=== PATIENT | female | born 1960 | race Hispanic/Latino ===

== ENCOUNTER 2017-10-13 06:29 | Inpatient (IN) | payer OTHER ==
--- OUTSIDE RECORDS SUMMARY | 2017-10-13 06:32 | XMS REPORT | Clinical Summary ---
:1960 Author Organization [facility] Address [address] [place] [address] Phone Care Team Providers Name Role Phone Unavailable Primary Care Provider Unavailable Allergies No Known Allergies Current Medications Prescription Sig. Disp. Refills Start End Date Status Date pantoprazole Take 40 mg by Active (PROTONIX) 40 MG mouth daily. tablet rifAXIMin 550 mg Take 550 mg by Active Tab mouth 2 (two) times daily. montelukast Take 10 mg by Active (SINGULAIR) 10 mg mouth nightly. tablet albuterol HFA Inhale 1 puff by Active (VENTOLIN HFA) 90 mouth via inhaler mcg/actuation 2 (two) times inhaler daily as needed for Shortness of Breath. folic acid Take 1 tablet (1 30 tablet 0 09/06/19 Active (FOLVITE) 1 MG mg total) by mouth 8 19 tablet daily. lactulose Take 45 mLs (30 g 1000 mL 0 Active (CHRONULAC) 10 total) by mouth 3 8 gram/15 mL (15 mL) (three) times solution daily. magnesium oxide Take 1 tablet (400 15 tablet 0 09/06/19 Active (MAG-OX) 400 mg mg total) by mouth 8 19 tablet daily. spironolactone Take 1 tablet (50 90 tablet 0 Active (ALDACTONE) 50 MG mg total) by mouth 8 tablet daily. ferrous sulfate 325 Take 1 tablet (325 90 tablet 0 09/05/19 Active (65 FE) MG EC mg total) by mouth 8 19 tablet 3 (three) times daily with meals. furosemide (LASIX) Take 1 tablet (40 180 tablet 0 03/05/201 03/05/20 Active 40 MG tablet mg total) by mouth 8 19 2 (two) times daily. carvedilol (COREG) Take 6.25 mg by 09/05/19 Discontinued 6.25 MG tablet mouth 2 (two) 18 times daily with breakfast and dinner. ciprofloxacin HCl Take 500 mg by 09/05/19 Discontinued (CIPRO) 500 MG mouth daily. 18 tablet lactulose Take 20 g by mouth 09/05/19 Discontinued (CHRONULAC) 10 3 (three) times 18 gram/15 mL (15 mL) daily. solution spironolactone Take 25 mg by 09/05/19 Discontinued (ALDACTONE) 25 MG mouth daily. 18 tablet midodrine Take 1 tablet (5 90 tablet 0 10/05/19 (PROAMATINE) 5 MG mg total) by mouth 8 18 tablet 3 (three) times daily for 30 days. epoetin mauricio Inject 1 mL 12 mL 0 10/05/19 (EPOGEN,PROCRIT) (10,000 Units 8 18 10,000 unit/mL total) injectionIndication subcutaneously 3 s: Anemia (three) times a week at bedtime for 30 days. Active Problems Problem Noted Date Abnormal liver enzymes 10/05/2017 Portal hypertension (HCC) 10/05/2017 Other ascites 10/05/2017 Metabolic syndrome 10/05/2017 Cancer screening 10/05/2017 Immunity status testing 10/05/2017 Acute respiratory failure with hypoxia (HCC) 08/30/2017 Portal hypertensive gastropathy (HCC) 08/30/2017 Refusal of blood transfusions as patient is Anabaptism 08/28/2017 Metabolic acidosis 08/28/2017 Weak 08/28/2017 Alcoholic cirrhosis of liver with ascites (HCC) 08/26/2017 Hepatic encephalopathy (HCC) 08/26/2017 Anasarca 08/26/2017 FLORIDALMA (acute kidney injury) (HCC) 08/26/2017 Anemia 08/26/2017 Encounters Date Type Specialty Care Team Description 10/05/2017 Office Visit Hepatology Marielena, Alcoholic cirrhosis Riu Tovar, of liver with MD ascites (HCC) Erin Cao (Primary Dx);Hepatic ARTEM Marti encephalopathy (HCC);Abnormal liver enzymes;Portal hypertension (HCC);Other ascites;Metabolic syndrome;Cancer screening;Immunity status testing 08/30/2017 Anesthesia Event Gastroenterology Reece Schmitt MD 08/30/2017 Procedure Pass Gastroenterology 08/30/2017 Surgery Gastroenterology Antione, UPPER ENDOSCOPY Amaris Herman MD 08/26/2017 [facility] Internal Wenceslao Salazar Hepatic - Encounter Medicine MD Yoseph encephalopathy (HCC) 09/04/2017 Betty, (Primary Dx);FLORIDALMA Kaia Ashby MD (acute kidney Ramesh, injury) MD Sebastien (HCC);Alcoholic Risa Walton, cirrhosis of liver with ascites (HCC);Anasarca;Iron deficiency anemia, unspecified iron deficiency anemia type;Splenic pancytopenia syndrome (HCC);Thrombocytopen ia (HCC);Coagulopathy (HCC);Refusal of blood transfusions as patient is Anabaptism 08/26/2017 Orders Only Internal Medicine Wenceslao Salazar MD after 10/12/2016 Social History Tobacco Use Types Packs/Day Years Used Date Former Smoker Smokeless Tobacco: Former User Alcohol Use Drinks/Week oz/Week Comments Yes 2 Glasses of wine 2.4 1 Cans of beer 1 Shots of liquor Sex Assigned at Date Recorded Not on file Last Filed Vital Signs Vital Sign Reading Time Taken Blood Pressure 145/75 10/05/2017 10:15 AM CDT Pulse 73 10/05/2017 10:15 AM CDT Temperature 36.9 C (98.4 F) 10/05/2017 10:15 AM CDT Respiratory Rate 18 10/05/2017 10:15 AM CDT Oxygen Saturation 99% 10/05/2017 10:15 AM CDT Inhaled Oxygen Concentration - - Weight 82.3 kg (181 lb 8 oz) 10/05/2017 10:15 AM CDT Height 153.7 cm (5' 0.5") 10/05/2017 10:15 AM CDT Body Mass Index 34.86 10/05/2017 10:15 AM CDT Plan of Treatment Not on file Procedures Procedure Name Priority Date/Time Associated Diagnosis Comments UPPER ENDOSCOPY 08/30/2017 8:00 AM OCEAN BIOLOGIST ANEMIA after 10/12/2016 Results RHYTHM STRIP - SCAN (09/06/2017 12:40 PM)Manual Differential (09/01/2017 8:59 AM)Only the most recent of2 resultswithin the time period is included. Component Value Ref Range % Neutros (manual) 49 % % Lymphs (manual) 28 % % Monos (manual) 14 % % Eos (manual) 6 % % Myelo (manual) 1 (H) 0 - 0 % % Bands (manual) 2 0 - 10 % # Neutros (manual) 2.06 1.80 - 8.00 K/L # Lymphs (manual) 1.18 (L) 1.48 - 4.50 K/L # Monos (manual) 0.59 0.00 - 1.30 K/L # Eos (manual) 0.25 0.00 - 0.50 K/L # Bands (manual) 0.1 0.0 - 0.8 K/L # Myelo (manual) 0.04 (H) 0.00 - 0.00 K/L Total Counted 100 Bands plus Segmented Neutrophils 2.14 WBC Morphology Normal Platelet Morphology Normal Polychromasia 1+ few Specimen Performing Laboratory Blood - Line, Venous [facility] [address] [address] CBC with platelet count + automated diff (09/01/2017 8:59 AM)Only the most recent of5 resultswithin the time period is included. Component Value Ref Range WBC 4.2 3.5 - 10.5 K/L RBC 1.52 (L) 3.93 - 5.22 M/L Hemoglobin 5.6 (LL) 11.2 - 15.7 GM/DL Hematocrit 17.8 (L) 34.1 - 44.9 % MCV 117.1 (H) 79.4 - 94.8 fL MCH 36.8 (H) 25.6 - 32.2 pg MCHC 31.5 (L) 32.2 - 35.5 GM/DL RDW 17.2 (H) 11.7 - 14.4 % Platelets 71 (L) 150 - 450 K/CU MM MPV 10.1 9.4 - 12.3 fL nRBC 1 (H) 0 - 0 /100 WBC % Neutros 51 % % Lymphs 23 % % Monos 16 % % Eos 6 % % Baso 1 % # Neutros 2.16 1.56 - 6.13 K/L # Lymphs 0.97 (L) 1.18 - 3.74 K/L # Monos 0.67 (H) 0.24 - 0.36 K/L # Eos 0.27 0.04 - 0.36 K/L # Baso 0.03 0.01 - 0.08 K/L Immature Granulocytes-Relative 2 (H) 0 - 1 % Specimen Performing Laboratory Blood - Line, [address] [address] Reticulocyte count (09/01/2017 8:59 AM)Only the most recent of2 resultswithin the time period is included. Component Value Ref Range % Retic 9.2 (H) 0.5 - 1.7 % Specimen Performing Laboratory Blood - Line, [address] [address] CBC with platelet count + automated diff (09/01/2017 8:59 AM)Only the most recent of5 resultswithin the time period is included. Specimen Performing Laboratory Blood Narrative The following orders were created for panel order CBC with platelet count + automated diff. Procedure Abnormality Status --------- ------ CBC with platelet count ...[[id number]]AbnormalFinal result Manual Differential[[id number]]Abnormal Final result Please view results for these tests on the individual orders. Magnesium (09/01/2017 8:59 AM)Only the most recent of2 resultswithin the time period is included. Component Value Ref Range Magnesium 1.4 (L) 1.6 - 2.6 mg/dL Specimen Performing Laboratory Blood - Line, [address] [address] Comprehensive metabolic panel (09/01/2017 8:59 AM)Only the most recent of2 resultswithin the time period is included. Component Value Ref Range Protein, Total 4.9 (L) 6.0 - 8.3 gm/dL Albumin 2.9 (L) 3.5 - 5.0 g/dL Alkaline Phosphatase 102 40 - 150 U/L Total Bilirubin 5.1 (H) 0.2 - 1.2 mg/dL Sodium 136 136 - 145 meq/L Potassium 3.7 3.5 - 5.1 meq/L Chloride 108 (H) 98 - 107 meq/L CO2 22 22 - 29 meq/L BUN 30 (H) 7 - 21 mg/dL Creatinine 1.22 0.57 - 1.25 mg/dL Glucose 101 70 - 105 mg/dL Calcium 8.4 8.4 - 10.2 mg/dL AST 41 (H) 5 - 34 U/L ALT 22 6 - 55 U/L EGFR Comment: INSUFFICIENT CLINICAL DATA TO mL/min/1.73 sq m CALCULATE ESTIMATED GFR. Specimen Performing Laboratory Blood - Line, Venous [address] [address] Narrative Specimen moderately icteric Erythropoietin (08/31/2017 12:04 PM) Component Value Ref Range Erythropoietin 258.8 (H) 2.6 - 18.5 mIU/mL Specimen Performing Laboratory Blood - Arm, Right [facility] [address] [place] [address] Narrative Performing Lab EZ [facility] [id number] [place] [id number] Christie Coronel MD, PhD ECHOCARDIOGRAM REPORT - SCAN (08/31/2017 7:22 AM)Prothrombin time/INR (2017 11:43 AM)Only the most recent of4 resultswithin the time period is included. Component Value Ref Range Protime 29.7 (H) 11.7 - 14.7 seconds INR 2.8 <=5.9 Specimen Performing Laboratory Blood [address] [address] Narrative RECOMMENDED COUMADIN/WARFARIN INR THERAPY RANGES STANDARD DOSE: 2.0 - 3.0 Includes: PROPHYLAXIS for venous thrombosis, systemic embolization; TREATMENT for venous thrombosis and/or pulmonary embolus. HIGH RISK: Target INR is 2.5-3.5 for patients with mechanical heart valves. Fibrinogen (08/30/2017 11:43 AM) Component Value Ref Range Fibrinogen 94 (LL) 225 - 434 mg/dl Specimen Performing Laboratory Blood [address] [address] Basic Metabolic Panel (08/30/2017 11:43 AM)Only the most recent of3 resultswithin the time period is included. Component Value Ref Range Sodium 139 136 - 145 meq/L Potassium 4.2 3.5 - 5.1 meq/L Chloride 111 (H) 98 - 107 meq/L CO2 17 (L) 22 - 29 meq/L BUN 36 (H) 7 - 21 mg/dL Creatinine 1.33 (H) 0.57 - 1.25 mg/dL Glucose 138 (H) 70 - 105 mg/dL Calcium 8.7 8.4 - 10.2 mg/dL EGFR Comment: INSUFFICIENT CLINICAL DATA TO CALCULATE mL/min/1.73 sq m ESTIMATED GFR. Specimen Performing Laboratory Blood [facility] [address] [address] Narrative Specimen moderately icteric 2D Echo W/Doppler(CW/PW/Color) (08/30/2017 9:36 AM) Component Value Ref Range Ejection Fraction Specimen Performing Laboratory [facility] ECHO [facility] Narrative Transthoracic Echocardiography Report (TTE) Demographics Patient Name HEATHER LOVE Date of Study 08/30/2017 DIONISIO [id number] GenderFemale Visit Number [id number] Race Unknown [id number] Number [id number] Number Date of Birth1960 Referring Physician James Silvestre MD Age56 year(s) Humidifier Attendant Jarrod Bloom, [facility] [[email or web address]] AnalysLou Armijo,Interpreting Melva Woods, [facility] Physician Procedure Type of Study TTE procedure:2DECHO W DOPPLER(CW/PW/COLOR) (Routine) Indications:Known or suspected heart failure. Clinical History ALCOHOLIC, CIRRHOSIS, HTN, ANEMIA, OBESITY HGB 6.0 HCT 18.4 Height: 60 inches Weight: 120.2 kg (265 lbs) BSA: 2.1 m^2 BMI: 51.75 kg/m^2 HR: 62 bpm BP: 123/61 mmHg Summary 1. All of the LV segments contract normally . Estimated LVEF by qualitative assessment is normal (55-60%) . 2. Grade 2 diastolic dysfunction (moderately increased LA pressure). Estimated peak systolic PA pressure is 45-50 mmHg + RA pressure. 3. The right ventricular chamber size and systolic function are within normal limits Previous Study No prior exam available for comparison. Signature Findings Technical Quality: Technically adequate exam. Left Ventricle The left ventricle is chamber size (by vol index) is normal (female - LVED vol - 29-61ml/m2). No evidence of LV hypertrophy. All of the LV segments contract normally . Global LV systolic function normal . Estimated LVEF by qualitative assessment is normal (55-60%) . Grade 2 diastolic dysfunction (moderately increased LA pressure). Increased (cardiac index 3.5- 4.0 L/min/m2) cardiac output state at rest is noted. Left AtriumLA size is severely enlarged (>48 ml/m2 ) . Right VentricleThe right ventricular chamber size and systolic function are within normal limits. Right Atrium RA cavity size is normal . Aortic Valve Mild AoV cusp calcification. No evidence of aortic regurgitation. Mitral Valve Mild mitral annular calcification. Mild MV leaflet thickening. Tricuspid ValveTV structure is normal. Mild tricuspid regurgitation. Estimated peak systolic PA pressure is 45-50 mmHg + RA pressure. AortaAortic root size (SInus of Valsalva diameter) is normal . PericardiumA small pericardial effusion is present . IVC/SVC/PA/PV/PleuralThe inferior vena cava is not well visualized. The inferior vena cava size is indeterminate . The estimated RA pressure by IVC dynamics indeterminate . Chambers/Structures Left Atrium LA Volume: 105.34 mlLA Area: 29.02 cm^ 2 LA Vol. Index: 50 ml/m^2 Left Ventricle LVIDd: 4.59 cm LVIDs: 2.72 cm LV Septum Diastolic: 1.16 cm LV PW Diastolic: 1.23 cmLV FS: 40.7 % LVEDV Dolan's:127.92 ml LVEDVI: 61 ml/m^2 LVOT Diameter: 2.17 cm Aorta Ao Root S of Hayley.: 2.66 cm Doppler/Quantitative Measurements Mitral Valve MV Peak E-Wave: 1.49 m/s MV Peak A-Wave: 1.21 m/s E/A Ratio: 1.23 Peak Gradient: 8.93 mmHg Deceleration Time: 164.5 msec MV David. Peak: Aortic Valve Peak Velocity: 1.95 m/s Mean Velocity: 1.25 m/s Peak Gradient: 15.17 mmHg Mean Gradient: 7.2 mmHg AV Area (continuity): 2.62 cm^2 AV VTI: 48.16 cm AV DVI: 0.71 LVOT Peak Velocity: 1.43 m/s Peak Gradient: 8.16 mmHg Mean Velocity: 0.86 m/s Mean Gradient: 3.47 mmHg LVOT Diameter: 2.17 cmLVOT VTI: 34.11 cm LVOT Area: 3.7 cm^2 LVOT SV:126.09 ml LVOT CO: 7.82 l/min LVOT CI: 3.72 l/min/m^2 Tricuspid Valve TR Velocity: 3.49 m/s TR Gradient: 48.86 mmHg Procedure Note Interface, External Ris In - 08/30/2017 9:01 PM OCEAN BIOLOGIST Transthoracic Echocardiography Report (TTE) Demographics Patient Name HEATHER LOVE Date of Study 08/30/2017 DIONISIO Gender Female Visit Number [id number] Race Unknown Room Number 709 Number Date of 1960 Referring Physician James Silvestre MD Age 56 year(s) Humidifier Attendant Jarrod Bloom, [facility] [[email or web address]] Ict Systems Test Engineer Saira Armijo, Interpreting Melva Woods, [facility] Physician Procedure Type of Study TTE procedure:2DECHO W DOPPLER(CW/PW/COLOR) (Routine) Indications:Known or suspected heart failure. Clinical History ALCOHOLIC, CIRRHOSIS, HTN, ANEMIA, OBESITY HGB 6.0 HCT 18.4 Height: 60 inches Weight: 120.2 kg (265 lbs) BSA: 2.1 m^2 BMI: 51.75 kg/m^2 HR: 62 bpm BP: 123/61 mmHg Summary 1. All of the LV segments contract normally . Estimated LVEF by qualitative assessment is normal (55-60%) . 2. Grade 2 diastolic dysfunction (moderately increased LA pressure). Estimated peak systolic PA pressure is 45-50 mmHg + RA pressure. 3. The right ventricular chamber size and systolic function are within normal limits Previous Study No prior exam available for comparison. Signature Findings Technical Quality: Technically adequate exam. Left Ventricle The left ventricle is chamber size (by vol index) is normal (female - LVED vol - 29-61ml/m2). No evidence of LV hypertrophy. All of the LV segments contract normally . Global LV systolic function normal . Estimated LVEF by qualitative assessment is normal (55-60%) . Grade 2 diastolic dysfunction (moderately increased LA pressure). Increased (cardiac index 3.5-4.0 L/min/m2) cardiac output state at rest is noted. Left Atrium LA size is severely enlarged (>48 ml/m2) . Right Ventricle The right ventricular chamber size and systolic function are within normal limits. Right Atrium RA cavity size is normal . Aortic Valve Mild AoV cusp calcification. No evidence of aortic regurgitation. Mitral Valve Mild mitral annular calcification. Mild MV leaflet thickening. Tricuspid Valve TV structure is normal. Mild tricuspid regurgitation. Estimated peak systolic PA pressure is 45-50 mmHg + RA pressure. Aorta Aortic root size (SInus of Valsalva diameter) is normal . Pericardium A small pericardial effusion is present . IVC/SVC/PA/PV/Pleural The inferior vena cava is not well visualized. The inferior vena cava size is indeterminate . The estimated RA pressure by IVC dynamics indeterminate . Chambers/Structures Left Atrium LA Volume: 105.34 ml LA Area: 29.02 cm^2 LA Vol. Index: 50 ml/m^2 Left Ventricle LVIDd: 4.59 cm LVIDs: 2.72 cm LV Septum Diastolic: 1.16 cm LV PW Diastolic: 1.23 cm LV FS: 40.7 % LVEDV Dolan's:127.92 ml LVEDVI: 61 ml/m^2 LVOT Diameter: 2.17 cm Aorta Ao Root S of Hayley.: 2.66 cm Doppler/Quantitative Measurements Mitral Valve MV Peak E-Wave: 1.49 m/s MV Peak A-Wave: 1.21 m/s E/A Ratio: 1.23 Peak Gradient: 8.93 mmHg Deceleration Time: 164.5 msec MV David. Peak: Aortic Valve Peak Velocity: 1.95 m/s Mean Velocity: 1.25 m/s Peak Gradient: 15.17 mmHg Mean Gradient: 7.2 mmHg AV Area (continuity): 2.62 cm^2 AV VTI: 48.16 cm AV DVI: 0.71 LVOT Peak Velocity: 1.43 m/s Peak Gradient: 8.16 mmHg Mean Velocity: 0.86 m/s Mean Gradient: 3.47 mmHg LVOT Diameter: 2.17 cm LVOT VTI: 34.11 cm LVOT Area: 3.7 cm^2 LVOT SV:126.09 ml LVOT CO: 7.82 l/min LVOT CI: 3.72 l/min/m^2 Tricuspid Valve TR Velocity: 3.49 m/s TR Gradient: 48.86 mmHg REPORT OF PROCEDURE - ENDOSCOPY URL (08/30/2017 8:13 AM)US abdominal with doppler (08/29/2017 7:02 PM) Specimen Performing Laboratory [employer] [address] [employer] FINAL REPORT HISTORY : Cirrhosis COMPARISON : None COMMENT : Complete ultrasound examination of the abdomen with color Doppler and spectral evaluation of the abdominal vasculature was performed. The liver is heterogeneous and nodular in echo-texture without evidence of a focal mass. The patient is status post cholecystectomy. The biliary tract is within normal limits with the common bile duct measuring 6 mm in maximum diameter.The visualized portions of the pancreas are within normal limits. The spleen size is at the upper limits of normal measuring 12.7 x 4.5 x 3.7 cm. The right kidney measures 11.0 x 5.1 x 5.3 cm and the left kidney 11.7 x 5.0 x 5.3 cm in maximum size. There is no evidence of cysts, masses, stones or hydronephrosis. No pleural effusion is visualized. There is a small amount of abdominal ascites in the right upper quadrant of the abdomen. The abdominal aorta measures to a maximum of 2.4 cm. The main portal vein demonstrates hepatopetal flow and measures 0.8 cm in diameter with a peak systolic velocity of 0.22 m/s. The right portal vein demonstrates hepatopetal flow. No thrombus is identified in the visualized portal veins. Of note, the left portal vein was unable to be visualized due to shadowing bowel gas. The resistive index of the proper hepatic artery is 0.84 with an acceleration time of 0.04 sec. The resistive index of the right hepatic artery is 0.83. The left hepatic artery was unable to be visualized. The visualized IVC, hepatic and splenic veins are patent with appropriate directional flow. IMPRESSION : 1. Cirrhotic morphology of the liver. 2. Small amount of abdominal ascites, predominantly in the right upper quadrant of the abdomen. 3. Nonvisualization of the left portal vein and left hepatic artery due to shadowing bowel gas, precluding evaluation. 4. Nonspecifically elevated resistive indices of the proper and right hepatic arteries. The remainder of the Doppler examination of the visualized abdominal/hepatic vasculature is within normal limits. Signed: Khalif Thompson MD Report Verified Date/Time:08/29/2017 20:26:57 Reading Location: [address] Consult Reading Room Procedure Note Interface, External Ris In - 08/29/2017 8:29 PM OCEAN BIOLOGIST FINAL REPORT HISTORY : Cirrhosis COMPARISON : None COMMENT : Complete ultrasound examination of the abdomen with color Doppler and spectral evaluation of the abdominal vasculature was performed. The liver is heterogeneous and nodular in echo-texture without evidence of a focal mass. The patient is status post cholecystectomy. The biliary tract is within normal limits with the common bile duct measuring 6 mm in maximum diameter. The visualized portions of the pancreas are within normal limits. The spleen size is at the upper limits of normal measuring 12.7 x 4.5 x 3.7 cm. The right kidney measures 11.0 x 5.1 x 5.3 cm and the left kidney 11.7 x 5.0 x 5.3 cm in maximum size. There is no evidence of cysts, masses, stones or hydronephrosis. No pleural effusion is visualized. There is a small amount of abdominal ascites in the right upper quadrant of the abdomen. The abdominal aorta measures to a maximum of 2.4 cm. The main portal vein demonstrates hepatopetal flow and measures 0.8 cm in diameter with a peak systolic velocity of 0.22 m/s. The right portal vein demonstrates hepatopetal flow. No thrombus is identified in the visualized portal veins. Of note, the left portal vein was unable to be visualized due to shadowing bowel gas. The resistive index of the proper hepatic artery is 0.84 with an acceleration time of 0.04 sec. The resistive index of the right hepatic artery is 0.83. The left hepatic artery was unable to be visualized. The visualized IVC, hepatic and splenic veins are patent with appropriate directional flow. IMPRESSION : 1. Cirrhotic morphology of the liver. 2. Small amount of abdominal ascites, predominantly in the right upper quadrant of the abdomen. 3. Nonvisualization of the left portal vein and left hepatic artery due to shadowing bowel gas, precluding evaluation. 4. Nonspecifically elevated resistive indices of the proper and right hepatic arteries. The remainder of the Doppler examination of the visualized abdominal/hepatic vasculature is within normal limits. Signed: Khalif Thompson MD Report Verified Date/Time: 08/29/2017 20:26:57 Reading Location: [facility] C013[facility] Consult Reading Room chest 1 view portable / bedside (08/28/2017 6:49 PM)Only the most recent of2 resultswithin the time period is included. Specimen Performing Laboratory RIS Narrative FINAL REPORT RAD, CHEST, 1 VIEW, NON DEPT INDICATION: SOB COMPARISON: Prior day's exam FINDINGS: Portable frontal view of the chest. IMPRESSION: Underinflated lungs with increasing coarsened interstitial markings suggesting subsegmental atelectasis and likely some degree of edema given the central vascular congestion. Cardiac size remains prominent. The aortic caliber is normal. There is no acute osseous abnormality. Signed: JR Valentino Robert MD Report Verified Date/Time:08/28/2017 21:28:23 Reading Location: [facility] B1 C013Y CT Body Reading Room Procedure Note Interface, External Ris In - 08/28/2017 9:30 PM OCEAN BIOLOGIST FINAL REPORT RAD, CHEST, 1 VIEW, NON DEPT INDICATION: SOB COMPARISON: Prior day's exam FINDINGS: Portable frontal view of the chest. IMPRESSION: Underinflated lungs with increasing coarsened interstitial markings suggesting subsegmental atelectasis and likely some degree of edema given the central vascular congestion. Cardiac size remains prominent. The aortic caliber is normal. There is no acute osseous abnormality. Signed: JR Chicho, Lizett ANN Report Verified Date/Time: 08/28/2017 21:28:23 Reading Location: [facility] C013Y CT Body Reading Room 12 lead (08/28/2017 4:50 PM) Specimen Performing Laboratory [employer] M[facility] Narrative Ventricular Rate 63 BPM Atrial Rate 63 BPM P-R Interval 168 ms QRS Duration 88 ms Q-T Interval 398 ms QTC Calculation(Bazett) 407 ms P [place] 7 degrees R [place] 31 degrees T [place] 34 degrees Normal sinus rhythm Low voltage QRS Cannot rule out Anterior infarct , age undetermined Abnormal ECG No previous ECGs available Confirmed by MD FRANCE, IHAB ([id number]) on 08/28/2017 9:31:44 PM Procedure Note Interface, External Ris In - 08/28/2017 9:31 PM OCEAN BIOLOGIST Ventricular Rate 63 BPM Atrial Rate 63 BPM P-R Interval 168 ms QRS Duration 88 ms Q-T Interval 398 ms QTC Calculation(Bazett) 407 ms P [place] 7 degrees R [place] 31 degrees T [place] 34 degrees Normal sinus rhythm Low voltage QRS Cannot rule out Anterior infarct , age undetermined Abnormal ECG No previous ECGs available Confirmed by MD FRANCE, IHAB ([id number]) on 08/28/2017 9:31:44 PM C-Reactive Protein (08/28/2017 12:23 PM) Component Value Ref Range CRP 0.42 0.00 - 0.50 mg/dL Specimen Performing Laboratory Blood [address] [address] Sedimentation rate (08/28/2017 12:23 PM) Component Value Ref Range Sed Rate 18 0 - 30 mm/HR Specimen Performing Laboratory Blood [address] [address] Hepatic function panel (08/28/2017 12:23 PM)Only the most recent of2 resultswithin the time period is included. Component Value Ref Range Protein, Total 5.5 (L) 6.0 - 8.3 gm/dL Albumin 3.5 3.5 - 5.0 g/dL Total Bilirubin 5.6 (H) 0.2 - 1.2 mg/dL Bilirubin, Direct 2.4 (H) 0.1 - 0.5 mg/dL Alkaline Phosphatase 96 40 - 150 U/L AST 47 (H) 5 - 34 U/L ALT 26 6 - 55 U/L Specimen Performing Laboratory Blood [address] [address] Narrative Specimen moderately icteric Blood culture (08/28/2017 11:41 AM)Only the most recent of2 resultswithin the time period is included. Component Value Ref Range Result No growth in 5 days Specimen Performing Laboratory Blood - Arm, Right [address] [address] Hepatitis A antibody, IgG (08/28/2017 1:02 AM) Component Value Ref Range Hep A IgG Reactive (A) Nonreactive Specimen Performing Laboratory Blood - Arm, Right [address] [address] Anti-Mitochondrial Ab, reflex to titer (08/28/2017 1:02 AM) Component Value Ref Range Scan Result Specimen Performing Laboratory Blood - Arm, Right [address] [address] Alpha-1 antitrypsin Mutation Analysis (08/28/2017 1:02 AM) Component Value Ref Range A1 Antitrypsin Mut SEE BELOW Comment: RESULT: NO MUTATION DETECTED Interpretation: DNA testing indicates that this individual is negative for the PI*Z and PI*S alleles in the wbsmd-7-spnruczvsxi (PI) gene (genotype PI*M/PI*M). This negative result does not rule out the presence of other mutations within the PI gene or other causes of esycf-0-aufvrnbovqw deficiency. Therefore, these results should be interpreted in the context of the individual's clinical presentation, and other laboratory tests such as measurement of serum owcrd-7-yzgqilthqmq levels. Laboratory results and submitted clinical information reviewed by Clarice Scott, Ph.D., AMARA, MACKENZIE, CGRUDYs. Ehahn-3-zkrscaootqa deficiency is a relatively common autosomal recessive condition. The two most common deficiency alleles in the lbiph-1-fmqsmlqpnzt gene (protease inhibitor locus, PI) are designated PI*Z and PI*S, and the normal allele is designated PI*M. The PI*Z/PI*Z, PI*S/PI*Z, and PI*S/PI*S genotypes associated with decreased serum PI levels that are equivalent to approximately 10-20%, 35-40%, and 50-60% of normal, respectively. The PI*Z/PI*Z and PI*S/PI*Z genotypes are reported to be associated with an increased risk of liver disease in childhood, and chronic obstructive pulmonary disease (COPD) and emphysema in adult life. The PI*M/PI*Z, and PI*M/PI*S genotypes are also associated with decreased serum PI levels but these levels, and the PI levels associated with the PI*S/PI*S genotype, are apparently adequate to protect the lungs in the vast majority of individuals. Individuals with the PI*M/PI*Z genotype may have decreased pulmonary function, and may be at increased risk for COPD, especially if they smoke. It should be noted that serum hqwfx-6-wqpgyeqdsjy levels can be induced by a wide variety of conditions that include , infection, numerous inflammatory conditions, cancer, and liver disease. Levels of oxcxi-4-ohwuqoypzob may be reduced by other conditions. Therefore, immunological and functional determinations of serum knubi-8-lnfurpqqsxy levels may not correlate with the individual's PI genotype. The PI*Z, PI*S, and PI*M alleles are detected by multiplex polymerase chain reaction (PCR) amplification of specific regions of the PI gene, followed by restriction enzyme digestion and capillary electrophoresis. This assay does not test for the presence of other mutations within the cazbx-1-huqwxxopvoi gene or non-genetic causes of ihutw-8-illthngfcla deficiency. Since genetic variation and other factors can affect the accuracy of direct mutation testing, these results should be interpreted in light of clinical and familial data. This test was developed and its analytical performance characteristics have been determined by [facility]. It has not been cleared or approved by FDA. This assay has been validated pursuant to the CLIA regulations and is used for clinical purposes. Clinical Indication NOT GIVEN Referring Physician NOT GIVEN Specimen Performing Laboratory Blood - Arm, Right [employer] [address] [address] Narrative Performing Lab [facility] [address] [address] Christie Coronel MD, PhD Vitamin B12 and Folate (08/28/2017 1:02 AM) Component Value Ref Range Vitamin B12 >2000 (H) 213 - 816 pg/mL Folate 8.2 >=7.0 ng/mL Specimen Performing Laboratory Blood - Arm, [address] [address] TSH/Free T4 If Indicated (08/28/2017 1:02 AM) Component Value Ref Range TSH 2.13 0.35 - 4.94 uIU/mL Specimen Performing Laboratory Blood - Arm, [address] [address] Actin (Smooth Muscle) Antibody, IgG (08/28/2017 1:02 AM) Component Value Ref Range Anti-Smooth Muscle Ab <20 See Note: U Comment: Reference Range: <20 NEGATIVE > OR=20 POSITIVE Antibodies recognizing actin are the main component of smooth muscle antibodies associated with autoimmune liver disease. Actin antibodies are found in approximately 75% of patients with autoimmune hepatitis (AIH) type 1, approximately 65% of patients with autoimmune cholangitis, approximately 30% of patients with primary biliary cirrhosis, and approximately 2% of healthy people. High values are closely correlated with AIH type 1. Specimen Performing Laboratory Blood - Arm, Right [facility] [address] [address] Narrative Performing Lab [facility] [address] [address] Christie Coronel MD, PhD Yhxrb-4-qeddtxcfpgk (08/28/2017 1:02 AM) Component Value Ref Range A-1 Antitrypsin 99.90 90.00 - 200.00 mg/dL Specimen Performing Laboratory Blood - Arm, [address] [address] FABIAN Titer & Pattern (08/28/2017 1:02 AM) Component Value Ref Range FABIAN Titer 1:160 FABIAN Pattern Nucleolar Specimen Performing Laboratory Blood - Arm, [address] [address] Ceruloplasmin (08/28/2017 1:02 AM) Component Value Ref Range Ceruloplasmin 14 (L) 18 - 53 mg/dL Comment: Adults:Males: 18-36 mg/dL Females: 18-53 mg/dL Pediatrics:Males (mg/dL)Females (mg/dL) 0-30 Days 8-25 3-28 31 Days-11 Month [id number] 1-3 [id number] 4-6 [id number] 7-9 [id number] 10-12 [id number] 13-15 [id number] 16-18 [id number] The pediatric ranges are derived from the following criteria: Debbie SJ, Woo HEREDIA, Heidi Soriano et al Pediatric reference ranges for Tukw-9-Wirxxcwenocnq and ceruloplasmin. Clin. Chem 1997; 43:S1999 Pediatric Reference Ranges, 2nd., [place] Debbieet al. editors. [employer], [place], [place] 1997. Specimen Performing Laboratory Blood - Arm, Right [facility] [id number] [place] [address] Narrative Performing Lab *[facility], [address] [place] [id number] Christie Coronel MD, PhD Anti-Nuclear Antibody (FABIAN) (08/28/2017 1:02 AM) Component Value Ref Range FABIAN Positive (A) Negative Specimen Performing Laboratory Blood - Arm, [address] [address] Ferritin (08/28/2017 1:02 AM) Component Value Ref Range Ferritin 861 (H) 5 - 275 ng/mL Specimen Performing Laboratory Blood - Arm, [address] [address] Sodium, random urine (08/27/2017 10:22 AM) Component Value Ref Range Sodium Urine <20 meq/L Specimen Performing Laboratory Urine - Urine, Clean Catch [address] [address] Narrative Reference Range: No Normals Protein, random urine (08/27/2017 10:22 AM) Component Value Ref Range Protein, Urine 8 0 - 14 mg/dL Specimen Performing Laboratory Urine - Urine, Clean Catch [address] [address] Creatinine, random urine (08/27/2017 10:22 AM) Component Value Ref Range Creatinine, Ur 135.7 mg/dL Specimen Performing Laboratory Urine - Urine, Clean Catch [address] [address] Narrative Reference Range: No Normals Peripheral Blood Smear - Hold only (08/27/2017 8:41 AM) Component Value Ref Range Peripheral Smear Save saved Specimen Performing Laboratory Blood [address] [address] Iron, TIBC, % sat. (without ferritin) (08/27/2017 8:41 AM) Component Value Ref Range Iron 141 40 - 160 ug/dL TIBC 141 (L) 250 - 450 ug/dL Iron % Saturation 100 (H) 20 - 55 % Specimen Performing Laboratory Blood [address] [address] Lactate dehydrogenase (LDH) (08/27/2017 8:41 AM) Component Value Ref Range LDH 318 (H) 125 - 220 U/L Specimen Performing Laboratory [address] [address] Urinalysis w/ Microscopic (08/26/2017 11:07 PM) Component Value Ref Range Color, UA Yellow Clarity, UA Hazy Specific [place], UA 1.011 1.001 - 1.035 pH, UA 5.5 5.0 - 8.0 Protein, UA Negative Negative Glucose, UA Negative Negative Ketones, UA Negative Negative Bilirubin, UA Negative Negative Blood, UA Moderate (A) Negative Nitrite, UA Negative Negative Leukocytes, UA Large (A) Negative Urobilinogen, UA 0.2 0.2 - 1.0 mg/dL RBC, UA 26 /HPF WBC, UA 49 /HPF Bacteria, UA Occasional Hyaline Casts, UA 63 /LPF Granular Casts, UA 3 /LPF Amorphous Crystals Few Specimen Source Urine, Torres Specimen Performing Laboratory Urine - Urine, Torres [address] [address] Urine culture (08/26/2017 11:07 PM) Component Value Ref Range Result No growth Specimen Performing Laboratory Urine - Urine, [address] [address] Phosphorus (08/26/2017 11:03 PM) Component Value Ref Range Phosphorus 5.5 (H) 2.3 - 4.7 mg/dL Specimen Performing Laboratory Blood - Arm, Right [address] [address] BCID (08/26/2017 11:02 PM) Component Value Ref Range Scan Result Specimen Performing Laboratory Blood [address] [address] Narrative Result comments: 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 Other organisms and resistance markers not contained in this PCR panel cannot be excluded and follow-up of traditional culture results is required. This sample was tested at the [facility] Clinical Microbiology Laboratory using the [employer] Blood Culture ID Panel. This test is FDA cleared for in vitro diagnostic use and has been verified and approved by the [facility] Clinical Microbiologylaboratory for clinical use. Reference Range: Not Detected after 10/12/2016
--- OUTSIDE RECORDS SUMMARY | 2017-10-13 06:32 | XMS REPORT ---
:1960 [facility] [address] Fan [address] [place] [id number] Care Team Providers Name Role Phone Kim PALMERMarlene DAPHNE Unavailable Unavailable Problems This patient has no known problems. Allergies, Adverse Reactions, Alerts This patient has no known allergies or adverse reactions. Medications This patient has no known medications. Results Test Description Test Time Test Comments Text Results Atomic Results Result Comments BLOOD CULTURE 2017-09-02 17:00:00 Test Item Value Reference Range Comments CULTURE (BEAKER) (test hmiu=6158) No growth in 5 days CBC W/PLT COUNT & AUTO [id number] 12:16:00 Test Item Value Reference Range Comments WHITE BLOOD CELL COUNT (BEAKER) (test pnhh=980) 4.2 K/ L 3.5-10.5 RED BLOOD CELL COUNT (BEAKER) (test jeqw=238) 1.52 M/ L 3.93-5.22 HEMOGLOBIN (BEAKER) (test vlfw=086) 5.6 GM/DL 11.2-15.7 HEMATOCRIT (BEAKER) (test ptgr=903) 17.8 % 34.1-44.9 MEAN CORPUSCULAR VOLUME (BEAKER) (test uvip=757) 117.1 fL 79.4-94.8 MEAN CORPUSCULAR HEMOGLOBIN (BEAKER) (test 36.8 pg 25.6-32.2 iuci=233) MEAN CORPUSCULAR HEMOGLOBIN CONC (BEAKER) (test 31.5 GM/DL 32.2-35.5 xzlp=402) RED CELL DISTRIBUTION WIDTH (BEAKER) (test 17.2 % 11.7-14.4 imfx=339) PLATELET COUNT (BEAKER) (test qyko=416) 71 K/CU MM 150-450 MEAN PLATELET VOLUME (BEAKER) (test dety=952) 10.1 fL 9.4-12.3 NUCLEATED RED BLOOD CELLS (BEAKER) (test 1 /100 WBC 0-0 aoyj=735) NEUTROPHILS RELATIVE PERCENT (BEAKER) (test 51 % pqsu=438) LYMPHOCYTES RELATIVE PERCENT (BEAKER) (test 23 % vzic=270) MONOCYTES RELATIVE PERCENT (BEAKER) (test 16 % pwjy=728) EOSINOPHILS RELATIVE PERCENT (BEAKER) (test 6 % eght=931) BASOPHILS RELATIVE PERCENT (BEAKER) (test 1 % kiiw=573) NEUTROPHILS ABSOLUTE COUNT (BEAKER) (test 2.16 K/ L 1.56-6.13 iixm=848) LYMPHOCYTES ABSOLUTE COUNT (BEAKER) (test 0.97 K/ L 1.18-3.74 haen=712) MONOCYTES ABSOLUTE COUNT (BEAKER) (test eoec=799) 0.67 K/ L 0.24-0.36 EOSINOPHILS ABSOLUTE COUNT (BEAKER) (test 0.27 K/ L 0.04-0.36 tgnb=746) BASOPHILS ABSOLUTE COUNT (BEAKER) (test xyyl=614) 0.03 K/ L 0.01-0.08 IMMATURE GRANULOCYTES-RELATIVE PERCENT (BEAKER) 2 % 0-1 (test ewgq=2682) (MANUAL DIFFERENTIAL)2017-09-01 12:16:00 Test Item Value Reference Range Comments NEUTROPHILS - REL (DIFF) (BEAKER) (test zjtk=7261) 49 % LYMPHOCYTES - REL (DIFF) (BEAKER) (test ocyi=6649) 28 % MONOCYTES - REL (DIFF) (BEAKER) (test dxju=9940) 14 % EOSINOPHILS - REL (DIFF) (BEAKER) (test hgeo=8241) 6 % MYELOCYTES-REL (DIFF) (BEAKER) (test bheg=8378) 1 % 0-0 BANDS - REL (DIFF) (BEAKER) (test ifto=5886) 2 % 0-10 NEUTROPHILS - ABS (DIFF) (BEAKER) (test dhks=7843) 2.06 K/ L 1.80-8.00 LYMPHOCYTES - ABS (DIFF) (BEAKER) (test mtcc=8067) 1.18 K/ L 1.48-4.50 MONOCYTES - ABS (DIFF) (BEAKER) (test byoj=7690) 0.59 K/ L 0.00-1.30 EOSINOPHILS - ABS (DIFF) (BEAKER) (test vbnx=5149) 0.25 K/ L 0.00-0.50 BANDS-ABS (DIFF) (BEAKER) (test kchf=5066) 0.1 K/ L 0.0-0.8 MYELOCYTES-ABS (DIFF) (BEAKER) (test cwqb=6004) 0.04 K/ L 0.00-0.00 TOTAL COUNTED (BEAKER) (test qzal=2050) 100 BANDS + SEGMENTED NEUTROPHILS (BEAKER) (test 2.14 vvdy=1714) WBC MORPHOLOGY (BEAKER) (test mvua=860) Normal PLT MORPHOLOGY (BEAKER) (test kdhi=513) Normal POLYCHROMATOPHILLIC RBCS(BEAKER) (test erqa=970) 1+ few ANTI-MITOCHONDRIAL AB, REFLEX TO [id number] 11:48:00 Test Item Value Reference Range Comments SCAN RESULT (test pqrb=[id number]) BLOOD [id number] 11:24:00 Test Item Value Reference Range Comments CULTURE (BEAKER) From Aerobic Bottle Only (test owuo=5478) Coagulase negative Staphylococcus GRAM STAIN RESULT From aerobic bottle (BEAKER) (test only: gram positive ptbu=6184) cocci in clusters Coagulase Negative Staphylococcus Species (CoNS) DETECTED, Methicillin Resistant First line therapy: Vancomycin Coagulase Negative Staphylococcus ( CoNS) DETECTEDmecA DETECTEDPossible contamination.Thelikelihood of pathogenicity is increased if the organism is observed in multiple blood cultures obtained from separate venipunctures. Other organisms and resistance markers not contained in this PCR panel cannot be excluded and follow-up of traditional culture results is required. This sample was tested at the [facility] Clinical Microbiology Laboratory using the FitWithMe Blood Culture ID Panel.This test is FDA cleared for in vitro diagnostic use and has been verified and approved by the [facility] for clinical use. Reference Range: Not DetectedRETICULOCYTE [id number] 10:27:00 Test Item Value Reference Range Comments RETICULOCYTE COUNT PCT (BEAKER) (test dcrd=019) 9.2 % 0.5-1.7 [id number] 10:12:00 Test Item Value Reference Range Comments MAGNESIUM (BEAKER) (test yqyp=048) 1.4 mg/dL 1.6-2.6 COMPREHENSIVE METABOLIC [id number] 10:12:00 Test Item Value Reference Range Comments TOTAL PROTEIN (BEAKER) 4.9 gm/dL 6.0-8.3 (test dsov=884) ALBUMIN (BEAKER) (test 2.9 g/dL 3.5-5.0 bvgn=8534) ALKALINE PHOSPHATASE 102 U/L 40-150 (BEAKER) (test nexk=141) BILIRUBIN TOTAL (BEAKER) 5.1 mg/dL 0.2-1.2 (test pnvh=844) SODIUM (BEAKER) (test 136 meq/L 136-145 sjly=050) POTASSIUM (BEAKER) (test 3.7 meq/L 3.5-5.1 polp=896) CHLORIDE (BEAKER) (test 108 meq/L 98-107 svtg=721) CO2 (BEAKER) (test 22 meq/L 22-29 nsdk=100) BLOOD UREA NITROGEN 30 mg/dL 7-21 (BEAKER) (test mrvj=614) CREATININE (BEAKER) (test 1.22 mg/dL 0.57-1.25 aaoy=656) GLUCOSE RANDOM (BEAKER) 101 mg/dL 70-105 (test djqt=052) CALCIUM (BEAKER) (test 8.4 mg/dL 8.4-10.2 dxsg=530) AST (SGOT) (BEAKER) (test 41 U/L 5-34 owck=440) ALT (SGPT) (BEAKER) (test 22 U/L 6-55 gvrw=623) EGFR (BEAKER) (test mL/min/1.73 sq m INSUFFICIENT CLINICAL DATA oqkh=4445) TO CALCULATE ESTIMATED GFR. Specimen [facility] ictericBASIC METABOLIC [id number] 13:48:00 Test Item Value Reference Range Comments SODIUM (BEAKER) (test 139 meq/L 136-145 gpfq=166) POTASSIUM (BEAKER) (test 4.2 meq/L 3.5-5.1 tdpu=959) CHLORIDE (BEAKER) (test 111 meq/L 98-107 pfka=945) CO2 (BEAKER) (test 17 meq/L 22-29 razk=826) BLOOD UREA NITROGEN 36 mg/dL 7-21 (BEAKER) (test lbma=240) CREATININE (BEAKER) (test 1.33 mg/dL 0.57-1.25 hgtn=886) GLUCOSE RANDOM (BEAKER) 138 mg/dL 70-105 (test sjfk=313) CALCIUM (BEAKER) (test 8.7 mg/dL 8.4-10.2 qesg=343) EGFR (BEAKER) (test mL/min/1.73 sq m INSUFFICIENT CLINICAL DATA mnly=0214) TO CALCULATE ESTIMATED GFR. Specimen moderately ictericCBC W/PLT COUNT & AUTO [id number] 13: 39:00 Test Item Value Reference Range Comments WHITE BLOOD CELL COUNT (BEAKER) (test hzjo=159) 6.4 K/ L 3.5-10.5 RED BLOOD CELL COUNT (BEAKER) (test gfkr=002) 1.53 M/ L 3.93-5.22 HEMOGLOBIN (BEAKER) (test cujt=305) 5.5 GM/DL 11.2-15.7 HEMATOCRIT (BEAKER) (test ayad=337) 18.1 % 34.1-44.9 MEAN CORPUSCULAR VOLUME (BEAKER) (test xafi=200) 118.3 fL 79.4-94.8 MEAN CORPUSCULAR HEMOGLOBIN (BEAKER) (test 35.9 pg 25.6-32.2 ilxw=478) MEAN CORPUSCULAR HEMOGLOBIN CONC (BEAKER) (test 30.4 GM/DL 32.2-35.5 eawg=569) RED CELL DISTRIBUTION WIDTH (BEAKER) (test 15.6 % 11.7-14.4 dsxn=149) PLATELET COUNT (BEAKER) (test khub=895) 81 K/CU MM 150-450 MEAN PLATELET VOLUME (BEAKER) (test wdwg=214) 9.8 fL 9.4-12.3 NUCLEATED RED BLOOD CELLS (BEAKER) (test 1 /100 WBC 0-0 ujlu=684) IMMATURE GRANULOCYTES-RELATIVE PERCENT (BEAKER) 4 % 0-1 (test nupk=1337) (MANUAL DIFFERENTIAL)2017-08-30 13:39:00 Test Item Value Reference Range Comments NEUTROPHILS - REL (DIFF) (BEAKER) (test tajs=8324) 55 % LYMPHOCYTES - REL (DIFF) (BEAKER) (test tzye=8442) 16 % MONOCYTES - REL (DIFF) (BEAKER) (test tehq=4453) 15 % EOSINOPHILS - REL (DIFF) (BEAKER) (test ilzz=7150) 8 % BASOPHILS - REL (DIFF) (BEAKER) (test bcrx=0984) 1 % METAMYELOCYTES-REL (DIFF) (BEAKER) (test djgu=064) 1 % 0-0 MYELOCYTES-REL (DIFF) (BEAKER) (test dwoc=9498) 4 % 0-0 NEUTROPHILS - ABS (DIFF) (BEAKER) (test vsub=9801) 3.52 K/ L 1.80-8.00 LYMPHOCYTES - ABS (DIFF) (BEAKER) (test crmr=8745) 1.02 K/ L 1.48-4.50 MONOCYTES - ABS (DIFF) (BEAKER) (test ofmf=4775) 0.96 K/ L 0.00-1.30 EOSINOPHILS - ABS (DIFF) (BEAKER) (test csdm=0137) 0.51 K/ L 0.00-0.50 BASOPHILS - ABS (DIFF) (BEAKER) (test cvga=0054) 0.06 K/ L 0.00-0.20 METAMYELOCTYES - ABS (DIFF) (BEAKER) (test 0.06 K/ L 0.00-0.00 ocsr=186) MYELOCYTES-ABS (DIFF) (BEAKER) (test rbbi=5452) 0.26 K/ L 0.00-0.00 TOTAL COUNTED (BEAKER) (test osdl=1779) 100 WBC MORPHOLOGY (BEAKER) (test kbvs=119) Normal PLT MORPHOLOGY (BEAKER) (test eqbw=227) Normal ACANTHOCYTES (BEAKER) (test dcxs=961) 1+ few ANISOCYTOSIS (BEAKER) (test hkdd=800) 1+ few POLYCHROMATOPHILLIC RBCS(BEAKER) (test fexw=525) 1+ few [id number] 12:41:00 Test Item Value Reference Range Comments FIBRINOGEN LEVEL (BEAKER) (test gapl=392) 94 mg/dl 225-434 PROTHROMBIN [id number] 12:18:00 Test Item Value Reference Range Comments PROTIME (BEAKER) (test dndi=510) 29.7 seconds 11.7-14.7 INR (BEAKER) (test tonp=961) 2.8 <=5.9 RECOMMENDED COUMADIN/WARFARIN INR THERAPY RANGESSTANDARD DOSE: 2.0 - 3.0 Includes: PROPHYLAXIS forvenous thrombosis, systemic embolization; TREATMENT for venous thrombosis and/or pulmonary embolus.HIGH RISK: Target INR is 2.5-3.5 for patients with mechanical heart valves.U/S, ABDOMINAL, WITH [id number] 20:26:00Reason for exam:->cirrhosisShould this be performed at the bedside ?->NoFINAL REPORT HISTORY : Cirrhosis COMPARISON : None [...] normal measuring 12.7 x 4.5 x 3.7 cm.The right kidney measures 11.0 x 5.1 x [...] resistive indices of the proper and right hepaticarteries. The remainder of the Doppler examination of the visualized abdominal/hepatic vasculature is within normal limits. Signed: Khalif Thompson MDReport Verified Date/Time: 08/29/2017 20:26:57 Reading Location: [facility] C013W Consult Reading Room RAD, CHEST, 1 VIEW, NON [id number] 21:28:00Reason for exam:->SOBShould this be performed at the bedside?->YesFINAL REPORT RAD, CHEST, 1 VIEW, NON DEPT INDICATION: SOB COMPARISON: Prior day's exam FINDINGS: Portable frontal view of the chest. IMPRESSION: Underinflated lungs with increasing coarsened interstitial markings suggesting subsegmental atelectasis and likely some degree of edema given the central vascular congestion. Cardiac size remains prominent. The aortic caliber is normal. There is no acute osseous abnormality. Signed: JR Valentino Robert MDReport Verified Date/Time: 08/28/2017 21:28:23 Reading Location: [facility] C013Y CT Body Reading Room TSH/FREE T4 IF [id number] 15:56:00 Test Item Value Reference Range Comments THYROID STIMULATING HORMONE (BEAKER) (test 2.13 uIU/mL 0.35-4.94 yxug=752) MISCELLANEOUS LAB [id number] 14:44:00 Test Item Value Reference Range Comments SCAN RESULT (test jxlw=[id number]) Result comments: Coagulase Negative Staphylococcus Species (CoNS) [...] required. This sample was tested at the [facility] Clinical Microbiology Laboratory using the FitWithMe Blood Culture ID Panel. This test is FDA cleared for in vitro diagnostic use and has been verified and approved by the [facility] Clinical Microbiology laboratory for clinical use. Reference Range: Not DetectedBASIC METABOLIC [id number] 13:50 :00 Test Item Value Reference Range Comments SODIUM (BEAKER) (test 136 meq/L 136-145 ywrm=602) POTASSIUM (BEAKER) (test 4.7 meq/L 3.5-5.1 cluq=159) CHLORIDE (BEAKER) (test 109 meq/L 98-107 fxfw=493) CO2 (BEAKER) (test 19 meq/L 22-29 sjds=977) BLOOD UREA NITROGEN 47 mg/dL 7-21 (BEAKER) (test jvbl=968) CREATININE (BEAKER) (test 1.68 mg/dL 0.57-1.25 fqvg=467) GLUCOSE RANDOM (BEAKER) 176 mg/dL 70-105 (test tlfr=162) CALCIUM (BEAKER) (test 8.8 mg/dL 8.4-10.2 jcmk=788) EGFR (BEAKER) (test mL/min/1.73 sq m INSUFFICIENT CLINICAL DATA zwgs=4003) TO CALCULATE ESTIMATED GFR. Specimen moderately ictericHEPATIC FUNCTION [id number] 13:49:00 Test Item Value Reference Range Comments TOTAL PROTEIN (BEAKER) (test ypls=540) 5.5 gm/dL 6.0-8.3 ALBUMIN (BEAKER) (test wejc=9343) 3.5 g/dL 3.5-5.0 BILIRUBIN TOTAL (BEAKER) (test iunq=560) 5.6 mg/dL 0.2-1.2 BILIRUBIN DIRECT (BEAKER) (test ftlm=248) 2.4 mg/dL 0.1-0.5 ALKALINE PHOSPHATASE (BEAKER) (test ovuz=167) 96 U/L 40-150 AST (SGOT) (BEAKER) (test gjri=002) 47 U/L 5-34 ALT (SGPT) (BEAKER) (test zydr=930) 26 U/L 6-55 Specimen moderately ictericSEDIMENTATION [id number] 13:47:00 Test Item Value Reference Range Comments SEDIMENTATION RATE, ERYTHROCYTE (BEAKER) (test 18 mm/HR 0-30 vfol=701) C-REACTIVE [id number] 13:42:00 Test Item Value Reference Range Comments C-REACTIVE PROTEIN (BEAKER) (test htrz=404) 0.42 mg/dL 0.00-0.50 CBC W/PLT COUNT & AUTO [id number] 12:52:00 Test Item Value Reference Range Comments WHITE BLOOD CELL COUNT (BEAKER) (test rede=423) 5.1 K/ L 3.5-10.5 RED BLOOD CELL COUNT (BEAKER) (test ypok=725) 1.50 M/ L 3.93-5.22 HEMOGLOBIN (BEAKER) (test xnxl=259) 5.5 GM/DL 11.2-15.7 HEMATOCRIT (BEAKER) (test qxnw=548) 17.1 % 34.1-44.9 MEAN CORPUSCULAR VOLUME (BEAKER) (test lvqm=279) 114.0 fL 79.4-94.8 MEAN CORPUSCULAR HEMOGLOBIN (BEAKER) (test 36.7 pg 25.6-32.2 zovp=317) MEAN CORPUSCULAR HEMOGLOBIN CONC (BEAKER) (test 32.2 GM/DL 32.2-35.5 zjse=069) RED CELL DISTRIBUTION WIDTH (BEAKER) (test 15.1 % 11.7-14.4 doyj=171) PLATELET COUNT (BEAKER) (test nqng=622) 75 K/CU MM 150-450 MEAN PLATELET VOLUME (BEAKER) (test yvhv=105) 9.8 fL 9.4-12.3 NUCLEATED RED BLOOD CELLS (BEAKER) (test 0 /100 WBC 0-0 qbiv=537) NEUTROPHILS RELATIVE PERCENT (BEAKER) (test 65 % ksmf=548) LYMPHOCYTES RELATIVE PERCENT (BEAKER) (test 16 % nvrm=265) MONOCYTES RELATIVE PERCENT (BEAKER) (test 13 % gjwr=008) EOSINOPHILS RELATIVE PERCENT (BEAKER) (test 5 % rizb=390) BASOPHILS RELATIVE PERCENT (BEAKER) (test 0 % azbu=875) NEUTROPHILS ABSOLUTE COUNT (BEAKER) (test 3.33 K/ L 1.56-6.13 pxaj=063) LYMPHOCYTES ABSOLUTE COUNT (BEAKER) (test 0.84 K/ L 1.18-3.74 xmth=392) MONOCYTES ABSOLUTE COUNT (BEAKER) (test saqu=562) 0.65 K/ L 0.24-0.36 EOSINOPHILS ABSOLUTE COUNT (BEAKER) (test 0.24 K/ L 0.04-0.36 owtq=361) BASOPHILS ABSOLUTE COUNT (BEAKER) (test inuy=439) 0.01 K/ L 0.01-0.08 IMMATURE GRANULOCYTES-RELATIVE PERCENT (BEAKER) 1 % 0-1 (test jwbw=8283) URINE [id number] 09:15:00 Test Item Value Reference Range Comments CULTURE (BEAKER) (test jmwm=8061) No growth FABIAN TITER AND [id number] 09:02:00 Test Item Value Reference Range Comments FABIAN TITER (BEAKER) (test rivw=8000) :160 FABIAN PATTERN (BEAKER) (test xplm=7347) Nucleolar ANTI-NUCLEAR ANTIBODY (FABIAN)2017-08-28 09:01:00 Test Item Value Reference Range Comments ANTI-NUCLEAR ANTIBODY (FABIAN) (BEAKER) (test Positive Negative vart=031) PROTHROMBIN [id number] 08:26:00 Test Item Value Reference Range Comments PROTIME (BEAKER) (test wpsz=163) 29.8 seconds 11.7-14.7 INR (BEAKER) (test mncw=089) 2.8 <=5.9 RECOMMENDED COUMADIN/WARFARIN INR THERAPY RANGESSTANDARD DOSE: 2.0 - 3.0 Includes: PROPHYLAXIS forvenous thrombosis, systemic embolization; TREATMENT for venous thrombosis and/or pulmonary embolus.HIGH RISK: Target INR is 2.5-3.5 for patients with mechanical heart valves.[id number] 07:32:00 Test Item Value Reference Range Comments ALPHA-1 ANTITRYPSIN (BEAKER) (test rlow=563) 99.90 mg/dL 90.00-200.00 HEPATITIS A ANTIBODY, [id number] 03:42:00 Test Item Value Reference Range Comments HEPATITIS A IGG ANTIBODY (BEAKER) (test fsrs=9624) Reactive Nonreactive VITAMIN B12 AND [id number] 03:42:00 Test Item Value Reference Range Comments VITAMIN B12 (BEAKER) (test kfgd=554) > pg/mL 213-816 FOLATE (BEAKER) (test oacn=903) 8.2 ng/mL >=7.0 [id number] 03:26:00 Test Item Value Reference Range Comments FERRITIN (BEAKER) (test sped=110) 861 ng/mL 5-275 LACTATE DEHYDROGENASE (LDH)2017-08-27 17:42:00 Test Item Value Reference Range Comments LACTATE DEHYDROGENASE (BEAKER) (test hbkx=014) 318 U/L 125-220 RAD, CHEST, 1 VIEW, NON [id number] 16:20:00Reason for exam:->edemaShould this be performed at the bedside?->YesIs the patient ?->NoFINAL REPORT INDICATION: edema COMPARISON: None. TECHNIQUE: Chest radiograph,single view, portable technique. FINDINGS / IMPRESSION: There is no evidence of pneumonia or pulmonary edema. There is mild enlargement of the heart shadow which may in part be related to portable technique. Calcified plaque in the aortic arch is noted. No pleural effusion or pneumothorax is demonstrated. Osseous structures are unremarkable. Signed: Ron Vo MDReport Verified Date/Time: 08/27/2017 16:20:41 Reading Location: [address] Ortho Consult Reading Room PERIPHERAL BLOOD SMEAR - HOLD [id number] 14:32:00 Test Item Value Reference Range Comments PERIPHERAL SMEAR SAVE (BEAKER) (test pnaa=5182) saved IRON, TIBC, % SAT. (WITHOUT FERRITIN)2017-08-27 12:53:00 Test Item Value Reference Range Comments IRON (BEAKER) (test jmpv=851) 141 ug/dL 40-160 TOTAL IRON BINDING CAPACITY (BEAKER) (test 141 ug/dL 250-450 jynk=481) IRON % SATURATION (2) (BEAKER) (test lsov=4185) 100 % 20-55 RETICULOCYTE [id number] 12:07:00 Test Item Value Reference Range Comments RETICULOCYTE COUNT PCT (BEAKER) (test afwp=111) 4.4 % 0.5-1.7 PROTEIN, RANDOM [id number] 11:03:00 Test Item Value Reference Range Comments PROTEIN, URINE (BEAKER) (test vdpg=7156) 8 mg/dL 0-14 CREATININE, RANDOM [id number] 11:01:00 Test Item Value Reference Range Comments CREATININE URINE (BEAKER) (test vmmq=066) 135.7 mg/dL Reference Range: No NormalsSODIUM, RANDOM [id number] 11:01:00 Test Item Value Reference Range Comments SODIUM URINE (BEAKER) (test tron=344) < meq/L Reference Range: No NormalsPROTHROMBIN [id number] 10:54:00 Test Item Value Reference Range Comments PROTIME (BEAKER) (test cnvi=080) 24.6 seconds 11.7-14.7 INR (BEAKER) (test ypdq=080) 2.2 <=5.9 RECOMMENDED COUMADIN/WARFARIN INR THERAPY RANGESSTANDARD DOSE: 2.0 - 3.0 Includes: PROPHYLAXIS forvenous thrombosis, systemic embolization; TREATMENT for venous thrombosis and/or pulmonary embolus.HIGH RISK: Target INR is 2.5-3.5 for patients with mechanical heart valves.COMPREHENSIVE METABOLIC [id number] 10:15:00 Test Item Value Reference Range Comments TOTAL PROTEIN (BEAKER) 4.7 gm/dL 6.0-8.3 (test vugh=268) ALBUMIN (BEAKER) (test 2.6 g/dL 3.5-5.0 istp=3862) ALKALINE PHOSPHATASE 116 U/L 40-150 (BEAKER) (test matz=751) BILIRUBIN TOTAL (BEAKER) 6.4 mg/dL 0.2-1.2 (test zjhs=698) SODIUM (BEAKER) (test 135 meq/L 136-145 kjnm=475) POTASSIUM (BEAKER) (test 5.0 meq/L 3.5-5.1 kkjq=590) CHLORIDE (BEAKER) (test 108 meq/L 98-107 fedk=021) CO2 (BEAKER) (test 19 meq/L 22-29 pzah=669) BLOOD UREA NITROGEN 50 mg/dL 7-21 (BEAKER) (test qryq=890) CREATININE (BEAKER) (test 1.85 mg/dL 0.57-1.25 emxy=960) GLUCOSE RANDOM (BEAKER) 89 mg/dL 70-105 (test dswu=077) CALCIUM (BEAKER) (test 8.4 mg/dL 8.4-10.2 vtcf=388) AST (SGOT) (BEAKER) (test 50 U/L 5-34 ojmv=894) ALT (SGPT) (BEAKER) (test 27 U/L 6-55 drah=091) EGFR (BEAKER) (test mL/min/1.73 sq m INSUFFICIENT CLINICAL DATA tfpq=3694) TO CALCULATE ESTIMATED GFR. Specimen moderately ictericCBC W/PLT COUNT & AUTO [id number] 09: 12:00 Test Item Value Reference Range Comments WHITE BLOOD CELL COUNT (BEAKER) (test zlto=171) 5.4 K/ L 3.5-10.5 RED BLOOD CELL COUNT (BEAKER) (test rpdd=117) 1.65 M/ L 3.93-5.22 HEMOGLOBIN (BEAKER) (test msua=953) 6.0 GM/DL 11.2-15.7 HEMATOCRIT (BEAKER) (test myrl=085) 18.4 % 34.1-44.9 MEAN CORPUSCULAR VOLUME (BEAKER) (test lhoc=885) 111.5 fL 79.4-94.8 MEAN CORPUSCULAR HEMOGLOBIN (BEAKER) (test 36.4 pg 25.6-32.2 fglh=989) MEAN CORPUSCULAR HEMOGLOBIN CONC (BEAKER) (test 32.6 GM/DL 32.2-35.5 flzj=715) RED CELL DISTRIBUTION WIDTH (BEAKER) (test 14.9 % 11.7-14.4 udzh=919) PLATELET COUNT (BEAKER) (test ygzx=941) 83 K/CU MM 150-450 MEAN PLATELET VOLUME (BEAKER) (test dkbs=918) 9.8 fL 9.4-12.3 NUCLEATED RED BLOOD CELLS (BEAKER) (test 0 /100 WBC 0-0 ryjg=649) NEUTROPHILS RELATIVE PERCENT (BEAKER) (test 70 % gzkn=559) LYMPHOCYTES RELATIVE PERCENT (BEAKER) (test 15 % ucpy=399) MONOCYTES RELATIVE PERCENT (BEAKER) (test 11 % idim=968) EOSINOPHILS RELATIVE PERCENT (BEAKER) (test 4 % zrux=263) BASOPHILS RELATIVE PERCENT (BEAKER) (test 0 % quna=200) NEUTROPHILS ABSOLUTE COUNT (BEAKER) (test 3.77 K/ L 1.56-6.13 wxol=944) LYMPHOCYTES ABSOLUTE COUNT (BEAKER) (test 0.78 K/ L 1.18-3.74 gvjc=830) MONOCYTES ABSOLUTE COUNT (BEAKER) (test gcze=980) 0.61 K/ L 0.24-0.36 EOSINOPHILS ABSOLUTE COUNT (BEAKER) (test 0.20 K/ L 0.04-0.36 fqmg=111) BASOPHILS ABSOLUTE COUNT (BEAKER) (test bxzr=456) 0.01 K/ L 0.01-0.08 IMMATURE GRANULOCYTES-RELATIVE PERCENT (BEAKER) 0 % 0-1 (test fmoy=5184) URINALYSIS W/ [id number] 01:10:00 Test Item Value Reference Range Comments COLOR (BEAKER) (test uhkl=438) Yellow CLARITY (BEAKER) (test rpnr=139) Hazy SPECIFIC GRAVITY UA (BEAKER) (test nfgk=986) 1.011 1.001-1.035 PH UA (BEAKER) (test fxpl=025) 5.5 5.0-8.0 PROTEIN UA (BEAKER) (test kmjs=153) Negative Negative GLUCOSE UA (BEAKER) (test fxlj=500) Negative Negative KETONES UA (BEAKER) (test ukkq=757) Negative Negative BILIRUBIN UA (BEAKER) (test vpgi=156) Negative Negative BLOOD UA (BEAKER) (test qfkm=644) Moderate Negative NITRITE UA (BEAKER) (test bfio=361) Negative Negative LEUKOCYTE ESTERASE UA (BEAKER) (test iosq=707) Large Negative UROBILINOGEN UA (BEAKER) (test dbmu=250) 0.2 mg/dL 0.2-1.0 RBC UA (BEAKER) (test ykgz=431) 26 /HPF WBC UA (BEAKER) (test pouv=785) 49 /HPF BACTERIA (BEAKER) (test ukbp=702) Occasional HYALINE CASTS (BEAKER) (test oflk=112) 63 /LPF GRANULAR CASTS (BEAKER) (test ppvh=413) 3 /LPF AMORPHOUS CRYSTALS (BEAKER) (test yohu=2949) Few SOURCE(BEAKER) (test lozg=2931) Urine, Torres BASIC METABOLIC [id number] 00:14:00 Test Item Value Reference Range Comments SODIUM (BEAKER) (test 133 meq/L 136-145 aktn=965) POTASSIUM (BEAKER) (test 5.0 meq/L 3.5-5.1 kmnu=362) CHLORIDE (BEAKER) (test 105 meq/L 98-107 qebx=257) CO2 (BEAKER) (test 17 meq/L 22-29 hafv=482) BLOOD UREA NITROGEN 51 mg/dL 7-21 (BEAKER) (test gwpz=875) CREATININE (BEAKER) (test 2.06 mg/dL 0.57-1.25 apfb=895) GLUCOSE RANDOM (BEAKER) 83 mg/dL 70-105 (test naiy=847) CALCIUM (BEAKER) (test 8.5 mg/dL 8.4-10.2 kflp=060) EGFR (BEAKER) (test mL/min/1.73 sq m INSUFFICIENT CLINICAL DATA etgf=6861) TO CALCULATE ESTIMATED GFR. Specimen moderately [id number] 00:08:00 Test Item Value Reference Range Comments PHOSPHORUS (BEAKER) (test rgnp=599) 5.5 mg/dL 2.3-4.7 [id number] 00:08:00 Test Item Value Reference Range Comments MAGNESIUM (BEAKER) (test xmlp=687) 2.4 mg/dL 1.6-2.6 HEPATIC FUNCTION [id number] 00:08:00 Test Item Value Reference Range Comments TOTAL PROTEIN (BEAKER) (test vesv=475) 5.6 gm/dL 6.0-8.3 ALBUMIN (BEAKER) (test alrm=8161) 2.6 g/dL 3.5-5.0 BILIRUBIN TOTAL (BEAKER) (test sodi=531) 6.7 mg/dL 0.2-1.2 BILIRUBIN DIRECT (BEAKER) (test ypzo=650) 3.6 mg/dL 0.1-0.5 ALKALINE PHOSPHATASE (BEAKER) (test qaqn=820) 187 U/L 40-150 AST (SGOT) (BEAKER) (test mllx=911) 61 U/L 5-34 ALT (SGPT) (BEAKER) (test gpvq=940) 34 U/L 6-55 Specimen moderately ictericPROTHROMBIN [id number] 23:54:00 Test Item Value Reference Range Comments PROTIME (BEAKER) (test jfax=018) 21.5 seconds 11.7-14.7 INR (BEAKER) (test xwpt=251) 1.9 <=5.9 RECOMMENDED COUMADIN/WARFARIN INR THERAPY RANGESSTANDARD DOSE: 2.0 - 3.0 Includes: PROPHYLAXIS forvenous thrombosis, systemic embolization; TREATMENT for venous thrombosis and/or pulmonary embolus.HIGH RISK: Target INR is 2.5-3.5 for patients with mechanical heart valves.CBC W/PLT COUNT & AUTO [id number] 23:51:00 Test Item Value Reference Range Comments WHITE BLOOD CELL COUNT (BEAKER) (test ppdj=026) 4.6 K/ L 3.5-10.5 RED BLOOD CELL COUNT (BEAKER) (test djbg=554) 1.99 M/ L 3.93-5.22 HEMOGLOBIN (BEAKER) (test syhv=477) 7.0 GM/DL 11.2-15.7 HEMATOCRIT (BEAKER) (test kbbb=133) 21.8 % 34.1-44.9 MEAN CORPUSCULAR VOLUME (BEAKER) (test miqf=310) 109.5 fL 79.4-94.8 MEAN CORPUSCULAR HEMOGLOBIN (BEAKER) (test 35.2 pg 25.6-32.2 rfpv=783) MEAN CORPUSCULAR HEMOGLOBIN CONC (BEAKER) (test 32.1 GM/DL 32.2-35.5 ghur=679) RED CELL DISTRIBUTION WIDTH (BEAKER) (test 14.8 % 11.7-14.4 yeel=456) PLATELET COUNT (BEAKER) (test bjlg=898) 111 K/CU MM 150-450 MEAN PLATELET VOLUME (BEAKER) (test wcar=860) 9.8 fL 9.4-12.3 NUCLEATED RED BLOOD CELLS (BEAKER) (test 0 /100 WBC 0-0 gfqc=848) NEUTROPHILS RELATIVE PERCENT (BEAKER) (test 66 % regd=346) LYMPHOCYTES RELATIVE PERCENT (BEAKER) (test 18 % dkhm=840) MONOCYTES RELATIVE PERCENT (BEAKER) (test 10 % ardt=736) EOSINOPHILS RELATIVE PERCENT (BEAKER) (test 6 % epck=701) BASOPHILS RELATIVE PERCENT (BEAKER) (test 0 % ojac=980) NEUTROPHILS ABSOLUTE COUNT (BEAKER) (test 3.06 K/ L 1.56-6.13 mmcr=820) LYMPHOCYTES ABSOLUTE COUNT (BEAKER) (test 0.81 K/ L 1.18-3.74 fgrl=719) MONOCYTES ABSOLUTE COUNT (BEAKER) (test 0.45 K/ L 0.24-0.36 rqbc=241) EOSINOPHILS ABSOLUTE COUNT (BEAKER) (test 0.26 K/ L 0.04-0.36 bysq=850) BASOPHILS ABSOLUTE COUNT (BEAKER) (test 0.02 K/ L 0.01-0.08 vqgs=628) IMMATURE GRANULOCYTES-RELATIVE PERCENT ([employer]AKER) 1 % 0-1 (test calj=3172)
[2017-10-13 06:59] LABS: Absolute Lymphocytes (CBC) 0.8 K/uL (0.7-4.9); Absolute Monocytes 0.3 K/uL (0.1-1.3); Absolute Neutrophil 2.9 K/uL (1.8-8.0); Basophils % 0.9 % (0-1.3); Eosinophils % 0.9 % (0-4.4); Hematocrit 31.4 % (36.0-45.0); Lymphocytes % 18.9 % (15.3-44.8); MCH 36.9 pg (27.0-35.0); MCV 107.7 fL (80-100); MPV 8.3 fL (7.6-11.3); Monocytes % 8.4 % (3.3-12.3); RBC Red Blood Cell Count 2.92 M/uL (3.86-4.86)
--- NOTE | 2017-10-13 07:25 | RAD REPORT ---
EXAM DESCRIPTION: CT - Head Brain Wo Cont - 10/13/2017 7:03 am CLINICAL HISTORY: Transient alteration of awareness COMPARISON: CT head June 2015 TECHNIQUE: Axial 5 mm thick images of the head were obtained without IV contrast. All CT scans are performed using dose optimization technique as appropriate and may include automated exposure control or mA/KV adjustment according to patient size. FINDINGS: No intracranial hemorrhage, mass, edema or shift of mid-line structures. No acute infarcti on changes seen. No significant atrophy or chronic ischemic changes identifiable. Physiologic calcifi cations are present. No abnormal extra-axial fluid collections. Ventricles are normal. Intracranial f indings are not substantially different from comparison. Mastoid air cells and visualized portions of the paranasal sinuses are clear. No acute bony findings. IMPRESSION: Negative non-contrast CT head examination for acute finding. No significant change from the 2014 comparison.
[2017-10-13 07:29] LABS: Albumin 3.3 g/dL (3.2-5.5); Bilirubin Direct 2.4 mg/dL (0-0.2); Potassium 4.6 mEq/L (3.6-5.0); Protein, Total 6.5 g/dL (6.0-8.3)
[2017-10-13 07:31] LABS: Bilirubin Total 7.7 mg/dL (0.3-1.2)
[2017-10-13 07:33] LABS: Blood Morphology Comment NOTED (NOT SEEN); Urine White Blood Cell Casts OK
[2017-10-13 07:34] LABS: Anisocytosis 3+; Macrocytosis 3+; Platelet Estimate DECR; Platelets, Giant FEW
--- NOTE | 2017-10-13 08:58 | ER ---
Nurse's Notes [facility] Name: Ree Pizarro Age: 56 yrs Sex: Female : 1960 Arrival Date: 10/13/2017 Time: 06:31 Bed 6 Private MD: Diagnosis: Acute Hepatic Encephalopathy;Acute Altered Mental Status Presentation: 10/13 06:31 Presenting complaint: EMS states: Pt has a history of liver cirrhosis. Family noticed tl2 that pt was becoming increasingly confused since midnight and by 0600 this morning pt was not answering questions and was incoherent. Transition of care: patient was not received from another setting of care. Onset of symptoms was October 13, 2017 at 00:00. Care prior to arrival: IV initiated. 20 GA, in the right forearm. 06:31 Method Of Arrival: EMS: [facility] tl2 06:31 Acuity: LISA 3 tl2 Triage Assessment: 06:34 General: Appears in no apparent distress. Behavior is calm, flat, listless, tl2 uncooperative. Pain: Denies pain. Neuro: Level of Consciousness is awake, confused, listless, Oriented to person, Speech is normal, Facial symmetry appears normal. Cardiovascular: Denies chest pain. Respiratory: Airway is patent Respiratory effort is even, unlabored, Respiratory pattern is regular, symmetrical. GI: No signs and/or symptoms were reported involving the gastrointestinal system. : No signs and/or symptoms were reported regarding the genitourinary system. Derm: Skin is jaundiced. Historical: - Allergies: 06:34 No Known Allergies; tl2 - Home Meds: 06:34 albuterol sulfate 90 mcg/actuation Inhl HFAA 1 puff every 4-6 hours [Active]; tl2 amlodipine 5 mg tab 1 tab once daily [Active]; Cipro 500 mg Oral tab 1 tab every 12 hours [Active]; Coreg 6.25 mg Oral tab [Active]; Flonase 50 mcg/actuation Nasal spsn 1 spray once daily [Active]; furosemide 20 mg Oral tab 1 tab once daily [Active]; lactulose 20 gram/30 mL Oral soln 45 mL 3 times per day [Active]; losartan 100 mg Oral tab 1 tab once daily [Active]; montelukast 10 mg Oral tab 1 tab once daily [Active]; pantoprazole 40 mg Oral TbEC 1 tab 2 times per day [Active]; spironolactone 25 mg Oral tab [Active]; Xifaxan 550 mg Oral tab [Active]; - PMHx: 06:34 Anemia; Cirrhosis; esophageal varisces; Hypertension; tl2 - Immunization history:: Adult Immunizations up to date. - Social history:: Smoking status: unknown. - Family history:: not pertinent. - Hospitalizations: : No recent hospitalization is reported. - History obtained from: . Screenin:37 Abuse screen: Denies threats or abuse. Nutritional screening: No deficits noted. tl2 Tuberculosis screening: No symptoms or risk factors identified. Fall Risk Secondary diagnosis (15 points) Mental Status- Overestimates/Forgets Limitations (15 pts.). Assessment: 06:37 General: see triage assessment. tl2 07:15 Reassessment: No changes from previously documented assessment. Patient and/or family jl7 updated on plan of care and expected duration. Pain level reassessed. Cardiovascular: Heart tones S1 S2 present Patient's skin is warm and dry. Respiratory: Airway is patent Respiratory effort is even, unlabored, Respiratory pattern is regular, symmetrical, Breath sounds are clear bilaterally. GI: Abdomen is round non-distended, Bowel sounds present X 4 quads. Abd is soft and non tender X 4 quads. Derm: Skin is jaundiced. 08:15 Reassessment: No changes from previously documented assessment. Patient and/or family jl7 updated on plan of care and expected duration. Pain level reassessed. 09:13 Reassessment: Patient and/or family updated on plan of care and expected duration. Pain jl7 level reassessed. remains at bedside. 10:01 Reassessment: Pt to CT. jl7 10:45 Reassessment: No changes from previously documented assessment. Patient and/or family jl7 updated on plan of care and expected duration. Pain level reassessed. Vital Signs: 06:34 BP 164 / 61; Pulse 78; Resp 18; Temp 98(A); Pulse Ox 98% on R/A; Weight 74.84 kg; tl2 Height 5 ft. 4 in. (162.56 cm); 07:30 BP 143 / 61; Pulse 65; Resp 16 S; Pulse Ox 97% on R/A; jl7 08:32 BP 114 / 78; Pulse 82; Resp 17; Pulse Ox 100% on R/A; mh5 09:30 BP 110 / 85; Pulse 80; Resp 16 S; Pulse Ox 100% on R/A; jl7 10:30 BP 111 / 80; Pulse 80; Resp 16 S; Pulse Ox 100% on R/A; jl7 06:34 Body Mass Index 28.32 (74.84 kg, 162.56 cm) tl2 ED Course: 06:31 Patient arrived in ED. tl2 06:32 Triage completed. tl2 06:34 Arm band placed on right wrist. tl2 06:37 Patient has correct armband on for positive identification. Placed in gown. Bed in low tl2 position. Call light in reach. Side rails up X2. Adult w/ patient. 06:37 Maintain EMS IV. Dressing intact. Good blood return noted. Site clean \T\ dry. Gauge \T\ tl 2 site: 20 g R FA. 06:39 Jah Zarco MD is Attending Physician. carlin 07:02 Amylase, Serum Sent. sv 07:03 CT Head Brain wo Cont In Process Unspecified. EDMS 07:06 Attending Physician role handed off by Jah Zarco MD wa 07:06 Wilbert Payne MD is Attending Physician. wa 07:27 Dillon Amato, YESSICA is Primary Nurse. jl7 07:32 Notified ED physician of a critical lab result(s). Total Bilirubin=7.7. iw 08:04 X-ray completed. Portable x-ray completed in exam room. kw 08:04 Chest Single View XRAY In Process Unspecified. EDMS 08:57 Osiel Anderson DO is Hospitalizing Provider. wa 09:11 Repeat lab(s) drawn. by mn, sent to lab. jl7 09:23 EKG done, by ED staff, reviewed by Wilbert Payne MD. 5 10:00 Urine collected: straight cath specimen, clear, Amount Returned: 700mL. Straight cath jl7 inserted, using sterile technique, 16 Fr. Specimen obtained. Returned clear yellow urine. Patient tolerated poorly. 10:[address] via stretcher. nj 10:05 CT completed. Patient tolerated procedure well. Patient moved back from CT. nj 10:10 Patient moved back from CT. sv 10:10 Urine --Ancillary (enter results) Sent. sv 10:10 Urine Dipstick--Ancillary (enter results) Sent. sv 10:21 Urine Culture Sent. 5 10:21 Urine Microscopic Only Sent. mh5 10:29 Ultrasound completed. Patient tolerated well. aa4 10:43 CT Abd/Pelvis - Without Cont Sent. sv 10:58 No provider procedures requiring assistance completed. Patient admitted, IV remains in jl7 place. Administered Medications: No medications were administered Point of Care Testing: Blood Glucose: 06:34 Blood Glucose: 113 mg/dL; tl2 Ranges: Outcome: 08:58 Decision to Hospitalize by Provider. nd 10:58 Admitted to Tele accompanied by tech, family with patient, via stretcher, room 218, jl7 with chart, Report called to Nurse Birgit 10:58 Condition: stable 10:58 Discharge instructions given to patient, family, Instructed on the need for admit, Demonstrated understanding of instructions. 10:59 Patient left the ED. jl7 Signatures: Dispatcher [employer] EDMelva Seth, RN Jah Allen MD MD cha Williams, Irene, RN Kat Santos 4 Kristy Gray Taylor, RN RN 2 Maxime White Maria Dillon Carlson RN RN jl7 Wilbert Payne MD MD wa
--- NOTE | 2017-10-13 08:59 | EDPHYS ---
Physician Documentation [facility] Name: Ree Pizarro Age: 56 yrs Sex: Female : 1960 Arrival Date: 10/13/2017 Time: 06:31 Bed 6 Private MD: ED Physician Wilbert Payne HPI: 10/13 08:45 This 56 yrs old Female presents to ER via EMS with complaints of Altered wa Mental Status. 08:45 The patient presents with confusion, decreased mental status, h/o cirrhosis. per wa spouse, note symptoms at dinner when pt returned from work. states pt "talking out of turn". denies vomiting or diarrhea. denies fever. states the last time this happened pt had high ammonia level.. Onset: The symptoms/episode began/occurred last night. Possible causes: elevated ammonia. Associated signs and symptoms: Pertinent positives: confusion, Pertinent negatives: abdominal pain, agitation, chest pain, vomiting. Current symptoms: In the emergency department the patient's symptoms are unchanged from the initial presentation. Patient's baseline: Neuro: alert and fully oriented, Motor: no deficits, Ambulation: walks without assistance, Speech: normal, The patient has a previous history of hepatic encephalopathy. The patient has experienced similar episodes in the past, a few times. The patient has not recently seen a physician, PMD is Dr. Sears. GI is Dr. Almaguer. Historical: - Allergies: 06:34 No Known Allergies; tl2 - Home Meds: 06:34 albuterol sulfate 90 mcg/actuation Inhl HFAA 1 puff every 4-6 hours [Active]; tl2 amlodipine 5 mg tab 1 tab once daily [Active]; Cipro 500 mg Oral tab 1 tab every 12 hours [Active]; Coreg 6.25 mg Oral tab [Active]; Flonase 50 mcg/actuation Nasal spsn 1 spray once daily [Active]; furosemide 20 mg Oral tab 1 tab once daily [Active]; lactulose 20 gram/30 mL Oral soln 45 mL 3 times per day [Active]; losartan 100 mg Oral tab 1 tab once daily [Active]; montelukast 10 mg Oral tab 1 tab once daily [Active]; pantoprazole 40 mg Oral TbEC 1 tab 2 times per day [Active]; spironolactone 25 mg Oral tab [Active]; Xifaxan 550 mg Oral tab [Active]; - PMHx: 06:34 Anemia; Cirrhosis; esophageal varisces; Hypertension; tl2 - Immunization history:: Adult Immunizations up to date. - Social history:: Smoking status: unknown. - Family history:: not pertinent. - Hospitalizations: : No recent hospitalization is reported. - History obtained from: . ROS: 08:52 Cardiovascular: Negative for chest pain, palpitations, and edema, Respiratory: Negative wa for shortness of breath, cough, wheezing, and pleuritic chest pain, Abdomen/GI: Negative for abdominal pain, nausea, vomiting, diarrhea, and constipation, Back: Negative for injury and pain, MS/Extremity: Negative for injury and deformity. 08:52 Constitutional: Positive for confused. 08:52 Eyes: Positive for icterus. 08:52 Skin: Positive for jaundice. 08:52 Neuro: Positive for altered mental status, confused. 08:52 All other systems are negative. Exam: 08:53 Head/Face: Normocephalic, atraumatic. ENT: Nares patent. No nasal discharge, no wa septal abnormalities noted. Tympanic membranes are normal and external auditory canals are clear. Oropharynx with no redness, swelling, or masses, exudates, or evidence of obstruction, uvula midline. Mucous membranes moist. Neck: Trachea midline, no thyromegaly or masses palpated, and no cervical lymphadenopathy. Supple, full range of motion without nuchal rigidity, or vertebral point tenderness. No Meningismus. Chest/axilla: Normal chest wall appearance and motion. Nontender with no deformity. No lesions are appreciated. Cardiovascular: Regular rate and rhythm with a normal S1 and S2. No gallops, murmurs, or rubs. Normal PMI, no JVD. No pulse deficits. Respiratory: Lungs have equal breath sounds bilaterally, clear to auscultation and percussion. No rales, rhonchi or wheezes noted. No increased work of breathing, no retractions or nasal flaring. Back: No spinal tenderness. No costovertebral tenderness. Full range of motion. MS/ Extremity: Pulses equal, no cyanosis. Neurovascular intact. Full, normal range of motion. 08:53 Constitutional: The patient appears in no acute distress, confused 08:53 Eyes: Sclera: icterus, is present. 08:53 Skin: Appearance: jaundiced. 08:53 Neuro: noted lethargy. confused. Vital Signs: 06:34 BP 164 / 61; Pulse 78; Resp 18; Temp 98(A); Pulse Ox 98% on R/A; Weight 74.84 kg; tl2 Height 5 ft. 4 in. (162.56 cm); 07:30 BP 143 / 61; Pulse 65; Resp 16 S; Pulse Ox 97% on R/A; jl7 08:32 BP 114 / 78; Pulse 82; Resp 17; Pulse Ox 100% on R/A; mh5 09:30 BP 110 / 85; Pulse 80; Resp 16 S; Pulse Ox 100% on R/A; jl7 10:30 BP 111 / 80; Pulse 80; Resp 16 S; Pulse Ox 100% on R/A; jl7 06:34 Body Mass Index 28.32 (74.84 kg, 162.56 cm) tl2 MDM: 06:39 Patient medically screened. carlin 08:55 Differential Diagnosis: CVA, electrolyte abnormality, hypoglycemia, pneumonia, UTI, wa volume depletion, suspect hepatic encephalopathy. will work up to exclude alternate dx. plan to admit. Physician consultation: Osiel Anderson DO was called at 08:56. Admission orders: after a detailed discussion of the patient's condition and case, the admit orders are written by me. 09:38 Data reviewed: vital signs, nurses notes, lab test result(s), EKG, radiologic studies. vt Test interpretation: by ED physician or midlevel provider: EKG: HR 70. nml axis. no acute changes concerning for ischemia. Labs noted for low Na at 132. elevated BUN at 26. anemia at 10.8 and 31.4. low plt at 91. elevated AST, alk phos, T. bili. Ammonia at 121. CXR: mild effusion. Head CT: no acute process.. ED course: UA pending. admitted for further eval. Dr. Almaguer consulted. . 11:08 Test interpretation: by ED physician or midlevel provider: abd US: no gallbladder. no wa dilatation. cirrhotic liver. CT abd: cirrhotic liver. no acute process. 11:09 Test interpretation: by ED physician or midlevel provider: UA: 2+ blood. otherwise wnl..wa 10/13 06:35 Order name: Amylase, Serum ao 10/13 06:35 Order name: Basic Metabolic Panel; Complete Time: 08:28 ao 10/13 06:35 Order name: CBC with Diff; Complete Time: 08:29 ao 10/13 06:35 Order name: Hepatic Function; Complete Time: 08:29 ao 10/13 06:35 Order name: Lipase; Complete Time: 08:29 ao 10/13 06:35 Order name: Urine Microscopic Only 10/13 06:35 Order name: AMMONIA; Complete Time: 07:15 ao 10/13 06:35 Order name: Amylase Level; Complete Time: 08:29 EDMS 10/13 06:40 Order name: Blood Culture Adult (2) [facility] 10/13 06:40 Order name: Urine Culture [facility] 10/13 07:01 Order name: CBC Smear Scan; Complete Time: 08:29 EDMS 10/13 08:42 Order name: Troponin (emerg Dept Use Only) vt 10/13 10:03 Order name: Urine Dipstick--Ancillary (enter results) 10/13 06:35 Order name: IV Saline Lock; Complete Time: 06:35 10/13 06:35 Order name: Labs collected and sent; Complete Time: 06:35 10/13 06:35 Order name: Urine Dipstick-Ancillary (obtain specimen); Complete Time: 10:10 10/13 06:40 Order name: CT Head Brain wo Cont; Complete Time: 08:28 [facility] 10/13 07:15 Order name: Chest Single View XRAY vt 10/13 08:42 Order name: EKG; Complete Time: 08:43 vt 10/13 08:42 Order name: EKG - Nurse/Tech; Complete Time: 09:24 vt 10/13 09:50 Order name: CT Abd/Pelvis - Without Cont 10/13 10:03 Order name: Urine --Ancillary (enter results) 10/13 10:24 Order name: Urine --Ancillary EDAK 10/13 10:24 Order name: Urine Dipstick-Ancillary EDAK 10/13 10:24 Order name: CT; Complete Time: 11:07 EDAK 10/13 10:44 Order name: US; Complete Time: 11:07 EDMS Administered Medications: No medications were administered Point of Care Testing: Blood Glucose: 06:34 Blood Glucose: 113 mg/dL; tl2 Ranges: Critical Glucose Levels:Adult <50 mg/dl or >400 mg/dl <40 mg/dl or >180 mg/dl Disposition: 10/13/17 08:58 Hospitalization ordered by Osiel Anderson for Inpatient Admission. Preliminary diagnosis are Acute Hepatic Encephalopathy, Acute Altered Mental Status. - Bed requested for Telemetry/MedSurg (Inpatient). - Status is Inpatient Admission. jl7 - Condition is Stable. - Problem is new. - Symptoms have improved. UTI on Admission? No Signatures: Dispatcher [employer] EDAK Linda Chavez, RN RN Jah Gonzales MD MD cha Ortiz, Alex, RN RN ao Jennie Mo RN RN tl2 Dillon Amato RN RN jl7 Wilbert Payne MD MD wa Corrections: (The following items were deleted from the chart) 06:45 06:35 Creatinine for Radiology+C.LAB.BRZ ordered. EDAK EDAK
--- NOTE | 2017-10-13 09:46 | RAD REPORT ---
EXAM DESCRIPTION: RAD - Chest Single View - 10/13/2017 8:09 am CLINICAL HISTORY: Liver cirrhosis, altered mental status COMPARISON: August 26 TECHNIQUE: AP portable chest image was obtained 0756 hours . FINDINGS: Lung volumes are low. Lung base atelectasis is evident. Significant infiltrative process i s doubtful. No failure or volume overload. Heart size within normal limits for shallow inspiration po rtable exam. Trachea is midline. No pneumothorax or large pleural effusion. No gross bony abnormality seen. No acute aortic findings suspected. IMPRESSION: Shallow inspiration film shows lung base atelectasis. Chest is not substantially different from comparison.
[2017-10-13] MEDS ORDERED: ALBUTEROL 2.5 MG/3 ML NEB SOL NEB PRN (09:49)
[2017-10-13] MEDS ORDERED: IPRATROPIUM BROM 0.5MG/2.5ML NEB PRN (09:49)
[2017-10-13] MEDS ORDERED: ACETAMINOPHEN 500 MG TAB PO PRN (09:49)
[2017-10-13] MEDS ORDERED: ONDANSETRON 4 MG/2 ML VIAL IV PRN (09:49)
--- NOTE | 2017-10-13 10:03 | P.HP ---
Certification for Inpatient Patient admitted to: Inpatient With expected LOS: >2 Midnights Patient will require the following post-hospital care: None Practitioner: I am a practitioner with admitting privileges, knowledge of patient current condition, hospital course, and medical plan of care. Services: Services provided to patient in accordance with Admission requirements found in Title 42 Section 412.3 of the Code of Federal Regulations Patient History Date of Service: 10/13/17 Primary Care Provider: Dr. Sears; GI-Dr. Almaguer; Hepatology-Dr. Plascencia Reason for admission: Altered mental status History of Present Illness: 56-year-old female presented emergency room with altered mental status. Most information came from the was at bedside. reports that over the last day the patient has been having increasing altered mental status. The patient has a significant history of alcoholic cirrhosis, gastric varices , GERD, anemia, and is Yazidism. The reports that the patient had gone to work yesterday. She appeared slightly sluggish. Her mentation started to change yesterday. This morning she was only answering yes and no. She was not acting her normal self. This has happened in the past when she developed hepatic encephalopathy. She was brought in to the ER for further evaluation. In the ER she appeared jaundiced. She did not appear in any respiratory distress. Vital signs stable. Ammonia level was elevated at 121. White count 4.0, hemoglobin 10.8, platelet count of 91. Sodium 132, 5 potassium 4.6, BUN of 26, creatinine 0.97 with a GFR 59. Total bilirubin elevated at 7.7, direct bilirubin 2.4, ammonia level elevated at 158. CT of the abdomen is pending. When I saw the patient in the ER, she did not appear in any distress. was at bedside. She only answered questions with yes and no. The patient appeared jaundiced. reports that the patient is taking her medications. She is having regular bowel movements. She is taking lactulose. She is also to be taking Xifaxan but it appears that this has not been filled. Patient takes multiple medications. Patient has been getting iron infusions as an outpatient. She was to get an iron infusion today. Allergies No Known Allergies Allergy (Verified 08/25/17 15:08) Home medications list reviewed: Yes Home Medications: Fluticasone [Flonase 50mcg Nasal [place]] 2 sprays NS DAILY 08/25/17 Furosemide [Lasix] 20 mg PO BID 08/25/17 Lactulose 15 gm PO TID 08/25/17 Montelukast Sodium [Singulair] 10 mg PO DAILY 08/25/17 Pantoprazole [Protonix Tab] 40 mg PO DAILY 08/25/17 Rifaximin [Xifaxan] 550 mg PO BID 08/25/17 Spironolactone [Aldactone] 50 mg PO DAILY 08/25/17 Epoetin [Procrit] 10,000 unit IJ M,W,F 09/28/17 Ferrous Sulfate 325 mg PO TID 09/28/17 Folic Acid 1 mg PO DAILY 09/28/17 Magnesium Oxide [Mag 0X Tab] 400 mg PO DAILY 09/28/17 Midodrine HCl [Proamatine] 5 mg PO TID 09/28/17 - Past Medical/Surgical History Diabetic: No -: Alcoholic cirrhosis -: History of hepatic encephalopathy -: Gastric varices -: Seasonal allergies -: GERD -: Anemia -: Former tobacco use -: Orthostatic hypotension -: Cholecystectomy -: Hysterectomy Psychosocial/ Personal History: The patient is . 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 - Family History Family History: Reviewed- Non-Contributory - Social History Smoking Status: Former smoker Alcohol use: No CD- Drugs: No Caffeine use: Yes Place of Residence: Home Review of Systems General: Weakness, Malaise, As per HPI Eyes: Unremarkable ENT: Unremarkable Respiratory: Unremarkable Cardiovascular: Unremarkable Gastrointestinal: As per HPI Genitourinary: Unremarkable Musculoskeletal: As per HPI Integumentary: Unremarkable Neurological: Weakness, Confusion, As per HPI Lymphatics: Unremarkable Physical Examination - Physical Exam General: Alert, In no apparent distress, Confused, Other (Patient answers with yes and no. She did not appear in any distress. Patient jaundice.) HEENT: Atraumatic, Normocephalic, Mucous membr. moist/pink, Scleral icterus Neck: Supple, No Thyromegaly Respiratory: Clear to auscultation bilaterally, Normal air movement Cardiovascular: Normal pulses, Regular rate/rhythm Gastrointestinal: Normal bowel sounds, Soft and benign, Non-distended, No ascites, No tenderness, No masses, No rebound, No guarding Musculoskeletal: No erythema, No tenderness, No warmth Integumentary: No tenderness/swelling, No erythema, No warmth, No cyanosis, Other (There is a violaceous rash to the right lower extremity that is chronic.) Neurological: Normal strength at 5/5 x4 extr, Normal tone, Other (Patient with confusion.) - Studies Laboratory Data (last 24 hrs) 10/13/17 06:35: Creatinine Cancelled 10/13/17 06:30: WBC 4.0 L, Hgb 10.8 L, Hct 31.4 L, Plt Count 91 L 10/13/17 06:30: Sodium 132 L, Potassium 4.6, BUN 26 H, Creatinine 0.97, Glucose 101, Total Bilirubin 7.7 H*, AST 52 H, ALT 37, Alkaline Phosphatase 158 H, Amylase 60, Lipase 66 H Assessment and Plan - Problems (Diagnosis) (1) Altered mental status Current Visit: Yes Status: Acute Plan: Confusion is likely related to hepatic encephalopathy. Will increase lactulose. Will start Xifaxan, it appears this has not been started as an outpatient. It appears the patient is able to take oral intake. Will monitor ammonia level. GI consulted. Patient has hyperbilirubinemia. Will check CT scan and abdominal ultrasound to further assess. Patient seen by hepatology up in [place]. Patient is Yazidism. Patient with anemia and getting outpatient iron infusions. Will continue with her iron sedation. Qualifiers: Altered mental status type: unspecified Qualified Code(s): R41.82 - Altered mental status, unspecified (2) Hepatic encephalopathy Current Visit: Yes Status: Acute Plan: Continue with above plan of care. GI consulted. (3) Alcoholic cirrhosis Current Visit: Yes Status: Chronic Plan: Patient with alcoholic cirrhosis. Patient seen by hepatology as an outpatient. Will continue with medication for hepatic encephalopathy. Will monitor closely. Abdominal ultrasound and CT scan of the abdomen has been ordered to assess the hyperbilirubinemia. Will continue with her diuretic medication. Patient also takes midodrine. Will continue with this. Qualifiers: Ascites presence: without ascites Qualified Code(s): K70.30 - Alcoholic cirrhosis of liver without ascites (4) Gastric varices without bleeding Current Visit: Yes Status: Chronic Plan: No active bleeding noted with Protonix. Will monitor closely. (5) GERD (gastroesophageal reflux disease) Current Visit: Yes Status: Chronic Plan: Will continue with her PPI Qualifiers: Esophagitis presence: esophagitis presence not specified Qualified Code(s) : K21.9 - Gastro-esophageal reflux disease without esophagitis (6) Hyperbilirubinemia Current Visit: Yes Status: Acute Plan: Patient with elevated bili [place]. Will check CT scan of the abdomen and ultrasound to further assess. Will discuss with GI. (7) Jaundice Current Visit: Yes Status: Acute Plan: Will continue with above plan of care. (8) Orthostatic hypotension Current Visit: Yes Status: Chronic Plan: Will continue with her medication-Midodrine (9) Anemia Current Visit: Yes Status: Chronic Plan: Patient has anemia of chronic disease with iron deficiency. Patient has been getting IV iron infusions. Will continue with oral iron. Will monitor closely. Qualifiers: Anemia type: other cause Other causes of anemia: chronic disease, other Qualified Code(s): D63.8 - Anemia in other chronic diseases classified elsewhere (10) Thrombocytopenia Current Visit: Yes Status: Chronic Plan: This is likely related to her cirrhosis. Will monitor closely. Abdominal ultrasound and CT scan of the abdomen has been ordered Discharge Plan: Home Plan to discharge in: Greater than 2 days - Advance Directives Does patient have a Living Will: No Does patient have a Durable POA for Healthcare: No - Code Status/Comfort Care Code Status Assessed: Yes Time Spent Managing Pts Care (In Minutes): 55
[2017-10-13 10:23] LABS: Urine Blood 2+ (NEG); Urine Glucose NEGATIVE (NEG); Urine Protein NEGATIVE (NEG); Urine Specific Gravity 1.015 (1.005-1.030)
--- NOTE | 2017-10-13 10:23 | RAD REPORT ---
EXAM DESCRIPTION: CT - Abdomen Pelvis Wo Contrast - 10/13/2017 10:05 am CLINICAL HISTORY: Abdominal pain. COMPARISON: None TECHNIQUE: CT imaging of the abdomen and pelvis was performed without contrast. Solid organ, bowel a nd vascular assessment is limited due to lack of IV and oral contrast. All CT scans are performed using dose optimization technique as appropriate and may include automated exposure control or mA/KV adjustment according to patient size. FINDINGS: The lower lung parsons are clear. Non-contrast liver assessment demonstrates a shrunken liver size with nodular liver contour. Cholecys tectomy clips are seen. No intrahepatic biliary dilatation present.Spleen is upper limit of normal in size. The adrenal glands and kidneys are within normal limits for non-contrast study. Thickening of the gastric wall is seen. Metallic clip is present in the stomach presumably related to previous biop sy. No bowel obstruction, free air, free fluid or abscess. Varices are suspected involving the retroperit oneum, extending along the para-aortic location The appendix is not identified as a discrete structur e, however, no secondary findings of appendicitis are identified. Lumbosacral degenerative changes are present. IMPRESSION: Moderate liver cirrhosis is identified. Parenchymal assessment of the liver is limited d ue to lack of IV contrast. Prominent thickening of the stomach wall is noted which may indicate gastritis or portal gastropathy. A limited non-contrast examination was performed as detailed.
--- NOTE | 2017-10-13 10:43 | RAD REPORT ---
EXAM DESCRIPTION: US - Abdomen Exam Limited - 10/13/2017 10:29 am CLINICAL HISTORY: Hyperbilirubinemia, elevated alkaline phosphatase, cirrhosis COMPARISON: CT study October 13 FINDINGS: Gallbladder is absent. No mass or abnormal fluid collection in the gallbladder fossa. No i ntrahepatic or extrahepatic biliary tree dilatation identifiable. Liver shows lobulated contour matching the cirrhosis history. There is coarsened increased echogenici ty that could be fatty infiltration, diffuse hepatic parenchymal disease or a combination. No ascites in the right upper quadrant. IMPRESSION: Gallbladder is absent. No biliary tree dilatation. Cirrhotic liver changes.
[2017-10-13 11:15] LABS: Urine Bacteria 20-50 /HPF (<20); Urine Culture Reflex Order NOT NEEDED; Urine Yeast PRESENT (NONE SEEN)
[2017-10-13] MEDS: NA CHLORIDE 0.9% 1,000 ML IV SCH (11:53)
[2017-10-13 12:08] VITALS: BMI 30.4
[2017-10-13] MEDS: MIDODRINE HCL 5 MG TABLET PO SCH ×2 (14:00→21:26)
[2017-10-13] MEDS: LACTULOSE 20 GM/30 ML UCUP PO SCH ×2 (14:22→21:26)
[2017-10-13] MEDS: FUROSEMIDE 40 MG TABLET PO SCH (16:43)
[2017-10-13] MEDS: FERROUS SULFATE 325 MG TAB PO SCH (21:26)
[2017-10-13] MEDS: Rifaximin 550 MG Tab PO SCH (21:26)
[2017-10-14 05:13] LABS: Urine Appearance CLEAR; Urine Bilirubin NEGATIVE (NEG); Urine Blood 2+ (NEG); Urine Color YELLOW; Urine Glucose NEGATIVE (NEG); Urine Protein NEGATIVE (NEG); Urine pH 7.5 (5.0-7.0)
[2017-10-14 05:26] LABS: Urine Microscopic Reflex ORDER UMIC
[2017-10-14 05:37] LABS: Urine Bacteria >50 /HPF (<20); Urine Culture Reflex Order NOT NEEDED
[2017-10-14 05:53] LABS: Absolute Lymphocytes (CBC) 0.8 K/uL (0.7-4.9); Absolute Monocytes 0.4 K/uL (0.1-1.3); Absolute Neutrophil 2.1 K/uL (1.8-8.0); Eosinophils % 2.7 % (0-4.4); Hematocrit 28.3 % (36.0-45.0); Lymphocytes % 22.5 % (15.3-44.8); MCH 35.7 pg (27.0-35.0); MCV 108.6 fL (80-100); MPV 8.3 fL (7.6-11.3); Monocytes % 12.2 % (3.3-12.3); RBC Red Blood Cell Count 2.61 M/uL (3.86-4.86)
[2017-10-14 06:05] LABS: Blood Morphology Comment NOTED (NOT SEEN); Macrocytosis 1+; Ovalocytes SLIGHT; Platelet Estimate DECR; Urine White Blood Cell Casts OK
[2017-10-14 06:11] LABS: ALT/SGPT 33 IU/L (10-60); AST/SGOT 48 IU/L (10-42); Albumin 2.6 g/dL (3.2-5.5); Alkaline Phosphatase 107 IU/L (42-121); BUN Blood Urea Nitrogen 20 mg/dL (6-20); Bicarbonate 24 mEq/L (21-31); Bilirubin Total 7.6 mg/dL (0.3-1.2); Glucose Level 78 mg/dL (65-120); Magnesium 1.5 mg/dL (1.8-2.5); Potassium 4.3 mEq/L (3.6-5.0); Protein, Total 5.3 g/dL (6.0-8.3); Sodium Level 137 mEq/L (135-145)
[2017-10-14] MEDS: PANTOPRAZOLE 40MG TABLET PO SCH (06:35)
[2017-10-14] MEDS: NA CHLORIDE 0.9% 1,000 ML IV SCH (06:35)
[2017-10-14] MEDS ORDERED: Magnesium Sulfate 2gm IVPB 2 G/50 ML BAG IV ONE (06:45)
[2017-10-14] MEDS: MIDODRINE HCL 5 MG TABLET PO SCH ×3 (09:00→21:08)
[2017-10-14] MEDS: FOLIC ACID 1 MG TABLET PO SCH (09:38)
[2017-10-14] MEDS: FERROUS SULFATE 325 MG TAB PO SCH ×2 (09:39→21:08)
[2017-10-14] MEDS: LACTULOSE 20 GM/30 ML UCUP PO SCH ×3 (09:39→21:09)
[2017-10-14] MEDS: ENOXAPARIN 30 MG/0.3 ML SQ SCH (09:39)
[2017-10-14] MEDS: SPIRONOLACTONE 25 MG TABLET PO SCH (09:39)
[2017-10-14] MEDS: FUROSEMIDE 40 MG TABLET PO SCH ×2 (09:39→17:10)
[2017-10-14] MEDS: Rifaximin 550 MG Tab PO SCH ×2 (09:40→21:08)
[2017-10-14] MEDS: THIAMINE HCL 100 MG TABLET PO SCH (09:40)
--- NOTE | 2017-10-14 12:12 | PN ---
Date of Progress Note: 10/14/2017 The patient is seen and examined. Chart reviewed and case discussed with RN. The patient states joey t she is feeling better and not having any further episodes of confusion or syncope. The patient sle pt well overnight. Review of Systems: Negative except as above. Medications: Reviewed. Physical Examination: Vital Signs: Temperature 98.4, heart rate 69, blood pressure 136/61, respirations 16, O2 96% on room air. General: Awake, alert, oriented x3, not in any acute distress. Obese, BMI 30. CV: S1, S2. No murmurs. Regular rate and rhythm. Peripheral pulses present. Respiratory: Moving air well bilaterally. No wheezing. Gastrointestinal: Abdomen is soft, nontender, nondistended. Positive bowel sounds. Extremities: No clubbing, cyanosis, or edema. Neurologic: Nonfocal. Laboratory Data: Sodium 137, potassium 4.3, chloride 109, CO2 24, BUN 20, creatinine 0.67, glucose 7 8, calcium 9.5, magnesium 1.5, total bilirubin 7.6, ALT 33, AST 48, alkaline phosphatase 107, ammonia 49, albumin 2.6. WBC 3.4, H and H 9.3, 28.3, platelets 78. Urine culture shows no growth to date. Assessment And Plan: 1.Acute hepatic encephalopathy. Ammonia level was elevated, now improved with lactulose. We will c baroninue on Xifaxan. GI consulted. The patient does see hepatology in [place]. It should be noted, the patient is a Religious and is getting iron transfusions. CT scan of the abdomen and pelv is personally reviewed shows moderate liver cirrhosis. Parenchymal assessment of liver is limited du e to lack of IV contrast. Prominent thickening of stomach wall is noted which may indicate gastritis or portal gastropathy. Ultrasound of the abdomen shows gallbladder is absent. No biliary tree dila tation. Cirrhotic liver changes. 2.Alcoholic liver cirrhosis. The patient sees GI and Hepatology as an outpatient. Counseled. Ultr asound of the gallbladder done due to hyperbilirubinemia. No biliary tree dilatation is seen. Gallb ladder is absent. 3.Syncopal episode. Continue midodrine. 4.Gastric varices without bleeding. We will continue Protonix. 5.Gastroesophageal reflux disease without esophagitis. Continue PPI. 6.Hyperbilirubinemia. CT imaging and ultrasound imaging does not show any etiology. 7.Jaundice secondary to above. 8.Orthostatic hypotension. Continue midodrine. 9.Anemia, iron deficiency. We will continue IV iron infusion. 10.Thrombocytopenia, likely related to liver disease. /RENATO Voice ID: [id number] Report ID: [id number]
[2017-10-14] MEDS ORDERED: MONTELUKAST 10 MG TAB PO SCH (21:00)
--- NOTE | 2017-10-14 21:18 | CON ---
Date of Consultation: 10/14/2017 Reason For Consultation: Hepatic encephalopathy and altered mental status. History Of Present Illness: The patient is a 56-year-old female with history of end-stage liver disease, cirrhosis, cholestatic jaundice, and known hepatic encephalopathy. The patient came to hospital due to altered mental status, brought in by . The patient had increasing changes in mental status with decreased alertness noted by . The patient was very sluggish in the emergency room. Her ammonia level was noted to be elevated at _ . The patient has been on a normal diet including her states she eats shrimp, salmon, lobster, chicken, other things like that. Past Medical History: 1. Significant for end-stage liver disease secondary to alcohol in the past, none recently. 2. History of hepatic encephalopathy. 3. History of gastric varices. 4. Seasonal allergies. 5. Gastric reflux disease. 6. Anemia. 7. Orthostatic hypotension. 8. Cholecystectomy. 9. Hysterectomy. For hepatic encephalopathy and end-stage liver disease, the patient is being evaluated at [place], [place] for liver transplant at this time with elevated MELD score noted. Social History: . 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 Former tobacco, none now. No alcohol. Positive for caffeine. No drugs. Review of Systems: The patient has jaundice; altered mental status, which is improved since admission. History of hepatic encephalopathy. No fevers, chills, night sweats , heat or cold intolerance, chest pain, short of breath, seizure, syncope, lower extremity edema, muscle aches, joint aches, backaches. She does have jaundice. No depression, anxiety, noted today. Physical Examination: Vital Signs: The patient is 5 feet 4 inches, 177 pounds, BMI of 30.4 kg/m2. Vital Signs: She has a temperature of 97.6 degrees Fahrenheit, pulse 66, respirations 16, blood pressure 121/60, O2 saturation 95%. General: She is a moderately obese female, lying in bed, in no acute distress, frankly jaundiced. HEENT: Remarkable for jaundice of the conjunctiva, sclera. Pupils equal, round , and reactive to light. Extraocular movements are intact. Oropharynx revealed frenulum jaundice under tongue. Neck: Supple. No masses. Respirations: Clear to auscultation bilaterally. Cardiac: Regular rhythm. Gastrointestinal: Positive bowel sounds. Soft, nontender, nondistended, obese. Extremities: No clubbing, cyanosis, or edema. Neuro: Alert and now oriented x3. On admission, she was confused as per chart report. She is able to move all extremities well. Sensation to light touch. Laboratory Data: The patient has a white count 3.4, hemoglobin 9.3 down from 10.8 yesterday, hematocrit 28.3, MCV of 109, platelet count 78, polys of 62%, lymphocytes 23%, monocytes 12%, eosinophils 3%, basophils 1%. Sodium 137, potassium 4.3, chloride 109, bicarb 21, BUN of 20, creatinine of 0.7, glucose 78 , calcium 9.5, magnesium 1.5, total bilirubin 7.6, AST of 48, ALT of 33, alkaline phosphatase 107. Ammonia on admission of 121, now down to 49. Total protein 5.3, albumin 3.6, globulin 3.7, troponin I of 0.03, amylase 60, lipase slightly elevated at 66. The patient's UA showed 2+ blood, 5 to 10 rbc's, greater than 50 bacteria, negative nitrate, negative leukocyte esterase. Negative test yesterday. Laboratory Data: CT abdomen and pelvis revealed moderate liver cirrhosis. Parenchymal assessment is limited due to lack of IV contrast. Prominent thickened wall of stomach indicate gastritis and portal hypertensive gastropathy. Chest x-ray, shallow inspiration film, lung base atelectasis, ____ negative. Impression: 1. Hepatic encephalopathy. Ammonia level 121 on admission in the emergency room, now down to 49. At home, she takes lactulose only 2 bowel movements per day. Insurance, they report will not pay for Xifaxan that has been ordered as an outpatient. Recommendations: 1. We will need to talk to insurance company about adding Xifaxan and will continue lactulose and titrate to increase to 3 to 4 bowel movements per day since the patient is symptomatic on 2 to 3 bowel movements per day. Therefore, we will increase goal to be about 3 to 4 bowel movements per day. 2. The patient to continue her heart healthy diet. 3. Increase fiber in diet. 4. Check PT, INR and PTT. GERMAIN/RENATO Voice ID: [id number] Report ID: [id number] MTDD
[2017-10-14 21:40] VITALS: O2SAT 95
[2017-10-15] MEDS: NA CHLORIDE 0.9% 1,000 ML IV SCH (03:16)
[2017-10-15 04:40] VITALS: TEMP 97.1
[2017-10-15 05:17] LABS: Absolute Monocytes 0.5 K/uL (0.1-1.3); Absolute Neutrophil 2.7 K/uL (1.8-8.0); Basophils % 0.5 % (0-1.3); Eosinophils % 3.7 % (0-4.4); Hematocrit 26.6 % (36.0-45.0); Lymphocytes % 22.7 % (15.3-44.8); MCH 36.8 pg (27.0-35.0); MPV 8.3 fL (7.6-11.3); RBC Red Blood Cell Count 2.44 M/uL (3.86-4.86)
[2017-10-15 05:18] LABS: Protime INR 2.54
[2017-10-15 05:45] LABS: Albumin 2.6 g/dL (3.2-5.5); Magnesium 1.7 mg/dL (1.8-2.5); Potassium 4.1 mEq/L (3.6-5.0); Protein, Total 5.3 g/dL (6.0-8.3)
[2017-10-15] MEDS: PANTOPRAZOLE 40MG TABLET PO SCH (06:24)
[2017-10-15] MEDS ORDERED: MAGNESIUM SULFATE 1 gm IVPB 1 GM/100 ML BAG IV ONE (06:27)
--- NOTE | 2017-10-15 08:19 | P.PN ---
Subjective Date of Service: 10/15/17 Primary Care Provider: Dr. Sears; GI-Dr. Almaguer; Hepatology-Dr. Plascencia Chief Complaint: Altered mental status Subjective: Improving (Alert. Eating breakfast without complaint. Wants to go home. is at bedside.) Review of Systems 10-point ROS is otherwise unremarkable Neurological: Confusion (improved) Physical Examination - Vital Signs Temperature: 97.1 F Blood Pressure: 131/59 Pulse: 50 Respirations: 18 Pulse Ox (%): 98 - Physical Exam General: Alert, In no apparent distress, Oriented x3, Cooperative HEENT: Atraumatic, Normocephalic, PERRLA, EOMI Neck: Supple Respiratory: Normal air movement Cardiovascular: Normal pulses Gastrointestinal: Soft and benign (mildly obese), No tenderness, No rebound, No guarding Neurological: Normal speech, Normal strength at 5/5 x4 extr Assessment And Plan - Current Problems (Diagnosis) (1) Altered mental status Current Visit: Yes Status: Acute Qualifiers: Altered mental status type: unspecified Qualified Code(s): R41.82 - Altered mental status, unspecified (2) Hepatic encephalopathy Current Visit: Yes Status: Acute (3) Hyperbilirubinemia Current Visit: Yes Status: Acute (4) Jaundice Current Visit: Yes Status: Acute (5) Alcoholic cirrhosis Current Visit: Yes Status: Chronic Qualifiers: Ascites presence: without ascites Qualified Code(s): K70.30 - Alcoholic cirrhosis of liver without ascites (6) Anemia Current Visit: Yes Status: Chronic Qualifiers: Anemia type: other cause Other causes of anemia: chronic disease, other Qualified Code(s): D63.8 - Anemia in other chronic diseases classified elsewhere (7) GERD (gastroesophageal reflux disease) Current Visit: Yes Status: Chronic Qualifiers: Esophagitis presence: esophagitis presence not specified Qualified Code(s) : K21.9 - Gastro-esophageal reflux disease without esophagitis (8) Gastric varices without bleeding Current Visit: Yes Status: Chronic (9) Orthostatic hypotension Current Visit: Yes Status: Chronic (10) Thrombocytopenia Current Visit: Yes Status: Chronic - Plan REC: 1) continue Lactulose and addition of Xifaxan 2) GI clinic f/u
[2017-10-15 08:43] LABS: Urine White Blood Cell Casts OK
[2017-10-15 08:44] LABS: Blood Morphology Comment NOT SEEN (NOT SEEN); Burr Cells 1+; Macrocytosis 1+; Platelet Estimate ADEQ
[2017-10-15] MEDS ORDERED: FLUTICASONE 50MCG NASAL SPRAY NAS SCH (09:00)
[2017-10-15] MEDS: LACTULOSE 20 GM/30 ML UCUP PO SCH (09:30)
[2017-10-15] MEDS: SPIRONOLACTONE 25 MG TABLET PO SCH (09:31)
--- NOTE | 2017-10-15 09:32 | P.DS ---
Admission Date: 10/13/17 Discharge Date: 10/15/17 Primary Care Provider: Dr. Sears; GI-Dr. Almaguer; Hepatology-Dr. Plascencia Disposition: ROUTINE DISCHARGE Discharge Condition: GOOD Reason for Admission: Altered mental status Consultations: Dr. phillip Brief History of Present Illness: Patient is 56 years of age with a history of cirrhosis of the liver admitted with altered mental status Hospital Course: She did well during the course of the stay in the hospital no complications patient had a CT scan ultrasound scan of the abdomen CT head were unremarkable the time of discharge patient was alert oriented response laboratory data all reviewed hemoglobin stable no procedures done On examination vital signs all stable chest clear abdomen soft extremities no edema patient to be discharged home on lactulose dose was increased to 4 times a day otherwise she is to resume all her home medications Vital Signs/Physical Exam: Temp Pulse Resp BP Pulse Ox 97.1 F 50 18 131/59 L 98 10/15/17 08:19 10/15/17 08:19 10/15/17 08:19 10/15/17 08:19 10/15/17 08:19 Laboratory Data at Discharge: WBC 4.3 K/uL (4.3-10.9) D 10/15/17 04:40 Hgb 9.0 g/dL (12.0-15.0) L 10/15/17 04:40 Hct 26.6 % (36.0-45.0) L 10/15/17 04:40 Plt Count 80 K/uL (152-406) L 10/15/17 04:40 PT 30.2 SECONDS (9.5-12.5) H 10/15/17 04:40 INR 2.54 10/15/17 04:40 APTT 57.4 SECONDS (24.3-36.9) H 10/15/17 04:40 Sodium 130 mEq/L (135-145) L 10/15/17 04:40 Potassium 4.1 mEq/L (3.6-5.0) 10/15/17 04:40 BUN 20 mg/dL (6-20) 10/15/17 04:40 Creatinine 0.81 mg/dL (0.44-1.00) 10/15/17 04:40 Glucose 78 mg/dL (65-120) 10/15/17 04:40 Magnesium 1.7 mg/dL (1.8-2.5) L 10/15/17 04:40 Total Bilirubin 7.0 mg/dL (0.3-1.2) H* 10/15/17 04:40 AST 60 IU/L (10-42) H 10/15/17 04:40 ALT 37 IU/L (10-60) 10/15/17 04:40 Alkaline Phosphatase 106 IU/L (42-121) 10/15/17 04:40 Amylase 60 U/L (28-100) 10/13/17 06:30 Lipase 66 U/L (22-51) H 10/13/17 06:30 Home Medications: Fluticasone [Flonase 50MCG Nasal [place]*] 2 sprays NS DAILY 08/25/17 Furosemide [Lasix*] 40 mg PO BID 08/25/17 Lactulose 10 gm PO TID 08/25/17 Montelukast Sodium [Singulair] 10 mg PO BEDTIME 08/25/17 Pantoprazole [Protonix Tab*] 40 mg PO DAILY 08/25/17 Rifaximin [Xifaxan] 550 mg PO BID 08/25/17 Spironolactone [Aldactone*] 50 mg PO DAILY 08/25/17 Epoetin [Procrit*] 10,000 unit IJ M,W,F 09/28/17 Ferrous Sulfate 325 mg PO TID 09/28/17 Folic Acid 1 mg PO DAILY 09/28/17 Magnesium Oxide [Mag 0X*] 400 mg PO DAILY 09/28/17 Midodrine HCl [Proamatine*] 5 mg PO TID PRN 09/28/17 Lactulose 15 ml PO QID #1800 ml 10/15/17 Rifaximin [Xifaxan] 550 mg PO BID #60 tablet 10/15/17 New Medications: Lactulose 15 ml PO QID #1800 ml Rifaximin [Xifaxan] 550 mg PO BID #60 tablet Patient Discharge Instructions: Patient to follow her up with Dr. phillip and a primary care physician Diet: Regular Activity: Ad anju
[2017-10-15] MEDS: ENOXAPARIN 30 MG/0.3 ML SQ SCH (09:33)
[2017-10-15] MEDS: FOLIC ACID 1 MG TABLET PO SCH (09:33)
[2017-10-15] MEDS: Rifaximin 550 MG Tab PO SCH (09:33)
[2017-10-15] MEDS: THIAMINE HCL 100 MG TABLET PO SCH (09:33)
[2017-10-15] MEDS: FERROUS SULFATE 325 MG TAB PO SCH (09:33)
[2017-10-15] MEDS: FUROSEMIDE 40 MG TABLET PO SCH (09:33)
[2017-10-15] MEDS: MIDODRINE HCL 5 MG TABLET PO SCH (09:34)
[2017-10-15 09:35] VITALS: BP 106/58
--- NOTE | 2017-10-15 22:45 | EKG ---
Test Date: 2017-10-13 Test Time: 09:19:03 [employer] Drag Operator: ALEXI MEASUREMENT RESULTS: Intervals: Rate: 70 NE: 164 QRSD: 92 QT: 406 QTc: 438 [place]: P: 25 NE: 164 QRS: -9 T: 16 INTERPRETIVE STATEMENTS: Normal sinus rhythm Possible Left atrial enlargement Left ventricular hypertrophy Abnormal ECG Compared to ECG 08/26/2017 13:11:09 Left ventricular hypertrophy now present Sinus bradycardia no longer present Electronically Signed On 10-15-17 22:43:58 CDT by Ricky Aguilar
== END 2017-10-15 11:50 | disposition home or self-care (01) | DRG 434 ==
LOC: ER 06:29 → ERHOLD 09:00 → 2ND 10:51
PROVIDERS: ADMIT Family Medicine; ATTEND Internal Medicine Sleep Medicine
DX: K70.40 Alcoholic hepatic failure without coma (principal); K70.30 Alcoholic cirrhosis of liver without ascites; K21.9 Gastro-esophageal reflux disease without esophagitis; I86.4 Gastric varices; I95.1 Orthostatic hypotension; D63.8 Anemia in other chronic diseases classified elsewhere; D69.6 Thrombocytopenia, unspecified; D50.9 Iron deficiency anemia, unspecified; Z87.891 Personal history of nicotine dependence
CPT/HCPCS: 36415; 51702; 70450; 71045; 74176; 76705; 80048; 80053; 80076; 81003; 81015; 81025; 82140; 82150; 83690; 83735; 84484; 85025; 85610; 85730; 87086; 87088; 93005; 99285; J1650; J3475; J7030

== ENCOUNTER 2017-12-05 11:10 | Inpatient (IN) | payer OTHER ==
--- OUTSIDE RECORDS SUMMARY | 2017-12-05 11:12 | XMS REPORT | Clinical Summary ---
:1960 Author Organization [facility] Address [address] [place] [address] Care Team Providers Name Role Phone Roya Jacobson MD Primary Care Provider Allergies Active Allergy Reactions Severity Noted Date Comments No Known Drug Allergies 10/09/2017 Current Medications Prescription Sig. Disp. Refills Start Date End Date Status ferrous sulfate 325 (65 FE) Take 325 mg by Active MG tablet mouth 3 (three) times a day with meals. folic acid (FOLVITE) 1 MG Take 1 mg by Active tablet mouth daily. furosemide (LASIX) 40 mg Take 40 mg by Active tablet mouth 2 (two) times a day. lactulose 10 gram/15 mL (15 Take 10 g by Active mL) solution mouth 2 (two) times a day. magnesium oxide (MAG-OX) Take 400 mg by Active 400 mg tablet mouth daily. montelukast (SINGULAIR) 10 Take 10 mg by Active mg tablet mouth nightly. pantoprazole (PROTONIX) 40 Take 40 mg by Active MG EC tablet mouth daily. spironolactone (ALDACTONE) Take 50 mg by Active 50 MG tablet mouth daily. Active Problems Problem Noted Date Hepatic encephalopathy 10/06/2017 Alcoholic cirrhosis of liver 10/06/2017 Esophageal varices with bleeding 10/06/2017 Ascites 10/06/2017 Iron deficiency anemia due to chronic blood loss 10/06/2017 Edema of lower extremity 11/11/2015 Hip pain 11/11/2015 Hypertension 11/11/2015 Low back pain 11/11/2015 Encounters Date Type Specialty Care Team Description 10/30/2017 Hospital Encounter Transplant Albino Pham MD 10/30/2017 Hospital Encounter Transplant Albino Pham Canceled MD (Department/Provider) 10/06/2017 Telephone Transplant Flor Bennett RN Referral - Liver Txp after 12/04/2016 Social History Tobacco Use Types Packs/Day Years Used Date Former Smoker Cigarettes Comments: smoked in high school X 3 yrs Sex Assigned at Date Recorded Not on file Last Filed Vital Signs Vital Sign Reading Time Taken Blood Pressure 132/63 10/30/2017 10:27 AM CDT Pulse 75 10/30/2017 10:27 AM CDT Temperature 37.2 C (99 F) 10/30/2017 10:27 AM CDT Respiratory Rate 18 10/30/2017 10:27 AM CDT Oxygen Saturation 97% 10/30/2017 10:27 AM CDT Inhaled Oxygen Concentration - - Weight 83.7 kg (184 lb 8 oz) 10/30/2017 10:27 AM CDT Height 160 cm (5' 3") 10/30/2017 10:27 AM CDT Body Mass Index 32.68 10/30/2017 10:27 AM CDT Plan of Treatment Health Maintenance Due Date Last Done Comments COLON CANCER SCREENING 2008 SHINGRIX VACCINE (#1) 2008 BREAST CANCER SCREENING 10/01/2016 10/01/2014 CERVICAL CANCER SCREENING 10/01/2017 10/01/2014 INFLUENZA VACCINE 01/31/2018 Results Not on fileafter 12/04/2016 Insurance Payer Benefit Plan / Group Subscriber ID Type Phone Address AETNA AET[employer] PPO OPEN CHOICE xxxxxxxxxx PPO Work: [id number] [phone] [id number] Home:
--- OUTSIDE RECORDS SUMMARY | 2017-12-05 11:12 | XMS REPORT | Clinical Summary ---
:1960 Author Organization [facility] Address [address] [place] [address] Phone Care Team Providers Name Role Phone [...] Refusal of blood transfusions as patient is Religious 08/28/2017 Metabolic acidosis 08/28/2017 Weak 08/28/2017 Alcoholic cirrhosis of liver with ascites (HCC) 08/26/2017 Hepatic encephalopathy (HCC) 08/26/2017 Anasarca 08/26/2017 FLORIDALMA (acute kidney injury) (HCC) 08/26/2017 Anemia 08/26/2017 Encounters Date Type Specialty Care Team Description 10/05/2017 Office Visit Hepatology Marielena, Alcoholic cirrhosis Rui Tovar, of liver with MD ascites (HCC) Erin Cao (Primary Dx);Hepatic ARTEM Marti encephalopathy (HCC);Abnormal liver enzymes;Portal hypertension (HCC);Other ascites;Metabolic syndrome;Cancer screening;Immunity status testing 08/30/2017 Anesthesia Event Gastroenterology Reece Schmitt MD 08/30/2017 Procedure Pass Gastroenterology 08/30/2017 Surgery Gastroenterology Antione, UPPER ENDOSCOPY Amaris Herman MD 08/26/2017 [facility] Internal Wenceslao Salazar Hepatic - Encounter Medicine MD Yoseph encephalopathy (HCC) 09/04/2017 Betty, (Primary Dx);FLORIDALMA Kaia Ashby MD (acute kidney Ramesh, injury) MD Sebastien (HCC);Alcoholic Risa Walton, cirrhosis of liver with ascites (HCC);Anasarca;Iron deficiency anemia, unspecified iron deficiency anemia type;Splenic pancytopenia syndrome (HCC);Thrombocytopen ia (HCC);Coagulopathy (HCC);Refusal of blood transfusions as patient is Religious 08/26/2017 Orders Only Internal Medicine Wenceslao Salazar MD after 12/04/2016 Social History Tobacco Use Types [...] Diagnosis Comments UPPER ENDOSCOPY 08/30/2017 8:00 AM COPY AND PRINT ASSOCIATE ANEMIA after 12/04/2016 Results RHYTHM STRIP - SCAN (09/06/2017 12:40 [...] Performing Laboratory Blood - Line, Venous [facility] [address] [address] CBC with platelet count + automated diff [...] % Specimen Performing Laboratory Blood - Line, [address] [address] Reticulocyte count (09/01/2017 8:59 AM)Only the most recent of2 resultswithin the time period is included. Component Value Ref Range % Retic 9.2 (H) 0.5 - 1.7 % Specimen Performing Laboratory Blood - Line, [address] [address] CBC with platelet count + automated diff (09/01/2017 8:59 AM)Only the most recent of5 resultswithin the time period is included. Specimen Performing Laboratory Blood Narrative The following orders were created for panel order CBC with platelet count + automated diff. Procedure Abnormality Status --------- ------ CBC with platelet count ...[[id number]]AbnormalFinal result Manual Differential[[id number]]Abnormal Final result Please view results for these tests on the individual orders. Magnesium (09/01/2017 8:59 AM)Only the most recent of2 resultswithin the time period is included. Component Value Ref Range Magnesium 1.4 (L) 1.6 - 2.6 mg/dL Specimen Performing Laboratory Blood - Line, [address] [address] Comprehensive metabolic panel (09/01/2017 8:59 AM)Only the [...] Specimen Performing Laboratory Blood - Line, Venous [address] [address] Narrative Specimen moderately icteric Erythropoietin (08/31/2017 12:04 PM) Component Value Ref Range Erythropoietin 258.8 (H) 2.6 - 18.5 mIU/mL Specimen Performing Laboratory Blood - Arm, Right [facility] [address] [place] [address] Narrative Performing Lab EZ [facility] [id number] [place] [id number] Christie Coronel MD, PhD ECHOCARDIOGRAM REPORT - SCAN (08/31/2017 7:22 AM)Prothrombin time/INR (2017 11:43 AM)Only the most recent of4 resultswithin the time period is included. Component Value Ref Range Protime 29.7 (H) 11.7 - 14.7 seconds INR 2.8 <=5.9 Specimen Performing Laboratory Blood [address] [address] Narrative RECOMMENDED COUMADIN/WARFARIN INR THERAPY RANGES STANDARD DOSE: 2.0 - 3.0 Includes: PROPHYLAXIS for venous thrombosis, systemic embolization; TREATMENT for venous thrombosis and/or pulmonary embolus. HIGH RISK: Target INR is 2.5-3.5 for patients with mechanical heart valves. Fibrinogen (08/30/2017 11:43 AM) Component Value Ref Range Fibrinogen 94 (LL) 225 - 434 mg/dl Specimen Performing Laboratory Blood [address] [address] Basic Metabolic Panel (08/30/2017 11:43 AM)Only the [...] ESTIMATED GFR. Specimen Performing Laboratory Blood [facility] [address] [address] Narrative Specimen moderately icteric 2D Echo W/Doppler(CW/PW/Color) (08/30/2017 9:36 AM) Component Value Ref Range Ejection Fraction Specimen Performing Laboratory [facility] Narrative Transthoracic Echocardiography Report (TTE) Demographics Patient Name HEATHER LOVE Date of Study 08/30/2017 DIONISIO [id number] GenderFemale Visit Number [id number] Race Unknown [id number] Number [id number] Number Date of Birth1960 Referring Physician James Silvestre MD Age56 year(s) Founder And Chief Executive Officer Jarrod Bloom, [facility] AnalysLou Armijo,Interpreting Melva Woods, [facility] Physician Procedure Type of Study TTE procedure:2DECHO [...] Left AtriumLA size is severely enlarged (>48 ml/m2) . Right VentricleThe right ventricular chamber size [...] External Ris In - 08/30/2017 9:01 PM COPY AND PRINT ASSOCIATE Transthoracic Echocardiography Report (TTE) Demographics Patient Name HEATHER LOVE Date of Study 08/30/2017 DIONISIO Gender Female Visit Number [id number] Race Unknown Room Number 709 Number Date of 1960 Referring Physician James Silvestre MD Age 56 year(s) Founder And Chief Executive Officer Jarrod Bloom, [facility] Retail Representative Saira Armijo, Interpreting Melva Woods, [facility] Physician Procedure Type of Study TTE procedure:2DECHO [...] doppler (08/29/2017 7:02 PM) Specimen Performing Laboratory [employer] Narrative FINAL REPORT HISTORY : Cirrhosis COMPARISON : [...] MD Report Verified Date/Time:08/29/2017 20:26:57 Reading Location: [address] Consult Reading Room Procedure Note Interface, External Ris In - 08/29/2017 8:29 PM COPY AND PRINT ASSOCIATE FINAL REPORT HISTORY : Cirrhosis COMPARISON : [...] Report Verified Date/Time: 08/29/2017 20:26:57 Reading Location: [facility] C013W Consult Reading Room chest 1 view [...] MD Report Verified Date/Time:08/28/2017 21:28:23 Reading Location: [facility] C013Y CT Body Reading Room Procedure Note Interface, External Ris In - 08/28/2017 9:30 PM COPY AND PRINT ASSOCIATE FINAL REPORT RAD, CHEST, 1 VIEW, NON [...] Report Verified Date/Time: 08/28/2017 21:28:23 Reading Location: [facility] C013Y CT Body Reading Room 12 lead (08/28/2017 4:50 PM) Specimen Performing Laboratory [employer] [facility] Narrative Ventricular Rate 63 BPM Atrial Rate 63 BPM P-R Interval 168 ms QRS Duration 88 ms Q-T Interval 398 ms QTC Calculation(Bazett) 407 ms P [place] 7 degrees R [place] 31 degrees T [place] 34 degrees Normal sinus rhythm Low voltage QRS Cannot rule out Anterior infarct , age undetermined Abnormal ECG No previous ECGs available Confirmed by MD FRANCE, IHAB ([id number]) on 08/28/2017 9:31:44 PM Procedure Note Interface, External Ris In - 08/28/2017 9:31 PM COPY AND PRINT ASSOCIATE Ventricular Rate 63 BPM Atrial Rate 63 BPM P-R Interval 168 ms QRS Duration 88 ms Q-T Interval 398 ms QTC Calculation(Bazett) 407 ms P [place] 7 degrees R [place] 31 degrees T [place] 34 degrees Normal sinus rhythm Low voltage QRS Cannot rule out Anterior infarct , age undetermined Abnormal ECG No previous ECGs available Confirmed by MD FRANCE, IHAB ([id number]) on 08/28/2017 9:31:44 PM C-Reactive Protein (08/28/2017 12:23 PM) Component Value Ref Range CRP 0.42 0.00 - 0.50 mg/dL Specimen Performing Laboratory Blood [address] [address] Sedimentation rate (08/28/2017 12:23 PM) Component Value Ref Range Sed Rate 18 0 - 30 mm/HR Specimen Performing Laboratory Blood [address] [address] Hepatic function panel (08/28/2017 12:23 PM)Only the [...] - 55 U/L Specimen Performing Laboratory Blood [address] [address] Narrative Specimen moderately icteric Blood culture (08/28/2017 11:41 AM)Only the most recent of2 resultswithin the time period is included. Component Value Ref Range Result No growth in 5 days Specimen Performing Laboratory Blood - Arm, Right [address] [address] Hepatitis A antibody, IgG (08/28/2017 1:02 AM) Component Value Ref Range Hep A IgG Reactive (A) Nonreactive Specimen Performing Laboratory Blood - Arm, Right [address] [address] Anti-Mitochondrial Ab, reflex to titer (08/28/2017 1:02 AM) Component Value Ref Range Scan Result Specimen Performing Laboratory Blood - Arm, Right [address] [address] Alpha-1 antitrypsin Mutation Analysis (08/28/2017 1:02 AM) Component Value Ref Range A1 Antitrypsin Mut SEE BELOW Comment: RESULT: NO MUTATION DETECTED Interpretation: DNA testing indicates that this individual is negative for the PI*Z and PI*S alleles in the byyfo-4-twwrlicbfje (PI) gene (genotype PI*M/PI*M). This negative result does not rule out the presence of other mutations within the PI gene or other causes of ossco-5-zdotohyyijr deficiency. Therefore, these results should be interpreted in the context of the individual's clinical presentation, and other laboratory tests such as measurement of serum dwlxb-6-yvdzajjvjpr levels. Laboratory results and submitted clinical information reviewed by Clarice Scott, Ph.D., JESSICAG, CHRISSYD, CGRUDYs. Itrpd-8-reratcpedeo deficiency is a relatively common autosomal recessive condition. The two most common deficiency alleles in the jbglm-2-nqonvyxerao gene (protease inhibitor locus, PI) are designated [...] smoke. It should be noted that serum pvuyv-8-ytittpjjenu levels can be induced by a wide variety of conditions that include , infection, numerous inflammatory conditions, cancer, and liver disease. Levels of rpcss-3-jrxfcigxdrf may be reduced by other conditions. Therefore, immunological and functional determinations of serum mbosp-4-envllxemkms levels may not correlate with the individual's PI genotype. The PI*Z, PI*S, and PI*M alleles are detected by multiplex polymerase chain reaction (PCR) amplification of specific regions of the PI gene, followed by restriction enzyme digestion and capillary electrophoresis. This assay does not test for the presence of other mutations within the fdnfn-6-enofgprxjmp gene or non-genetic causes of hyujq-8-myougghzouw deficiency. Since genetic variation and other factors can affect the accuracy of direct mutation testing, these results should be interpreted in light of clinical and familial data. This test was developed and its analytical performance characteristics have been determined by [facility]. It has not been cleared or approved by FDA. This assay has been validated pursuant to the CLIA regulations and is used for clinical purposes. Clinical Indication NOT GIVEN Referring Physician NOT GIVEN Specimen Performing Laboratory Blood - Arm, Right [facility] [address] [place] [address] Narrative Performing Lab EZ [facility] [address] [address] Christie Coronel MD, PhD Vitamin B12 and Folate (08/28/2017 1:02 AM) Component Value Ref Range Vitamin B12 >2000 (H) 213 - 816 pg/mL Folate 8.2 >=7.0 ng/mL Specimen Performing Laboratory Blood - Arm, [address] [address] TSH/Free T4 If Indicated (08/28/2017 1:02 AM) Component Value Ref Range TSH 2.13 0.35 - 4.94 uIU/mL Specimen Performing Laboratory Blood - Arm, [address] [address] Actin (Smooth Muscle) Antibody, IgG (08/28/2017 1:02 [...] 1. Specimen Performing Laboratory Blood - Arm, [facility] [place] [id number] [place] [address] Narrative Performing Lab EZ [facility] [address] [address] Christie Coronel MD, PhD Cqnif-4-kyedkehrdul (08/28/2017 1:02 AM) Component Value Ref Range A-1 Antitrypsin 99.90 90.00 - 200.00 mg/dL Specimen Performing Laboratory Blood - Arm, [address] [address] FABIAN Titer & Pattern (08/28/2017 1:02 AM) Component Value Ref Range FABIAN Titer 1:160 FABIAN Pattern Nucleolar Specimen Performing Laboratory Blood - Arm, Right [facility] [address] Ceruloplasmin (08/28/2017 1:02 AM) Component Value Ref Range Ceruloplasmin 14 (L) 18 - 53 mg/dL Comment: Adults:Males: 18-36 mg/dL Females: 18-53 mg/dL Pediatrics:Males (mg/dL)Females (mg/dL) 0-30 Days 8-25 3-28 31 Days-11 Month 1515-43 1-3 Aeial55-1198-40 4-6 Ilada82-6393-97 7-9 Vyezi73-8254-90 10-12 Epllt55-9038-81 13-15 Wyjep79-2996-55 16-18 Hbnyc02-3707-30 The pediatric ranges are derived from the following criteria: Debbie SJ, Woo JM, Heidi J et al Pediatric reference ranges for Dhhq-3-Ccltxljlbsnns and ceruloplasmin. Clin. Chem 1997; 43:S1999 Pediatric Reference Ranges, 2nd., [place] Debbieet al. editors. [employer], [place], [place] 1997. Specimen Performing Laboratory Blood - Arm, [facility] [address] [address] Narrative Performing Lab *[facility], [address] [place] [id number] Christie Coronel MD, PhD Anti-Nuclear Antibody (FABIAN) (08/28/2017 1:02 AM) Component Value Ref Range FABIAN Positive (A) Negative Specimen Performing Laboratory Blood - Arm, [address] [address] Ferritin (08/28/2017 1:02 AM) Component Value Ref Range Ferritin 861 (H) 5 - 275 ng/mL Specimen Performing Laboratory Blood - Arm, [address] [address] Sodium, random urine (08/27/2017 10:22 AM) Component Value Ref Range Sodium Urine <20 meq/L Specimen Performing Laboratory Urine - Urine, Clean Catch [address] [place] [address] Narrative Reference Range: No Normals Protein, random urine (08/27/2017 10:22 AM) Component Value Ref Range Protein, Urine 8 0 - 14 mg/dL Specimen Performing Laboratory Urine - Urine, Clean Catch [address] [address] Creatinine, random urine (08/27/2017 10:22 AM) Component Value Ref Range Creatinine, Ur 135.7 mg/dL Specimen Performing Laboratory Urine - Urine, Clean Catch [address] [address] Narrative Reference Range: No Normals Peripheral Blood Smear - Hold only (08/27/2017 8:41 AM) Component Value Ref Range Peripheral Smear Save saved Specimen Performing Laboratory [address] [address] Iron, TIBC, % sat. (without ferritin) (08/27/2017 8:41 AM) Component Value Ref Range Iron 141 40 - 160 ug/dL TIBC 141 (L) 250 - 450 ug/dL Iron % Saturation 100 (H) 20 - 55 % Specimen Performing Laboratory [address] [address] Lactate dehydrogenase (LDH) (08/27/2017 8:41 AM) Component Value Ref Range LDH 318 (H) 125 - 220 U/L Specimen Performing Laboratory [address] [address] Urinalysis w/ Microscopic (08/26/2017 11:07 PM) Component Value Ref Range Color, UA Yellow Clarity, UA Hazy Specific Ledbetter, UA 1.011 1.001 - 1.035 pH, UA [...] Specimen Performing Laboratory Urine - Urine, Torres [facility] [address] [place] [address] Urine culture (08/26/2017 11:07 PM) Component Value Ref Range Result No growth Specimen Performing Laboratory Urine - Urine, [address] [address] Phosphorus (08/26/2017 11:03 PM) Component Value Ref Range Phosphorus 5.5 (H) 2.3 - 4.7 mg/dL Specimen Performing Laboratory Blood - Arm, [address] [address] BCID (08/26/2017 11:02 PM) Component Value Ref Range Scan Result Specimen Performing Laboratory Blood [address] [address] Narrative Result comments: Coagulase Negative Staphylococcus Species [...] required. This sample was tested at the [facility] Clinical Microbiology Laboratory using the GI Track Blood Culture ID Panel. This test is FDA cleared for in vitro diagnostic use and has been verified and approved by the [facility] Clinical Microbiologylaboratory for clinical use. Reference Range: Not Detected after 12/04/2016
--- OUTSIDE RECORDS SUMMARY | 2017-12-05 11:13 | XMS REPORT ---
:1960 [facility] [address] [place] [id number] Care Team Providers Name Role Phone DAPHNE PALMERMarlene Unavailable Unavailable Problems This patient has no known problems. Allergies, Adverse Reactions, Alerts This patient has no known allergies or adverse reactions. Medications This patient has no known medications. Results Test Description Test Time Test Comments Text Results Atomic Results Result Comments BLOOD CULTURE 2017-09-02 17:00:00 Test Item Value Reference Range Comments CULTURE (BEAKER) (test nwjz=9543) No growth in 5 days CBC W/PLT COUNT & AUTO [id number] 12:16:00 Test Item Value Reference Range Comments WHITE BLOOD CELL COUNT (BEAKER) (test oqzf=220) 4.2 K/ L 3.5-10.5 RED BLOOD CELL COUNT (BEAKER) (test ardt=618) 1.52 M/ L 3.93-5.22 HEMOGLOBIN (BEAKER) (test anhz=499) 5.6 GM/DL 11.2-15.7 HEMATOCRIT (BEAKER) (test ceak=043) 17.8 % 34.1-44.9 MEAN CORPUSCULAR VOLUME (BEAKER) (test hqfa=783) 117.1 fL 79.4-94.8 MEAN CORPUSCULAR HEMOGLOBIN (BEAKER) (test 36.8 pg 25.6-32.2 iwqk=938) MEAN CORPUSCULAR HEMOGLOBIN CONC (BEAKER) (test 31.5 GM/DL 32.2-35.5 hsld=235) RED CELL DISTRIBUTION WIDTH (BEAKER) (test 17.2 % 11.7-14.4 bjdz=972) PLATELET COUNT (BEAKER) (test vxiy=911) 71 K/CU MM 150-450 MEAN PLATELET VOLUME (BEAKER) (test ixab=387) 10.1 fL 9.4-12.3 NUCLEATED RED BLOOD CELLS (BEAKER) (test 1 /100 WBC 0-0 lbxn=426) NEUTROPHILS RELATIVE PERCENT (BEAKER) (test 51 % hymr=312) LYMPHOCYTES RELATIVE PERCENT (BEAKER) (test 23 % pjpl=229) MONOCYTES RELATIVE PERCENT (BEAKER) (test 16 % vppy=044) EOSINOPHILS RELATIVE PERCENT (BEAKER) (test 6 % mltd=558) BASOPHILS RELATIVE PERCENT (BEAKER) (test 1 % dirq=637) NEUTROPHILS ABSOLUTE COUNT (BEAKER) (test 2.16 K/ L 1.56-6.13 zifs=509) LYMPHOCYTES ABSOLUTE COUNT (BEAKER) (test 0.97 K/ L 1.18-3.74 uhkd=970) MONOCYTES ABSOLUTE COUNT (BEAKER) (test jrij=681) 0.67 K/ L 0.24-0.36 EOSINOPHILS ABSOLUTE COUNT (BEAKER) (test 0.27 K/ L 0.04-0.36 bonk=687) BASOPHILS ABSOLUTE COUNT (BEAKER) (test wlmy=466) 0.03 K/ L 0.01-0.08 IMMATURE GRANULOCYTES-RELATIVE PERCENT (BEAKER) 2 % 0-1 (test gtul=7999) (MANUAL DIFFERENTIAL)2017-09-01 12:16:00 Test Item Value Reference Range Comments NEUTROPHILS - REL (DIFF) (BEAKER) (test zeiq=0790) 49 % LYMPHOCYTES - REL (DIFF) (BEAKER) (test tzuo=9518) 28 % MONOCYTES - REL (DIFF) (BEAKER) (test yutb=4680) 14 % EOSINOPHILS - REL (DIFF) (BEAKER) (test aqrp=6713) 6 % MYELOCYTES-REL (DIFF) (BEAKER) (test pscp=2791) 1 % 0-0 BANDS - REL (DIFF) (BEAKER) (test qzkl=6599) 2 % 0-10 NEUTROPHILS - ABS (DIFF) (BEAKER) (test swvm=8277) 2.06 K/ L 1.80-8.00 LYMPHOCYTES - ABS (DIFF) (BEAKER) (test gfob=5464) 1.18 K/ L 1.48-4.50 MONOCYTES - ABS (DIFF) (BEAKER) (test wqdy=3121) 0.59 K/ L 0.00-1.30 EOSINOPHILS - ABS (DIFF) (BEAKER) (test oruo=5398) 0.25 K/ L 0.00-0.50 BANDS-ABS (DIFF) (BEAKER) (test exgg=2334) 0.1 K/ L 0.0-0.8 MYELOCYTES-ABS (DIFF) (BEAKER) (test xvmq=9686) 0.04 K/ L 0.00-0.00 TOTAL COUNTED (BEAKER) (test xosz=2395) 100 BANDS + SEGMENTED NEUTROPHILS (BEAKER) (test 2.14 hmep=5693) WBC MORPHOLOGY (BEAKER) (test euun=783) Normal PLT MORPHOLOGY (BEAKER) (test ziwq=219) Normal POLYCHROMATOPHILLIC RBCS(BEAKER) (test deht=404) 1+ few ANTI-MITOCHONDRIAL AB, REFLEX TO [id number] 11:48:00 Test Item Value Reference Range Comments SCAN RESULT (test fzns=[id number]) BLOOD [id number] 11:24:00 Test Item Value Reference Range Comments CULTURE (BEAKER) From Aerobic Bottle Only (test kayw=9205) Coagulase negative Staphylococcus GRAM STAIN RESULT From aerobic bottle (BEAKER) (test only: gram positive mtzd=5815) cocci in clusters Coagulase Negative Staphylococcus Species [...] required. This sample was tested at the [facility] Clinical Microbiology Laboratory using the Youbetme Blood Culture ID Panel.This test is FDA cleared for in vitro diagnostic use and has been verified and approved by the [facility] for [facility] use. Reference Range: Not DetectedRETICULOCYTE [id number] 10:27:00 Test Item Value Reference Range Comments RETICULOCYTE COUNT PCT (BEAKER) (test twsg=828) 9.2 % 0.5-1.7 [id number] 10:12:00 Test Item Value Reference Range Comments MAGNESIUM (BEAKER) (test unxv=696) 1.4 mg/dL 1.6-2.6 COMPREHENSIVE METABOLIC [id number] 10:12:00 Test Item Value Reference Range Comments TOTAL PROTEIN (BEAKER) 4.9 gm/dL 6.0-8.3 (test ebsr=429) ALBUMIN (BEAKER) (test 2.9 g/dL 3.5-5.0 luhb=3347) ALKALINE PHOSPHATASE 102 U/L 40-150 (BEAKER) (test vthk=891) BILIRUBIN TOTAL (BEAKER) 5.1 mg/dL 0.2-1.2 (test rcte=553) SODIUM (BEAKER) (test 136 meq/L 136-145 utrf=728) POTASSIUM (BEAKER) (test 3.7 meq/L 3.5-5.1 hanz=767) CHLORIDE (BEAKER) (test 108 meq/L 98-107 nqgd=338) CO2 (BEAKER) (test 22 meq/L 22-29 qaws=482) BLOOD UREA NITROGEN 30 mg/dL 7-21 (BEAKER) (test dijb=258) CREATININE (BEAKER) (test 1.22 mg/dL 0.57-1.25 ouar=491) GLUCOSE RANDOM (BEAKER) 101 mg/dL 70-105 (test xprz=802) CALCIUM (BEAKER) (test 8.4 mg/dL 8.4-10.2 xljr=421) AST (SGOT) (BEAKER) (test 41 U/L 5-34 grhv=141) ALT (SGPT) (BEAKER) (test 22 U/L 6-55 hfkv=735) EGFR (BEAKER) (test mL/min/1.73 sq m INSUFFICIENT CLINICAL DATA ybwy=7521) TO CALCULATE ESTIMATED GFR. [facility]imen [facility] ictericBASIC METABOLIC [id number] 13:48:00 Test Item Value Reference Range Comments SODIUM (BEAKER) (test 139 meq/L 136-145 xjgu=464) POTASSIUM (BEAKER) (test 4.2 meq/L 3.5-5.1 qmbj=593) CHLORIDE (BEAKER) (test 111 meq/L 98-107 iktz=289) CO2 (BEAKER) (test 17 meq/L 22-29 egez=431) BLOOD UREA NITROGEN 36 mg/dL 7-21 (BEAKER) (test pstx=644) CREATININE (BEAKER) (test 1.33 mg/dL 0.57-1.25 moiz=830) GLUCOSE RANDOM (BEAKER) 138 mg/dL 70-105 (test ztxm=754) CALCIUM (BEAKER) (test 8.7 mg/dL 8.4-10.2 ozlx=683) EGFR (BEAKER) (test mL/min/1.73 sq m INSUFFICIENT CLINICAL DATA utpk=1859) TO CALCULATE ESTIMATED GFR. Specimen moderately ictericCBC W/PLT COUNT & AUTO [id number] 13: 39:00 Test Item Value Reference Range Comments WHITE BLOOD CELL COUNT (BEAKER) (test jxgr=266) 6.4 K/ L 3.5-10.5 RED BLOOD CELL COUNT (BEAKER) (test lbqg=723) 1.53 M/ L 3.93-5.22 HEMOGLOBIN (BEAKER) (test yaiu=835) 5.5 GM/DL 11.2-15.7 HEMATOCRIT (BEAKER) (test adkr=203) 18.1 % 34.1-44.9 MEAN CORPUSCULAR VOLUME (BEAKER) (test fqbp=548) 118.3 fL 79.4-94.8 MEAN CORPUSCULAR HEMOGLOBIN (BEAKER) (test 35.9 pg 25.6-32.2 ukeu=460) MEAN CORPUSCULAR HEMOGLOBIN CONC (BEAKER) (test 30.4 GM/DL 32.2-35.5 yieb=490) RED CELL DISTRIBUTION WIDTH (BEAKER) (test 15.6 % 11.7-14.4 pdtr=497) PLATELET COUNT (BEAKER) (test rhlq=663) 81 K/CU MM 150-450 MEAN PLATELET VOLUME (BEAKER) (test wgdf=326) 9.8 fL 9.4-12.3 NUCLEATED RED BLOOD CELLS (BEAKER) (test 1 /100 WBC 0-0 sgdx=128) IMMATURE GRANULOCYTES-RELATIVE PERCENT (BEAKER) 4 % 0-1 (test jjxz=0087) (MANUAL DIFFERENTIAL)2017-08-30 13:39:00 Test Item Value Reference Range Comments NEUTROPHILS - REL (DIFF) (BEAKER) (test zjdn=1494) 55 % LYMPHOCYTES - REL (DIFF) (BEAKER) (test kfag=0328) 16 % MONOCYTES - REL (DIFF) (BEAKER) (test fodj=2518) 15 % EOSINOPHILS - REL (DIFF) (BEAKER) (test dfyu=9795) 8 % BASOPHILS - REL (DIFF) (BEAKER) (test gxpt=5381) 1 % METAMYELOCYTES-REL (DIFF) (BEAKER) (test azrn=831) 1 % 0-0 MYELOCYTES-REL (DIFF) (BEAKER) (test bozf=8564) 4 % 0-0 NEUTROPHILS - ABS (DIFF) (BEAKER) (test soiv=3007) 3.52 K/ L 1.80-8.00 LYMPHOCYTES - ABS (DIFF) (BEAKER) (test mpvn=9971) 1.02 K/ L 1.48-4.50 MONOCYTES - ABS (DIFF) (BEAKER) (test bklx=4055) 0.96 K/ L 0.00-1.30 EOSINOPHILS - ABS (DIFF) (BEAKER) (test whhf=1701) 0.51 K/ L 0.00-0.50 BASOPHILS - ABS (DIFF) (BEAKER) (test dtjg=0714) 0.06 K/ L 0.00-0.20 METAMYELOCTYES - ABS (DIFF) (BEAKER) (test 0.06 K/ L 0.00-0.00 srrd=296) MYELOCYTES-ABS (DIFF) (BEAKER) (test uxcb=4880) 0.26 K/ L 0.00-0.00 TOTAL COUNTED (BEAKER) (test nkxv=0956) 100 WBC MORPHOLOGY (BEAKER) (test cgxe=408) Normal PLT MORPHOLOGY (BEAKER) (test icja=536) Normal ACANTHOCYTES (BEAKER) (test kycl=992) 1+ few ANISOCYTOSIS (BEAKER) (test aiho=945) 1+ few POLYCHROMATOPHILLIC RBCS(BEAKER) (test flxo=192) 1+ few [id number] 12:41:00 Test Item Value Reference Range Comments FIBRINOGEN LEVEL (BEAKER) (test rgyc=073) 94 mg/dl 225-434 PROTHROMBIN [id number] 12:18:00 Test Item Value Reference Range Comments PROTIME (BEAKER) (test kdyz=435) 29.7 seconds 11.7-14.7 INR (BEAKER) (test oxdg=539) 2.8 <=5.9 RECOMMENDED COUMADIN/WARFARIN INR THERAPY RANGESSTANDARD DOSE: 2.0 - 3.0 Includes: PROPHYLAXIS forvenous thrombosis, systemic embolization; TREATMENT for venous thrombosis and/or pulmonary embolus.HIGH RISK: Target INR is 2.5-3.5 for patients with mechanical heart valves.U/S, ABDOMINAL, WITH [id number] 20:26:00Reason for exam:->cirrhosisShould this be performed [...] MDReport Verified Date/Time: 08/29/2017 20:26:57 Reading Location: [facility] B1 C013W Consult Reading Room RAD, CHEST, 1 VIEW, NON [id number] 21:28:00Reason for exam:->SOBShould this be performed at [...] MDReport Verified Date/Time: 08/28/2017 21:28:23 Reading Location: [facility] C013Y CT Body Reading Room TSH/FREE T4 IF [id number] 15:56:00 Test Item Value Reference Range Comments THYROID STIMULATING HORMONE (BEAKER) (test 2.13 uIU/mL 0.35-4.94 nuiu=346) MISCELLANEOUS LAB [id number] 14:44:00 Test Item Value Reference Range Comments SCAN RESULT (test dznz=[id number]) Result comments: Coagulase Negative Staphylococcus Species (CoNS) [...] required. This sample was tested at the [facility] Clinical Microbiology Laboratory using the Youbetme Blood Culture ID Panel. This test is FDA cleared for in vitro diagnostic use and has been verified and approved by the [facility] Clinical Microbiology laboratory for clinical use. Reference Range: Not DetectedBASIC METABOLIC [id number] 13:50 :00 Test Item Value Reference Range Comments SODIUM (BEAKER) (test 136 meq/L 136-145 sxkv=356) POTASSIUM (BEAKER) (test 4.7 meq/L 3.5-5.1 edjf=164) CHLORIDE (BEAKER) (test 109 meq/L 98-107 cyha=238) CO2 (BEAKER) (test 19 meq/L 22-29 qidi=192) BLOOD UREA NITROGEN 47 mg/dL 7-21 (BEAKER) (test gdmn=068) CREATININE (BEAKER) (test 1.68 mg/dL 0.57-1.25 dyzz=040) GLUCOSE RANDOM (BEAKER) 176 mg/dL 70-105 (test jzkt=729) CALCIUM (BEAKER) (test 8.8 mg/dL 8.4-10.2 iwwz=572) EGFR (BEAKER) (test mL/min/1.73 sq m INSUFFICIENT CLINICAL DATA kpvq=8586) TO CALCULATE ESTIMATED GFR. Specimen moderately ictericHEPATIC FUNCTION [id number] 13:49:00 Test Item Value Reference Range Comments TOTAL PROTEIN (BEAKER) (test rfiz=120) 5.5 gm/dL 6.0-8.3 ALBUMIN (BEAKER) (test zydw=9222) 3.5 g/dL 3.5-5.0 BILIRUBIN TOTAL (BEAKER) (test cwbd=128) 5.6 mg/dL 0.2-1.2 BILIRUBIN DIRECT (BEAKER) (test gxqw=189) 2.4 mg/dL 0.1-0.5 ALKALINE PHOSPHATASE (BEAKER) (test huqd=121) 96 U/L 40-150 AST (SGOT) (BEAKER) (test ppjl=748) 47 U/L 5-34 ALT (SGPT) (BEAKER) (test xpnd=898) 26 U/L 6-55 Specimen moderately ictericSEDIMENTATION [id number] 13:47:00 Test Item Value Reference Range Comments SEDIMENTATION RATE, ERYTHROCYTE (BEAKER) (test 18 mm/HR 0-30 lruw=797) C-REACTIVE [id number] 13:42:00 Test Item Value Reference Range Comments C-REACTIVE PROTEIN (BEAKER) (test srye=088) 0.42 mg/dL 0.00-0.50 CBC W/PLT COUNT & AUTO [id number] 12:52:00 Test Item Value Reference Range Comments WHITE BLOOD CELL COUNT (BEAKER) (test smgp=719) 5.1 K/ L 3.5-10.5 RED BLOOD CELL COUNT (BEAKER) (test bqcz=849) 1.50 M/ L 3.93-5.22 HEMOGLOBIN (BEAKER) (test hkuv=144) 5.5 GM/DL 11.2-15.7 HEMATOCRIT (BEAKER) (test xpur=917) 17.1 % 34.1-44.9 MEAN CORPUSCULAR VOLUME (BEAKER) (test kolq=947) 114.0 fL 79.4-94.8 MEAN CORPUSCULAR HEMOGLOBIN (BEAKER) (test 36.7 pg 25.6-32.2 zmna=686) MEAN CORPUSCULAR HEMOGLOBIN CONC (BEAKER) (test 32.2 GM/DL 32.2-35.5 fjso=973) RED CELL DISTRIBUTION WIDTH (BEAKER) (test 15.1 % 11.7-14.4 iyvu=373) PLATELET COUNT (BEAKER) (test npbk=493) 75 K/CU MM 150-450 MEAN PLATELET VOLUME (BEAKER) (test hreh=954) 9.8 fL 9.4-12.3 NUCLEATED RED BLOOD CELLS (BEAKER) (test 0 /100 WBC 0-0 huza=671) NEUTROPHILS RELATIVE PERCENT (BEAKER) (test 65 % mvgo=084) LYMPHOCYTES RELATIVE PERCENT (BEAKER) (test 16 % qmct=656) MONOCYTES RELATIVE PERCENT (BEAKER) (test 13 % cmrj=493) EOSINOPHILS RELATIVE PERCENT (BEAKER) (test 5 % pazz=578) BASOPHILS RELATIVE PERCENT (BEAKER) (test 0 % qmmd=924) NEUTROPHILS ABSOLUTE COUNT (BEAKER) (test 3.33 K/ L 1.56-6.13 jhxo=173) LYMPHOCYTES ABSOLUTE COUNT (BEAKER) (test 0.84 K/ L 1.18-3.74 gbjc=503) MONOCYTES ABSOLUTE COUNT (BEAKER) (test fjpm=007) 0.65 K/ L 0.24-0.36 EOSINOPHILS ABSOLUTE COUNT (BEAKER) (test 0.24 K/ L 0.04-0.36 lunm=563) BASOPHILS ABSOLUTE COUNT (BEAKER) (test amwr=417) 0.01 K/ L 0.01-0.08 IMMATURE GRANULOCYTES-RELATIVE PERCENT (BEAKER) 1 % 0-1 (test nvae=4696) URINE [id number] 09:15:00 Test Item Value Reference Range Comments CULTURE (BEAKER) (test pswi=2524) No growth FABIAN TITER AND [id number] 09:02:00 Test Item Value Reference Range Comments FABIAN TITER (BEAKER) (test bpoj=8967) :160 FABIAN PATTERN (BEAKER) (test hdoo=5333) Nucleolar ANTI-NUCLEAR ANTIBODY (FABIAN)2017-08-28 09:01:00 Test Item Value Reference Range Comments ANTI-NUCLEAR ANTIBODY (FABIAN) (BEAKER) (test Positive Negative qwur=155) PROTHROMBIN [id number] 08:26:00 Test Item Value Reference Range Comments PROTIME (BEAKER) (test nzzw=887) 29.8 seconds 11.7-14.7 INR (BEAKER) (test dxlm=323) 2.8 <=5.9 RECOMMENDED COUMADIN/WARFARIN INR THERAPY RANGESSTANDARD DOSE: 2.0 - 3.0 Includes: PROPHYLAXIS forvenous thrombosis, systemic embolization; TREATMENT for venous thrombosis and/or pulmonary embolus.HIGH RISK: Target INR is 2.5-3.5 for patients with mechanical heart valves.[id number] 07:32:00 Test Item Value Reference Range Comments ALPHA-1 ANTITRYPSIN (BEAKER) (test migp=051) 99.90 mg/dL 90.00-200.00 HEPATITIS A ANTIBODY, [id number] 03:42:00 Test Item Value Reference Range Comments HEPATITIS A IGG ANTIBODY (BEAKER) (test pjlq=8946) Reactive Nonreactive VITAMIN B12 AND [id number] 03:42:00 Test Item Value Reference Range Comments VITAMIN B12 (BEAKER) (test rxak=448) > pg/mL 213-816 FOLATE (BEAKER) (test hfwt=428) 8.2 ng/mL >=7.0 [id number] 03:26:00 Test Item Value Reference Range Comments FERRITIN (BEAKER) (test usno=287) 861 ng/mL 5-275 LACTATE DEHYDROGENASE (LDH)2017-08-27 17:42:00 Test Item Value Reference Range Comments LACTATE DEHYDROGENASE (BEAKER) (test cgji=773) 318 U/L 125-220 RAD, CHEST, 1 VIEW, NON [id number] 16:20:00Reason for exam:->edemaShould this be performed at [...] MDReport Verified Date/Time: 08/27/2017 16:20:41 Reading Location: [place] [id number] Ortho Consult Reading Room PERIPHERAL BLOOD SMEAR - HOLD [id number] 14:32:00 Test Item Value Reference Range Comments PERIPHERAL SMEAR SAVE (BEAKER) (test xuat=1557) saved IRON, TIBC, % SAT. (WITHOUT FERRITIN)2017-08-27 12:53:00 Test Item Value Reference Range Comments IRON (BEAKER) (test ngpe=172) 141 ug/dL 40-160 TOTAL IRON BINDING CAPACITY (BEAKER) (test 141 ug/dL 250-450 wsel=313) IRON % SATURATION (2) (BEAKER) (test iyzr=4443) 100 % 20-55 RETICULOCYTE [id number] 12:07:00 Test Item Value Reference Range Comments RETICULOCYTE COUNT PCT (BEAKER) (test hjtq=555) 4.4 % 0.5-1.7 PROTEIN, RANDOM [id number] 11:03:00 Test Item Value Reference Range Comments PROTEIN, URINE (BEAKER) (test nxet=5105) 8 mg/dL 0-14 CREATININE, RANDOM [id number] 11:01:00 Test Item Value Reference Range Comments CREATININE URINE (BEAKER) (test cjyf=458) 135.7 mg/dL Reference Range: No NormalsSODIUM, RANDOM [id number] 11:01:00 Test Item Value Reference Range Comments SODIUM URINE (BEAKER) (test hnsq=170) < meq/L Reference Range: No NormalsPROTHROMBIN [id number] 10:54:00 Test Item Value Reference Range Comments PROTIME (BEAKER) (test aibt=264) 24.6 seconds 11.7-14.7 INR (BEAKER) (test hrbo=232) 2.2 <=5.9 RECOMMENDED COUMADIN/WARFARIN INR THERAPY RANGESSTANDARD DOSE: 2.0 - 3.0 Includes: PROPHYLAXIS forvenous thrombosis, systemic embolization; TREATMENT for venous thrombosis and/or pulmonary embolus.HIGH RISK: Target INR is 2.5-3.5 for patients with mechanical heart valves.COMPREHENSIVE METABOLIC [id number] 10:15:00 Test Item Value Reference Range Comments TOTAL PROTEIN (BEAKER) 4.7 gm/dL 6.0-8.3 (test ivje=718) ALBUMIN (BEAKER) (test 2.6 g/dL 3.5-5.0 hkfi=1763) ALKALINE PHOSPHATASE 116 U/L 40-150 (BEAKER) (test yjzf=603) BILIRUBIN TOTAL (BEAKER) 6.4 mg/dL 0.2-1.2 (test gtyd=960) SODIUM (BEAKER) (test 135 meq/L 136-145 cbhv=894) POTASSIUM (BEAKER) (test 5.0 meq/L 3.5-5.1 innj=298) CHLORIDE (BEAKER) (test 108 meq/L 98-107 wttw=923) CO2 (BEAKER) (test 19 meq/L 22-29 ewfa=159) BLOOD UREA NITROGEN 50 mg/dL 7-21 (BEAKER) (test jzma=109) CREATININE (BEAKER) (test 1.85 mg/dL 0.57-1.25 cmrp=653) GLUCOSE RANDOM (BEAKER) 89 mg/dL 70-105 (test edoc=869) CALCIUM (BEAKER) (test 8.4 mg/dL 8.4-10.2 tsbm=333) AST (SGOT) (BEAKER) (test 50 U/L 5-34 vmma=795) ALT (SGPT) (BEAKER) (test 27 U/L 6-55 xdok=800) EGFR (BEAKER) (test mL/min/1.73 sq m INSUFFICIENT CLINICAL DATA fxxl=0239) TO CALCULATE ESTIMATED GFR. Specimen moderately ictericCBC W/PLT COUNT & AUTO [id number] 09: 12:00 Test Item Value Reference Range Comments WHITE BLOOD CELL COUNT (BEAKER) (test ivpt=653) 5.4 K/ L 3.5-10.5 RED BLOOD CELL COUNT (BEAKER) (test rzdo=243) 1.65 M/ L 3.93-5.22 HEMOGLOBIN (BEAKER) (test mwlk=183) 6.0 GM/DL 11.2-15.7 HEMATOCRIT (BEAKER) (test xxuy=963) 18.4 % 34.1-44.9 MEAN CORPUSCULAR VOLUME (BEAKER) (test nwoh=652) 111.5 fL 79.4-94.8 MEAN CORPUSCULAR HEMOGLOBIN (BEAKER) (test 36.4 pg 25.6-32.2 tijk=391) MEAN CORPUSCULAR HEMOGLOBIN CONC (BEAKER) (test 32.6 GM/DL 32.2-35.5 pfsq=767) RED CELL DISTRIBUTION WIDTH (BEAKER) (test 14.9 % 11.7-14.4 sewe=748) PLATELET COUNT (BEAKER) (test zets=443) 83 K/CU MM 150-450 MEAN PLATELET VOLUME (BEAKER) (test iupi=373) 9.8 fL 9.4-12.3 NUCLEATED RED BLOOD CELLS (BEAKER) (test 0 /100 WBC 0-0 fwmn=917) NEUTROPHILS RELATIVE PERCENT (BEAKER) (test 70 % abya=812) LYMPHOCYTES RELATIVE PERCENT (BEAKER) (test 15 % cqlr=109) MONOCYTES RELATIVE PERCENT (BEAKER) (test 11 % qqjr=762) EOSINOPHILS RELATIVE PERCENT (BEAKER) (test 4 % lyov=777) BASOPHILS RELATIVE PERCENT (BEAKER) (test 0 % emjl=601) NEUTROPHILS ABSOLUTE COUNT (BEAKER) (test 3.77 K/ L 1.56-6.13 chyn=777) LYMPHOCYTES ABSOLUTE COUNT (BEAKER) (test 0.78 K/ L 1.18-3.74 uxxo=489) MONOCYTES ABSOLUTE COUNT (BEAKER) (test ttyn=976) 0.61 K/ L 0.24-0.36 EOSINOPHILS ABSOLUTE COUNT (BEAKER) (test 0.20 K/ L 0.04-0.36 ivoy=801) BASOPHILS ABSOLUTE COUNT (BEAKER) (test syvp=199) 0.01 K/ L 0.01-0.08 IMMATURE GRANULOCYTES-RELATIVE PERCENT (BEAKER) 0 % 0-1 (test vfmg=6435) URINALYSIS W/ [id number] 01:10:00 Test Item Value Reference Range Comments COLOR (BEAKER) (test aowp=370) Yellow CLARITY (BEAKER) (test fheb=907) Hazy SPECIFIC GRAVITY UA (BEAKER) (test sqks=043) 1.011 1.001-1.035 PH UA (BEAKER) (test uzer=320) 5.5 5.0-8.0 PROTEIN UA (BEAKER) (test ecgo=403) Negative Negative GLUCOSE UA (BEAKER) (test rgku=122) Negative Negative KETONES UA (BEAKER) (test tjmw=791) Negative Negative BILIRUBIN UA (BEAKER) (test niui=476) Negative Negative BLOOD UA (BEAKER) (test uuce=889) Moderate Negative NITRITE UA (BEAKER) (test crxq=272) Negative Negative LEUKOCYTE ESTERASE UA (BEAKER) (test klat=753) Large Negative UROBILINOGEN UA (BEAKER) (test dnir=256) 0.2 mg/dL 0.2-1.0 RBC UA (BEAKER) (test ouop=350) 26 /HPF WBC UA (BEAKER) (test zgeu=882) 49 /HPF BACTERIA (BEAKER) (test rxjw=669) Occasional HYALINE CASTS (BEAKER) (test wall=558) 63 /LPF GRANULAR CASTS (BEAKER) (test uted=400) 3 /LPF AMORPHOUS CRYSTALS (BEAKER) (test iycz=2682) Few SOURCE(BEAKER) (test tyqh=3760) Urine, Torres BASIC METABOLIC [id number] 00:14:00 Test Item Value Reference Range Comments SODIUM (BEAKER) (test 133 meq/L 136-145 neid=979) POTASSIUM (BEAKER) (test 5.0 meq/L 3.5-5.1 axal=326) CHLORIDE (BEAKER) (test 105 meq/L 98-107 obqh=422) CO2 (BEAKER) (test 17 meq/L 22-29 fhxb=875) BLOOD UREA NITROGEN 51 mg/dL 7-21 (BEAKER) (test smsg=678) CREATININE (BEAKER) (test 2.06 mg/dL 0.57-1.25 smqx=989) GLUCOSE RANDOM (BEAKER) 83 mg/dL 70-105 (test zpml=484) CALCIUM (BEAKER) (test 8.5 mg/dL 8.4-10.2 sspn=238) EGFR (BEAKER) (test mL/min/1.73 sq m INSUFFICIENT CLINICAL DATA mmfu=0660) TO CALCULATE ESTIMATED GFR. Specimen moderately [id number] 00:08:00 Test Item Value Reference Range Comments PHOSPHORUS (BEAKER) (test yazj=550) 5.5 mg/dL 2.3-4.7 [id number] 00:08:00 Test Item Value Reference Range Comments MAGNESIUM (BEAKER) (test pnoh=034) 2.4 mg/dL 1.6-2.6 HEPATIC FUNCTION [id number] 00:08:00 Test Item Value Reference Range Comments TOTAL PROTEIN (BEAKER) (test ysyc=063) 5.6 gm/dL 6.0-8.3 ALBUMIN (BEAKER) (test vxcz=3449) 2.6 g/dL 3.5-5.0 BILIRUBIN TOTAL (BEAKER) (test zfsl=966) 6.7 mg/dL 0.2-1.2 BILIRUBIN DIRECT (BEAKER) (test rknw=140) 3.6 mg/dL 0.1-0.5 ALKALINE PHOSPHATASE (BEAKER) (test jfct=235) 187 U/L 40-150 AST (SGOT) (BEAKER) (test qcbd=937) 61 U/L 5-34 ALT (SGPT) (BEAKER) (test brfe=765) 34 U/L 6-55 Specimen moderately ictericPROTHROMBIN [id number] 23:54:00 Test Item Value Reference Range Comments PROTIME (BEAKER) (test emim=723) 21.5 seconds 11.7-14.7 INR (BEAKER) (test svcv=963) 1.9 <=5.9 RECOMMENDED COUMADIN/WARFARIN INR THERAPY RANGESSTANDARD DOSE: 2.0 - 3.0 Includes: PROPHYLAXIS forvenous thrombosis, systemic embolization; TREATMENT for venous thrombosis and/or pulmonary embolus.HIGH RISK: Target INR is 2.5-3.5 for patients with mechanical heart valves.CBC W/PLT COUNT & AUTO [id number] 23:51:00 Test Item Value Reference Range Comments WHITE BLOOD CELL COUNT (BEAKER) (test vrgm=971) 4.6 K/ L 3.5-10.5 RED BLOOD CELL COUNT (BEAKER) (test bwma=149) 1.99 M/ L 3.93-5.22 HEMOGLOBIN (BEAKER) (test ofrc=264) 7.0 GM/DL 11.2-15.7 HEMATOCRIT (BEAKER) (test fnhf=404) 21.8 % 34.1-44.9 MEAN CORPUSCULAR VOLUME (BEAKER) (test ivch=536) 109.5 fL 79.4-94.8 MEAN CORPUSCULAR HEMOGLOBIN (BEAKER) (test 35.2 pg 25.6-32.2 xnfj=529) MEAN CORPUSCULAR HEMOGLOBIN CONC (BEAKER) (test 32.1 GM/DL 32.2-35.5 vbeu=653) RED CELL DISTRIBUTION WIDTH (BEAKER) (test 14.8 % 11.7-14.4 rtbz=089) PLATELET COUNT (BEAKER) (test vrjt=788) 111 K/CU MM 150-450 MEAN PLATELET VOLUME (BEAKER) (test hakh=213) 9.8 fL 9.4-12.3 NUCLEATED RED BLOOD CELLS (BEAKER) (test 0 /100 WBC 0-0 zvei=495) NEUTROPHILS RELATIVE PERCENT (BEAKER) (test 66 % wxon=775) LYMPHOCYTES RELATIVE PERCENT (BEAKER) (test 18 % chjb=421) MONOCYTES RELATIVE PERCENT (BEAKER) (test 10 % akhs=197) EOSINOPHILS RELATIVE PERCENT (BEAKER) (test 6 % wqdu=605) BASOPHILS RELATIVE PERCENT (BEAKER) (test 0 % pdxx=952) NEUTROPHILS ABSOLUTE COUNT (BEAKER) (test 3.06 K/ L 1.56-6.13 wugi=033) LYMPHOCYTES ABSOLUTE COUNT (BEAKER) (test 0.81 K/ L 1.18-3.74 lrgw=699) MONOCYTES ABSOLUTE COUNT (BEAKER) (test 0.45 K/ L 0.24-0.36 hqyn=048) EOSINOPHILS ABSOLUTE COUNT (BEAKER) (test 0.26 K/ L 0.04-0.36 ijea=996) BASOPHILS ABSOLUTE COUNT (BEAKER) (test 0.02 K/ L 0.01-0.08 glux=822) IMMATURE GRANULOCYTES-RELATIVE PERCENT (BEAKER) 1 % 0-1 (test wkwy=3895)
[2017-12-05 12:52] LABS: Urine Bacteria 20-50 /HPF (<20); Urine Culture Reflex Order REFLEXED
[2017-12-05 12:53] LABS: Urine Blood 3+ (NEG); Urine Glucose NEGATIVE (NEG); Urine Protein 2+ (NEG); Urine pH 5.5 (5.0-7.0)
[2017-12-05 12:57] LABS: Absolute Lymphocytes (CBC) 0.7 K/uL (0.7-4.9); Absolute Monocytes 1.4 K/uL (0.1-1.3); Absolute Neutrophil 11.9 K/uL (1.8-8.0); Basophils % 0.2 % (0-1.3); Eosinophils % 0.8 % (0-4.4); Hematocrit 30.7 % (36.0-45.0); Lymphocytes % 4.6 % (15.3-44.8); MCH 34.5 pg (27.0-35.0); MCV 102.7 fL (80-100); MPV 8.1 fL (7.6-11.3); Monocytes % 10.2 % (3.3-12.3); RBC Red Blood Cell Count 2.99 M/uL (3.86-4.86)
[2017-12-05 13:07] LABS: Potassium 4.1 mEq/L (3.6-5.0)
[2017-12-05 13:15] LABS: Albumin 2.5 g/dL (3.2-5.5); Protein, Total 5.4 g/dL (6.0-8.3)
[2017-12-05 13:25] LABS: Bilirubin Total 12.5 mg/dL (0.3-1.2)
[2017-12-05 14:00] LABS: Anisocytosis 2+; Blood Morphology Comment NOTED (NOT SEEN); Platelet Estimate DECR; Toxic Granulation 1+; Urine White Blood Cell Casts OK
[2017-12-05 14:01] LABS: Burr Cells 3+
--- NOTE | 2017-12-05 15:47 | EDPHYS ---
Physician Documentation [facility] Name: Ree Pizarro Age: 57 yrs Sex: Female : 1960 Arrival Date: 12/05/2017 Time: 11:15 Bed 24 Private MD: Pilar Pete K ED Physician Mykel Little HPI: 12/05 20:33 This 57 yrs old Female presents to ER via Wheelchair with complaints of gs Shakiness, Jaundice, Fever. 20:33 Onset: The symptoms/episode began/occurred 2 day(s) ago. Modifying factors: there are gs no obvious modifying factors. Associated signs and symptoms: Pertinent positives: abdominal pain, chills. Severity of symptoms: At their worst the symptoms were moderate in the emergency department the symptoms are unchanged. The patient has experienced similar episodes in the past, a few times. Historical: - Allergies: 13:23 No Known Allergies; aj1 - Home Meds: 13:23 albuterol sulfate 90 mcg/actuation Inhl HFAA 1 puff every 4-6 hours [Active]; Xifaxan aj1 550 mg Oral tab 2 times per day [Active]; magnesium oxide 400 mg Oral tab daily [Active]; furosemide 40 mg oral tab 2 times per day [Active]; lactulose 20 gram/30 mL Oral soln 45 mL 3 times per day [Active]; spironolactone 50 mg oral tab once daily [Active]; montelukast 10 mg Oral tab 1 tab once daily [Active]; pantoprazole 40 mg Oral TbEC 1 tab once daily [Active]; liothyronine 50 mcg oral tab 1 tab once daily [Active]; Vitamin D3 5,000 unit oral tab every Monday [Active]; - PMHx: 13:23 Anemia; Cirrhosis; esophageal varisces; Hypertension; ADD/ADHD; aj1 - PSHx: 13:23 Hysterectomy; Cholecystectomy; cyst removal; meniscus repair; aj1 - Immunization history:: Adult Immunizations up to date. - Social history:: Smoking status: Patient/guardian denies using tobacco. - Ebola Screening: : No symptoms or risks identified at this time. ROS: 20:33 All other systems are negative. gs Exam: 20:33 Head/Face: Normocephalic, atraumatic. ENT: Nares patent. No nasal discharge, no gs septal abnormalities noted. Tympanic membranes are normal and external auditory canals are clear. Oropharynx with no redness, swelling, or masses, exudates, or evidence of obstruction, uvula midline. Mucous membranes moist. Neck: Trachea midline, no thyromegaly or masses palpated, and no cervical lymphadenopathy. Supple, full range of motion without nuchal rigidity, or vertebral point tenderness. No Meningismus. Chest/axilla: Normal chest wall appearance and motion. Nontender with no deformity. No lesions are appreciated. 20:33 Cardiovascular: Regular rate and rhythm with a normal S1 and S2. No gallops, murmurs, or rubs. Normal PMI, no JVD. No pulse deficits. Respiratory: Lungs have equal breath sounds bilaterally, clear to auscultation and percussion. No rales, rhonchi or wheezes noted. No increased work of breathing, no retractions or nasal flaring. Back: No spinal tenderness. No costovertebral tenderness. Full range of motion. 20:33 Constitutional: The patient appears alert, awake. 20:33 Eyes: Sclera: icterus, is present. 20:33 Abdomen/GI: Palpation: moderate abdominal tenderness, in the right upper quadrant and left upper quadrant. 20:38 Musculoskeletal/extremity: Circulation is intact in all extremities. Sensation intact. gs 20:38 Skin: Appearance: Color: jaundiced. 20:38 Neuro: Exam negative for acute changes, focal neuro deficits, motor deficits, sensory deficits, confusion. Vital Signs: 11:20 BP 104 / 58; Pulse 75; Resp 16 S; Temp 98.9; Pulse Ox 96% on R/A; Weight 81.65 kg (R); sg Pain 2/10; 13:23 BP 97 / 52; Pulse 67; Resp 18; Pulse Ox 93% on R/A; aj1 15:22 BP 103 / 53; Pulse 63; Resp 18; Pulse Ox 95% on R/A; aj1 17:42 BP 117 / 58; Pulse 66; Resp 18; Pulse Ox 96% ; aj1 20:57 BP 128 / 57; Pulse 66; Resp 18; Pulse Ox 96% on R/A; aj1 MDM: 11:45 Patient medically screened. gs 20:38 Differential diagnosis: pneumonia UTI, cholangitis, hepatic encephalopathy. Data gs reviewed: vital signs, nurses notes. 12/05 11:49 Order name: Basic Metabolic Panel; Complete Time: 15:31 12/05 11:49 Order name: CBC with Diff; Complete Time: 15:31 12/05 11:49 Order name: Hepatic Function; Complete Time: 15:31 12/05 11:49 Order name: Lipase; Complete Time: 15:31 12/05 11:49 Order name: Urine Microscopic Only; Complete Time: 13:17 12/05 11:49 Order name: AMMONIA; Complete Time: 15:31 12/05 12:43 Order name: Urine Dipstick--Ancillary (enter results); Complete Time: 13:17 bd 12/05 12:54 Order name: Urine Culture [facility] 12/05 13:13 Order name: CBC Smear Scan; Complete Time: 15:31 [facility] 12/05 15:36 Order name: PT-INR; Complete Time: 18:38 12/05 15:45 Order name: Blood Culture* 12/05 16:03 Order name: Lactate; Complete Time: 18:38 12/05 16:03 Order name: Procalcitonin 12/05 16:04 Order name: Urinalysis 12/05 11:49 Order name: IV Saline Lock; Complete Time: 12:50 12/05 11:49 Order name: Labs collected and sent; Complete Time: 12:50 12/05 11:49 Order name: Urine Dipstick-Ancillary (obtain specimen); Complete Time: 12:50 12/05 15:31 Order name: US Abdomen Limited 12/05 15:54 Order name: CT Chest Abdomen Pelvis W/O Contrast 12/05 16:31 Order name: CT; Complete Time: 18:38 [facility] 12/05 16:42 Order name: US; Complete Time: 18:38 [facility] 12/05 17:21 Order name: Labs - recollect needed; Complete Time: 18:06 bd Administered Medications: 15:46 CANCELLED (Duplicate Order): NS 0.9% (20 ml/kg) 20 ml/kg IV at 1 bolus once 16:51 Drug: cefOXitin 1 grams Route: IVPB; Infused Over: 30 mins; Site: right antecubital; aj1 18:07 Follow up: IV Status: Completed infusion aj1 16:51 Drug: NS 0.9% 1000 ml Route: IV; Rate: 1 bolus; Site: right antecubital; aj1 18:07 Follow up: IV Status: Completed infusion; IV Intake: 1000ml aj1 Disposition: 12/05/17 18:51 Hospitalization ordered by Gianni Shelton for Inpatient Admission. 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 - Bed requested for Telemetry/MedSurg (Inpatient). - Status is Inpatient Admission. kr2 - Condition is Stable. - Problem is new. - Symptoms have improved. UTI on Admission? Yes Critical care time excluding procedures: 20:38 Critical care time: Bedside Care: 10 minutes, Consultation: 10 minutes, Family gs Intervention: 10 minutes. Total time: 30 minutes Signatures: Dispatcher [employer] EDMS Anabella Rodrigues Angela, RN RN aj1 Karla Morejon RN RN kl Starr, Gregory, MD MD Stephenie Davila RN RN kr2 Corrections: (The following items were deleted from the chart) 15:46 15:45 NS 0.9% (20 ml/kg) 20 ml/kg IV at 1 bolus once ordered. [facility] 16:45 15:46 Hospitalization Ordered by Osiel Anderson DO for Inpatient Admission. Preliminary diagnosis is Cholangitis. Bed requested for Telemetry/MedSurg (Inpatient). Status is Inpatient Admission. Condition is Stable. Problem is new. Symptoms have improved. UTI on Admission? No. 20:38 18:51 Hospitalization Ordered by Gianni Shelton MD for Inpatient Admission. 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 Bed requested for Telemetry/MedSurg (Inpatient). Status is Inpatient Admission. Condition is Stable. Problem is new. Symptoms have improved. UTI on Admission? Yes. 21:28 20:38 12/05/2017 18:51 Hospitalization Ordered by Gianni Shelton MD for Inpatient kr2 Admission. 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 Bed requested for Telemetry/MedSurg (Inpatient). Status is Inpatient Admission. Condition is Stable. Problem is new. Symptoms have improved. UTI on Admission? Yes. kl
--- NOTE | 2017-12-05 15:47 | ER ---
Nurse's Notes [facility] Name: Ree Pizarro Age: 57 yrs Sex: Female : 1960 Arrival Date: 12/05/2017 Time: 11:15 Bed 24 Private MD: Pilar Pete K Diagnosis: Acute tubulo-interstitial nephritis Presentation: 12/05 11:21 Presenting complaint: Patient states: having episodes of confusion, and feeling weak, sg im a little jaundiced, have a hx of cirrhosis, have had fever on and off for several days, was seen by Laura by PCP and told to come to the ER for evaluation. ABD pain epigastric that began yesterday, its about a 2/10. Transition of care: patient was not received from another setting of care. Onset of symptoms was December 05, 2017. Risk Assessment: Do you want to hurt yourself or someone else? Patient reports no desire to harm self or others. Initial Sepsis Screen: Does the patient meet any 2 criteria? No. Patient's initial sepsis screen is negative. Does the patient have a suspected source of infection? No. Patient's initial sepsis screen is negative. Care prior to arrival: None. 11:21 Method Of Arrival: Wheelchair sg 11:21 Acuity: LISA 3 sg Historical: - Allergies: 13:23 No Known Allergies; aj1 - Home Meds: 13:23 albuterol sulfate 90 mcg/actuation Inhl HFAA 1 puff every 4-6 hours [Active]; Xifaxan aj1 550 mg Oral tab 2 times per day [Active]; magnesium oxide 400 mg Oral tab daily [Active]; furosemide 40 mg oral tab 2 times per day [Active]; lactulose 20 gram/30 mL Oral soln 45 mL 3 times per day [Active]; spironolactone 50 mg oral tab once daily [Active]; montelukast 10 mg Oral tab 1 tab once daily [Active]; pantoprazole 40 mg Oral TbEC 1 tab once daily [Active]; liothyronine 50 mcg oral tab 1 tab once daily [Active]; Vitamin D3 5,000 unit oral tab every Monday [Active]; - PMHx: 13:23 Anemia; Cirrhosis; esophageal varisces; Hypertension; ADD/ADHD; aj1 - PSHx: 13:23 Hysterectomy; Cholecystectomy; cyst removal; meniscus repair; aj1 - Immunization history:: Adult Immunizations up to date. - Social history:: Smoking status: Patient/guardian denies using tobacco. - Ebola Screening: : No symptoms or risks identified at this time. Screenin:28 Abuse screen: Denies threats or abuse. Denies injuries from another. Nutritional aj1 screening: No deficits noted. Tuberculosis screening: No symptoms or risk factors identified. 20:58 Fall Risk No fall in past 12 months (0 pts). No secondary diagnosis (0 pts). IV access aj1 (20 points). Ambulatory Aid- None/Bed Rest/Nurse Assist (0 pts). Gait- Weak (10 pts.). Mental Status- Oriented to own ability (0 pts). Total Finney Fall Scale indicates Low Risk Score (25-44 pts). Family Present and informed to notify staff if they need to leave bedside As available Patient and Family Educated on Fall Prevention Program and strategies. Assessment: 12:00 General: Appears in no apparent distress. comfortable, Behavior is calm, cooperative, aj1 appropriate for age. Pain: Complains of pain in epigastric area Pain does not radiate. Pain currently is 2 out of 10 on a pain scale. Neuro: Level of Consciousness is awake, alert, obeys commands, Oriented to person, place, time, situation, Speech is normal, Facial symmetry appears normal. Cardiovascular: Patient's skin is warm and dry. Respiratory: Airway is patent Respiratory effort is even, unlabored, Respiratory pattern is regular, symmetrical. GI: Abdomen is round Bowel sounds present X 4 quads. Abd is soft and non tender X 4 quads. : No signs and/or symptoms were reported regarding the genitourinary system. EENT: Sclera/Cornea jaundiced. Derm: Skin is jaundiced. Musculoskeletal: No signs and/or symptoms reported regarding the musculoskeletal system. Circulation, motion, and sensation intact. 13:00 Reassessment: Patient appears in no apparent distress at this time. No changes from aj1 previously documented assessment. Patient and/or family updated on plan of care and expected duration. Pain level reassessed. Patient is alert, oriented x 3, equal unlabored respirations, skin warm/dry/pink. 14:00 Reassessment: Patient appears in no apparent distress at this time. No changes from aj1 previously documented assessment. Patient and/or family updated on plan of care and expected duration. Pain level reassessed. Patient is alert, oriented x 3, equal unlabored respirations, skin warm/dry/pink. 15:00 Reassessment: Patient appears in no apparent distress at this time. No changes from aj1 previously documented assessment. Patient and/or family updated on plan of care and expected duration. Pain level reassessed. Patient is alert, oriented x 3, equal unlabored respirations, skin warm/dry/pink. 16:00 Reassessment: Patient and/or family updated on plan of care and expected duration. Pain aj1 level reassessed. General: Appears in no apparent distress. comfortable, Behavior is calm, cooperative. Neuro: Level of Consciousness is awake, alert, obeys commands, Oriented to person, place, time, situation, Speech is normal, Facial symmetry appears normal. Cardiovascular: Patient's skin is warm and dry. Respiratory: Airway is patent Respiratory effort is even, unlabored, Respiratory pattern is regular, symmetrical. GI: Abdomen is round Bowel sounds present X 4 quads. Derm: Skin is jaundiced. Musculoskeletal: Circulation, motion, and sensation intact. 17:00 Reassessment: Patient appears in no apparent distress at this time. No changes from aj1 previously documented assessment. Patient and/or family updated on plan of care and expected duration. Pain level reassessed. Patient is alert, oriented x 3, equal unlabored respirations, skin warm/dry/pink. 17:42 Reassessment: Patient appears in no apparent distress at this time. No changes from aj1 previously documented assessment. Patient and/or family updated on plan of care and expected duration. Pain level reassessed. Patient is alert, oriented x 3, equal unlabored respirations, skin warm/dry/pink. 18:45 Reassessment: Patient appears in no apparent distress at this time. No changes from aj1 previously documented assessment. Patient and/or family updated on plan of care and expected duration. Pain level reassessed. Patient is alert, oriented x 3, equal unlabored respirations, skin warm/dry/pink. 19:45 Reassessment: Patient and/or family updated on plan of care and expected duration. Pain aj1 level reassessed. General: Appears in no apparent distress. comfortable, Behavior is calm, cooperative, appropriate for age. Pain: Denies pain. Neuro: Level of Consciousness is awake, alert, obeys commands, Oriented to person, place, time, situation, forgetful. Cardiovascular: Patient's skin is warm and dry. Respiratory: Airway is patent Respiratory effort is even, unlabored, Respiratory pattern is regular, symmetrical. GI: Abdomen is round. Derm: Skin is jaundiced. Musculoskeletal: Circulation, motion, and sensation intact. 20:45 Reassessment: Patient appears in no apparent distress at this time. No changes from aj1 previously documented assessment. Patient and/or family updated on plan of care and expected duration. Pain level reassessed. Patient is alert, oriented x 3, equal unlabored respirations, skin warm/dry/pink. 20:55 Reassessment: Attempted to call report, receiving nurse is in a room, will attempt to [facility] call again. 21:22 Reassessment: Patient appears in no apparent distress at this time. Patient and/or kr2 family updated on plan of care and expected duration. Pain level reassessed. Patient is alert, oriented x 3, equal unlabored respirations, skin warm/dry/pink. Report called to receiving nurse YESSICA Thomas. Vital Signs: 11:20 BP 104 / 58; Pulse 75; Resp 16 S; Temp 98.9; Pulse Ox 96% on R/A; Weight 81.65 kg (R); sg Pain 2/10; 13:23 BP 97 / 52; Pulse 67; Resp 18; Pulse Ox 93% on R/A; aj1 15:22 BP 103 / 53; Pulse 63; Resp 18; Pulse Ox 95% on R/A; aj1 17:42 BP 117 / 58; Pulse 66; Resp 18; Pulse Ox 96% ; aj1 20:57 BP 128 / 57; Pulse 66; Resp 18; Pulse Ox 96% on R/A; aj1 ED Course: 11:15 Patient arrived in ED. mr 11:17 Pilar Pete MD is Private Physician. mr 11:22 Triage completed. sg 11:22 Arm band placed on. EKG completed in triage. Results shown to MD. sg 11:36 Mykel Little MD is Attending Physician. gs 12:04 Flor Carlisle, YESSICA is Primary Nurse. aj1 13:28 No provider procedures requiring assistance completed. aj1 13:29 Patient has correct armband on for positive identification. Bed in low position. Call aj1 light in reach. Side rails up X 1. 15:46 Osiel Anderson DO is Hospitalizing Provider. 16:[address] ky 16:00 Note: . lc3 16:13 CT completed. Patient tolerated procedure well. Patient taken to ultrasound. vm2 16:20 Patient moved back from ultrasound. lc3 16:32 Patient moved back from ultrasound. hr 18:50 Gianni Shelton MD is Hospitalizing Provider. gs 20:58 Patient admitted, IV remains in place. aj1 Administered Medications: 15:46 CANCELLED (Duplicate Order): NS 0.9% (20 ml/kg) 20 ml/kg IV at 1 bolus once gs 16:51 Drug: cefOXitin 1 grams Route: IVPB; Infused Over: 30 mins; Site: right antecubital; aj1 18:07 Follow up: IV Status: Completed infusion aj1 16:51 Drug: NS 0.9% 1000 ml Route: IV; Rate: 1 bolus; Site: right antecubital; aj1 18:07 Follow up: IV Status: Completed infusion; IV Intake: 1000ml aj1 Intake: 18:07 IV: 1000ml; Total: 1000ml. aj1 Outcome: 15:46 Decision to Hospitalize by Provider. gs 18:51 Decision to Hospitalize by Provider. 21:27 Admitted to Med/surg accompanied by tech, family with patient, via wheelchair, room kr2 219, with chart, Report called to Martha 21:27 Condition: stable 21:27 Instructed on the need for admit, Demonstrated understanding of instructions. 21:28 Patient left the ED. kr2 Signatures: Flor Carlisle RN RN aj1 Palmer Carlin RN RN sg Rivera, Maria mr Alisa Torres hr Anup Joseph [facility] Maxime White [facility] Mykel Little MD MD Stephenie Davila RN RN kr2 Corrections: (The following items were deleted from the chart) 13:28 13:23 General: Appears in no apparent distress. comfortable, Behavior is calm, aj1 cooperative, appropriate for age, aj1 13:28 13:23 Pain: Complains of pain in epigastric area Pain does not radiate. Pain currently aj1 is 2 out of 10 on a pain scale. aj1 13:28 13:23 Neuro: Level of Consciousness is awake, alert, obeys commands, Oriented to aj1 person, place, time, situation, Speech is normal, Facial symmetry appears normal, aj1 13:23 Cardiovascular: Patient's skin is warm and dry. aj1 aj1 13:23 Respiratory: Airway is patent Respiratory effort is even, unlabored, Respiratory aj1 pattern is regular, symmetrical, aj1 13: GI: Abdomen is round Bowel sounds present X 4 quads. Abd is soft and non tender X aj1 4 quads. aj1 13: : No signs and/or symptoms were reported regarding the genitourinary system. aj1aj1 13:23 EENT: Sclera/Cornea jaundiced. aj1 aj1 13: Derm: Skin is jaundiced, aj1 1 13:23 Musculoskeletal: No signs and/or symptoms reported regarding the musculoskeletal aj1 system. Circulation, motion, and sensation intact. aj1
[2017-12-05 16:29] LABS: Protime INR 2.77
--- NOTE | 2017-12-05 16:30 | RAD REPORT ---
EXAM DESCRIPTION: CT - Chest Abd Pelvis Wo Con - 12/05/2017 4:14 pm CLINICAL HISTORY: Chest and abdomen pain. Fever COMPARISON: 10/13/[address] scans are performed using dose optimization technique as appropriate and may includ e automated exposure control or mA/KV adjustment according to patient size. FINDINGS: Mild linear subsegmental atelectasis in both lung bases.Trace pleural fluid is present shima aterally, greater on the right.No pericardial fluid.No intrathoracic adenopathy. Nodular contour to the liver parenchyma is seen compatible with mild cirrhosis. The spleen is mildly prominent. Cholecystectomy clips seen. Mild free fluid is seen about the hepatic and splenic edge. r is noted in the collecting system of both kidneys as well as in both ureters. Air is present in the urinary bladder along the wall of the urinary bladder as well. The pancreas and adrenal glands are within normal limits. Cholecystectomy clips are seen. No bowel obstruction, free air, free fluid or abscess. Thickening of the wall of the colon and stomac h is noted, particularly the right colon. No worrisome osseous finding. IMPRESSION: Emphysematous cystitis is suspected. Air is seen extending superiorly within the collect ing systems bilaterally suggesting ascending urinary tract infection. Liver cirrhosis is present with mild splenomegaly and ascites. Wall thickening of the stomach and colon is noted suggesting underlying portal colopathy and gastropa thy.
--- NOTE | 2017-12-05 16:42 | RAD REPORT ---
EXAM DESCRIPTION: US - Liver Only - 12/05/2017 4:31 pm CLINICAL HISTORY: Abdominal pain COMPARISON: CT dated 12/05/2017 FINDINGS: The liver demonstrates a nodular contour compatible with cirrhosis.Mild diffuse fatty live r is seen without focal liver lesion present.No evidence of portal vein thrombosis. The gallbladder surgically absent with common bile duct measuring 6 mm. IMPRESSION: Hepatic cirrhosis is present with diffuse fatty liver pattern.
[2017-12-05] MEDS ORDERED: NA CHLORIDE 0.9% 1,000 ML ONE (16:43)
[2017-12-05] MEDS ORDERED: CEFOXITIN/SWI 1gm 1 GM/10 ML SYR ONE (16:44)
[2017-12-05] MEDS ORDERED: ONDANSETRON 4 MG/2 ML VIAL IV PRN (20:29)
[2017-12-05] MEDS ORDERED: ALPRAZOLAM 0.25 MG TABLET PO PRN (20:29)
[2017-12-05] MEDS: NA CHLORIDE 0.9% 1,000 ML IV SCH (22:00)
[2017-12-05 23:11] LABS: Urine Appearance CLEAR; Urine Blood 3+ (NEG); Urine Color DK YELLOW; Urine Glucose NEGATIVE (NEG); Urine Protein NEGATIVE (NEG); Urine Specific Gravity 1.015 (1.005-1.030); Urine Urobilinogen 0.2 mg/dL (0.2-1.0); Urine pH 5.5 (5.0-7.0)
[2017-12-05] MEDS ORDERED: PIPERACIL/TAZO 3.375 GM VIAL IV ONE (23:39)
[2017-12-05] MEDS ORDERED: NA CHLORIDE 0.9% 100 ML ONE (23:44)
[2017-12-05 23:46] LABS: Urine Bilirubin 2+ (NEG); Urine Microscopic Reflex ORDER UMIC
[2017-12-05] MEDS: PIPER/TAZO/NS 3.375gm 3.375 GM/100 ML BAG IVPB SCH (23:59)
[2017-12-06 00:21] LABS: Urine Bacteria 20-50 /HPF (<20); Urine Culture Reflex Order REFLEXED; Urine Yeast FEW (NONE SEEN)
[2017-12-06] MEDS ORDERED: NA CHLORIDE 0.9% 100 ML ONE (04:01)
[2017-12-06] MEDS: PIPER/TAZO/NS 3.375gm 3.375 GM/100 ML BAG IVPB SCH ×3 (05:09→18:16)
[2017-12-06 05:14] LABS: Absolute Lymphocytes (CBC) 0.7 K/uL (0.7-4.9); Absolute Monocytes 1.4 K/uL (0.1-1.3); Absolute Neutrophil 10.7 K/uL (1.8-8.0); Basophils % 0.3 % (0-1.3); Eosinophils % 0.9 % (0-4.4); Hematocrit 27.8 % (36.0-45.0); Lymphocytes % 5.6 % (15.3-44.8); MCH 35.6 pg (27.0-35.0); MCV 101.6 fL (80-100); Monocytes % 10.6 % (3.3-12.3); RBC Red Blood Cell Count 2.73 M/uL (3.86-4.86)
[2017-12-06 05:20] LABS: Protime INR 2.64
[2017-12-06 05:45] LABS: Albumin 1.9 g/dL (3.2-5.5); Magnesium 1.9 mg/dL (1.8-2.5); Phosphorus 4.5 mg/dL (2.5-4.3); Potassium 4.1 mEq/L (3.6-5.0); Protein, Total 4.3 g/dL (6.0-8.3)
[2017-12-06 05:46] LABS: Bilirubin Total 11.3 mg/dL (0.3-1.2)
[2017-12-06] MEDS ORDERED: ALBUTEROL INHALER 60 PUFF/8 GM IH PRN (06:10)
--- NOTE | 2017-12-06 06:24 | P.HP ---
Certification for Inpatient Patient admitted to: Inpatient With expected LOS: >2 Midnights Patient will require the following post-hospital care: None Practitioner: I am a practitioner with admitting privileges, knowledge of patient current condition, hospital course, and medical plan of care. Services: Services provided to patient in accordance with Admission requirements found in Title 42 Section 412.3 of the Code of Federal Regulations Patient History Date of Service: 12/05/17 Reason for admission: Fever, abdominal pain, UTI History of Present Illness: Patient is a 57-year-old female who was brought into the emergency room because of abdominal pain and fevers. Patient had a outpatient CT of the abdomen chest and pelvis which did not reveal any acute pathology although she did have cystitis. She was sent to the emergency room were initially they attempted transfer to her liver specialist at [facility]. However, there was no bed available so decision was made to admit to our hospital. Patient's bilirubin is significantly more elevated than her last labs done at this hospital. She is not having any significant abdominal pain at this time. She states overall she is feeling much better as does her . Patient has a history of alcoholic liver cirrhosis and has been on the transplant list. 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 Clinically, we will go ahead and admit patient in gently hydrate her along with continue with IV antibiotics. Will get GI and Urology consultation as well. Allergies No Known Allergies Allergy (Verified 08/25/17 15:08) Home Medications: Furosemide [Lasix*] 40 mg PO BID 08/25/17 Montelukast Sodium [Singulair] 10 mg PO BEDTIME 08/25/17 Pantoprazole [Protonix Tab*] 40 mg PO DAILY 08/25/17 Spironolactone [Aldactone*] 50 mg PO DAILY 08/25/17 Epoetin [Procrit*] 10,000 unit IJ M,W,F 09/28/17 Ferrous Sulfate 325 mg PO TID 09/28/17 Folic Acid 1 mg PO DAILY 09/28/17 Magnesium Oxide [Mag 0X*] 400 mg PO DAILY 09/28/17 Midodrine HCl [Proamatine*] 5 mg PO TID 09/28/17 Rifaximin [Xifaxan] 550 mg PO BID #60 tablet 10/15/17 Albuterol Sulfate [Proair Respiclick] 1 puff IH BID PRN 12/05/17 Cholecalciferol (Vitamin D3) [Vitamin D] 50,000 unit PO SEECOM 12/05/17 Lactulose 10 gm PO TID 12/05/17 Liothyronine Sodium [Cytomel] 5 mcg PO DAILY 12/05/17 - Past Medical/Surgical History Has patient received pneumonia vaccine in the past: No Diabetic: No -: Alcoholic cirrhosis -: History of hepatic encephalopathy -: Gastric varices -: Seasonal allergies -: GERD -: Anemia -: Former tobacco use -: Orthostatic hypotension -: Cholecystectomy -: Hysterectomy -: cyst removed in between the legs -: right breast cyst removed Psychosocial/ Personal History: The patient is . 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 moist/pink, EOMI, Scleral icterus Neck: Supple, 2+ carotid pulse no bruit, JVD not distended, No LAD, Without JVD or thyroid abnormality Respiratory: Clear to auscultation bilaterally, Normal air movement Cardiovascular: Regular rate/rhythm, Normal S1 S2, No murmurs Gastrointestinal: Normal bowel sounds, Soft and benign, Non-distended, No tenderness, No rebound, No guarding Musculoskeletal: No clubbing, No tenderness Integumentary: No rashes Neurological: Normal speech, Normal tone, Sensation intact, Cranial nerves 3-12 intact, Normal affect, Abnormal strength Lymphatics: No axilla or inguinal lymphadenopathy - Studies Laboratory Data (last 24 hrs) 12/05/17 12:46: WBC 14.1 H, Hgb 10.3 L, Hct 30.7 L, Plt Count 60 L 12/05/17 12:46: Sodium 121 L, Potassium 4.1, BUN 46 H, Creatinine 1.62 H, Glucose 98, Total Bilirubin 12.5 H*, AST 115 H, ALT 82 H, Alkaline Phosphatase 129 H, Lipase 29 Assessment & Plan - Problems (Diagnosis) (1) Emphysematous cystitis Current Visit: Yes Status: Acute (2) Hypoalbuminemia Current Visit: Yes Status: Acute (3) Jaundice Current Visit: No Status: Acute (4) Alcoholic cirrhosis Current Visit: No Status: Chronic Qualifiers: Ascites presence: without ascites Qualified Code(s): K70.30 - Alcoholic cirrhosis of liver without ascites (5) Anemia Current Visit: No Status: Chronic Qualifiers: Anemia type: other cause Other causes of anemia: chronic disease, other Qualified Code(s): D63.8 - Anemia in other chronic diseases classified elsewhere (6) Gastric varices without bleeding Current Visit: No Status: Chronic (7) Thrombocytopenia Current Visit: No Status: Chronic - Plan 1. Continue with IV hydration 2. Continue with IV antibiotics 3. Continue with pain control 4. NPO 5. GI & Urology consultation; transfer to [facility] pending bed availability 6. Serial H&H, and we will monitor CBC, BMP, LFTs and lipase along with electrolytes. 7. GI and DVT prophylaxis - Advance Directives Does patient have a Living Will: No Does patient have a Durable POA for Healthcare: Yes - Code Status/Comfort Care Code Status Assessed: Yes Code Status: Full Code Critical Care: No Time Spent Managing PTS Care (In Minutes): 50
[2017-12-06 07:06] LABS: Anisocytosis 2+; Blood Morphology Comment NOTED (NOT SEEN); Burr Cells 2+; Platelet Estimate DECR; Urine White Blood Cell Casts OK
[2017-12-06] MEDS: FOLIC ACID 1 MG TABLET PO SCH ×2 (08:27→12:18)
[2017-12-06] MEDS: LACTULOSE 20 GM/30 ML UCUP PO SCH ×3 (08:27→20:29)
[2017-12-06] MEDS: FERROUS SULFATE 325 MG TAB PO SCH ×4 (08:27→20:29)
[2017-12-06] MEDS: SPIRONOLACTONE 25 MG TABLET PO SCH (08:27)
[2017-12-06] MEDS: LIOTHYRONINE SOD 5 MCG TAB PO SCH ×2 (08:27→12:19)
[2017-12-06] MEDS: PANTOPRAZOLE 40MG TABLET PO SCH ×2 (08:28→12:18)
[2017-12-06] MEDS: MAGNESIUM OXIDE 400 MG TAB PO SCH ×2 (08:28→12:18)
[2017-12-06] MEDS: MIDODRINE HCL 5 MG TABLET PO SCH ×3 (08:28→20:29)
[2017-12-06] MEDS ORDERED: Rifaximin 550 MG Tab PO SCH (09:00)
[2017-12-06] MEDS: D5 0.45 NS 1,000 ML IV SCH ×2 (09:57→18:15)
[2017-12-06] MEDS: NA CHLORIDE 0.9% 1,000 ML IV SCH (10:20)
--- NOTE | 2017-12-06 14:26 | PN ---
Date of Progress Note: 12/06/2017 Subjective: The patient is seen and examined. Chart reviewed and case discussed with RN. The patie nt states she is still having some discomfort. Pain is improved. No nausea, vomiting. Review of Systems: Negative except as per HPI. Physical Examination: Vital Signs: Temperature 97.9, heart rate 65, blood pressure 104/53, respirations 17, O2 saturation 94% on room air. General: Awake, alert, oriented x3, in some mild distress. Obese female, BMI 32.9, ill-appearing. CV: S1, S2. No murmurs. Peripheral pulses are present. Respiratory: Moving air well bilaterally. No wheezing. Gastrointestinal: Abdomen is soft. Mild tenderness to palpation. No distention. No rebound or gua rding. Positive bowel sounds. Extremities: No clubbing, cyanosis, edema. Neurologic: Nonfocal. HEENT: Conjunctiva is icterus. The patient is jaundiced appearing. Laboratory Data: Sodium 125, potassium 4.1, chloride 97, CO2 24, BUN 45, creatinine 1.36, glucose 78 , calcium 8.3, phosphorus 4.5, magnesium 1.9. Total bilirubin 11.3, AST 76, ALT 62, alkaline phospha tase 100, albumin 1.9. WBC 13, H and H 9.7 and 27.8, platelets 53, neutrophils 82%. Blood cultures growing gram-negative rods. Urine culture, 100,000 colony-forming units, 4+ gram-negative rods. Assessment And Plan: A 57-year-old female with: 1.Emphysematous cystitis. Urine culture growing gram-negative rods. We will continue with IV antib iotics. Follow up on ID and sensitivity. 2.Bacteremia with gram-negative rods. We will follow up on ID and sensitivity. We will continue IV antibiotics for now. Likely secondary to above. 3.Hypoalbuminemia with severe protein-calorie malnutrition. 4.Alcoholic liver cirrhosis without ascites. 5.Jaundice. 6.Anemia of chronic disease. Monitor H and H, transfuse as needed. 7.Gastric varices without bleeding. 8.Thrombocytopenia secondary to liver disease. 9.Hyponatremia secondary to above. 10.Acute kidney injury, improving. We will continue IV fluid hydration. 11.Hypoglycemia. We will adjust IV fluids and D5. 12.Gastrointestinal and deep venous thrombosis prophylaxis with PPI. No chemical anticoagulation du e to thrombocytopenia. Transfer to [facility] was unsuccessful yesterday. We will follow up with GI and Urology recommendations. /RENATO Voice ID: [id number] Report ID: [id number]
[2017-12-06] MEDS: EPOETIN ALFA 10,000 UNIT/ML VIAL SQ SCH (18:15)
[2017-12-06] MEDS: FLUCONAZOLE 100 MG TAB PO SCH (18:15)
[2017-12-06] MEDS: MONTELUKAST 10 MG TAB PO SCH (20:29)
--- NOTE | 2017-12-06 21:22 | CON ---
History Of Present Illness: A 57-year-old lady with alcoholic cirrhosis, brought to the emergency ro om because of abdominal pain. She was found to have emphysematous cystitis. She also has liver fail ure, has been evaluated for liver transplant. She is a [employer]. She is anemic and we woul d like to get her hemoglobin over 14 prior to putting her on a transplant list and she refused blood transfusion. She is growing gram-negative rods and yeast in her urine. She is on Zosyn, started her on 3 days of Diflucan 100 mg p.o. b.i.d. daily x3. She has had no previous urinary tract infections before. She urinates fine. No kidney stones. No kidney issues. No bladder issues. Allergies: NO KNOWN DRUG ALLERGIES. Home Medications: Lasix, Singulair, Protonix, Aldactone, Procrit, erythropoietin, iron sulfate, foli c acid, magnesium oxide, ProAmatine, Xifaxan, ProAir, vitamin D3, lactulose. Past Medical History: Alcoholic cirrhosis, hepatic encephalopathy, history of gastric varices, seaso nal allergies, GERD, anemia, former tobacco smoker, orthostatic hypotension, cholecystectomy, hystere ctomy, cyst removed from between legs, right breast cyst removed. Psychosocial: The patient is . 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 Family History: Mother had hypertension. Social History: Former smoker. Alcohol use, none now. No drug use. Some caffeine use. Resides at home. Review of Systems: A 10-point review of systems otherwise normal. Physical Examination: General: She is alert and oriented x3. No apparent distress. HEENT: Atraumatic, normocephalic. Neck: Supple. Respiratory: Clear to auscultation bilaterally. Cardiovascular: Normal. Gastrointestinal: Normal bowel sounds. Musculoskeletal: No clubbing. No tenderness. Skin: No rashes. Neurological: Normal speech, normal tone, normal sensation. Lymphatics: No axillary lymphadenopathy. Laboratory Data: Studies show a sodium of 125, potassium 4.1, chloride 97, carbon dioxide 24, BUN 45 , creatinine 1.36, GFR 40, glucose 78, calcium 8.3, phosphorus 4.5, magnesium 1.9. Total bilirubin 1 1.3, direct bili missing, AST 76, ALT 62, alkaline phosphatase 100, total protein 4.3, albumin 1.9, g lobulin 2.4. Procalcitonin 0.58. Assessment: Emphysematous cystitis, urinary tract infection, gram-negative rods growing, yeast growi ng. Plan: Continue Zosyn. Start Diflucan for 3 days. Drain bladder via Torres catheter as doing and danica it for final urine culture. Also history of liver failure, hypoalbuminemia, jaundice, alcoholic cirr hosis, anemia, gastric varices, and thrombocytopenia. Continue management. CATIE/RENATO Voice ID: [id number] Report ID: [id number]
[2017-12-07] MEDS: D5 0.45 NS 1,000 ML IV SCH ×2 (00:19→09:00)
[2017-12-07] MEDS: PIPER/TAZO/NS 3.375gm 3.375 GM/100 ML BAG IVPB SCH ×2 (00:19→10:25)
[2017-12-07 04:57] LABS: Absolute Lymphocytes (CBC) 0.9 K/uL (0.7-4.9); Absolute Monocytes 1.2 K/uL (0.1-1.3); Absolute Neutrophil 7.8 K/uL (1.8-8.0); Basophils % 0.4 % (0-1.3); Eosinophils % 2.5 % (0-4.4); Hematocrit 27.5 % (36.0-45.0); Lymphocytes % 8.7 % (15.3-44.8); MCH 36.3 pg (27.0-35.0); MCV 102.3 fL (80-100); MPV 8.1 fL (7.6-11.3); Monocytes % 12.2 % (3.3-12.3); RBC Red Blood Cell Count 2.69 M/uL (3.86-4.86)
[2017-12-07 05:14] LABS: Blood Morphology Comment NOTED (NOT SEEN); Platelet Estimate DECR; Urine White Blood Cell Casts OK
[2017-12-07 05:15] LABS: Anisocytosis 1+; Polychromasia SLIGHT; Toxic Granulation 1+
[2017-12-07 05:16] LABS: Burr Cells 3+; Poikilocytosis 3+
[2017-12-07 05:29] LABS: Albumin 1.8 g/dL (3.2-5.5); Potassium 3.5 mEq/L (3.6-5.0); Protein, Total 4.1 g/dL (6.0-8.3)
[2017-12-07] MEDS ORDERED: KCL 20 MEQ/100 mL IVPB 20 MEQ/100 ML BAG IV SCH (08:00)
[2017-12-07] MEDS: SPIRONOLACTONE 25 MG TABLET PO SCH (09:00)
[2017-12-07] MEDS: MIDODRINE HCL 5 MG TABLET PO SCH ×3 (09:00→21:00)
[2017-12-07] MEDS: LACTULOSE 20 GM/30 ML UCUP PO SCH ×3 (10:24→21:02)
[2017-12-07] MEDS: FERROUS SULFATE 325 MG TAB PO SCH ×3 (10:25→21:02)
[2017-12-07] MEDS: FLUCONAZOLE 100 MG TAB PO SCH (10:25)
[2017-12-07] MEDS: MAGNESIUM OXIDE 400 MG TAB PO SCH (10:25)
[2017-12-07] MEDS: PANTOPRAZOLE 40MG TABLET PO SCH (10:25)
[2017-12-07] MEDS: FOLIC ACID 1 MG TABLET PO SCH (10:26)
[2017-12-07] MEDS: LIOTHYRONINE SOD 5 MCG TAB PO SCH (10:26)
[2017-12-07] MEDS: FUROSEMIDE 20 MG TABLET PO SCH ×2 (10:27→21:02)
--- NOTE | 2017-12-07 13:18 | PN ---
Date of Progress Note: 12/07/2017 Subjective: The patient seen and examined, chart reviewed, and case discussed with RN and Dr. Mott. The patient is doing significantly better today. She is much more awake and alert. at the bedside. Treatment plan explained all questions answered. The patient wants the Torres catheter out . I explained to her that Urology recommends it at this time. We will likely DC in a.m. Review of Systems: Negative except as above. Medications: Reviewed. Objective: Vital Signs: Temperature 96.9, heart rate 55, blood pressure 109/56, respirations 16, an d O2 93% on room air. General: Awake, alert, oriented x3, not in any acute distress. Obese female. BMI 32.9, slightly il l appearing. CV: S1, S2. No murmurs. Peripheral pulses present. Respiratory: Moving air well bilaterally. No wheezing. Gastrointestinal: Abdomen is soft, nontender, nondistended. Positive bowel sounds. Extremities: No clubbing, cyanosis. Trace pedal edema. Neurologic: Nonfocal. Laboratory Data: Sodium 124, potassium 3.5, chloride 96, CO2 23, BUN 45, creatinine 1.24, glucose 77 , calcium 8.2, total bilirubin 11, AST 57, ALT 50, and albumin 1.8. WBC 10.2, H and H 9.8, 27.5, karla telets 59, and neutrophils 76.2%. Urine culture growing E coli, pansensitive. Blood culture also gr owing gram-negative rods. ID and sensitivity pending. Assessment And Plan: A 57-year-old female with; 1.Emphysematous cystitis. Urine culture growing Escherichia coli, which is pansensitive. We will c ontinue with IV antibiotics. Appreciate Dr. Mott's input. We will likely discontinue Torres cathete r in a.m. 2.Bacteremia with gram-negative rods. ID and sensitivity pending, likely Escherichia coli. The pat ient is on Zosyn, likely secondary to above. 3.Hypoalbuminemia with severe protein-calorie malnutrition. Albumin is 1.8. 4.Alcoholic liver cirrhosis without ascites. 5.Jaundice. 6.Anemia of chronic disease. Continue to monitor H and H, transfuse as needed. 7.Gastric varices without bleeding. 8.Thrombocytopenia secondary to liver disease. Avoid blood thinners. 9.Hyponatremia secondary to above. We will continue with fluid restriction and monitor. 10.Acute kidney injury, improving. We will continue with IV fluid hydration. 11.We will adjust IV fluids. 12.Gastrointestinal and deep venous thrombosis prophylaxis with PPI and SCDs. No chemical anticoagu lation due to thrombocytopenia. /MODL Voice ID: [id number] Report ID: [id number]
[2017-12-07] MEDS: CEFTRIAXONE/SWI 1gm 1 GM/10 ML SYR IV SCH (14:35)
[2017-12-07] MEDS: NA CHLORIDE 0.9% 1,000 ML IV SCH ×3 (14:36→23:00)
--- NOTE | 2017-12-07 16:10 | PN ---
Subjective: The patient feels great, almost ready to go home. Objective: Her urine culture grew E coli, which was pansensitive. Her I's and O's are good. Torres was placed yesterday. Her PVR was minimal per the patient , not much came out; however, has draining well. Assessment: Escherichia coli, emphysematous cystitis. Her blood cultures are pending. If her blood culture is negative, she will need about 14 days of total antibiotics. If her blood culture is positive, she will need 14-21 days of antibiotics. Torres catheter can come out tomorrow and she may void go and home after last dose of Diflucan. She can follow up with me p.rgarima HADDAD/RENATO Voice ID: [id number] Report ID: [id number] MTDElham
[2017-12-07] MEDS: MONTELUKAST 10 MG TAB PO SCH (21:02)
[2017-12-07 21:10] VITALS: BMI 36.1
[2017-12-08 05:29] LABS: Absolute Lymphocytes (CBC) 0.9 K/uL (0.7-4.9); Absolute Monocytes 0.9 K/uL (0.1-1.3); Absolute Neutrophil 6.2 K/uL (1.8-8.0); Basophils % 0.5 % (0-1.3); Eosinophils % 2.4 % (0-4.4); Hematocrit 26.2 % (36.0-45.0); Lymphocytes % 10.8 % (15.3-44.8); MCH 36.1 pg (27.0-35.0); MCV 103.4 fL (80-100); MPV 8.6 fL (7.6-11.3); RBC Red Blood Cell Count 2.53 M/uL (3.86-4.86)
[2017-12-08 06:01] LABS: Albumin 1.8 g/dL (3.2-5.5); Potassium 3.6 mEq/L (3.6-5.0); Protein, Total 4.1 g/dL (6.0-8.3)
[2017-12-08] MEDS: CEFTRIAXONE/SWI 1gm 1 GM/10 ML SYR IV SCH (09:00)
[2017-12-08] MEDS ORDERED: POTASSIUM CL SA 10 MEQ TAB PO ONE (09:00)
[2017-12-08] MEDS: NA CHLORIDE 0.9% 1,000 ML IV SCH (10:04)
[2017-12-08] MEDS: LACTULOSE 20 GM/30 ML UCUP PO SCH ×4 (10:05→20:18)
[2017-12-08] MEDS: SPIRONOLACTONE 25 MG TABLET PO SCH (10:05)
[2017-12-08] MEDS: FLUCONAZOLE 100 MG TAB PO SCH (10:06)
[2017-12-08] MEDS: LIOTHYRONINE SOD 5 MCG TAB PO SCH (10:06)
[2017-12-08] MEDS: FOLIC ACID 1 MG TABLET PO SCH (10:06)
[2017-12-08] MEDS: FERROUS SULFATE 325 MG TAB PO SCH ×3 (10:06→20:19)
[2017-12-08] MEDS: MAGNESIUM OXIDE 400 MG TAB PO SCH (10:07)
[2017-12-08] MEDS: FUROSEMIDE 20 MG TABLET PO SCH (10:07)
[2017-12-08] MEDS: MIDODRINE HCL 5 MG TABLET PO SCH ×3 (10:08→20:19)
[2017-12-08] MEDS: PANTOPRAZOLE 40MG TABLET PO SCH (10:08)
--- NOTE | 2017-12-08 10:59 | P.PN ---
Subjective Date of Service: 12/08/17 Primary Care Provider: Dr. Sears; GI-Dr. Almaguer Chief Complaint: Fever, abdominal pain, UTI Subjective: Other (Patient improving. Some altered mental status noted.) Physical Examination - Vital Signs Temperature: 97.5 F Blood Pressure: 113/58 Pulse: 65 Respirations: 16 Pulse Ox (%): 92 - Physical Exam General: Alert, In no apparent distress, Oriented x3, Cooperative, Other ( Slight altered mental status noted by . Patient appropriate but slow) HEENT: Atraumatic, Mucous membr. moist/pink Neck: Supple Respiratory: Clear to auscultation bilaterally, Normal air movement Cardiovascular: Normal pulses, Regular rate/rhythm Gastrointestinal: Normal bowel sounds, Soft and benign, Non-distended, No tenderness, No masses, No rebound, No guarding Musculoskeletal: No erythema, No tenderness, No warmth Integumentary: No tenderness/swelling, No erythema, No warmth, No cyanosis Neurological: Normal speech, Normal strength at 5/5 x4 extr, Normal tone, Normal affect Lymphatics: No axilla or inguinal lymphadenopathy - Studies Microbiology Data (last 24 hrs): 12/05/17 12:15 Clean Catch Urine Axis Count - Final >100,000 CFU/ML. 12/05/17 12:15 Clean Catch Urine - Final Escherichia Coli Medications List Reviewed: Yes Assessment & Plan - Problems (Diagnosis) (1) UTI (urinary tract infection) Current Visit: Yes Status: Acute Plan: Emphyesematous cstitis noted on CT scan. E coli identified in blood and urine. Will transition from IV antibiotic therapy to oral Augmentin. Will discuss with urology. Qualifiers: Urinary tract infection type: acute cystitis Hematuria presence: without hematuria Qualified Code(s): N30.00 - Acute cystitis without hematuria (2) Bacteremia Current Visit: Yes Status: Acute Plan: Continue as above. Will transition to oral Augmentin. (3) Hepatic encephalopathy Current Visit: No Status: Acute Plan: Patient has mild altered mental status. Will increase lactulose. Will continue with her Xifaxan. Will monitor ammonia level (4) Jaundice Current Visit: No Status: Acute Plan: This has improved with treatment of infection. (5) Alcoholic cirrhosis Current Visit: No Status: Chronic Plan: Patient with history of alcoholic cirrhosis. Patient reports alcohol cessation for some time. Qualifiers: Ascites presence: without ascites Qualified Code(s): K70.30 - Alcoholic cirrhosis of liver without ascites (6) Anemia Current Visit: No Status: Chronic Plan: Will monitor closely. Qualifiers: Anemia type: other cause Other causes of anemia: chronic disease, other Qualified Code(s): D63.8 - Anemia in other chronic diseases classified elsewhere (7) GERD (gastroesophageal reflux disease) Current Visit: No Status: Chronic Plan: Will continue with PPI. Qualifiers: Esophagitis presence: esophagitis presence not specified Qualified Code(s) : K21.9 - Gastro-esophageal reflux disease without esophagitis (8) Thrombocytopenia Current Visit: No Status: Chronic Plan: Will monitor closely. (9) Emphysematous cystitis Onset Date: 12/06/17 Current Visit: Yes Status: Acute Plan: Continue as above. (10) Hyponatremia Current Visit: Yes Status: Acute Plan: Slight improvement. Will consult nephrology for further recommendation. Patient on IV fluids. (11) Chronic renal disease Current Visit: Yes Status: Acute Plan: Acute on chronic disease noted. Will consult nephrology for further recommendation. Qualifiers: Chronic kidney disease stage: stage 3 (moderate) Qualified Code(s): N18.3 - Chronic kidney disease, stage 3 (moderate) (12) Gastric varices without bleeding Current Visit: No Status: Chronic Plan: Overall stable. No bleeding noted. Discharge Plan: Home Plan to discharge in: 24 Hours Time Spent Managing Pts Care (In Minutes): 55
[2017-12-08] MEDS: EPOETIN ALFA 10,000 UNIT/ML VIAL SQ SCH (16:43)
[2017-12-08] MEDS ORDERED: FUROSEMIDE 40 MG/4 ML VIAL IV SCH (17:00)
[2017-12-08] MEDS ORDERED: ALBUMIN HUMAN 25% 200 ML IV ONE (17:30)
[2017-12-08] MEDS ORDERED: FUROSEMIDE 40 MG/4 ML VIAL IV ONE (18:00)
[2017-12-08 19:24] LABS: UR CREAT 28.2 mg/dL (20-320); UR PROTEIN < 6 mg/dl (< 10); Urine Protein/Creatinine Ratio ND ratio (<0.15)
[2017-12-08 19:29] LABS: Urine Appearance CLEAR; Urine Bilirubin NEGATIVE (NEG); Urine Blood 1+ (NEG); Urine Color YELLOW; Urine Glucose NEGATIVE (NEG); Urine Protein NEGATIVE (NEG); Urine Specific Gravity <=1.005 (1.005-1.030); Urine Urobilinogen 0.2 mg/dL (0.2-1.0); Urine pH 6.5 (5.0-7.0)
[2017-12-08 19:30] LABS: Urine Microscopic Reflex ORDER UMIC
[2017-12-08 19:39] LABS: Urine Bacteria <20 /HPF (<20); Urine Culture Reflex Order NOT NEEDED; Urine RBC <5 /HPF (NONE SEEN)
[2017-12-08 19:40] LABS: Urine Amorphous Sediment TRACE /HPF (NONE SEEN)
[2017-12-08] MEDS: MONTELUKAST 10 MG TAB PO SCH (20:18)
[2017-12-08] MEDS: PIPER/TAZO/NS 2.25gm 2.25 GM/50 ML BAG IVPB SCH (20:18)
[2017-12-08] MEDS ORDERED: AMOX/K CLAV 500 MG TAB PO SCH (21:00)
[2017-12-08] MEDS ORDERED: Rifaximin 550 MG Tab PO SCH (21:00)
--- NOTE | 2017-12-08 21:32 | RAD REPORT ---
EXAM DESCRIPTION: VASExtrem Venous W Compress Bil12/08/2017 9:13 pm CLINICAL HISTORY: Bilateral leg swelling COMPARISON: none FINDINGS: The common femoral, superficial femoral, popliteal and posterior tibial veins bilaterally are compressible and demonstrate augmentation. Doppler demonstrates good flow. Edema is present the subcutaneous tissues IMPRESSION: No evidence of deep venous thrombosis involving either lower extremity.
--- NOTE | 2017-12-08 22:02 | CON ---
Date of Consultation: 12/08/2017 History Of Present Illness: This is a 57-year-old female with significant past medical history of ci rrhosis, hypertension, alcoholic cirrhosis, jerk, the patient was in her regular state of health, cam e to the hospital complaining of some abdominal pain with fever, found to have emphysematous cystitis , seen by Urology. Started on antibiotic. The patient denied any recent contrast. No nonsteroidal use. The CT that done in our unit was without contrast, did not show any obstruction. Reviewing the record for the patient, the patient's kidney function was normal with normal GFR back in October 2017 and creatinine of 0.8. The patient was started on antibiotic, seen by Urology. Past Medical History: 1.Alcoholic cirrhosis. 2.Hepatic encephalopathy. 3.Gastric varices. Past Surgical History: cholecystectomy, hysterectomy, cyst removal from the leg, breast cyst removal . Family History: Positive for hypertension. Social History: Ex-smoker. Denied alcohol. Denied drug abuse. Review of Systems: Not obtainable. The patient is confused. Family History: Positive for hypertension. Home Medications: Lasix 40 b.i.d., Singulair, pantoprazole, aldactone 50, Epogen, ferrous sulfate, f olic acid, Rifaximin, cholecalciferol, and lactulose. Physical Examination: Vital Signs: When I saw the patient, blood pressure 132/62, pulse of 81, afebrile. Chest: Clear to auscultation. Heart: S1, S2. Regular. Abdomen: Mild tenderness on the suprapubic area. Extremities: +3 edema with varicose change and pigmentation on the right leg. Laboratory Data: Sodium 124, potassium 3.6, bicarb 22, BUN 43, creatinine 1.4, calcium 8.1. Bilirub in of 9. TSH of 2. WBC 8.3, H and H 9.1/26.2, platelets of 72. Urinalysis; specific gravity of 1.0 15, 50 WBCs. Urine drug screen was negative. Culture growing Escherichia coli. Current Medications: The patient is on IV fluid that has been discontinued because of the swelling. The patient is on Augmentin, fluconazole, midodrine, Epogen, spironolactone, Lasix 40 b.i.d., levoth yroxine, pantoprazole, magnesium, Singulair, vitamin D. Assessment And Plan: 1.Acute kidney injury secondary to toxic acute tubular necrosis, poor perfusion acute tubular necros is, superimposed with possible hepatorenal. Has significant peripheral edema. Agreed with holding I V fluid for the time being. I am going to go ahead and send for repeated urinalysis, urine electroly te to evaluate between acute tubular necrosis prerenal of hepatorenal. I going to send for uric acid and we will follow up the patient. Obstructive uropathy has been ruled out with the finding on the CAT scan in the presence of the anemia. Light chain disease needs to be ruled out. We will send for anemia workup and I am going to send for protein creatinine to quantify the proteinuria. 2.Hyponatremia, secondary to cirrhosis/depletional. Currently, the patient looked on the wet side. We will follow up urine electrolyte. We are going to go ahead and send for cortisol and TSH. 3.Cystitis, emphysematous. Given the current condition and the altered mental status, I am going to go ahead and switch the patient back on Zosyn and we will follow up the patient. 4.Hepatic encephalopathy, as by primary. RHINA/RENATO Voice ID: [id number] Report ID: [id number]
[2017-12-09] MEDS: PIPER/TAZO/NS 2.25gm 2.25 GM/50 ML BAG IVPB SCH ×3 (01:57→16:45)
[2017-12-09 05:17] LABS: Absolute Lymphocytes (CBC) 0.4 K/uL (0.7-4.9); Absolute Monocytes 0.6 K/uL (0.1-1.3); Absolute Neutrophil 5.4 K/uL (1.8-8.0); Basophils % 2.6 % (0-1.3); Eosinophils % 1.9 % (0-4.4); Hematocrit 26.3 % (36.0-45.0); Lymphocytes % 6.4 % (15.3-44.8); MCH 35.8 pg (27.0-35.0); MCV 103.4 fL (80-100); MPV 8.6 fL (7.6-11.3); Monocytes % 9.3 % (3.3-12.3); RBC Red Blood Cell Count 2.54 M/uL (3.86-4.86)
[2017-12-09 06:34] LABS: ALT/SGPT 56 IU/L (10-60); AST/SGOT 73 IU/L (10-42); Albumin 2.9 g/dL (3.2-5.5); Alkaline Phosphatase 131 IU/L (42-121); BUN Blood Urea Nitrogen 38 mg/dL (6-20); Bicarbonate 20 mEq/L (21-31); Ferritin 986.6 ng/ml (11.0-306.8); Folic Acid, (Folate) > 22.3 ng/ml (>5.21); Glucose Level 107 mg/dL (65-120); Phosphorus 4.4 mg/dL (2.5-4.3); Potassium 3.4 mEq/L (3.6-5.0); Protein, Total 5.5 g/dL (6.0-8.3); Sodium Level 127 mEq/L (135-145); Thyroid Stimulating Hormone 2.67 uIU/mL (0.34-5.60)
[2017-12-09 06:35] LABS: Bilirubin Total 11.3 mg/dL (0.3-1.2)
[2017-12-09] MEDS ORDERED: POTASSIUM 25 MEQ EFFERV TAB PO ONE (07:00)
[2017-12-09 07:53] LABS: Anisocytosis 1+; Blood Morphology Comment NOTED (NOT SEEN); Burr Cells 2+; Platelet Estimate DECR; Poikilocytosis 2+
--- NOTE | 2017-12-09 08:24 | P.PN ---
Subjective Date of Service: 12/09/17 Primary Care Provider: Dr. Sears; GI-Dr. Almaguer Chief Complaint: Fever, abdominal pain, UTI Subjective: Other (Patient slightly confused today. Overall stable. Edema to the lower extremity improved. Patient had poor bowel movement yesterday.) Physical Examination - Vital Signs Temperature: 97.5 F Blood Pressure: 158/66 Pulse: 82 Respirations: 16 Pulse Ox (%): 97 - Physical Exam General: Alert, Confused HEENT: Atraumatic Neck: Supple Respiratory: Clear to auscultation bilaterally, Normal air movement Cardiovascular: Normal pulses, Regular rate/rhythm Gastrointestinal: Normal bowel sounds, Soft and benign, Non-distended, No tenderness, No masses, No rebound, No guarding Musculoskeletal: No tenderness, No warmth Integumentary: Tenderness/swelling (Less pitting edema to the lower extremities. Improved since yesterday.) Neurological: Normal strength at 5/5 x4 extr, Normal tone, Other (Patient confused this morning) - Studies Medications List Reviewed: Yes Assessment & Plan - Problems (Diagnosis) (1) UTI (urinary tract infection) Current Visit: Yes Status: Acute Plan: Emphyesematous cystitis noted on CT scan. E coli identified in blood and urine. Case discussed with nephrology. Will continue with IV antibiotic therapy until her condition significantly improved. Patient with hepatic encephalopathy. Lactulose increased to 4 times a day. Xifaxan added yesterday. Once the patient is more stable then can transition to oral medication. Case discussed with urology. Patient will need 14-21 days of treatment. Patient can go home with Augmentin at discharge. Qualifiers: Urinary tract infection type: acute cystitis Hematuria presence: without hematuria Qualified Code(s): N30.00 - Acute cystitis without hematuria (2) Bacteremia Current Visit: Yes Status: Acute Plan: Continue as above. Patient currently on IV antibiotic therapy. Once more stable then can transition to oral medication. (3) Hepatic encephalopathy Current Visit: No Status: Acute Plan: Patient has mild altered mental status. Ammonia level was elevated. Lactulose increase yesterday. Will monitor output. Will continue with Xifaxan. Will monitor ammonia level (4) Jaundice Current Visit: No Status: Acute Plan: This has improved with treatment of infection. Bilirubin slightly elevated since yesterday. (5) Alcoholic cirrhosis Current Visit: No Status: Chronic Plan: Patient with history of alcoholic cirrhosis. Patient reports alcohol cessation for some time. Bilirubin slightly elevated since yesterday. Will monitor closely. Qualifiers: Ascites presence: without ascites Qualified Code(s): K70.30 - Alcoholic cirrhosis of liver without ascites (6) Anemia Current Visit: No Status: Chronic Plan: Will monitor closely. Qualifiers: Anemia type: other cause Other causes of anemia: chronic disease, other Qualified Code(s): D63.8 - Anemia in other chronic diseases classified elsewhere (7) GERD (gastroesophageal reflux disease) Current Visit: No Status: Chronic Plan: Will continue with PPI. Qualifiers: Esophagitis presence: esophagitis presence not specified Qualified Code(s) : K21.9 - Gastro-esophageal reflux disease without esophagitis (8) Thrombocytopenia Current Visit: No Status: Chronic Plan: Will monitor closely. (9) Emphysematous cystitis Onset Date: 12/06/17 Current Visit: Yes Status: Acute Plan: Continue as above. (10) Hyponatremia Current Visit: Yes Status: Acute Plan: This has improved. IV fluids discontinue yesterday. Patient given Lasix. Case discussed with nephrology. Will continue with their recommendation. (11) Chronic renal disease Current Visit: Yes Status: Acute Plan: Acute on chronic disease noted. Nephrology has adjusted medications. Qualifiers: Chronic kidney disease stage: stage 3 (moderate) Qualified Code(s): N18.3 - Chronic kidney disease, stage 3 (moderate) (12) Gastric varices without bleeding Current Visit: No Status: Chronic Plan: Overall stable. No bleeding noted. Discharge Plan: Home Plan to discharge in: 48 Hours Time Spent Managing Pts Care (In Minutes): 55
[2017-12-09] MEDS ORDERED: DRISDOL (VITAMIN D=ERGOCALCIFEROL) 50000 UNIT CAP PO SCH (09:00)
[2017-12-09] MEDS: LACTULOSE 20 GM/30 ML UCUP PO SCH ×4 (09:27→20:25)
[2017-12-09] MEDS: FOLIC ACID 1 MG TABLET PO SCH (09:28)
[2017-12-09] MEDS: LIOTHYRONINE SOD 5 MCG TAB PO SCH (09:28)
[2017-12-09] MEDS: MAGNESIUM OXIDE 400 MG TAB PO SCH (09:28)
[2017-12-09] MEDS: FERROUS SULFATE 325 MG TAB PO SCH ×3 (09:28→20:25)
[2017-12-09] MEDS: FLUCONAZOLE 100 MG TAB PO SCH (09:28)
[2017-12-09] MEDS: PANTOPRAZOLE 40MG TABLET PO SCH (09:28)
[2017-12-09] MEDS: MIDODRINE HCL 5 MG TABLET PO SCH ×3 (09:29→20:25)
[2017-12-09] MEDS ORDERED: ALBUMIN HUMAN 25% 100 ML IV ONE (14:00)
[2017-12-09] MEDS ORDERED: FUROSEMIDE 40 MG/4 ML VIAL IV ONE (14:30)
[2017-12-09] MEDS: MONTELUKAST 10 MG TAB PO SCH (20:25)
[2017-12-10] MEDS ORDERED: PIPER/TAZO/NS 3.375gm 3.375 GM/100 ML BAG ONE (00:39)
[2017-12-10] MEDS: PIPER/TAZO/NS 3.375gm 3.375 GM/100 ML BAG IVPB SCH ×2 (01:03→09:15)
[2017-12-10 06:09] LABS: Albumin 2.4 g/dL (3.2-5.5); Potassium 3.9 mEq/L (3.6-5.0)
[2017-12-10] MEDS ORDERED: POTASSIUM CL SA 10 MEQ TAB PO ONE (06:27)
--- NOTE | 2017-12-10 08:49 | P.PN ---
Subjective Date of Service: 12/10/17 Primary Care Provider: Dr. Sears; GI-Dr. Almaguer Chief Complaint: Fever, abdominal pain, UTI Subjective: Improving (Patient better improved. Edema to the lower extremity also improved. Patient more alert today.) Physical Examination - Vital Signs Temperature: 98.1 F Blood Pressure: 124/58 Pulse: 62 Respirations: 16 Pulse Ox (%): 98 - Physical Exam General: Alert, In no apparent distress, Oriented x3, Cooperative, Other ( Patient more alert today. No significant confusion noted.) HEENT: Atraumatic, Scleral icterus Neck: Supple Respiratory: Clear to auscultation bilaterally, Normal air movement Cardiovascular: Normal pulses, Regular rate/rhythm Gastrointestinal: Normal bowel sounds, Soft and benign, Non-distended, No tenderness, No masses, No rebound, No guarding Musculoskeletal: No erythema, No tenderness, No warmth Integumentary: Tenderness/swelling (Edema to the lower extremities improved.) Neurological: Normal speech, Normal strength at 5/5 x4 extr, Normal tone, Normal affect - Studies Medications List Reviewed: Yes Assessment & Plan - Problems (Diagnosis) (1) UTI (urinary tract infection) Current Visit: Yes Status: Acute Plan: Emphyesematous cystitis noted on CT scan. E coli identified in blood and urine. Case discussed with nephrology yesterday. Will continue with IV antibiotic therapy. At discharge patient can be transition to Augmentin for treatment of 14-21 days. Case discussed with urology. Anticipate discharge tomorrow or later today if her condition significantly improves. Will ambulate patient. Continue with her medication for hepatic encephalopathy Qualifiers: Urinary tract infection type: acute cystitis Hematuria presence: without hematuria Qualified Code(s): N30.00 - Acute cystitis without hematuria (2) Bacteremia Current Visit: Yes Status: Acute Plan: Continue as above. Patient currently on IV antibiotic therapy. Case discussed with urology. At discharge patient can be transition to oral Augmentin for 14 to 21 days. (3) Hepatic encephalopathy Current Visit: No Status: Acute Plan: Patient appears back to her baseline. Ammonia level now within normal range. Medications adjusted yesterday. Will continue with lactulose and Xifaxan. Will monitor for any status changes. Anticipate discharge tomorrow or later today. (4) Jaundice Current Visit: No Status: Acute Plan: This has improved with treatment of infection. Will monitor closely. (5) Alcoholic cirrhosis Current Visit: No Status: Chronic Plan: Patient with history of alcoholic cirrhosis. Patient reports alcohol cessation for some time. Will monitor closely. Continue as above. Qualifiers: Ascites presence: without ascites Qualified Code(s): K70.30 - Alcoholic cirrhosis of liver without ascites (6) Anemia Current Visit: No Status: Chronic Plan: Will monitor closely. Overall stable Qualifiers: Anemia type: other cause Other causes of anemia: chronic disease, other Qualified Code(s): D63.8 - Anemia in other chronic diseases classified elsewhere (7) GERD (gastroesophageal reflux disease) Current Visit: No Status: Chronic Plan: Will continue with PPI. Qualifiers: Esophagitis presence: esophagitis presence not specified Qualified Code(s) : K21.9 - Gastro-esophageal reflux disease without esophagitis (8) Thrombocytopenia Current Visit: No Status: Chronic Plan: Will monitor closely. Overall stable. (9) Emphysematous cystitis Onset Date: 12/06/17 Current Visit: Yes Status: Acute Plan: Continue as above. (10) Hyponatremia Current Visit: Yes Status: Acute Plan: This has improved. This appears to be at baseline. Will continue with diuresis. Will discuss with nephrology. (11) Chronic renal disease Current Visit: Yes Status: Acute Plan: Acute on chronic disease noted. Renal function improved. Overall stable. Will discuss with nephrology. Qualifiers: Chronic kidney disease stage: stage 3 (moderate) Qualified Code(s): N18.3 - Chronic kidney disease, stage 3 (moderate) (12) Gastric varices without bleeding Current Visit: No Status: Chronic Plan: Overall stable. No bleeding noted. (13) Obesity Current Visit: Yes Status: Chronic Plan: Will address lifestyle modification education. Qualifiers: Obesity type: due to excess calories Obesity classification: adult class 2 (BMI 35 - 39.9) Serious obesity comorbidity presence: with serious comorbidity Body mass index: BMI 36.0-36.9 Qualified Code(s): E66.01 - Morbid (severe) obesity due to excess calories; Z68.36 - Body mass index (BMI) 36.0-36.9, adult (14) Orthostatic hypotension Current Visit: No Status: Chronic Plan: Patient with chronic orthostatic hypotension. Patient on midodrine. Overall stable. Discharge Plan: Home Plan to discharge in: 24 Hours Time Spent Managing Pts Care (In Minutes): 55
[2017-12-10] MEDS: LACTULOSE 20 GM/30 ML UCUP PO SCH ×4 (09:14→22:12)
[2017-12-10] MEDS: LIOTHYRONINE SOD 5 MCG TAB PO SCH (09:14)
[2017-12-10] MEDS: FLUCONAZOLE 100 MG TAB PO SCH (09:14)
[2017-12-10] MEDS: FERROUS SULFATE 325 MG TAB PO SCH ×3 (09:14→22:12)
[2017-12-10] MEDS: PANTOPRAZOLE 40MG TABLET PO SCH (09:15)
[2017-12-10] MEDS: MIDODRINE HCL 5 MG TABLET PO SCH ×2 (09:15→22:12)
[2017-12-10] MEDS: MAGNESIUM OXIDE 400 MG TAB PO SCH (09:15)
[2017-12-10] MEDS: FOLIC ACID 1 MG TABLET PO SCH (09:15)
[2017-12-10] MEDS: FUROSEMIDE 40 MG TABLET PO SCH ×2 (09:15→16:06)
--- NOTE | 2017-12-10 11:18 | PN ---
Date of Progress Note: 12/10/2017 Subjective: The patient more awake today. Still confused, but much better than yesterday. The chantal ent responded very well to current diuresis. Physical Examination: Vital Signs: Blood pressure 124/58, pulse of 67, afebrile. The patient had good urine output, voidi ng. Chest: Clear to auscultation. Heart: S1, S2. Regular. Abdomen: Soft, nontender. Extremities: +3 edema, but started having skin wrinkles and the edema not as tense as before. Neuro: No focal. Laboratory Data: WBC 6.8, H and H 9.1/26.3, platelet of 76. Sodium 135, potassium 3.9, bicarb 24, B UN 30, creatinine 0.88, calcium 9, phosphorus of 4, albumin 2.4. Medications: Current medications the patient on its include: 1.Fluconazole. 2.Zosyn. 3.Midodrine 5 mg t.i.d. 4.Lasix was switched to oral b.i.d. of 40 mg. 5.Lactulose. 6.Folic acid. 7.Pantoprazole. Assessment And Plan: 1.Acute kidney injury secondary to prerenal, poor perfusion, acute tubular necrosis, doubt to be hep atorenal given the urine electrolyte finding. The patient still has significant peripheral edema. I agree with switching to oral Lasix and we will monitor. 2.Hyponatremia secondary to dilutional secondary to cirrhosis. We will continue diuresis. Respondi ng very well. 3.Questionable of adrenal insufficiency, asymptomatic currently. We will monitor. 4.Hypokalemia, resolved. Given the cirrhosis, I am going to start the patient on low dose of spiron olactone with Lasix and we will follow up. 5.Cystitis, emphysematous. I am going to go ahead and switch the patient to oral and we will follow up. The patient is going to be cleared from the Renal standpoint for discharge planning either toda y or tomorrow. 6.Anasarca, as above. RHINA/RENATO Voice ID: [id number] Report ID: [id number]
[2017-12-10] MEDS: levoFLOXacin 500 MG TAB PO SCH (11:37)
[2017-12-10] MEDS ORDERED: POTASSIUM 25 MEQ EFFERV TAB PO ONE (21:00)
[2017-12-10] MEDS: MONTELUKAST 10 MG TAB PO SCH (22:12)
[2017-12-11 06:35] LABS: Albumin 2.4 g/dL (3.2-5.5); Phosphorus 3.8 mg/dL (2.5-4.3); Potassium 4.1 mEq/L (3.6-5.0)
[2017-12-11] MEDS: FUROSEMIDE 40 MG TABLET PO SCH (09:00)
[2017-12-11] MEDS ORDERED: SPIRONOLACTONE 25 MG TABLET PO SCH (09:00)
--- NOTE | 2017-12-11 09:38 | PN ---
Date of Progress Note: 12/09/2017 Subjective: The patient still confused. The patient given Lasix yesterday, diuresed very well. Олег ma subsided, but still have significant edema. Physical Examination: Vital Signs: Blood pressure 139/60, pulse of 68, afebrile. GENERAL: The patient had urine output of multiple voiding as weight is still the same. Chest: Clear to auscultation. Heart: S1, S2. Regular. Abdomen: Mild tenderness. Extremities: +3 edema. Laboratory Data: WBC 6.8, H and H 9.1/26.3, platelets of 76. Sodium 127, potassium 3.4, bicarb 20, BUN 38, creatinine down to 1, calcium 9, phosphor 4.4, magnesium 2, total bilirubin of 11. TSH of 2, cortisol level 7.8. Medications: Current medications the patient on is include, as I mentioned, the patient received sin gle dose of Lasix yesterday. 1.Xifaxan. 2.Zosyn. 3.Fluconazole. 4.Midodrine. 5.Ferrous sulfate. 6.Alprazolam. 7.Lactulose. 8.Pantoprazole. Assessment And Plan: 1.Acute kidney injury secondary to prerenal, doubt to be hepatorenal given the recovery and given th e urine electrolyte. 2.Hypertension, controlled, optimal. Continue current medication. 3.Anasarca, deep venous thrombosis was ruled out. We will continue mobilizing fluid using albumin a nd Lasix. 4.Hyponatremia dilutional secondary to cirrhosis. 5.Cystitis emphysematous, continue current antibiotic. 6.Hepatic encephalopathy. Follow up with Gastrointestinal and Primary. RHINA/RENATO Voice ID: [id number] Report ID: [id number]
[2017-12-11] MEDS: MIDODRINE HCL 5 MG TABLET PO SCH (10:33)
[2017-12-11] MEDS: LACTULOSE 20 GM/30 ML UCUP PO SCH (10:33)
[2017-12-11] MEDS: PANTOPRAZOLE 40MG TABLET PO SCH (10:34)
[2017-12-11] MEDS: FERROUS SULFATE 325 MG TAB PO SCH (10:34)
[2017-12-11] MEDS: LIOTHYRONINE SOD 5 MCG TAB PO SCH (10:34)
[2017-12-11] MEDS: FLUCONAZOLE 100 MG TAB PO SCH (10:34)
[2017-12-11] MEDS: MAGNESIUM OXIDE 400 MG TAB PO SCH (10:35)
[2017-12-11] MEDS: levoFLOXacin 500 MG TAB PO SCH (10:35)
[2017-12-11] MEDS: FOLIC ACID 1 MG TABLET PO SCH (10:35)
--- NOTE | 2017-12-11 11:32 | DS ---
Date of Discharge: 12/11/2017 Consultants: Dr. Mott with Urology, Dr. Lake with Nephrology, Dr. Almaguer with GI. Admitting Diagnoses: 1.Emphysematous cystitis. 2.Hypoalbuminemia. 3.Jaundice. 4.Alcoholic liver cirrhosis. 5.Anemia. 6.Gastric varices without bleeding. 7.Thrombocytopenia. Discharge Diagnoses: 1.Urinary tract infection and emphysematous cystitis with Escherichia coli. 2.Escherichia coli bacteremia. 3.Hepatic encephalopathy, resolved. 4.Jaundice. 5.Alcoholic liver cirrhosis. 6.Chronic anemia. 7.Gastroesophageal reflux disease without esophagitis. 8.Thrombocytopenia secondary to liver cirrhosis. 9.Emphysematous cystitis. 10.Hyponatremia, improving. 11.Acute on chronic kidney disease, stable. 12.Gastric varices without bleeding. 13.Obesity, BMI 36. 14.Orthostatic hypotension, on midodrine, stable. Hospital Course: The patient is a 57-year-old female, who came in with abdominal pain and fever. CT scan was done, which did not show any acute abdominal pathology, did show cystitis. The patient was attempted to be transferred to [facility] from the ER for her liver specialist; however, no bed was a vailable. The patient was therefore admitted to this facility. The patient was found to have UTI se condary to E. coli. She was started on IV antibiotics. Blood cultures also showed bacteremia second heike to E. coli. The patient was also seen by Dr. Mott with Urology for her emphysematous cystitis. He did not recommend any procedures at this point. Torres catheter was placed to drain the bladder. GI was consulted for her history of liver failure. Doppler sonogram was done on the lower extremity , which showed neck swelling; however, no DVT was found. The patient did have some yeast in her urin e and was treated with Diflucan. The patient's condition improved. She did have some hepatic enceph alopathy developed, but was continued on lactulose. Her ammonia level was elevated and came down wit h treatment. Her electrolytes were corrected. Kidney function also improved. The patient was then cleared for discharge from consultants' standpoint. Her jaundice had improved. The patient was then discharged home in a stable condition. Activity: Fall precautions. Medications: As per medication reconciliation list. Followup: Follow up with primary care physician in 2-3 days. Follow up with pin game machine inspector, Dr. Zohreh stevens in 2 weeks. Follow up with GI, Dr. Almaguer in 2 weeks. Return to ER for worsening condition. Fo llow up with urologist, Dr. Mott in 1-2 weeks. Diet: Low-sodium fluid-restricted diet. Total time spent discharging the patient was 39 minutes. Physical Examination: General: Awake, alert, oriented, in no acute distress. CV: S1, S2. No murmurs. Respiratory: Moving air well bilaterally. No wheezing. Abdomen: Soft, nontender, and nondistended. Positive bowel sounds. Extremities: Pedal edema. Neurologic: Nonfocal. SA/MODL Voice ID: [id number] Report ID: [id number]
[2017-12-11 11:37] VITALS: O2SAT 97
[2017-12-11 14:32] VITALS: BP 125/60; TEMP 97.7
--- NOTE | 2017-12-12 01:39 | PN ---
Date of Progress Note: 12/11/2017 Chief Complaint: Acute kidney injury. History Of Present Illness: The patient developed moderately severe acute kidney injury secondary to hypovolemia, resulted in prerenal azotemia and nonoliguric ATN. Renal function has improved gradually. The patient is feeling better. She was found to have bacteremia and was started on antibiotics. She was treated with Zosyn. The patient was found to have swelling, peripheral edema and Lasix was used to control fluid overload. Legs edema has improved. Review of Systems: Denies fever or chills. Physical Examination: Lungs: Clear to auscultation bilaterally. Heart: S1, S2. Abdomen: Soft, benign. Extremities: Minimal edema. Laboratory Data: Blood work; hemoglobin 9.1, WBC 6.8, platelet count 76,000. Chemistries showed sodium 138, potassium 4.1, chloride 107, CO2 of 26. BUN 25, creatinine 0.81. Assessment And Plan: 1. Acute kidney injury. Renal function has gradually improved. Creatinine was 1.62 and gradually improved to 0.81. BUN is elevated up to 38 and 25, persistent prerenal azotemia. The patient will continue adequate fluid by mouth. The patient completed Lasix for fluid overload. 2. Hyponatremia. On arrival to the hospital, sodium level was 121 and gradually improved and normalized. 3. Bacteremia. The patient was taking antibiotics. I recommend to adjust antibiotic dose to renal function. 4. Hyperbilirubinemia. Liver disease. Hepatic encephalopathy. Monitor ammonia level. The patient has alcoholic liver cirrhosis and jaundice. The patient will follow up with health care aide. 5. Bacteremia, urinary tract infection. Continue antibiotics. 6. Emphysematous cystitis. Continue antibiotics and monitor white count. EB/MODMayra Voice ID: [id number] Report ID: [id number] VIANEY
== END 2017-12-11 13:08 | disposition home or self-care (01) | DRG 689 ==
LOC: ER 11:10 → ERHOLD 15:46 → 2ND 20:56
PROVIDERS: ADMIT Family Medicine; ATTEND Family Medicine
DX: N30.80 Other cystitis without hematuria (principal); N17.0 Acute kidney failure with tubular necrosis; E87.1 Hypo-osmolality and hyponatremia; R17 Unspecified jaundice; N17.9 Acute kidney failure, unspecified; K70.30 Alcoholic cirrhosis of liver without ascites; K81.9 Cholecystitis, unspecified; E88.09 Other disorders of plasma-protein metabolism, not elsewhere classified; D63.8 Anemia in other chronic diseases classified elsewhere; D69.6 Thrombocytopenia, unspecified; I86.4 Gastric varices; E16.2 Hypoglycemia, unspecified; K21.9 Gastro-esophageal reflux disease without esophagitis; K72.90 Hepatic failure, unspecified without coma; N18.3 Chronic kidney disease, stage 3 (moderate); E87.6 Hypokalemia; B96.20 Unspecified Escherichia coli [E. coli] as the cause of diseases classified elsewhere; I95.1 Orthostatic hypotension; Z87.891 Personal history of nicotine dependence
CPT/HCPCS: 36415; 71250; 74176; 76705; 80048; 80053; 80069; 80076; 81003; 81015; 82140; 82533; 82553; 82570; 82607; 82728; 82746; 82962; 83540; 83605; 83690; 83735; 83935; 84100; 84132; 84145; 84156; 84300; 84443; 85025; 85044; 85610; 85730; 87040; 87077; 87086; 87088; 87186; 87205; 93970; 96365; 97163; 99285; J0696; J2543; J7030; P9047; Q4081

== ENCOUNTER 2018-04-23 07:03 | Inpatient (IN) | payer OTHER ==
--- OUTSIDE RECORDS SUMMARY | 2018-04-23 07:06 | XMS REPORT | Clinical Summary ---
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 Betty, (Primary Dx);FLORIDALMA Kaia Ashby MD (acute kidney Ramesh, injury) MD Sebastien (HCC);Alcoholic Risa Walton, cirrhosis of liver with ascites (HCC);Anasarca;Iron deficiency anemia, unspecified iron deficiency anemia type;Splenic pancytopenia syndrome (HCC);Thrombocytopen ia (HCC);Coagulopathy (HCC);Refusal of blood transfusions as patient is [facility] 08/26/2017 Orders Only Internal Medicine Wenceslao Salazar MD after 04/22/2017 Social History Tobacco Use Types Packs/Day Years [...] Diagnosis Comments UPPER ENDOSCOPY 08/30/2017 8:00 AM GENERAL PRACTITIONER ANEMIA after 04/22/2017 Results RHYTHM STRIP - SCAN (09/06/2017 12:40 [...] Performing Laboratory Blood - Line, Venous [facility] [address] [address] CBC with platelet count + automated diff [...] % Specimen Performing Laboratory Blood - Line, [address] [address] Reticulocyte count (09/01/2017 8:59 AM)Only the most recent of2 resultswithin the time period is included. Component Value Ref Range % Retic 9.2 (H) 0.5 - 1.7 % Specimen Performing Laboratory Blood - Line, [address] [address] CBC with platelet count + automated diff (09/01/2017 8:59 AM)Only the most recent of5 resultswithin the time period is included. Specimen Performing Laboratory Blood Narrative The following orders were created for panel order CBC with platelet count + automated diff. Procedure Abnormality Status --------- ------ CBC with platelet count ...[[id number]]AbnormalFinal result Manual Differential[[id number]]Abnormal Final result Please view results for these tests on the individual orders. Magnesium (09/01/2017 8:59 AM)Only the most recent of2 resultswithin the time period is included. Component Value Ref Range Magnesium 1.4 (L) 1.6 - 2.6 mg/dL Specimen Performing Laboratory Blood - Line, [address] [address] Comprehensive metabolic panel (09/01/2017 8:59 AM)Only the [...] Specimen Performing Laboratory Blood - Line, Venous [address] [address] Narrative Specimen moderately icteric Erythropoietin (08/31/2017 12:04 PM) Component Value Ref Range Erythropoietin 258.8 (H) 2.6 - 18.5 mIU/mL Specimen Performing Laboratory Blood - Arm, Right [facility] [address] [place] [address] Narrative Performing Lab E[facility] [id number] [place] [id number] Christie Coronel MD, PhD ECHOCARDIOGRAM REPORT - SCAN (08/31/2017 7:22 AM)Prothrombin time/INR (2017 11:43 AM)Only the most recent of4 resultswithin the time period is included. Component Value Ref Range Protime 29.7 (H) 11.7 - 14.7 seconds INR 2.8 <=5.9 Specimen Performing Laboratory Blood [address] [address] Narrative RECOMMENDED COUMADIN/WARFARIN INR THERAPY RANGES STANDARD DOSE: 2.0 - 3.0 Includes: PROPHYLAXIS for venous thrombosis, systemic embolization; TREATMENT for venous thrombosis and/or pulmonary embolus. HIGH RISK: Target INR is 2.5-3.5 for patients with mechanical heart valves. Fibrinogen (08/30/2017 11:43 AM) Component Value Ref Range Fibrinogen 94 (LL) 225 - 434 mg/dl Specimen Performing Laboratory Blood [address] [address] Basic Metabolic Panel (08/30/2017 11:43 AM)Only the [...] ESTIMATED GFR. Specimen Performing Laboratory Blood [facility] [address] [address] Narrative Specimen moderately icteric 2D Echo W/Doppler(CW/PW/Color) (08/30/2017 9:36 AM) Component Value Ref Range Ejection Fraction Specimen Performing Laboratory [facility] ECHO [facility] Narrative Transthoracic Echocardiography Report (TTE) Demographics Patient Name HEATHER LOVE Date of Study 08/30/2017 DIONISIO [id number] GenderFemale Visit Number [id number] Race Unknown [id number] Number 709 Number Date of Birth1960 Referring Physician James Silvestre MD Age56 year(s) Commissions Specialist Jarrod Bloom, [facility] AnalysLou Armijo,Interpreting Melva Woods, [facility] Physician Procedure Type of Study TTE procedure:2DECHO [...] External Ris In - 08/30/2017 9:01 PM GENERAL PRACTITIONER Transthoracic Echocardiography Report (TTE) Demographics Patient Name HEATHER LOVE Date of Study 08/30/2017 DIONISIO Gender Female Visit Number [id number] Race Unknown Room Number 709 Number Date of 1960 Referring Physician James Silvestre MD Age 56 year(s) Commissions Specialist Jarrod Bloom, [facility] Distillation Operator Saira Armijo, Interpreting Melva Woods, [facility] Physician Procedure Type of Study TTE procedure:2DECHO [...] doppler (08/29/2017 7:02 PM) Specimen Performing Laboratory [facility] Narrative FINAL REPORT HISTORY : Cirrhosis COMPARISON [...] MD Report Verified Date/Time:08/29/2017 20:26:57 Reading Location: [address] Consult Reading Room Procedure Note Interface, External Ris In - 08/29/2017 8:29 PM GENERAL PRACTITIONER FINAL REPORT HISTORY : Cirrhosis COMPARISON : [...] Report Verified Date/Time: 08/29/2017 20:26:57 Reading Location: [facility] C013W Consult Reading Room chest 1 [...] MD Report Verified Date/Time:08/28/2017 21:28:23 Reading Location: [facility] C013Y CT Body Reading Room Procedure Note Interface, External Ris In - 08/28/2017 9:30 PM GENERAL PRACTITIONER FINAL REPORT RAD, CHEST, 1 VIEW, NON [...] Report Verified Date/Time: 08/28/2017 21:28:23 Reading Location: [facility] C013Y CT Body Reading Room 12 lead (08/28/2017 4:50 PM) Specimen Performing Laboratory [facility] Narrative Ventricular Rate 63 BPM Atrial Rate 63 BPM P-R Interval 168 ms QRS Duration 88 ms Q-T Interval 398 ms QTC Calculation(Bazett) 407 ms P Hibernia 7 degrees R [place]ia 31 degrees T [place]ib[place] 34 degrees Normal sinus rhythm Low voltage QRS Cannot rule out Anterior infarct , age undetermined Abnormal ECG No previous ECGs available Confirmed by MD FRANCE, IHAB ([id number]) on 08/28/2017 9:31:44 PM Procedure Note Interface, External Ris In - 08/28/2017 9:31 PM GENERAL PRACTITIONER Ventricular Rate 63 BPM Atrial Rate 63 BPM P-R Interval 168 ms QRS Duration 88 ms Q-T Interval 398 ms QTC Calculation(Bazett) 407 ms P [place]ia 7 degrees R [place] 31 degrees T [place] 34 degrees Normal sinus rhythm Low voltage QRS Cannot rule out Anterior infarct , age undetermined Abnormal ECG No previous ECGs available Confirmed by MD FRANCE, IHAB ([id number]) on 08/28/2017 9:31:44 PM C-Reactive Protein (08/28/2017 12:23 PM) Component Value Ref Range CRP 0.42 0.00 - 0.50 mg/dL Specimen Performing Laboratory Blood [address] [address] Sedimentation rate (08/28/2017 12:23 PM) Component Value Ref Range Sed Rate 18 0 - 30 mm/HR Specimen Performing Laboratory Blood [address] [address] Hepatic function panel (08/28/2017 12:23 PM)Only the [...] - 55 U/L Specimen Performing Laboratory Blood [address] [address] Narrative Specimen moderately icteric Blood culture (08/28/2017 11:41 AM)Only the most recent of2 resultswithin the time period is included. Component Value Ref Range Result No growth in 5 days Specimen Performing Laboratory Blood - Arm, Right [address] [address] Hepatitis A antibody, IgG (08/28/2017 1:02 AM) Component Value Ref Range Hep A IgG Reactive (A) Nonreactive Specimen Performing Laboratory Blood - Arm, Right [address] [address] Anti-Mitochondrial Ab, reflex to titer (08/28/2017 1:02 AM) Component Value Ref Range Scan Result Specimen Performing Laboratory Blood - Arm, Right [address] [address] Alpha-1 antitrypsin Mutation Analysis (08/28/2017 1:02 AM) Component Value Ref Range A1 Antitrypsin Mut SEE BELOW Comment: RESULT: NO MUTATION DETECTED Interpretation: DNA testing indicates that this individual is negative for the PI*Z and PI*S alleles in the skkem-2-jibzjguthqr (PI) gene (genotype PI*M/PI*M). This negative result does not rule out the presence of other mutations within the PI gene or other causes of rospv-2-bcskmhqyvyz deficiency. Therefore, these results should be interpreted in the context of the individual's clinical presentation, and other laboratory tests such as measurement of serum pdoox-4-dmplmldbyth levels. Laboratory results and submitted clinical information reviewed by Clarice Scott, Ph.D., JESSICAG, CHRISSYD, CGRUDYs. Zdmho-7-ptjiodtroki deficiency is a relatively common autosomal recessive condition. The two most common deficiency alleles in the zilri-6-hfytvrovgzk gene (protease inhibitor locus, PI) are designated [...] smoke. It should be noted that serum mhrnt-3-rnxpzmeebkj levels can be induced by a wide variety of conditions that include , infection, numerous inflammatory conditions, cancer, and liver disease. Levels of doodv-6-qewamuzwaqe may be reduced by other conditions. Therefore, immunological and functional determinations of serum frfqq-8-kjydekxzbvz levels may not correlate with the individual's PI genotype. The PI*Z, PI*S, and PI*M alleles are detected by multiplex polymerase chain reaction (PCR) amplification of specific regions of the PI gene, followed by restriction enzyme digestion and capillary electrophoresis. This assay does not test for the presence of other mutations within the fxvlm-0-tfosuhvtjgp gene or non-genetic causes of lqvto-2-sroitsupysy deficiency. Since genetic variation and other factors can affect the accuracy of direct mutation testing, these results should be interpreted in light of clinical and familial data. This test was developed and its analytical performance characteristics have been determined by [facility]. It has not been cleared or approved by FDA. This assay has been validated pursuant to the CLIA regulations and is used for clinical purposes. Clinical Indication NOT GIVEN Referring Physician NOT GIVEN Specimen Performing Laboratory Blood - Arm, Right [facility] [address] [place] [address] Narrative Performing Lab [facility] [address] [address] Christie Coronel MD, PhD Vitamin B12 and Folate (08/28/2017 1:02 AM) Component Value Ref Range Vitamin B12 >2000 (H) 213 - 816 pg/mL Folate 8.2 >=7.0 ng/mL Specimen Performing Laboratory Blood - Arm, [address] [address] TSH/Free T4 If Indicated (08/28/2017 1:02 AM) Component Value Ref Range TSH 2.13 0.35 - 4.94 uIU/mL Specimen Performing Laboratory Blood - Arm, [address] [address] Actin (Smooth Muscle) Antibody, IgG (08/28/2017 1:02 [...] 1. Specimen Performing Laboratory Blood - Arm, [facility] [place] [id number] [place] [address] Narrative Performing Lab [facility] [address] [address] Christie Coronel MD, PhD Igbtx-5-hxnwfiqttya (08/28/2017 1:02 AM) Component Value Ref Range A-1 Antitrypsin 99.90 90.00 - 200.00 mg/dL Specimen Performing Laboratory Blood - Arm, [address] [address] FABIAN Titer & Pattern (08/28/2017 1:02 AM) Component Value Ref Range FABIAN Titer 1:160 FABIAN Pattern Nucleolar Specimen Performing Laboratory Blood - Arm, Right [facility] [address] Ceruloplasmin (08/28/2017 1:02 AM) Component Value Ref Range Ceruloplasmin 14 (L) 18 - 53 mg/dL Comment: Adults:Males: 18-36 mg/dL Females: 18-53 mg/dL Pediatrics:Males (mg/dL)Females (mg/dL) 0-30 Days 8-25 3-28 31 Days-11 Month 1515-43 1-3 Rgfal64-3905-96 4-6 Jmhqe01-1897-10 7-9 Rymlt43-8369-73 10-12 Tquin06-4345-27 13-15 Bvwcf69-0510-35 16-18 Mvvea83-8760-33 The pediatric ranges are derived from the following criteria: Debbie SJ, Woo JM, Heidi J et al Pediatric reference ranges for Kirz-1-Xvsuqcpddibuo and ceruloplasmin. Clin. Chem 1997; 43:S1999 Pediatric Reference Ranges, 2nd., [place] Debbieet al. editors. [employer], [place], [place] 1997. Specimen Performing Laboratory Blood - Arm, [facility] [address] [address] Narrative Performing Lab *[facility], [address] [place] [id number] Christie Coronel MD, PhD Anti-Nuclear Antibody (FABIAN) (08/28/2017 1:02 AM) Component Value Ref Range FABIAN Positive (A) Negative Specimen Performing Laboratory Blood - Arm, [address] [address] Ferritin (08/28/2017 1:02 AM) Component Value Ref Range Ferritin 861 (H) 5 - 275 ng/mL Specimen Performing Laboratory Blood - Arm, [address] [address] Sodium, random urine (08/27/2017 10:22 AM) Component Value Ref Range Sodium Urine <20 meq/L Specimen Performing Laboratory Urine - Urine, Clean Catch [address] [place] [address] Narrative Reference Range: No Normals Protein, random urine (08/27/2017 10:22 AM) Component Value Ref Range Protein, Urine 8 0 - 14 mg/dL Specimen Performing Laboratory Urine - Urine, Clean Catch [address] [address] Creatinine, random urine (08/27/2017 10:22 AM) Component Value Ref Range Creatinine, Ur 135.7 mg/dL Specimen Performing Laboratory Urine - Urine, Clean Catch [address] [address] Narrative Reference Range: No Normals Peripheral Blood Smear - Hold only (08/27/2017 8:41 AM) Component Value Ref Range Peripheral Smear Save saved Specimen Performing Laboratory [address] [address] Iron, TIBC, % sat. (without ferritin) (08/27/2017 8:41 AM) Component Value Ref Range Iron 141 40 - 160 ug/dL TIBC 141 (L) 250 - 450 ug/dL Iron % Saturation 100 (H) 20 - 55 % Specimen Performing Laboratory [address] [address] Lactate dehydrogenase (LDH) (08/27/2017 8:41 AM) Component Value Ref Range LDH 318 (H) 125 - 220 U/L Specimen Performing Laboratory [address] [address] Urinalysis w/ Microscopic (08/26/2017 11:07 PM) Component Value Ref Range Color, UA Yellow Clarity, UA Hazy Specific Crump, UA 1.011 1.001 - 1.035 pH, UA [...] Specimen Performing Laboratory Urine - Urine, [facility] [address] [place] [address] Urine culture (08/26/2017 11:07 PM) Component Value Ref Range Result No growth Specimen Performing Laboratory Urine - Urine, [address] [address] Phosphorus (08/26/2017 11:03 PM) Component Value Ref Range Phosphorus 5.5 (H) 2.3 - 4.7 mg/dL Specimen Performing Laboratory Blood - Arm, [address] [address] BCID (08/26/2017 11:02 PM) Component Value Ref Range Scan Result Specimen Performing Laboratory Blood [address] [address] Narrative Result comments: Coagulase Negative Staphylococcus Species [...] sample was tested at the [facility] using the [employer] Blood Culture ID Panel. This test is FDA cleared for in vitro diagnostic use and has been verified and approved by the [facility] for clinical use. Reference Range: Not Detected after 04/22/2017
--- OUTSIDE RECORDS SUMMARY | 2018-04-23 07:06 | XMS REPORT | Clinical Summary ---
:1960 Author Organization [facility] Address [address] [place] [address] Care Team Providers Name Role Phone Roya [...] Active Problems Problem Noted Date Hepatic encephalopathy (HCC) 10/06/2017 Alcoholic cirrhosis of liver (HCC) 10/06/2017 Esophageal varices with bleeding (HCC) 10/06/2017 Ascites 10/06/2017 Iron deficiency anemia due to chronic blood loss 10/06/2017 Edema of lower extremity 11/11/2015 Hip pain 11/11/2015 Hypertension 11/11/2015 Low back pain 11/11/2015 Encounters Date Type Specialty Care Team Description 10/30/2017 Hospital Encounter Transplant Albino Phma MD 10/30/2017 Hospital Encounter Transplant Albino Pham Canceled MD (Department/Provider) 10/06/2017 Telephone Transplant Flor Bennett RN Referral - Liver Txp after 04/22/2017 Social History Tobacco Use Types [...] INFLUENZA VACCINE 01/31/2018 Results Not on fileafter 04/22/2017 Insurance Payer Benefit Plan / Group Subscriber ID Type Phone Address [employer] PPO OPEN CHOICE xxxxxxxxxx PPO Work: [phone] [id number] Home:
--- OUTSIDE RECORDS SUMMARY | 2018-04-23 07:07 | XMS REPORT ---
:1960 Author Organization [facility] Address [address] [place] [address] Dr. Fan [address] [place] [id number] Care Team Providers Name Role Phone CLAUDIAGERMANALBERTODAPHNE Unavailable Unavailable Problems This patient has no known problems. Allergies, Adverse Reactions, Alerts This patient has no known allergies or adverse reactions. Medications This patient has no known medications. Results Test Description Test Time Test Comments Text Results Atomic Results Result Comments BLOOD CULTURE 2017-09-02 17:00:00 Test Item Value Reference Range Comments CULTURE (BEAKER) (test hfpf=0636) No growth in 5 days CBC W/PLT COUNT & AUTO [id number] 12:16:00 Test Item Value Reference Range Comments WHITE BLOOD CELL COUNT (BEAKER) (test noac=753) 4.2 K/ L 3.5-10.5 RED BLOOD CELL COUNT (BEAKER) (test mplc=709) 1.52 M/ L 3.93-5.22 HEMOGLOBIN (BEAKER) (test safr=745) 5.6 GM/DL 11.2-15.7 HEMATOCRIT (BEAKER) (test ijzr=730) 17.8 % 34.1-44.9 MEAN CORPUSCULAR VOLUME (BEAKER) (test bznv=806) 117.1 fL 79.4-94.8 MEAN CORPUSCULAR HEMOGLOBIN (BEAKER) (test 36.8 pg 25.6-32.2 bmej=427) MEAN CORPUSCULAR HEMOGLOBIN CONC (BEAKER) (test 31.5 GM/DL 32.2-35.5 rgkx=608) RED CELL DISTRIBUTION WIDTH (BEAKER) (test 17.2 % 11.7-14.4 qzsc=316) PLATELET COUNT (BEAKER) (test yzym=356) 71 K/CU MM 150-450 MEAN PLATELET VOLUME (BEAKER) (test xckq=425) 10.1 fL 9.4-12.3 NUCLEATED RED BLOOD CELLS (BEAKER) (test 1 /100 WBC 0-0 gfon=584) NEUTROPHILS RELATIVE PERCENT (BEAKER) (test 51 % axdc=275) LYMPHOCYTES RELATIVE PERCENT (BEAKER) (test 23 % etva=063) MONOCYTES RELATIVE PERCENT (BEAKER) (test 16 % aouf=865) EOSINOPHILS RELATIVE PERCENT (BEAKER) (test 6 % tvjb=853) BASOPHILS RELATIVE PERCENT (BEAKER) (test 1 % caxg=230) NEUTROPHILS ABSOLUTE COUNT (BEAKER) (test 2.16 K/ L 1.56-6.13 kthe=492) LYMPHOCYTES ABSOLUTE COUNT (BEAKER) (test 0.97 K/ L 1.18-3.74 lupy=956) MONOCYTES ABSOLUTE COUNT (BEAKER) (test pyls=606) 0.67 K/ L 0.24-0.36 EOSINOPHILS ABSOLUTE COUNT (BEAKER) (test 0.27 K/ L 0.04-0.36 rrsa=233) BASOPHILS ABSOLUTE COUNT (BEAKER) (test ttdj=301) 0.03 K/ L 0.01-0.08 IMMATURE GRANULOCYTES-RELATIVE PERCENT (BEAKER) 2 % 0-1 (test nidp=5771) (MANUAL DIFFERENTIAL)2017-09-01 12:16:00 Test Item Value Reference Range Comments NEUTROPHILS - REL (DIFF) (BEAKER) (test crjh=8511) 49 % LYMPHOCYTES - REL (DIFF) (BEAKER) (test ijbn=6231) 28 % MONOCYTES - REL (DIFF) (BEAKER) (test ciiu=1366) 14 % EOSINOPHILS - REL (DIFF) (BEAKER) (test mdvh=8592) 6 % MYELOCYTES-REL (DIFF) (BEAKER) (test kxzm=9535) 1 % 0-0 BANDS - REL (DIFF) (BEAKER) (test jxxs=8765) 2 % 0-10 NEUTROPHILS - ABS (DIFF) (BEAKER) (test bqyh=7849) 2.06 K/ L 1.80-8.00 LYMPHOCYTES - ABS (DIFF) (BEAKER) (test ffwp=4729) 1.18 K/ L 1.48-4.50 MONOCYTES - ABS (DIFF) (BEAKER) (test gagq=7493) 0.59 K/ L 0.00-1.30 EOSINOPHILS - ABS (DIFF) (BEAKER) (test yjja=0246) 0.25 K/ L 0.00-0.50 BANDS-ABS (DIFF) (BEAKER) (test yjht=0805) 0.1 K/ L 0.0-0.8 MYELOCYTES-ABS (DIFF) (BEAKER) (test fcrn=5787) 0.04 K/ L 0.00-0.00 TOTAL COUNTED (BEAKER) (test xuja=7499) 100 BANDS + SEGMENTED NEUTROPHILS (BEAKER) (test 2.14 ohhg=2447) WBC MORPHOLOGY (BEAKER) (test neuu=174) Normal PLT MORPHOLOGY (BEAKER) (test xatm=638) Normal POLYCHROMATOPHILLIC RBCS(BEAKER) (test aquq=387) 1+ few ANTI-MITOCHONDRIAL AB, REFLEX TO [id number] 11:48:00 Test Item Value Reference Range Comments SCAN RESULT (test oxsd=[id number]) BLOOD [id number] 11:24:00 Test Item Value Reference Range Comments CULTURE (BEAKER) From Aerobic Bottle Only (test ygns=6047) Coagulase negative Staphylococcus GRAM STAIN RESULT From aerobic bottle (BEAKER) (test only: gram positive djdn=9494) cocci in clusters Coagulase Negative Staphylococcus Species [...] required. This sample was tested at the [facility] Clinical Microbiology Laboratory using the [employer] Blood Culture ID Panel.This test is FDA cleared for in vitro diagnostic use and has been verified and approved by [facility]. Reference Range: Not DetectedRETICULOCYTE [id number] 10:27:00 Test Item Value Reference Range Comments RETICULOCYTE COUNT PCT (BEAKER) (test xgrk=197) 9.2 % 0.5-1.7 [id number] 10:12:00 Test Item Value Reference Range Comments MAGNESIUM (BEAKER) (test xrte=369) 1.4 mg/dL 1.6-2.6 COMPREHENSIVE METABOLIC [id number] 10:12:00 Test Item Value Reference Range Comments TOTAL PROTEIN (BEAKER) 4.9 gm/dL 6.0-8.3 (test ccyr=618) ALBUMIN (BEAKER) (test 2.9 g/dL 3.5-5.0 tkve=5393) ALKALINE PHOSPHATASE 102 U/L 40-150 (BEAKER) (test kgkd=026) BILIRUBIN TOTAL (BEAKER) 5.1 mg/dL 0.2-1.2 (test swol=685) SODIUM (BEAKER) (test 136 meq/L 136-145 feyx=543) POTASSIUM (BEAKER) (test 3.7 meq/L 3.5-5.1 hiqj=714) CHLORIDE (BEAKER) (test 108 meq/L 98-107 pcqk=384) CO2 (BEAKER) (test 22 meq/L 22-29 rdek=113) BLOOD UREA NITROGEN 30 mg/dL 7-21 (BEAKER) (test crma=887) CREATININE (BEAKER) (test 1.22 mg/dL 0.57-1.25 pope=346) GLUCOSE RANDOM (BEAKER) 101 mg/dL 70-105 (test epni=672) CALCIUM (BEAKER) (test 8.4 mg/dL 8.4-10.2 llxt=405) AST (SGOT) (BEAKER) (test 41 U/L 5-34 hyze=210) ALT (SGPT) (BEAKER) (test 22 U/L 6-55 kigc=461) EGFR (BEAKER) (test mL/min/1.73 sq m INSUFFICIENT CLINICAL DATA zuvx=6756) TO CALCULATE ESTIMATED GFR. Specimen [facility] ictericBASIC METABOLIC [id number] 13:48:00 Test Item Value Reference Range Comments SODIUM (BEAKER) (test 139 meq/L 136-145 yjwh=244) POTASSIUM (BEAKER) (test 4.2 meq/L 3.5-5.1 snrh=755) CHLORIDE (BEAKER) (test 111 meq/L 98-107 trhk=305) CO2 (BEAKER) (test 17 meq/L 22-29 hmwh=516) BLOOD UREA NITROGEN 36 mg/dL 7-21 (BEAKER) (test mknb=488) CREATININE (BEAKER) (test 1.33 mg/dL 0.57-1.25 klih=726) GLUCOSE RANDOM (BEAKER) 138 mg/dL 70-105 (test eugl=106) CALCIUM (BEAKER) (test 8.7 mg/dL 8.4-10.2 tpry=420) EGFR (BEAKER) (test mL/min/1.73 sq m INSUFFICIENT CLINICAL DATA xhfw=6589) TO CALCULATE ESTIMATED GFR. Specimen moderately ictericCBC W/PLT COUNT & AUTO [id number] 13: 39:00 Test Item Value Reference Range Comments WHITE BLOOD CELL COUNT (BEAKER) (test tizk=285) 6.4 K/ L 3.5-10.5 RED BLOOD CELL COUNT (BEAKER) (test ukrh=113) 1.53 M/ L 3.93-5.22 HEMOGLOBIN (BEAKER) (test magk=832) 5.5 GM/DL 11.2-15.7 HEMATOCRIT (BEAKER) (test anyz=828) 18.1 % 34.1-44.9 MEAN CORPUSCULAR VOLUME (BEAKER) (test vvxb=031) 118.3 fL 79.4-94.8 MEAN CORPUSCULAR HEMOGLOBIN (BEAKER) (test 35.9 pg 25.6-32.2 ujxf=433) MEAN CORPUSCULAR HEMOGLOBIN CONC (BEAKER) (test 30.4 GM/DL 32.2-35.5 snln=432) RED CELL DISTRIBUTION WIDTH (BEAKER) (test 15.6 % 11.7-14.4 adje=937) PLATELET COUNT (BEAKER) (test ndjz=124) 81 K/CU MM 150-450 MEAN PLATELET VOLUME (BEAKER) (test ezds=539) 9.8 fL 9.4-12.3 NUCLEATED RED BLOOD CELLS (BEAKER) (test 1 /100 WBC 0-0 pzgs=092) IMMATURE GRANULOCYTES-RELATIVE PERCENT (BEAKER) 4 % 0-1 (test bplk=0674) (MANUAL DIFFERENTIAL)2017-08-30 13:39:00 Test Item Value Reference Range Comments NEUTROPHILS - REL (DIFF) (BEAKER) (test ywie=6515) 55 % LYMPHOCYTES - REL (DIFF) (BEAKER) (test nqhc=8354) 16 % MONOCYTES - REL (DIFF) (BEAKER) (test irwq=0251) 15 % EOSINOPHILS - REL (DIFF) (BEAKER) (test mpip=9211) 8 % BASOPHILS - REL (DIFF) (BEAKER) (test xeer=1228) 1 % METAMYELOCYTES-REL (DIFF) (BEAKER) (test pexs=027) 1 % 0-0 MYELOCYTES-REL (DIFF) (BEAKER) (test qwlp=4168) 4 % 0-0 NEUTROPHILS - ABS (DIFF) (BEAKER) (test fxqd=3765) 3.52 K/ L 1.80-8.00 LYMPHOCYTES - ABS (DIFF) (BEAKER) (test anvw=3859) 1.02 K/ L 1.48-4.50 MONOCYTES - ABS (DIFF) (BEAKER) (test gwbw=1457) 0.96 K/ L 0.00-1.30 EOSINOPHILS - ABS (DIFF) (BEAKER) (test wfar=7837) 0.51 K/ L 0.00-0.50 BASOPHILS - ABS (DIFF) (BEAKER) (test zjzh=6107) 0.06 K/ L 0.00-0.20 METAMYELOCTYES - ABS (DIFF) (BEAKER) (test 0.06 K/ L 0.00-0.00 zezb=491) MYELOCYTES-ABS (DIFF) (BEAKER) (test mcje=7377) 0.26 K/ L 0.00-0.00 TOTAL COUNTED (BEAKER) (test ofgy=8601) 100 WBC MORPHOLOGY (BEAKER) (test ivmm=247) Normal PLT MORPHOLOGY (BEAKER) (test hclf=811) Normal ACANTHOCYTES (BEAKER) (test trff=078) 1+ few ANISOCYTOSIS (BEAKER) (test enqz=794) 1+ few POLYCHROMATOPHILLIC RBCS(BEAKER) (test qnhl=717) 1+ few [id number] 12:41:00 Test Item Value Reference Range Comments FIBRINOGEN LEVEL (BEAKER) (test ybka=760) 94 mg/dl 225-434 PROTHROMBIN [id number] 12:18:00 Test Item Value Reference Range Comments PROTIME (BEAKER) (test tjcj=220) 29.7 seconds 11.7-14.7 INR (BEAKER) (test rjbz=794) 2.8 <=5.9 RECOMMENDED COUMADIN/WARFARIN INR THERAPY RANGESSTANDARD DOSE: 2.0 - 3.0 Includes: PROPHYLAXIS forvenous thrombosis, systemic embolization; TREATMENT for venous thrombosis and/or pulmonary embolus.HIGH RISK: Target INR is 2.5-3.5 for patients with mechanical heart valves.U/S, ABDOMINAL, WITH [id number] 20:26:00Reason for exam:->cirrhosisShould this be performed [...] MDReport Verified Date/Time: 08/29/2017 20:26:57 Reading Location: [facility] C013W Consult Reading Room RAD, CHEST, 1 VIEW, NON [id number] 21:28:00Reason for exam:->SOBShould this be performed at [...] MDReport Verified Date/Time: 08/28/2017 21:28:23 Reading Location: [facility] C013Y CT Body Reading Room TSH/FREE T4 IF [id number] 15:56:00 Test Item Value Reference Range Comments THYROID STIMULATING HORMONE (BEAKER) (test 2.13 uIU/mL 0.35-4.94 hrfs=532) MISCELLANEOUS LAB [id number] 14:44:00 Test Item Value Reference Range Comments SCAN RESULT (test mqfx=[id number]) Result comments: Coagulase Negative Staphylococcus Species (CoNS) [...] required. This sample was tested at the [facility] Clinical Microbiology Laboratory using the [employer] Blood Culture ID Panel. This test is FDA cleared for in vitro diagnostic use and has been verified and approved by the [facility] Clinical Microbiology laboratory for clinical use. Reference Range: Not DetectedBASIC METABOLIC [id number] 13:50 :00 Test Item Value Reference Range Comments SODIUM (BEAKER) (test 136 meq/L 136-145 jwkr=257) POTASSIUM (BEAKER) (test 4.7 meq/L 3.5-5.1 jvmz=476) CHLORIDE (BEAKER) (test 109 meq/L 98-107 tkbu=296) CO2 (BEAKER) (test 19 meq/L 22-29 hjqk=742) BLOOD UREA NITROGEN 47 mg/dL 7-21 (BEAKER) (test ponf=181) CREATININE (BEAKER) (test 1.68 mg/dL 0.57-1.25 tgvd=476) GLUCOSE RANDOM (BEAKER) 176 mg/dL 70-105 (test qunt=500) CALCIUM (BEAKER) (test 8.8 mg/dL 8.4-10.2 oqwb=548) EGFR (BEAKER) (test mL/min/1.73 sq m INSUFFICIENT CLINICAL DATA gdko=0200) TO CALCULATE ESTIMATED GFR. Specimen moderately ictericHEPATIC FUNCTION [id number] 13:49:00 Test Item Value Reference Range Comments TOTAL PROTEIN (BEAKER) (test vzdy=973) 5.5 gm/dL 6.0-8.3 ALBUMIN (BEAKER) (test kmkf=8959) 3.5 g/dL 3.5-5.0 BILIRUBIN TOTAL (BEAKER) (test vuil=573) 5.6 mg/dL 0.2-1.2 BILIRUBIN DIRECT (BEAKER) (test sghz=817) 2.4 mg/dL 0.1-0.5 ALKALINE PHOSPHATASE (BEAKER) (test dhie=144) 96 U/L 40-150 AST (SGOT) (BEAKER) (test vvum=025) 47 U/L 5-34 ALT (SGPT) (BEAKER) (test vhva=503) 26 U/L 6-55 Specimen moderately ictericSEDIMENTATION [id number] 13:47:00 Test Item Value Reference Range Comments SEDIMENTATION RATE, ERYTHROCYTE (BEAKER) (test 18 mm/HR 0-30 qdho=460) C-REACTIVE [id number] 13:42:00 Test Item Value Reference Range Comments C-REACTIVE PROTEIN (BEAKER) (test ugfm=503) 0.42 mg/dL 0.00-0.50 CBC W/PLT COUNT & AUTO [id number] 12:52:00 Test Item Value Reference Range Comments WHITE BLOOD CELL COUNT (BEAKER) (test iqxp=311) 5.1 K/ L 3.5-10.5 RED BLOOD CELL COUNT (BEAKER) (test slnu=672) 1.50 M/ L 3.93-5.22 HEMOGLOBIN (BEAKER) (test mgii=709) 5.5 GM/DL 11.2-15.7 HEMATOCRIT (BEAKER) (test gpay=137) 17.1 % 34.1-44.9 MEAN CORPUSCULAR VOLUME (BEAKER) (test rqig=092) 114.0 fL 79.4-94.8 MEAN CORPUSCULAR HEMOGLOBIN (BEAKER) (test 36.7 pg 25.6-32.2 cewc=566) MEAN CORPUSCULAR HEMOGLOBIN CONC (BEAKER) (test 32.2 GM/DL 32.2-35.5 upgb=905) RED CELL DISTRIBUTION WIDTH (BEAKER) (test 15.1 % 11.7-14.4 uckm=363) PLATELET COUNT (BEAKER) (test tlky=413) 75 K/CU MM 150-450 MEAN PLATELET VOLUME (BEAKER) (test ksxs=005) 9.8 fL 9.4-12.3 NUCLEATED RED BLOOD CELLS (BEAKER) (test 0 /100 WBC 0-0 ttdy=985) NEUTROPHILS RELATIVE PERCENT (BEAKER) (test 65 % esba=516) LYMPHOCYTES RELATIVE PERCENT (BEAKER) (test 16 % zexz=197) MONOCYTES RELATIVE PERCENT (BEAKER) (test 13 % uhww=611) EOSINOPHILS RELATIVE PERCENT (BEAKER) (test 5 % mraa=258) BASOPHILS RELATIVE PERCENT (BEAKER) (test 0 % dfjv=318) NEUTROPHILS ABSOLUTE COUNT (BEAKER) (test 3.33 K/ L 1.56-6.13 rsqa=022) LYMPHOCYTES ABSOLUTE COUNT (BEAKER) (test 0.84 K/ L 1.18-3.74 yofq=652) MONOCYTES ABSOLUTE COUNT (BEAKER) (test nntr=068) 0.65 K/ L 0.24-0.36 EOSINOPHILS ABSOLUTE COUNT (BEAKER) (test 0.24 K/ L 0.04-0.36 zntj=786) BASOPHILS ABSOLUTE COUNT (BEAKER) (test ckod=777) 0.01 K/ L 0.01-0.08 IMMATURE GRANULOCYTES-RELATIVE PERCENT (BEAKER) 1 % 0-1 (test cala=9278) URINE [id number] 09:15:00 Test Item Value Reference Range Comments CULTURE (BEAKER) (test tofs=1771) No growth FABIAN TITER AND [id number] 09:02:00 Test Item Value Reference Range Comments FABIAN TITER (BEAKER) (test ttbs=8621) :160 FABIAN PATTERN (BEAKER) (test ozel=7009) Nucleolar ANTI-NUCLEAR ANTIBODY (FABIAN)2017-08-28 09:01:00 Test Item Value Reference Range Comments ANTI-NUCLEAR ANTIBODY (FABIAN) (BEAKER) (test Positive Negative uybx=453) PROTHROMBIN [id number] 08:26:00 Test Item Value Reference Range Comments PROTIME (BEAKER) (test puyy=090) 29.8 seconds 11.7-14.7 INR (BEAKER) (test cgwg=180) 2.8 <=5.9 RECOMMENDED COUMADIN/WARFARIN INR THERAPY RANGESSTANDARD DOSE: 2.0 - 3.0 Includes: PROPHYLAXIS forvenous thrombosis, systemic embolization; TREATMENT for venous thrombosis and/or pulmonary embolus.HIGH RISK: Target INR is 2.5-3.5 for patients with mechanical heart valves.[id number] 07:32:00 Test Item Value Reference Range Comments ALPHA-1 ANTITRYPSIN (BEAKER) (test hxgi=390) 99.90 mg/dL 90.00-200.00 HEPATITIS A ANTIBODY, [id number] 03:42:00 Test Item Value Reference Range Comments HEPATITIS A IGG ANTIBODY (BEAKER) (test fehg=3523) Reactive Nonreactive VITAMIN B12 AND [id number] 03:42:00 Test Item Value Reference Range Comments VITAMIN B12 (BEAKER) (test oumt=546) > pg/mL 213-816 FOLATE (BEAKER) (test xkpm=296) 8.2 ng/mL >=7.0 [id number] 03:26:00 Test Item Value Reference Range Comments FERRITIN (BEAKER) (test taqc=579) 861 ng/mL 5-275 LACTATE DEHYDROGENASE (LDH)2017-08-27 17:42:00 Test Item Value Reference Range Comments LACTATE DEHYDROGENASE (BEAKER) (test jbxe=690) 318 U/L 125-220 RAD, CHEST, 1 VIEW, NON [id number] 16:20:00Reason for exam:->edemaShould this be performed at [...] MDReport Verified Date/Time: 08/27/2017 16:20:41 Reading Location: [address] Ortho Consult Reading Room PERIPHERAL BLOOD SMEAR - HOLD [id number] 14:32:00 Test Item Value Reference Range Comments PERIPHERAL SMEAR SAVE (BEAKER) (test pwih=9457) saved IRON, TIBC, % SAT. (WITHOUT FERRITIN)2017-08-27 12:53:00 Test Item Value Reference Range Comments IRON (BEAKER) (test liby=420) 141 ug/dL 40-160 TOTAL IRON BINDING CAPACITY (BEAKER) (test 141 ug/dL 250-450 dfui=679) IRON % SATURATION (2) (BEAKER) (test edlg=6400) 100 % 20-55 RETICULOCYTE [id number] 12:07:00 Test Item Value Reference Range Comments RETICULOCYTE COUNT PCT (BEAKER) (test rrey=416) 4.4 % 0.5-1.7 PROTEIN, RANDOM [id number] 11:03:00 Test Item Value Reference Range Comments PROTEIN, URINE (BEAKER) (test bhjs=1881) 8 mg/dL 0-14 CREATININE, RANDOM [id number] 11:01:00 Test Item Value Reference Range Comments CREATININE URINE (BEAKER) (test yfnm=652) 135.7 mg/dL Reference Range: No NormalsSODIUM, RANDOM [id number] 11:01:00 Test Item Value Reference Range Comments SODIUM URINE (BEAKER) (test tvbk=304) < meq/L Reference Range: No NormalsPROTHROMBIN [id number] 10:54:00 Test Item Value Reference Range Comments PROTIME (BEAKER) (test nbln=552) 24.6 seconds 11.7-14.7 INR (BEAKER) (test eeqv=088) 2.2 <=5.9 RECOMMENDED COUMADIN/WARFARIN INR THERAPY RANGESSTANDARD DOSE: 2.0 - 3.0 Includes: PROPHYLAXIS forvenous thrombosis, systemic embolization; TREATMENT for venous thrombosis and/or pulmonary embolus.HIGH RISK: Target INR is 2.5-3.5 for patients with mechanical heart valves.COMPREHENSIVE METABOLIC [id number] 10:15:00 Test Item Value Reference Range Comments TOTAL PROTEIN (BEAKER) 4.7 gm/dL 6.0-8.3 (test ohiy=658) ALBUMIN (BEAKER) (test 2.6 g/dL 3.5-5.0 zoeb=3966) ALKALINE PHOSPHATASE 116 U/L 40-150 (BEAKER) (test vqqh=605) BILIRUBIN TOTAL (BEAKER) 6.4 mg/dL 0.2-1.2 (test seie=689) SODIUM (BEAKER) (test 135 meq/L 136-145 ypsx=609) POTASSIUM (BEAKER) (test 5.0 meq/L 3.5-5.1 djel=079) CHLORIDE (BEAKER) (test 108 meq/L 98-107 cnmq=266) CO2 (BEAKER) (test 19 meq/L 22-29 xplu=219) BLOOD UREA NITROGEN 50 mg/dL 7-21 (BEAKER) (test mvhl=831) CREATININE (BEAKER) (test 1.85 mg/dL 0.57-1.25 lrlo=334) GLUCOSE RANDOM (BEAKER) 89 mg/dL 70-105 (test xjvt=210) CALCIUM (BEAKER) (test 8.4 mg/dL 8.4-10.2 nclz=268) AST (SGOT) (BEAKER) (test 50 U/L 5-34 ebhe=531) ALT (SGPT) (BEAKER) (test 27 U/L 6-55 ujxd=304) EGFR (BEAKER) (test mL/min/1.73 sq m INSUFFICIENT CLINICAL DATA wcyh=2857) TO CALCULATE ESTIMATED GFR. Specimen moderately ictericCBC W/PLT COUNT & AUTO [id number] 09: 12:00 Test Item Value Reference Range Comments WHITE BLOOD CELL COUNT (BEAKER) (test tdjy=963) 5.4 K/ L 3.5-10.5 RED BLOOD CELL COUNT (BEAKER) (test bbog=434) 1.65 M/ L 3.93-5.22 HEMOGLOBIN (BEAKER) (test pfku=897) 6.0 GM/DL 11.2-15.7 HEMATOCRIT (BEAKER) (test vufa=043) 18.4 % 34.1-44.9 MEAN CORPUSCULAR VOLUME (BEAKER) (test uqku=612) 111.5 fL 79.4-94.8 MEAN CORPUSCULAR HEMOGLOBIN (BEAKER) (test 36.4 pg 25.6-32.2 mybq=337) MEAN CORPUSCULAR HEMOGLOBIN CONC (BEAKER) (test 32.6 GM/DL 32.2-35.5 bcdd=107) RED CELL DISTRIBUTION WIDTH (BEAKER) (test 14.9 % 11.7-14.4 qmyq=163) PLATELET COUNT (BEAKER) (test ogae=089) 83 K/CU MM 150-450 MEAN PLATELET VOLUME (BEAKER) (test omcm=204) 9.8 fL 9.4-12.3 NUCLEATED RED BLOOD CELLS (BEAKER) (test 0 /100 WBC 0-0 bhod=945) NEUTROPHILS RELATIVE PERCENT (BEAKER) (test 70 % enmw=146) LYMPHOCYTES RELATIVE PERCENT (BEAKER) (test 15 % irct=727) MONOCYTES RELATIVE PERCENT (BEAKER) (test 11 % bewr=614) EOSINOPHILS RELATIVE PERCENT (BEAKER) (test 4 % slwr=191) BASOPHILS RELATIVE PERCENT (BEAKER) (test 0 % txjg=038) NEUTROPHILS ABSOLUTE COUNT (BEAKER) (test 3.77 K/ L 1.56-6.13 lpjf=839) LYMPHOCYTES ABSOLUTE COUNT (BEAKER) (test 0.78 K/ L 1.18-3.74 rlmy=073) MONOCYTES ABSOLUTE COUNT (BEAKER) (test btpn=701) 0.61 K/ L 0.24-0.36 EOSINOPHILS ABSOLUTE COUNT (BEAKER) (test 0.20 K/ L 0.04-0.36 hhwk=325) BASOPHILS ABSOLUTE COUNT (BEAKER) (test raat=790) 0.01 K/ L 0.01-0.08 IMMATURE GRANULOCYTES-RELATIVE PERCENT (BEAKER) 0 % 0-1 (test dfua=2735) URINALYSIS W/ [id number] 01:10:00 Test Item Value Reference Range Comments COLOR (BEAKER) (test lnqu=598) Yellow CLARITY (BEAKER) (test ueca=919) Hazy SPECIFIC GRAVITY UA (BEAKER) (test rrsz=881) 1.011 1.001-1.035 PH UA (BEAKER) (test lgop=949) 5.5 5.0-8.0 PROTEIN UA (BEAKER) (test zavq=085) Negative Negative GLUCOSE UA (BEAKER) (test couy=396) Negative Negative KETONES UA (BEAKER) (test dshd=954) Negative Negative BILIRUBIN UA (BEAKER) (test hmku=115) Negative Negative BLOOD UA (BEAKER) (test ixcm=075) Moderate Negative NITRITE UA (BEAKER) (test lhdt=028) Negative Negative LEUKOCYTE ESTERASE UA (BEAKER) (test hmsv=934) Large Negative UROBILINOGEN UA (BEAKER) (test zbzq=788) 0.2 mg/dL 0.2-1.0 RBC UA (BEAKER) (test dbnl=364) 26 /HPF WBC UA (BEAKER) (test bhxz=620) 49 /HPF BACTERIA (BEAKER) (test grle=658) Occasional HYALINE CASTS (BEAKER) (test jgcs=478) 63 /LPF GRANULAR CASTS (BEAKER) (test qift=126) 3 /LPF AMORPHOUS CRYSTALS (BEAKER) (test zqlf=0930) Few SOURCE(BEAKER) (test qvrj=1601) Urine, Torres BASIC METABOLIC [id number] 00:14:00 Test Item Value Reference Range Comments SODIUM (BEAKER) (test 133 meq/L 136-145 ubgh=344) POTASSIUM (BEAKER) (test 5.0 meq/L 3.5-5.1 szhr=650) CHLORIDE (BEAKER) (test 105 meq/L 98-107 kjwb=061) CO2 (BEAKER) (test 17 meq/L 22-29 yjds=721) BLOOD UREA NITROGEN 51 mg/dL 7-21 (BEAKER) (test xawq=077) CREATININE (BEAKER) (test 2.06 mg/dL 0.57-1.25 otxl=191) GLUCOSE RANDOM (BEAKER) 83 mg/dL 70-105 (test btvk=054) CALCIUM (BEAKER) (test 8.5 mg/dL 8.4-10.2 desh=972) EGFR (BEAKER) (test mL/min/1.73 sq m INSUFFICIENT CLINICAL DATA wcjx=2155) TO CALCULATE ESTIMATED GFR. Specimen moderately [id number] 00:08:00 Test Item Value Reference Range Comments PHOSPHORUS (BEAKER) (test ultw=324) 5.5 mg/dL 2.3-4.7 [id number] 00:08:00 Test Item Value Reference Range Comments MAGNESIUM (BEAKER) (test ecgb=275) 2.4 mg/dL 1.6-2.6 HEPATIC FUNCTION [id number] 00:08:00 Test Item Value Reference Range Comments TOTAL PROTEIN (BEAKER) (test dfha=222) 5.6 gm/dL 6.0-8.3 ALBUMIN (BEAKER) (test xfkz=6490) 2.6 g/dL 3.5-5.0 BILIRUBIN TOTAL (BEAKER) (test lpif=173) 6.7 mg/dL 0.2-1.2 BILIRUBIN DIRECT (BEAKER) (test diav=704) 3.6 mg/dL 0.1-0.5 ALKALINE PHOSPHATASE (BEAKER) (test hlyx=286) 187 U/L 40-150 AST (SGOT) (BEAKER) (test inbn=096) 61 U/L 5-34 ALT (SGPT) (BEAKER) (test ygoj=632) 34 U/L 6-55 Specimen moderately ictericPROTHROMBIN [id number] 23:54:00 Test Item Value Reference Range Comments PROTIME (BEAKER) (test ednl=302) 21.5 seconds 11.7-14.7 INR (BEAKER) (test rdnw=412) 1.9 <=5.9 RECOMMENDED COUMADIN/WARFARIN INR THERAPY RANGESSTANDARD DOSE: 2.0 - 3.0 Includes: PROPHYLAXIS forvenous thrombosis, systemic embolization; TREATMENT for venous thrombosis and/or pulmonary embolus.HIGH RISK: Target INR is 2.5-3.5 for patients with mechanical heart valves.CBC W/PLT COUNT & AUTO [id number] 23:51:00 Test Item Value Reference Range Comments WHITE BLOOD CELL COUNT (BEAKER) (test kjer=327) 4.6 K/ L 3.5-10.5 RED BLOOD CELL COUNT (BEAKER) (test mruq=066) 1.99 M/ L 3.93-5.22 HEMOGLOBIN (BEAKER) (test lkir=791) 7.0 GM/DL 11.2-15.7 HEMATOCRIT (BEAKER) (test ptic=576) 21.8 % 34.1-44.9 MEAN CORPUSCULAR VOLUME (BEAKER) (test eafl=570) 109.5 fL 79.4-94.8 MEAN CORPUSCULAR HEMOGLOBIN (BEAKER) (test 35.2 pg 25.6-32.2 skya=151) MEAN CORPUSCULAR HEMOGLOBIN CONC (BEAKER) (test 32.1 GM/DL 32.2-35.5 fdco=120) RED CELL DISTRIBUTION WIDTH (BEAKER) (test 14.8 % 11.7-14.4 rosu=255) PLATELET COUNT (BEAKER) (test qpfn=689) 111 K/CU MM 150-450 MEAN PLATELET VOLUME (BEAKER) (test ozdg=617) 9.8 fL 9.4-12.3 NUCLEATED RED BLOOD CELLS (BEAKER) (test 0 /100 WBC 0-0 wmrn=690) NEUTROPHILS RELATIVE PERCENT (BEAKER) (test 66 % vwgq=524) LYMPHOCYTES RELATIVE PERCENT (BEAKER) (test 18 % frme=270) MONOCYTES RELATIVE PERCENT (BEAKER) (test 10 % tyqc=335) EOSINOPHILS RELATIVE PERCENT (BEAKER) (test 6 % lygr=646) BASOPHILS RELATIVE PERCENT (BEAKER) (test 0 % dafe=891) NEUTROPHILS ABSOLUTE COUNT (BEAKER) (test 3.06 K/ L 1.56-6.13 geqf=990) LYMPHOCYTES ABSOLUTE COUNT (BEAKER) (test 0.81 K/ L 1.18-3.74 njxj=840) MONOCYTES ABSOLUTE COUNT (BEAKER) (test 0.45 K/ L 0.24-0.36 sdbk=983) EOSINOPHILS ABSOLUTE COUNT (BEAKER) (test 0.26 K/ L 0.04-0.36 ohom=448) BASOPHILS ABSOLUTE COUNT (BEAKER) (test 0.02 K/ L 0.01-0.08 bjay=239) IMMATURE GRANULOCYTES-RELATIVE PERCENT (BEAKER) 1 % 0-1 (test zrse=7894)
[2018-04-23] MEDS ORDERED: ONDANSETRON 4 MG/2 ML VIAL ONE ×2 (07:45→09:40)
[2018-04-23] MEDS ORDERED: NA CHLORIDE 0.9% 500 ML ONE (07:46)
[2018-04-23 07:54] LABS: Absolute Lymphocytes (CBC) 0.2 K/uL (0.7-4.9); Absolute Monocytes 0.2 K/uL (0.1-1.3); Absolute Neutrophil 4.2 K/uL (1.8-8.0); Basophils % 0.3 % (0-1.3); Eosinophils % 0.1 % (0-4.4); Hematocrit 45.3 % (36.0-45.0); Lymphocytes % 4.9 % (15.3-44.8); MCV 108.2 fL (80-100); MPV 9.1 fL (7.6-11.3); Monocytes % 3.4 % (3.3-12.3); RBC Red Blood Cell Count 4.19 M/uL (3.86-4.86)
[2018-04-23 08:08] LABS: Protime INR 2.64
[2018-04-23 08:24] LABS: Albumin 2.3 g/dL (3.4-5.0); Bilirubin Direct 6.2 mg/dL (0-0.2); Potassium 4.8 mmol/L (3.5-5.1); Protein, Total 6.1 g/dL (6.4-8.2)
[2018-04-23 08:27] LABS: Bilirubin Total 16.3 mg/dL (0.2-1.0)
[2018-04-23 09:37] LABS: Platelet Estimate DECR
[2018-04-23 09:38] LABS: Blood Morphology Comment NOTED (NOT SEEN); Macrocytosis 1+; Ovalocytes 1+
--- NOTE | 2018-04-23 10:07 | EDPHYS ---
Physician Documentation [facility] Name: Ree Pizarro Age: 57 yrs Sex: Female : 1960 Arrival Date: 04/23/2018 Time: 07:05 Bed 5 Private MD: Gabe Sears B ED Physician Mykel Little HPI: 04/23 09:52 This 57 yrs old Female presents to ER via Wheelchair with complaints of gs Vomiting. 09:52 Onset: The symptoms/episode began/occurred 2 day(s) ago, and became worse and became gs persistent. Possible causes: unknown. The symptoms are aggravated by nothing. The symptoms are alleviated by nothing. Associated signs and symptoms: Pertinent negatives: abdominal pain, dysuria, fever, GI bleeding. Severity of symptoms: At their worst the symptoms were moderate in the emergency department the symptoms are unchanged. The patient has experienced similar episodes in the past, a few times. Historical: - Allergies: 07:14 No Known Allergies; aa5 - Home Meds: 10:24 spironolactone 50 mg Oral tab once daily [Active]; Folic Acid Oral [Active]; ph pantoprazole 40 mg Oral TbEC 1 tab once daily [Active]; levothyroxine oral [Active]; liothyronine 50 mcg Oral tab 1 tab once daily [Active]; magnesium oxide 400 mg Oral tab daily [Active]; furosemide 40 mg Oral tab 2 times per day [Active]; montelukast 10 mg Oral tab 1 tab once daily [Active]; Iron CR Oral [Active]; midodrine oral oral [Active]; Vitamin D3 5,000 unit Oral tab every Monday [Active]; lactulose 20 gram/30 mL Oral soln 45 mL 3 times per day [Active]; - PMHx: 07:14 ADD/ADHD; Anemia; Cirrhosis; esophageal varisces; Hypertension; aa5 - PSHx: 07:14 Hysterectomy; Cholecystectomy; cyst removal; meniscus repair; aa5 - Immunization history:: Flu vaccine is not up to date. - Social history:: Smoking status: Patient/guardian denies using tobacco. - Ebola Screening: : No symptoms or risks identified at this time. ROS: 09:52 All other systems are negative. gs Exam: 09:52 Head/Face: Normocephalic, atraumatic. Eyes: Pupils equal round and reactive to light, gs extra-ocular motions intact. Lids and lashes normal. Conjunctiva and sclera are non-icteric and not injected. Cornea within normal limits. Periorbital areas with no swelling, redness, or edema. ENT: Nares patent. No nasal discharge, no septal abnormalities noted. Tympanic membranes are normal and external auditory canals are clear. Oropharynx with no redness, swelling, or masses, exudates, or evidence of obstruction, uvula midline. Mucous membranes moist. Neck: Trachea midline, no thyromegaly or masses palpated, and no cervical lymphadenopathy. Supple, full range of motion without nuchal rigidity, or vertebral point tenderness. No Meningismus. Chest/axilla: Normal chest wall appearance and motion. Nontender with no deformity. No lesions are appreciated. Cardiovascular: Regular rate and rhythm with a normal S1 and S2. No gallops, murmurs, or rubs. Normal PMI, no JVD. No pulse deficits. Respiratory: Lungs have equal breath sounds bilaterally, clear to auscultation and percussion. No rales, rhonchi or wheezes noted. No increased work of breathing, no retractions or nasal flaring. Back: No spinal tenderness. No costovertebral tenderness. Full range of motion. MS/ Extremity: Pulses equal, no cyanosis. Neurovascular intact. Full, normal range of motion. Neuro: Awake and alert, GCS 15, oriented to person, place, time, and situation. Cranial nerves II-XII grossly intact. Motor strength 5/5 in all extremities. Sensory grossly intact. Cerebellar exam normal. Normal gait. 09:52 Constitutional: The patient appears alert, awake. 09:52 Abdomen/GI: Inspection: distension, is not seen, Palpation: nontender, in all quadrants. 09:52 Skin: Appearance: Color: jaundiced, dusky. Vital Signs: 07:15 BP 137 / 63; Pulse 97; Resp 18 S; Temp 98.8(O); Pulse Ox 98% on R/A; Weight 83.91 kg aa5 (R); Height 5 ft. 5 in. (165.10 cm) (R); Pain 0/10; 08:30 BP 132 / 68; Pulse 91; Resp 20; Pulse Ox 96% on R/A; ph 09:40 BP 137 / 65; Pulse 86; Resp 18; Pulse Ox 95% on R/A; ph 11:16 BP 136 / 72; Pulse 97; Resp 18; Pulse Ox 95% on R/A; ph 12:06 BP 137 / 69; Pulse 89; Resp 17; Temp 98.7; Pulse Ox 98% on R/A; Pain 0/10; sg 07:15 Body Mass Index 30.79 (83.91 kg, 165.10 cm) aa5 MDM: 07:28 Patient medically screened. 09:52 Differential diagnosis: Nonspecific abd pain, sepsis,sbp,h encephalopathy,LONGTERM. Data gs reviewed: vital signs, nurses notes. Physician consultation: Wilbert Almaguer MD and will see patient in inpatient room, would like further tests performed, diagnostic paracentesis, would like medications started, Rocephin, already done. 04/23 07:27 Order name: Basic Metabolic Panel; Complete Time: 09:43 04/23 07:27 Order name: CBC with Diff; Complete Time: 09:43 04/23 07:27 Order name: Hepatic Function; Complete Time: 09:43 04/23 07:27 Order name: Lipase; Complete Time: 09:43 04/23 07:27 Order name: AMMONIA; Complete Time: 09:43 04/23 07:27 Order name: PT-INR; Complete Time: 09:43 04/23 08:12 Order name: Manual Differential; Complete Time: 09:43 [facility] 04/23 09:45 Order name: Blood Culture* 04/23 09:45 Order name: Procalcitonin 04/23 09:55 Order name: Paracentesis Proc Guidance [facility] 04/23 10:25 Order name: Urine Dipstick--Ancillary (enter results) 04/23 10:56 Order name: Blood Culture [facility] 04/23 10:56 Order name: Urine Culture [facility] 04/23 10:56 Order name: Chest Single View [facility] 04/23 07:27 Order name: IV Saline Lock; Complete Time: 07:44 04/23 07:27 Order name: Labs collected and sent; Complete Time: 07:44 04/23 10:56 Order name: CONS Physician Consult [facility] 04/23 10:56 Order name: Full Liquid EDNM Administered Medications: 07:43 Drug: NS 0.9% 500 ml Route: IV; Rate: bolus; Site: right antecubital; iw 09:39 Follow up: Response: No adverse reaction; IV Status: Completed infusion ph 07:44 Drug: Zofran 4 mg Route: IVP; Site: right antecubital; iw 08:30 Follow up: Response: No adverse reaction; Nausea is decreased ph 09:38 Drug: Zofran 4 mg Route: IVP; Site: right antecubital; ph 10:25 Follow up: Response: No adverse reaction; Nausea unchanged ph 11:11 Drug: Rocephin - (cefTRIAXone) 1 grams Route: IVPB; Infused Over: 30 mins; Site: right ph antecubital; 11:30 Follow up: Response: No adverse reaction; IV Status: Completed infusion ph Disposition: 04/23/18 10:07 Hospitalization ordered by Osiel Anderson for Inpatient Admission. Preliminary diagnosis are Acute kidney failure, Vomiting, Chronic hepatic failure without coma. - Bed requested for Telemetry/MedSurg (observation). - Status is Inpatient Admission. sg - Condition is Stable. - Problem is an acute exacerbation. - Symptoms are unchanged. UTI on Admission? No Critical care time excluding procedures: 09:52 Critical care time: Bedside Care: 10 minutes, Consultation: 10 minutes, Family gs Intervention: 10 minutes. Total time: 30 minutes Signatures: Dispatcher [employer] EDMS Anabella Rodrigues Steven, RN RN sg Williams, Irene RN YESSICA Ann Bang RN RN aa5 Hall, Patricia, RN RN Mykel Little MD MD gs Corrections: (The following items were deleted from the chart) 10:08 10:07 Hospitalization Ordered by Osiel Anderson DO for Inpatient Admission. Preliminary gs diagnosis is Acute kidney failure; Vomiting; Chronic hepatic failure without coma. Bed requested for Telemetry/MedSurg (Inpatient). Status is Inpatient Admission. Condition is Stable. Problem is an acute exacerbation. Symptoms are unchanged. UTI on Admission? No. gs 11:50 10:08 04/23/2018 10:07 Hospitalization Ordered by Osiel Anderson DO for Inpatient bd Admission. Preliminary diagnosis is Acute kidney failure; Vomiting; Chronic hepatic failure without coma. Bed requested for Telemetry/MedSurg (observation). Status is Inpatient Admission. Condition is Stable. Problem is an acute exacerbation. Symptoms are unchanged. UTI on Admission? No. gs 12:11 11:50 04/23/2018 10:07 Hospitalization Ordered by Osiel Anderson DO for Inpatient Admission. Preliminary diagnosis is Acute kidney failure; Vomiting; Chronic hepatic failure without coma. Bed requested for Telemetry/MedSurg (observation). Status is Inpatient Admission. Condition is Stable. Problem is an acute exacerbation. Symptoms are unchanged. UTI on Admission? No. bd
--- NOTE | 2018-04-23 10:07 | ER ---
Nurse's Notes [facility] Name: Ree Pizarro Age: 57 yrs Sex: Female : 1960 Arrival Date: 04/23/2018 Time: 07:05 Bed 5 Private MD: Gabe Sears B Diagnosis: Acute kidney failure;Vomiting;Chronic hepatic failure without coma Presentation: 04/23 07:12 Presenting complaint: Patient states: vomiting during the night. Pt denies pain. Pt's aa5 states "she's also a little confused because her ammonia levels are probably building up". Pt currently A \\T\\ O x 4. Transition of care: patient was not received from another setting of care. Onset of symptoms was April 23, 2018. Risk Assessment: Do you want to hurt yourself or someone else? Patient reports no desire to harm self or others. Initial Sepsis Screen: Does the patient meet any 2 criteria? No. Patient's initial sepsis screen is negative. Does the patient have a suspected source of infection? No. Patient's initial sepsis screen is negative. Care prior to arrival: None. 07:12 Method Of Arrival: Wheelchair aa5 07:12 Acuity: LISA 3 aa5 Historical: - Allergies: 07:14 No Known Allergies; aa5 - Home Meds: 10:24 spironolactone 50 mg Oral tab once daily [Active]; Folic Acid Oral [Active]; ph pantoprazole 40 mg Oral TbEC 1 tab once daily [Active]; levothyroxine oral [Active]; liothyronine 50 mcg Oral tab 1 tab once daily [Active]; magnesium oxide 400 mg Oral tab daily [Active]; furosemide 40 mg Oral tab 2 times per day [Active]; montelukast 10 mg Oral tab 1 tab once daily [Active]; Iron CR Oral [Active]; midodrine oral oral [Active]; Vitamin D3 5,000 unit Oral tab every Monday [Active]; lactulose 20 gram/30 mL Oral soln 45 mL 3 times per day [Active]; - PMHx: 07:14 ADD/ADHD; Anemia; Cirrhosis; esophageal varisces; Hypertension; aa5 - PSHx: 07:14 Hysterectomy; Cholecystectomy; cyst removal; meniscus repair; aa5 - Immunization history:: Flu vaccine is not up to date. - Social history:: Smoking status: Patient/guardian denies using tobacco. - Ebola Screening: : No symptoms or risks identified at this time. Screenin:46 Abuse screen: Denies threats or abuse. Denies injuries from another. Nutritional ph screening: No deficits noted. Tuberculosis screening: No symptoms or risk factors identified. Fall Risk No fall in past 12 months (0 pts). No secondary diagnosis (0 pts). IV access (20 points). Ambulatory Aid- None/Bed Rest/Nurse Assist (0 pts). Gait- Weak (10 pts.). Mental Status- Oriented to own ability (0 pts). Total Finney Fall Scale indicates Low Risk Score (25-44 pts). Fall prevention measures have been instituted. Side Rails Up X 2 Family Present and informed to notify staff if they need to leave bedside As available Patient and Family Educated on Fall Prevention Program and strategies. Assessment: 07:44 General: Appears in no apparent distress. comfortable, well groomed, Behavior is calm, ph cooperative, appropriate for age, Denies fever. Pain: Denies pain. Neuro: Level of Consciousness is awake, obeys commands, lethargic, Oriented to person, place, time, situation. Cardiovascular: Capillary refill < 3 seconds in bilateral fingers Patient's skin is warm and dry. Respiratory: Airway is patent Respiratory effort is even, unlabored, Respiratory pattern is regular, symmetrical. GI: Abdomen is round Bowel sounds present X 4 quads. Reports nausea, vomiting, Patient currently denies abdominal pain. : No signs and/or symptoms were reported regarding the genitourinary system. Derm: Skin is intact, Skin is dry, Skin is jaundiced, Skin temperature is warm. Musculoskeletal: Circulation, motion, and sensation intact. Range of motion: intact in all extremities. 08:45 Reassessment: Patient appears in no apparent distress at this time. Patient and/or ph family updated on plan of care and expected duration. Pain level reassessed. Pt resting quietly, awaiting lab results, at bedside. 09:41 Reassessment: Patient appears in no apparent distress at this time. Patient and/or ph family updated on plan of care and expected duration. Pain level reassessed. Patient is alert, oriented x 3, equal unlabored respirations, skin warm/dry/pink. Pt c/o nausea, no vomiting noted, ERP notified, see MAR. 10:16 Reassessment: Patient appears in no apparent distress at this time. Patient and/or ph family updated on plan of care and expected duration. Pain level reassessed. Pt awake but drowsy, oriented x 3, Dr Anderson at bedside to speak w/ pt and SO, pt to be admitted. Vital Signs: 07:15 BP 137 / 63; Pulse 97; Resp 18 S; Temp 98.8(O); Pulse Ox 98% on R/A; Weight 83.91 kg aa5 (R); Height 5 ft. 5 in. (165.10 cm) (R); Pain 0/10; 08:30 BP 132 / 68; Pulse 91; Resp 20; Pulse Ox 96% on R/A; ph 09:40 BP 137 / 65; Pulse 86; Resp 18; Pulse Ox 95% on R/A; ph 11:16 BP 136 / 72; Pulse 97; Resp 18; Pulse Ox 95% on R/A; ph 12:06 BP 137 / 69; Pulse 89; Resp 17; Temp 98.7; Pulse Ox 98% on R/A; Pain 0/10; sg 07:15 Body Mass Index 30.79 (83.91 kg, 165.10 cm) aa5 ED Course: 07:05 Patient arrived in ED. rg4 07:05 Gabe Sears MD is Private Physician. rg4 07:12 Arm band placed on. aa5 07:14 Triage completed. aa5 07:16 Mykel Little MD is Attending Physician. gs 07:30 Jessica Lopez, YESSICA is Primary Nurse. ph 07:44 Initial lab(s) drawn, by nj, sent to lab. Inserted saline lock: 22 gauge in right ph antecubital area, using aseptic technique. Blood collected. 07:47 Patient has correct armband on for positive identification. Bed in low position. Call light in reach. Side rails up X2. Pulse ox on. NIBP on. Warm blanket given. 10:06 Osiel Anderson DO is Hospitalizing Provider. gs 10:17 No provider procedures requiring assistance completed. Patient admitted, IV remains in ph place. 11:30 X-ray completed. Portable x-ray completed in exam room. Patient tolerated procedure jb2 well. Administered Medications: 07:43 Drug: NS 0.9% 500 ml Route: IV; Rate: bolus; Site: right antecubital; iw 09:39 Follow up: Response: No adverse reaction; IV Status: Completed infusion ph 07:44 Drug: Zofran 4 mg Route: IVP; Site: right antecubital; iw 08:30 Follow up: Response: No adverse reaction; Nausea is decreased ph 09:38 Drug: Zofran 4 mg Route: IVP; Site: right antecubital; ph 10:25 Follow up: Response: No adverse reaction; Nausea unchanged ph 11:11 Drug: Rocephin - (cefTRIAXone) 1 grams Route: IVPB; Infused Over: 30 mins; Site: right ph antecubital; 11:30 Follow up: Response: No adverse reaction; IV Status: Completed infusion ph Outcome: 10:07 Decision to Hospitalize by Provider. 12:07 Admitted to Med/surg accompanied by tech, family with patient, via wheelchair, room sg 206, with chart, Report called to Ananda JUAN 12:07 Condition: stable 12:07 Instructed on the need for admit, safety practices, Demonstrated understanding of instructions, follow-up care. 12:11 Patient left the ED. Signatures: Palemr Carlin RN RN Jhon Rich2 May Tyler RN RN Ann Bang RN RN aa5 Jessica Lopez RN RN Denise Fajardo4 Mykel Little MD MD
[2018-04-23] MEDS ORDERED: ONDANSETRON 4 MG/2 ML VIAL IV PRN (10:39)
[2018-04-23] MEDS ORDERED: ACETAMINOPHEN 500 MG TAB PO PRN (10:39)
[2018-04-23] MEDS ORDERED: MIDODRINE HCL 5 MG TABLET PO PRN (10:46)
[2018-04-23] MEDS ORDERED: SODIUM CHLORIDE 0.9% 10ML INJ IV PRN (10:46)
[2018-04-23 10:55] LABS: Urine Blood 2+ (NEG); Urine Glucose NEGATIVE (NEG); Urine Protein NEGATIVE (NEG); Urine Specific Gravity 1.025 (1.005-1.030)
[2018-04-23] MEDS ORDERED: CEFTRIAXONE/SWI 1gm 1 GM/10 ML SYR ONE (10:55)
--- NOTE | 2018-04-23 11:48 | P.HP ---
Certification for Inpatient Patient admitted to: Observation With expected LOS: <2 Midnights Patient will require the following post-hospital care: None Practitioner: I am a practitioner with admitting privileges, knowledge of patient current condition, hospital course, and medical plan of care. Services: Services provided to patient in accordance with Admission requirements found in Title 42 Section 412.3 of the Code of Federal Regulations Patient History Date of Service: 04/23/18 Primary Care Provider: Dr. Sears; GI-Dr. Almaguer Reason for admission: Altered mental status, nausea vomiting History of Present Illness: 57-year-old female with multiple medical problems including alcoholic cirrhosis, hepatitis-C, hypothyroidism, GERD. Patient presented with nausea, vomiting and slight confusion, as reported by the . Patient has had poor intake over the last day and a half. Patient denied any fever, chills, abdominal pain, increase edema to the lower extremities, increased edema to the abdominal area, chest pain, or shortness of breath. Patient has been consistent with her medication. In the emergency room patient evaluated. White count 4.7, hemoglobin 15. Platelet count 66. Sodium 135, potassium 4.5. Being a 47, creatinine 2.1. GFR of 20. Total bilirubin 16, direct bilirubin elevated. Pro calcitonin elevated at 2.4. Urinalysis shows no evidence of a UTI. Chest x-ray pending. Patient was admitted for further evaluation. Went saw the patient ER, she appeared comfortable. Confusion was not present. at bedside. reports the patient has quit alcohol. Her last drink was 1 year ago. Allergies No Known Allergies Allergy (Verified 01/26/18 10:12) Home medications list reviewed: Yes Home Medications: Furosemide [Lasix*] 40 mg PO BID 08/25/17 Montelukast Sodium [Singulair] 10 mg PO BEDTIME 08/25/17 Pantoprazole [Protonix Tab*] 40 mg PO DAILY 08/25/17 Epoetin [Procrit*] 10,000 unit IJ M,W,F 09/28/17 Ferrous Sulfate 325 mg PO TID 09/28/17 Folic Acid 1 mg PO DAILY 09/28/17 Magnesium Oxide [Mag 0X*] 400 mg PO DAILY 09/28/17 Midodrine HCl [Proamatine*] 5 mg PO TID 09/28/17 Rifaximin [Xifaxan] 550 mg PO BID #60 tablet 10/15/17 Albuterol Sulfate [Proair Respiclick] 1 puff IH BID PRN 12/05/17 Lactulose 10 gm PO TID 12/05/17 Liothyronine Sodium [Cytomel] 5 mcg PO DAILY 12/05/17 Spironolactone [Aldactone*] 25 mg PO DAILY #30 tab 12/11/17 - Past Medical/Surgical History Diabetic: No -: Alcoholic cirrhosis -: History of hepatic encephalopathy -: Gastric varices -: Seasonal allergies -: GERD -: Anemia -: Former tobacco use -: Orthostatic hypotension on midodrine -: Hypothyroidism -: Chronic thrombocytopenia -: Patient is Baptism -: Cholecystectomy -: Hysterectomy -: cyst removed in between the legs -: right breast cyst removed Psychosocial/ Personal History: The patient is . 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; Jehovah Witness - Family History Mother -: Hypertension - Social History Smoking Status: Never smoker Alcohol use: No CD- Drugs: No Caffeine use: Yes Place of Residence: Home Review of Systems General: Weakness, Malaise, As per HPI Eyes: Unremarkable ENT: Unremarkable Respiratory: Unremarkable Cardiovascular: Unremarkable Gastrointestinal: Nausea, Vomiting, As per HPI Genitourinary: Unremarkable Musculoskeletal: Unremarkable Integumentary: Unremarkable Neurological: Weakness, As per HPI Lymphatics: Unremarkable Physical Examination - Physical Exam General: Alert, In no apparent distress, Oriented x3, Cooperative, Other ( Jaundice) HEENT: Atraumatic, Normocephalic, PERRLA, Other (Dry mucous membranes), Scleral icterus Neck: Supple, No Thyromegaly Respiratory: Clear to auscultation bilaterally, Normal air movement Cardiovascular: Normal pulses, Regular rate/rhythm Gastrointestinal: Normal bowel sounds, Soft and benign, Non-distended, No ascites, No tenderness, No masses, No rebound, No guarding Musculoskeletal: No erythema, No tenderness, No warmth Integumentary: No tenderness/swelling, No erythema, No warmth, No cyanosis Neurological: Normal speech, Normal strength at 5/5 x4 extr, Normal tone, Normal affect - Studies Laboratory Data (last 24 hrs) 04/23/18 07:40: PT 31.5 H, INR 2.64 04/23/18 07:40: WBC 4.7, Hgb 15.5 H, Hct 45.3 H, Plt Count 66 L 04/23/18 07:40: Sodium 135 L, Potassium 4.8, BUN 45 H, Creatinine 2.10 H, Glucose 100, Total Bilirubin 16.3 H*, AST 71 H, ALT 39, Alkaline Phosphatase 183 H, Lipase 63 L Assessment and Plan - Plan Impression: Nausea, vomiting with altered mental status secondary to hepatic encephalopathy with dehydration likely acute on chronic renal disease with possible infectious process etiology unknown Elevated liver function with hyperbilirubinemia with history of alcoholic cirrhosis and fatty liver, last alcohol use 1 year ago Hypothyroidism GERD with history of esophageal varices History of hepatitis-C History of orthostatic hypotension on midodrine Thrombocytopenia, chronic Plan: Nausea, vomiting with altered mental status secondary to hepatic encephalopathy with dehydration likely acute on chronic renal disease with possible infectious process etiology unknown, possible viral gastroenteritis: IV fluids initiated. Case discussed at length with GI. Will obtain blood, urine cultures for possible source of infection. Will check x-ray as well. Will hold off on abdominal diagnostic paracentesis as the patient is not with significant ascites. Will monitor this closely. Patient started on IV Levaquin and Rocephin as per GI. Will provide medication for her nausea and vomiting. Possible viral gastroenteritis is considered. Will continue with IV fluids but continue with her diuretic medication due to her liver cirrhosis. Will provide PPI. Will consult nephrology to further address her acute renal insufficiency as she may have underlying chronic renal disease. Will continue with lactulose. I will turn the service over to Dr. Robles tomorrow. I will go over the plan of care with her. Patient is Baptism. Elevated liver function with hyperbilirubinemia with history of alcoholic cirrhosis and fatty liver, last alcohol use 1 year ago: Will continue with lactulose. Await further recommendations from GI. Monitor electrolytes closely. Hypothyroidism: Will continue with her medication GERD with history of esophageal varices: Will continue with PPI. History of hepatitis-C: Overall stable. Will monitor closely. History of orthostatic hypotension on midodrine: Will monitor blood pressure closely. Will provide midodrine if blood pressure less than 90 systolic Chronic thrombocytopenia: Will monitor this closely. Will hold DVT prophylaxis if platelet count remains below 70. Discharge Plan: Home Plan to discharge in: Greater than 2 days - Advance Directives Does patient have a Living Will: No Does patient have a Durable POA for Healthcare: Yes - Code Status/Comfort Care Code Status Assessed: Yes (Patient full code) Physician Review: Patient Assessed, Agree with Above Assessment and Plan Time Spent Managing Pts Care (In Minutes): 55
--- NOTE | 2018-04-23 11:51 | RAD REPORT ---
EXAM DESCRIPTION: RAD - Chest Single View - 04/23/2018 11:32 am CLINICAL HISTORY: Altered mental status, possible pneumonia, shortness of breath COMPARISON: October 2017 TECHNIQUE: AP portable chest image was obtained 1126 hour . FINDINGS: Lung volumes are very low accentuating lung base markings. Patchy pneumonia and atelectasi s can have a very similar appearance. Vasculature is accentuated by portable technique and shallow in spiration. Cardiac silhouette is upper normal. Trachea is midline. No pneumothorax or large pleural e ffusion. No acute bony abnormality seen. No acute aortic findings suspected. IMPRESSION: Very shallow inspiration film showing atelectasis versus infiltrate in the lung bases.
[2018-04-23] MEDS: Levofloxacin 250mg IV 250 MG/50 ML BAG IV SCH (12:00)
[2018-04-23] MEDS: NA CHLORIDE 0.9% 1,000 ML IV SCH (12:47)
[2018-04-23] MEDS: CEFTRIAXONE/SWI 1gm 1 GM/10 ML SYR IV SCH (13:56)
[2018-04-23] MEDS: LACTULOSE 20 GM/30 ML UCUP PO SCH ×2 (13:56→21:15)
[2018-04-23 16:21] LABS: Urine Appearance CLOUDY; Urine Blood 3+ (NEG); Urine Color ORANGE; Urine Glucose NEGATIVE (NEG); Urine Protein NEGATIVE (NEG); Urine Specific Gravity 1.015 (1.005-1.030); Urine Urobilinogen 0.2 mg/dL (0.2-1.0)
[2018-04-23 16:26] LABS: Urine Bilirubin 1+ (NEG); Urine Microscopic Reflex ORDER UMIC
[2018-04-23 16:43] LABS: Urine Bacteria >50 /HPF (<20); Urine Culture Reflex Order NOT NEEDED; Urine RBC NONE SEEN /HPF (NONE SEEN)
--- NOTE | 2018-04-23 19:49 | P.CNS ---
Date of Consult: 04/23/18 Reason for Consult: FLORIDALMA Requesting Physician: Osiel Anderson Primary Care Provider: Dr. Sears; GI-Dr. Almaguer Chief Complaint: Altered mental status, nausea vomiting History of Present Illness: 57 yo HF EtOH Cirrhosis presented to the ER with 2 days of moderate, progressive AMS with associated N/V. Limited HPI/ ROS due to confusion. Case discussed with the son at the bedside. 57-year-old female with multiple medical problems including alcoholic cirrhosis, hepatitis-C, hypothyroidism, GERD. Patient presented with nausea, vomiting and slight confusion, as reported by the . Patient has had poor intake over the last day and a half. Patient denied any fever, chills, abdominal pain, increase edema to the lower extremities, increased edema to the abdominal area, chest pain, or shortness of breath. Patient has been consistent with her medication. 09:52 This 57 yrs old Female presents to ER via Wheelchair with complaints of gs Vomiting. 09:52 Onset: The symptoms/episode began/occurred 2 day(s) ago, and became worse and became gs persistent. Possible causes: unknown. The symptoms are aggravated by nothing. The symptoms are alleviated by nothing. Associated signs and symptoms: Pertinent negatives: abdominal pain, dysuria, fever, GI bleeding. Severity of symptoms: At their worst the symptoms were moderate in the emergency department the symptoms are unchanged. The patient has experienced similar episodes in the past, a few times. Allergies No Known Allergies Allergy (Verified 01/26/18 10:12) Home medications list reviewed: Yes Home Medications: Furosemide [Lasix*] 40 mg PO BID 08/25/17 Montelukast Sodium [Singulair] 10 mg PO BEDTIME 08/25/17 Pantoprazole [Protonix Tab*] 40 mg PO DAILY 08/25/17 Ferrous Sulfate 325 mg PO BEDTIME 09/28/17 Folic Acid 1 mg PO DAILY 09/28/17 Magnesium Oxide [Mag 0X*] 400 mg PO DAILY 09/28/17 Midodrine HCl [Proamatine*] 5 mg PO TID PRN 09/28/17 Lactulose 30 gm PO TID 12/05/17 Liothyronine Sodium [Cytomel] 5 mcg PO DAILY 12/05/17 Levothyroxine Sodium 25 mcg PO DAILY 04/23/18 Rifaximin [Xifaxan] 550 mg PO BID 04/23/18 Spironolactone [Aldactone*] 50 mg PO DAILY 04/23/18 - Past Medical/Surgical History Diabetic: No -: Alcoholic cirrhosis -: History of hepatic encephalopathy -: Gastric varices -: Seasonal allergies -: GERD -: Anemia -: Former tobacco use -: Orthostatic hypotension on midodrine -: Hypothyroidism -: Chronic thrombocytopenia -: Patient is Buddhism -: Cholecystectomy -: Hysterectomy -: cyst removed in between the legs -: right breast cyst removed Psychosocial/ Personal History: The patient is . 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; Jehovah Witness - Family History Mother Medical History: Hypertension - Social History Smoking Status: Unknown if ever smoked Alcohol use: No CD- Drugs: No Caffeine use: Yes Place of Residence: Home Review of Systems 10-point ROS is otherwise unremarkable General: Weakness, Malaise Gastrointestinal: Nausea, Abdominal Pain Neurological: Weakness, Confusion Physical Examination Temp Pulse Resp BP Pulse Ox 98.6 F 106 H 16 90/51 L 91 04/23/18 16:00 04/23/18 16:00 04/23/18 16:00 04/23/18 16:00 04/23/18 16:00 General: In no apparent distress, Cooperative, Confused HEENT: Normocephalic, Mucous membr. moist/pink Neck: Supple, No LAD Respiratory: Clear to auscultation bilaterally, Normal air movement Cardiovascular: No edema, Regular rate/rhythm, No rubs Gastrointestinal: Non-distended, No guarding, Tenderness Musculoskeletal: No clubbing, No contractures, No warmth Integumentary: No rashes, No cyanosis Neurological: Normal speech Laboratory Data (last 24 hrs) 04/23/18 07:40: PT 31.5 H, INR 2.64 04/23/18 07:40: WBC 4.7, Hgb 15.5 H, Hct 45.3 H, Plt Count 66 L 04/23/18 07:40: Sodium 135 L, Potassium 4.8, BUN 45 H, Creatinine 2.10 H, Glucose 100, Total Bilirubin 16.3 H*, AST 71 H, ALT 39, Alkaline Phosphatase 183 H, Lipase 63 L Imagings Data: EXAM DESCRIPTION: RAD - Chest Single View - 04/23/2018 11:32 am CLINICAL HISTORY: Altered mental status, possible pneumonia, shortness of breath COMPARISON: October 2017 TECHNIQUE: AP portable chest image was obtained 1126 hour . FINDINGS: Lung volumes are very low accentuating lung base markings. Patchy pneumonia and atelectasis can have a very similar appearance. Vasculature is accentuated by portable technique and shallow inspiration. Cardiac silhouette is upper normal. Trachea is midline. No pneumothorax or large pleural effusion. No acute bony abnormality seen. No acute aortic findings suspected. IMPRESSION: Very shallow inspiration film showing atelectasis versus infiltrate in the lung bases. Conclusions/Impression: A/ FLORIDALMA may be Prerenal azotemia vs HRS. Hyponatremia. Acidosis. Alcoholic cirrhosis. Macrocytic anemia. Thrombocytopenia. Hypoalbuminemia. AMS. P/ Continue current POC and Medications. Agree with NS. Discontinue furosemide. Start oral bicarb. Encourage nutrition. No NSAIDs. AM labs. Daily weight. Thank you kindly for the consultation.
[2018-04-23] MEDS: SODIUM BICARB 325 MG TAB PO SCH (22:20)
[2018-04-24] MEDS: NA CHLORIDE 0.9% 1,000 ML IV SCH ×2 (00:17→13:40)
[2018-04-24 03:38] LABS: Urine Appearance CLOUDY; Urine Blood 1+ (NEG); Urine Color ORANGE; Urine Glucose NEGATIVE (NEG); Urine Protein NEGATIVE (NEG); Urine Urobilinogen 0.2 mg/dL (0.2-1.0)
[2018-04-24 03:46] LABS: Urine Bilirubin 2+ (NEG)
[2018-04-24 03:54] LABS: Urine Amorphous Sediment 1+ /HPF (NONE SEEN); Urine Bacteria <20 /HPF (<20); Urine Culture Reflex Order REFLEXED; Urine RBC <5 /HPF (NONE SEEN)
[2018-04-24 03:56] LABS: UR MICROALBUMIN 1.2 mg/dL (< 1.9)
[2018-04-24 06:18] LABS: Absolute Lymphocytes (CBC) 0.5 K/uL (0.7-4.9); Absolute Monocytes 0.3 K/uL (0.1-1.3); Absolute Neutrophil 17.8 K/uL (1.8-8.0); Basophils % 0.2 % (0-1.3); Eosinophils % 1.4 % (0-4.4); Hematocrit 35.9 % (36.0-45.0); Lymphocytes % 2.6 % (15.3-44.8); MCH 36.8 pg (27.0-35.0); MCV 107.5 fL (80-100); MPV 11.1 fL (7.6-11.3); Monocytes % 1.5 % (3.3-12.3); RBC Red Blood Cell Count 3.35 M/uL (3.86-4.86)
[2018-04-24] MEDS ORDERED: LEVOTHYROXINE SOD 0.025 MG TAB PO SCH (06:30)
[2018-04-24] MEDS ORDERED: LIOTHYRONINE SOD 5 MCG TAB PO SCH (06:30)
[2018-04-24] MEDS ORDERED: INFLUENZA VACCINE (for 3y+) 0.5 ML DOSE IMVAC ONE (08:00)
[2018-04-24 08:11] LABS: Albumin 1.9 g/dL (3.4-5.0); Magnesium 2.2 mg/dL (1.8-2.4); Protein, Total 4.6 g/dL (6.4-8.2)
[2018-04-24 08:21] LABS: Bilirubin Total 14.4 mg/dL (0.2-1.0)
[2018-04-24] MEDS ORDERED: NA CHLORIDE 0.9% 250 ML IV PRN (08:29)
[2018-04-24] MEDS ORDERED: ALBUMIN HUMAN 25% 100 ML IV ONE (08:29)
[2018-04-24 08:39] LABS: Blood Morphology Comment NOTED (NOT SEEN); Burr Cells 2+; Macrocytosis 2+; Platelet Estimate DECR
[2018-04-24] MEDS: CEFTRIAXONE/SWI 1gm 1 GM/10 ML SYR IV SCH (08:55)
[2018-04-24] MEDS: LACTULOSE 20 GM/30 ML UCUP PO SCH ×3 (08:55→20:30)
[2018-04-24] MEDS: SODIUM BICARB 325 MG TAB PO SCH ×3 (08:55→20:29)
[2018-04-24] MEDS: PANTOPRAZOLE 40 MG INJ IVP SCH (08:56)
[2018-04-24] MEDS ORDERED: CEFTRIAXONE 1 GM/NS 50 ML 1 GM/50 ML BAG IV SCH (09:00)
[2018-04-24] MEDS ORDERED: FUROSEMIDE 40 MG TABLET PO SCH (09:00)
[2018-04-24] MEDS ORDERED: FOLIC ACID 1 MG TABLET PO SCH (09:00)
[2018-04-24] MEDS ORDERED: FERROUS SULFATE 325 MG TAB PO SCH ×2 (09:00→21:00)
[2018-04-24] MEDS: MIDODRINE HCL 5 MG TABLET PO PRN ×2 (11:16→13:36)
[2018-04-24] MEDS: Levofloxacin 250mg IV 250 MG/50 ML BAG IV SCH (11:17)
[2018-04-24] MEDS ORDERED: D50W 25 GM/50 ML SYRINGE IV ONE ×2 (12:54→14:41)
[2018-04-24] MEDS: ALBUMIN HUMAN 25% 50 ML IV SCH ×4 (13:25→14:38)
[2018-04-24] MEDS: D5 0.9 NS 1,000 ML IV SCH (14:00)
--- NOTE | 2018-04-24 14:18 | P.PN ---
Subjective Date of Service: 04/24/18 Primary Care Provider: Dr. Sears; GI-Dr. Almaguer Chief Complaint: Altered mental status, nausea vomiting Patient seen and examined at bedside with RN. Chart reviewed. Patient at this time appears to be acutely ill. Blood pressure has been low 90 40. Patient has been given albumin and a bolus of 250. Patient had no changes in her blood pressure at this time. Will go ahead and transfer patient to the ICU for closer monitoring. blood sugar this morning was also 42 and patient does appear to be having generalized weakness at this time Review of Systems 10-point ROS is otherwise unremarkable Physical Examination - Vital Signs Temperature: 97.5 F Blood Pressure: 90/52 Pulse: 99 Respirations: 18 Pulse Ox (%): 90 - Physical Exam General: Alert, In no apparent distress, Acute distress HEENT: Atraumatic, PERRLA, EOMI, Scleral icterus Neck: Supple, JVD not distended Respiratory: Clear to auscultation bilaterally, Normal air movement Cardiovascular: Regular rate/rhythm, Normal S1 S2 Gastrointestinal: Normal bowel sounds, No tenderness Musculoskeletal: No tenderness Integumentary: Other (Jaundiced) Neurological: Normal tone, Normal affect Lymphatics: No axilla or inguinal lymphadenopathy - Studies Medications List Reviewed: Yes Assessment And Plan - Current Problems (Diagnosis) (1) Sepsis Current Visit: Yes Status: Acute Plan: Sepsis with unknown origin at this time. Patient with hypotension as well -the currently on IV Rocephin and Levaquin at this time -WBC elevated to 18.9 this morning along with pro calcitonin that is elevated as well. -IV fluids and albumin at this time for hypotension -blood culture urine culture and sputum culture pending at this time -will monitor closely. Continue the antibiotics along with fluids and albumin. Qualifiers: Sepsis type: sepsis due to unspecified organism Qualified Code(s): A41.9 - Sepsis, unspecified organism (2) Hepatic encephalopathy Onset Date: 04/24/18 Current Visit: Yes Status: Acute Plan: Hepatic encephalopathy with elevated ammonia most likely secondary to liver cirrhosis -lactulose t.i.d. at this time -currently alert and oriented x3 -doing well overall in terms of mentation (3) Dehydration Onset Date: 04/24/18 Current Visit: Yes Status: Acute Plan: Most likely secondary to sepsis -IV fluids at this time. (4) Jaundice Current Visit: No Status: Acute Plan: T bilirubin of 14.4 -secondary to liver cirrhosis -continue to monitor closely (5) Alcoholic cirrhosis Current Visit: No Status: Chronic Plan: Continue to monitor closely -IV protonix -Rifaximin and Lactulose -Hold Spirinolactone, Lasix and BB for now due to Low BP -MELD score of 39 with 52.6% 3 month mortality Qualifiers: Ascites presence: without ascites Qualified Code(s): K70.30 - Alcoholic cirrhosis of liver without ascites (6) Orthostatic hypotension Current Visit: No Status: Chronic Plan: Patient takes midodrine t.i.d. at home. Will restart that here in the hospital (7) Chronic renal disease Current Visit: No Status: Acute Plan: Patient with acute on chronic kidney disease most likely secondary to hepatic renal syndrome. -will continue with IV fluids and monitor patient closely. -BUN.CR elevated today -Nephrology consulted. appreciate [facility] Qualifiers: Chronic kidney disease stage: stage 3 (moderate) Qualified Code(s): N18.3 - Chronic kidney disease, stage 3 (moderate) (8) Hypothyroidism Onset Date: 04/24/18 Current Visit: Yes Status: Acute (9) GERD (gastroesophageal reflux disease) Onset Date: 04/24/18 Current Visit: Yes Status: Chronic Qualifiers: Esophagitis presence: esophagitis presence not specified Qualified Code(s) : K21.9 - Gastro-esophageal reflux disease without esophagitis Discharge Plan: Home Plan to discharge in: 24 Hours - Code Status/Comfort Care Code Status Assessed: Yes Physician Review: Patient Assessed, Agree with Above Assessment and Plan Critical Care: No
[2018-04-24] MEDS: RIFAXIMIN 550 MG PO SCH ×2 (14:45→20:31)
[2018-04-24] MEDS ORDERED: Rifaximin 550 MG Tab PO SCH (15:00)
[2018-04-24 16:30] LABS: Urine Appearance CLOUDY; Urine Blood 1+ (NEG); Urine Color ORANGE; Urine Glucose NEGATIVE (NEG); Urine Protein NEGATIVE (NEG); Urine Urobilinogen 0.2 mg/dL (0.2-1.0)
[2018-04-24 16:34] LABS: Urine Bilirubin 3+ (NEG); Urine Microscopic Reflex ORDER UMIC
[2018-04-24] MEDS: Meropenem 500 MG in NA CHLORIDE 0.9% 100 ML IV SCH ×2 (16:35→20:29)
[2018-04-24 16:42] LABS: Urine Amorphous Sediment 1+ /HPF (NONE SEEN); Urine Bacteria 20-50 /HPF (<20); Urine Culture Reflex Order NOT NEEDED; Urine Mucus 2+ /HPF (NONE SEEN)
[2018-04-24] MEDS ORDERED: Meropenem 1000 MG/VIAL IV SCH (17:00)
--- NOTE | 2018-04-24 17:47 | P.PN ---
Subjective Date of Service: 04/24/18 Primary Care Provider: Dr. Sears; GI-Dr. Almaguer Chief Complaint: Altered mental status, nausea/vomiting, hypotension, sepsis Subjective: Worsening (Transferred to ICU with new hypotension today. Not cold any more. She and ate shrimp at [facility] in [place], [place] on Monday 4 days ago. She may have Vibrio sepsis.) Review of Systems 10-point ROS is otherwise unremarkable General: Weakness, Malaise Neurological: Weakness, Confusion (hepatic encephalopathy) Physical Examination - Vital Signs Temperature: 97.5 F Blood Pressure: 92/46 Pulse: 85 Respirations: 16 Pulse Ox (%): 95 - Physical Exam General: Alert, Oriented x2 HEENT: Atraumatic, Normocephalic, PERRLA, EOMI Neck: Supple Respiratory: Normal air movement Cardiovascular: Normal pulses Gastrointestinal: Soft and benign, No tenderness, No rebound, No guarding Neurological: Normal speech - Studies Laboratory Data (last 24 hrs) 04/24/18 05:26: Sodium 136, Potassium 5.0, BUN 67 H D, Creatinine 3.20 H D, Glucose 42 L*, Uric Acid 11.0 H, Phosphorus 7.0 H, Magnesium 2.2, Total Bilirubin 14.4 H*, AST 52 H, ALT 35, Alkaline Phosphatase 60 D 04/24/18 05:22: WBC 18.9 H D, Hgb 12.3 D, Hct 35.9 L D, Plt Count 54 L Medications List Reviewed: Yes Assessment And Plan - Current Problems (Diagnosis) (1) Altered mental status Onset Date: 04/24/18 Current Visit: Yes Status: Acute Qualifiers: Altered mental status type: unspecified Qualified Code(s): R41.82 - Altered mental status, unspecified (2) Elevated liver function tests Onset Date: 04/24/18 Current Visit: Yes Status: Acute (3) Hepatic encephalopathy Onset Date: 04/24/18 Current Visit: Yes Status: Acute (4) Hyperbilirubinemia Onset Date: 04/24/18 Current Visit: Yes Status: Acute (5) Sepsis Current Visit: Yes Status: Acute Qualifiers: Sepsis type: sepsis due to unspecified organism Qualified Code(s): A41.9 - Sepsis, unspecified organism (6) Chronic renal disease Current Visit: No Status: Acute Qualifiers: Chronic kidney disease stage: stage 3 (moderate) Qualified Code(s): N18.3 - Chronic kidney disease, stage 3 (moderate) (7) Hypoalbuminemia Onset Date: 12/06/17 Current Visit: No Status: Acute (8) Jaundice Current Visit: No Status: Acute (9) Anemia Current Visit: No Status: Chronic Qualifiers: Anemia type: other cause Other causes of anemia: chronic disease, other Qualified Code(s): D63.8 - Anemia in other chronic diseases classified elsewhere (10) Orthostatic hypotension Current Visit: No Status: Chronic - Plan REC: 1) double cover for GNRs, possible Vibrio with severe hypotension and WBC jump from 5 to 19 over night 2) IV albumin serially 3) continue / encourage po diet 4) limit IVFs as able, especially NS with h/o cirrhosis Physician Review: Patient Assessed, Agree with Above Assessment and Plan
[2018-04-24] MEDS ORDERED: ALBUMIN HUMAN 25% 100 ML IV SCH (18:00)
[2018-04-24] MEDS ORDERED: NA CHLORIDE 0.9% 500 ML IV ONE (18:05)
[2018-04-24] MEDS ORDERED: MIDODRINE HCL 5 MG TABLET PO ONE (18:10)
[2018-04-24 18:37] VITALS: BMI 31.4
[2018-04-24] MEDS ORDERED: D50W 25 GM/50 ML SYRINGE IV PRN (18:39)
[2018-04-24] MEDS: DOXYCYCLINE 100 MG CAP PO SCH (20:29)
[2018-04-24] MEDS: MIDODRINE HCL 5 MG TABLET PO SCH (20:30)
--- NOTE | 2018-04-24 20:47 | RAD REPORT ---
EXAM DESCRIPTION: RAD - Abdomen W Erect - 04/24/2018 8:23 pm CLINICAL HISTORY: Abdominal distention, abdominal tenderness COMPARISON: None. TECHNIQUE: Supine and upright views of the abdomen were obtained. FINDINGS: Stomach is dilated. No large or small bowel dilatation seen. There is a relative paucity o f bowel gas in the large and small bowel. No free air or pneumatosis. No suspicious calcifications. IMPRESSION: Air-filled, dilated stomach with paucity of gas elsewhere in the bowel. No free air or pneumatosis.
--- NOTE | 2018-04-24 20:47 | RAD REPORT ---
EXAM DESCRIPTION: RAD - Chest Single View - 04/24/2018 8:24 pm CLINICAL HISTORY: PICC line placement COMPARISON: April 23 FINDINGS: Portable chest was obtained following placement of a right upper extremity PICC line. The catheter tip is in the mid SVC. Pleural and parenchymal opacification unchanged from prior day.
--- NOTE | 2018-04-24 23:07 | P.PN ---
Date of Service: 04/24/18 Vital Signs Temp Pulse Resp BP Pulse Ox 97.5 F 113 H 22 H 92/46 L 96 04/24/18 17:51 04/24/18 19:00 04/24/18 19:00 04/24/18 19:00 04/24/18 18:00 Medications Acetaminophen (Tylenol -Extra Strength) 500 mg PO Q4HP PRN PRN Reason: [id number] Stop: 05/23/18 10:40 Dextrose (Dextrose 50% Syringe) 25 gm IV PRN PRN; Protocol PRN Reason: low BG Stop: 04/29/18 18:40 Doxycycline Monohydrate (Vibramycin) 100 mg PO BID [facility]; Protocol Stop: 05/24/18 21:01 Last Admin: 04/24/18 20:29 Dose: 100 mg Folic Acid (Folic Acid) 1 mg PO DAILY [facility] Stop: 05/25/18 09:01 Home Med (Home Med) 1 ea PO BID [facility]; Protocol Stop: 05/24/18 14:46 Last Admin: 04/24/18 20:31 Dose: 1 ea Sodium Chloride (Sodium Chloride) 250 mls @ 999 mls/hr IV Q15M PRN PRN Reason: HYPOTENSION Stop: 05/24/18 08:30 Last Admin: 04/24/18 08:54 Dose: 250 mls Dextrose/Sodium Chloride (D5w Ns 1-Liter Bag) 1,000 mls @ 50 mls/hr IV .Q20H [facility]ERT[facility] Stop: 05/24/18 14:01 Last Admin: 04/24/18 14:00 Dose: 1,000 mls Meropenem 500 mg/ Sodium (Chloride) 100 mls @ 100 mls/hr IV Q12HR BERTA Stop: 05/24/18 15:31 Last Admin: 04/24/18 20:29 Dose: 100 mls Levofloxacin/Dextrose (Levaquin 250mg/50 Ml Ivpb) 250 mg in 50 mls @ 50 mls/hr IV Q24H [facility]; Protocol Stop: 05/25/18 12:01 Ceftriaxone Sodium/Sodium Chloride (Rocephin 1 Gm/10 Ml Swi Ivp) 1 gm in 10 mls @ 600 mls/hr IVP DAILY [facility] Stop: 05/25/18 09:01 Albumin Human (Albumin 25%) 100 mls @ 100 mls/hr IV Q4H PRN PRN Reason: bp Stop: 05/25/18 01:01 Lactulose (Cephulac) 10 gm PO TID [facility] Stop: 05/23/18 14:01 Last Admin: 04/24/18 20:30 Dose: 10 gm Levothyroxine Sodium (Synthroid) 0.025 mg PO DAILYAC [facility] Stop: 05/25/18 06:31 Liothyronine Sodium (Cytomel) 5 mcg PO DAILY [facility] Stop: 05/25/18 09:01 Midodrine (Proamatine) 10 mg PO Q8HR [facility] Stop: 05/25/18 01:01 Midodrine (Proamatine) 10 mg PO Q8H [facility] Stop: 05/24/18 20:01 Last Admin: 04/24/18 20:30 Dose: 10 mg Ondansetron HCl (Zofran) 4 mg IV Q6HP PRN PRN Reason: NAUSEA / VOMITING Stop: 05/23/18 10:40 Pantoprazole Sodium (Protonix Inj) 40 mg IVP DAILY [facility] Stop: 05/24/18 09:01 Last Admin: 04/24/18 08:56 Dose: 40 mg Sodium Bicarbonate (Sodium Bicarb 325 Mg) 650 mg PO TID [facility] Stop: 05/23/18 21:01 Last Admin: 04/24/18 20:29 Dose: 650 mg Sodium Chloride (Normal Saline Flush) 10 ml IV BID [facility] Stop: 05/23/18 21:01 Last Admin: 04/24/18 20:37 Dose: Not Given Sodium Chloride (Sodium Chloride 10 Ml Inj) 10 ml IV UD PRN PRN Reason: Diluant Stop: 05/23/18 10:47 Lab Results (last 24 hrs) 04/24/18 14:31: POC Glucose 67 04/24/18 13:34: POC Glucose 74 04/24/18 13:06: POC Glucose 89 04/24/18 12:39: POC Glucose 134 H 04/24/18 12:20: POC Glucose 41 L* 04/24/18 05:26: Sodium 136, Potassium 5.0, Chloride 100, Carbon Dioxide 19 L, BUN 67 H D, Creatinine 3.20 H D, Estimated GFR 15 L, Glucose 42 L*, Uric Acid 11.0 H, Calcium 9.5, Phosphorus 7.0 H, Magnesium 2.2, Total Bilirubin 14.4 H*, AST 52 H, ALT 35, Alkaline Phosphatase 60 D, Serum Total Protein 4.6 L, Albumin 1.9 L, Globulin 2.7 D, Albumin/Globulin Ratio 0.7 L 04/24/18 05:22: WBC 18.9 H D, RBC 3.35 L D, Hgb 12.3 D, Hct 35.9 L D, MCV 107.5 H, MCH 36.8 H, MCHC 34.3, RDW 15.1, Plt Count 54 L, MPV 11.1 D, Neutrophils % 94.3 H, Lymphocytes % 2.6 L, Monocytes % 1.5 L, Eosinophils % 1.4 , Basophils % 0.2, Absolute Neutrophils 17.8 H, Segmented Neutrophils 74, Band Neutrophils 20 H*, Absolute Lymphocytes 0.5 L, Lymphocytes 4 L, Monocytes 2, Absolute Monocytes 0.3, Absolute Eosinophils 0.3, Absolute Basophils 0.0, Macrocytosis 2+, Coy Cells 2+, Morphology Comment Noted 04/24/18 03:00: Urine Creatinine 210.0 04/24/18 03:00: Miscellaneous Test Cancelled 04/24/18 03:00: Urine Color Daphne, Urine Appearance Cloudy, Urine pH 5.0, Ur Specific [place] 1.020, Urine Ketones Trace, Urine Blood 1+ H, Urine Nitrite Negative, Urine Bilirubin 2+ H, Urine Urobilinogen 0.2, Ur Leukocyte Esterase Trace H, Urine RBC <5, Urine WBC <5, Ur Squamous Epith Cells <5, Ur Urothelial Cells <5, Amorphous Sediment 1+, Urine Bacteria <20, Urine Culture Reflexed Reflexed, Urine Glucose Negative, Urine Total Protein Negative 04/24/18 03:00: Ur Random Sodium < 5 L 04/24/18 03:00: Ur Random Microalbumin 1.2, Urine Creatinine 209.0, Microalb/ Creat Ratio 5.7 04/23/18 20:00: Ur Random Microalbumin Cancelled, Urine Creatinine Cancelled, Microalb/Creat Ratio Cancelled Microbiology Results 04/23/18 15:46 Catheterized Urine [place] Count - Preliminary BETWEEN 10,000 & 100,000 CFU/ML 04/23/18 15:46 Catheterized Urine - Preliminary 04/23/18 10:30 Blood - Blood Aerobic Blood Culture - Preliminary 04/23/18 10:30 Blood - Blood Gram Stain - Preliminary 04/23/18 10:30 Blood - Blood Anaerobic Blood Culture - Preliminary 04/23/18 10:30 Blood - Blood Gram Stain - Preliminary 04/23/18 10:10 Blood - Blood Aerobic Blood Culture - Preliminary 04/23/18 10:10 Blood - Blood Gram Stain - Preliminary 04/23/18 10:10 Blood - Blood Anaerobic Blood Culture - Preliminary 04/23/18 10:10 Blood - Blood Gram Stain - Preliminary Assessment/ Plan: Nephrology/ ICU. Limited IH/ ROS due to confusion. CPS worse without CP or SOB. Rapid Afib. Hypotension. Transferred to the ICU around noon today. Case discussed with the nurse. Vitals, medications, blood work and imaging reviewed in the chart. General: In no apparent distress, Cooperative, Confused HEENT: Normocephalic, Mucous membr. moist/pink Neck: Supple, No LAD Respiratory: Clear to auscultation bilaterally, Normal air movement Cardiovascular: No edema, Regular rate/rhythm, No rubs Gastrointestinal: Non-distended, No guarding, Tenderness Musculoskeletal: No clubbing, No contractures, No warmth Integumentary: No rashes, No cyanosis Neurological: Normal speech Laboratory Data (last 24 hrs) 04/23/18 07:40: PT 31.5 H, INR 2.64 04/23/18 07:40: WBC 4.7, Hgb 15.5 H, Hct 45.3 H, Plt Count 66 L 04/23/18 07:40: Sodium 135 L, Potassium 4.8, BUN 45 H, Creatinine 2.10 H, Glucose 100, Total Bilirubin 16.3 H*, AST 71 H, ALT 39, Alkaline Phosphatase 183 H, Lipase 63 L Imagings Data: EXAM DESCRIPTION: RAD - Chest Single View - 04/23/2018 11:32 am CLINICAL HISTORY: Altered mental status, possible pneumonia, shortness of breath COMPARISON: October 2017 TECHNIQUE: AP portable chest image was obtained 1126 hour . FINDINGS: Lung volumes are very low accentuating lung base markings. Patchy pneumonia and atelectasis can have a very similar appearance. Vasculature is accentuated by portable technique and shallow inspiration. Cardiac silhouette is upper normal. Trachea is midline. No pneumothorax or large pleural effusion. No acute bony abnormality seen. No acute aortic findings suspected. IMPRESSION: Very shallow inspiration film showing atelectasis versus infiltrate in the lung bases. Conclusions/Impression: A/ FLORIDALMA may be Prerenal azotemia vs HRS. Hyponatremia. Acidosis. Alcoholic cirrhosis. Macrocytic anemia. Thrombocytopenia. Hypoalbuminemia. AMS. Hypotension. Rapid Afib. P/ Continue current POC and Medications. Agree with NS. Agree with Albumin bolus. NS bolus. Increase scheduled midodrine. Consider further pressor therapy. Abdominal xray for abdominal tenderness/ distention. DC iron. Encourage nutrition. No NSAIDs. AM labs. Daily weight. Greater than 30 minutes patient care.
[2018-04-25] MEDS: ALBUMIN HUMAN 25% 100 ML IV PRN ×2 (00:38→05:59)
[2018-04-25] MEDS: MIDODRINE HCL 5 MG TABLET PO SCH ×4 (04:16→17:09)
--- NOTE | 2018-04-25 04:42 | EKG ---
Test Date: 2018-04-24 Test Time: 13:20:21 Cashier Courtesy Booth: PRUDENCE MEASUREMENT RESULTS: Intervals: Rate: 126 NC: QRSD: 90 QT: 416 QTc: 602 [place]: P: NC: QRS: 0 T: 244 INTERPRETIVE STATEMENTS: Atrial fibrillation with rapid ventricular response Anterior infarct, age undetermined ST & T wave abnormality, consider inferolateral ischemia or digitalis effect Abnormal ECG Compared to ECG 10/13/2017 09:19:03 Myocardial infarct finding now present ST (T wave) deviation now present Possible ischemia now present Sinus rhythm no longer present Left ventricular hypertrophy no longer present Electronically Signed On 04-25-18 04:41:38 CDT by Rodolfo Barton
[2018-04-25 05:40] LABS: Absolute Lymphocytes (CBC) 0.4 K/uL (0.7-4.9); Absolute Neutrophil 10.4 K/uL (1.8-8.0); Basophils % 0.3 % (0-1.3); Hematocrit 24.7 % (36.0-45.0); Lymphocytes % 3.7 % (15.3-44.8); MCH 37.1 pg (27.0-35.0); MCV 106.3 fL (80-100); MPV 10.5 fL (7.6-11.3); Monocytes % 8.2 % (3.3-12.3); RBC Red Blood Cell Count 2.32 M/uL (3.86-4.86)
[2018-04-25 05:52] LABS: Albumin 3.3 g/dL (3.4-5.0); Bilirubin Total 12.9 mg/dL (0.2-1.0); Magnesium 2.4 mg/dL (1.8-2.4); Protein, Total 4.9 g/dL (6.4-8.2)
[2018-04-25] MEDS: LEVOTHYROXINE SOD 0.025 MG TAB PO SCH (06:11)
--- NOTE | 2018-04-25 07:39 | ECHO ---
HEIGHT: 5 ft 5 in WEIGHT: 198 lb 14.4 oz DATE OF STUDY: 04/24/[address]: Rodolfo Barton MD 2-DIMENSIONAL: YES M.MODE: YES DOPPLER: YES COLOR FLOW: YES TDS: NO PORTABLE: YES DEFINITY: NO BUBBLE STUDY: NO DIAGNOSIS: ATRIAL FIBRILLATION, ST ELEVATION CARDIAC HISTORY: CATHERIZATION: NO SURGERY: NO PROSTHETIC VALVE: NO PACEMAKER: NO MEASUREMENTS (cm) DIASTOLIC (NORMALS) SYSTOLIC (NORMALS) IVSd 1.0 (0.6-1.2) LA Diam 3.5 (1.9-4.0) LVEF 68% LVIDd 5.0 (3.5-5.7) LVIDs 3.1 (2.0-3.5) %FS 38% LVPWd 1.0 (0.6-1.2) Ao Diam 2.6 (2.0-3.7) 2 DIMENSIONAL ASSESSMENT: RIGHT ATRIUM: NORMAL LEFT ATRIUM: NORMAL RIGHT VENTRICLE: NORMAL LEFT VENTRICLE: NORMAL TRICUSPID VALVE: NORMAL MITRAL VALVE: MITRAL ANNULAR CALCIFICATION PULMONIC VALVE: NORMAL AORTIC VALVE: SCLEROSIS PERICARDIAL EFFUSION: NONE AORTIC ROOT: NORMAL LEFT VENTRICULAR WALL MOTION: NORMAL DOPPLER/COLOR FLOW: MILD MITRAL AND TRICUSPID REGURGITATION. COMMENTS: MILD MITRAL AND TRICUSPID REGURGITATION. NORMAL LEFT VENTRICULAR SIZE AND FUNCTION. NORMAL LEFT ATRIAL SIZE. NO THROMBUS. NO WALL MOTION ABNORMALITY. MITRAL ANNULAR CALCIFICATION. AORTIC SCLEROSIS. TECHNOLOGIST: Lanette SANTIAGO
[2018-04-25] MEDS: D5 0.9 NS 1,000 ML IV SCH (08:40)
[2018-04-25] MEDS: LACTULOSE 20 GM/30 ML UCUP PO SCH ×3 (09:00→21:01)
[2018-04-25] MEDS: PANTOPRAZOLE 40 MG INJ IVP SCH (09:11)
[2018-04-25] MEDS: CEFTRIAXONE/SWI 1gm 1 GM/10 ML SYR IVP SCH (09:13)
[2018-04-25] MEDS: FOLIC ACID 1 MG TABLET PO SCH (09:14)
[2018-04-25] MEDS: Meropenem 500 MG in NA CHLORIDE 0.9% 100 ML IV SCH (09:14)
[2018-04-25] MEDS: RIFAXIMIN 550 MG PO SCH ×2 (09:14→21:01)
[2018-04-25] MEDS: DOXYCYCLINE 100 MG CAP PO SCH ×2 (09:15→21:00)
[2018-04-25] MEDS: SODIUM BICARB 325 MG TAB PO SCH ×3 (09:15→21:01)
[2018-04-25] MEDS: DEXTROSE 5% IV SCH ×2 (10:24→20:34)
[2018-04-25] MEDS: PANTOPRAZOLE INJ 80 MG in D5W 250 ML IV SCH ×2 (10:24→20:35)
[2018-04-25] MEDS: WATER IV SCH ×2 (10:24→20:34)
[2018-04-25] MEDS: OCTREOTIDE IV SCH ×2 (10:24→20:34)
[2018-04-25] MEDS: ALBUMIN HUMAN 25% 100 ML IV SCH ×4 (10:25→21:02)
[2018-04-25] MEDS: LIOTHYRONINE SOD 5 MCG TAB PO SCH (10:26)
[2018-04-25] MEDS ORDERED: Levofloxacin 250mg IV 250 MG/50 ML BAG IV SCH (12:00)
[2018-04-25 12:13] LABS: Hematocrit 27.6 % (36.0-45.0)
--- NOTE | 2018-04-25 12:34 | P.PN ---
Subjective Date of Service: 04/25/18 Primary Care Provider: Dr. Sears; GI-Dr. Almaguer Chief Complaint: Altered mental status, nausea/vomiting, hypotension, sepsis Patient seen and examined at bedside with RN. Chart reviewed. Case discussed with cardiology, GI, nephrology at this time. This morning patient is doing much better than before. However does complain of having some generalized weakness and having a cups as soon as she starts eating. Blood pressure has stabilized somewhat however still appears to be hypotensive. Urine output has been poor over the past 24 hr. Review of Systems 10-point ROS is otherwise unremarkable Physical Examination - Vital Signs Temperature: 97.2 F Blood Pressure: 102/43 Pulse: 64 Respirations: 18 Pulse Ox (%): 97 - Physical Exam General: Alert, In no apparent distress, Oriented x2, Mild distress HEENT: Atraumatic, PERRLA, EOMI, Scleral icterus Neck: Supple, JVD not distended Respiratory: Normal air movement, Crackles/rales Cardiovascular: Regular rate/rhythm, Normal S1 S2 Gastrointestinal: Normal bowel sounds, No tenderness Musculoskeletal: No tenderness Integumentary: No rashes, Other (Joint is) Neurological: Normal speech, Normal tone, Normal affect Lymphatics: No axilla or inguinal lymphadenopathy - Studies Microbiology Data (last 24 hrs): 04/23/18 15:46 Catheterized Urine Delta Count - Final BETWEEN 10,000 & 100,000 CFU/ML 04/23/18 15:46 Catheterized Urine - Final 04/23/18 10:30 Blood - Blood Aerobic Blood Culture - Final Klebsiella Pneumoniae 04/23/18 10:30 Blood - Blood Gram Stain - Final 04/23/18 10:30 Blood - Blood Anaerobic Blood Culture - Final Klebsiella Pneumoniae 04/23/18 10:30 Blood - Blood Gram Stain - Final 04/23/18 10:10 Blood - Blood Aerobic Blood Culture - Final Klebsiella Pneumoniae 04/23/18 10:10 Blood - Blood Gram Stain - Final 04/23/18 10:10 Blood - Blood Anaerobic Blood Culture - Final Klebsiella Pneumoniae 04/23/18 10:10 Blood - Blood Gram Stain - Final Medications List Reviewed: Yes Assessment And Plan - Current Problems (Diagnosis) (1) Sepsis Onset Date: 04/25/18 Current Visit: Yes Status: Acute Plan: Sepsis with Septic Shock. Most Likely 2.2 to Bactermia vs Vibirio vs UTI -the currently on IV Rocephin, levaquin and Doxycycline -WBC trending down for now. -Blood Culture + for Klebseilla -urine Culture pending -IV fluids and albumin at this time for hypotension -will monitor closely. Qualifiers: Sepsis type: sepsis due to unspecified organism Qualified Code(s): A41.9 - Sepsis, unspecified organism (2) Hepatic encephalopathy Onset Date: 04/24/18 Current Visit: Yes Status: Acute Plan: Hepatic encephalopathy with elevated ammonia most likely secondary to liver cirrhosis -lactulose t.i.d. at this time -currently alert and oriented x3 -doing well overall in terms of mentation -rifaxamin restarted (3) Dehydration Onset Date: 04/24/18 Current Visit: Yes Status: Acute Plan: Most likely secondary to sepsis -IV fluids at this time. (4) Jaundice Current Visit: No Status: Acute Plan: T bilirubin of 14.4 -secondary to liver cirrhosis -continue to monitor closely (5) Alcoholic cirrhosis Current Visit: No Status: Chronic Plan: Continue to monitor closely -IV protonix and octerotide now -Rifaximin and Lactulose -Hold Spirinolactone, Lasix and BB for now due to Low BP -MELD score of 39 with 52.6% 3 month mortality Qualifiers: Ascites presence: without ascites Qualified Code(s): K70.30 - Alcoholic cirrhosis of liver without ascites (6) Orthostatic hypotension Current Visit: No Status: Chronic Plan: Patient takes midodrine t.i.d. at home. -Restart that here in the hospital (7) Chronic renal disease Current Visit: No Status: Acute Plan: Patient with acute on chronic kidney disease most likely secondary to hepatic renal syndrome. -will continue with IV fluids and monitor patient closely. -BUN.CR elevated today -Nephrology consulted. appreciate [facility] Qualifiers: Chronic kidney disease stage: stage 3 (moderate) Qualified Code(s): N18.3 - Chronic kidney disease, stage 3 (moderate) (8) Hypothyroidism Onset Date: 04/24/18 Current Visit: Yes Status: Chronic Qualifiers: Hypothyroidism type: acquired Qualified Code(s): E03.9 - Hypothyroidism, unspecified (9) GERD (gastroesophageal reflux disease) Onset Date: 04/24/18 Current Visit: Yes Status: Chronic Qualifiers: Esophagitis presence: esophagitis presence not specified Qualified Code(s) : K21.9 - Gastro-esophageal reflux disease without esophagitis (10) Acute blood loss anemia Current Visit: Yes Status: Acute Plan: Acute blood loss anemia most 2.2 to Esophageal Varies vs Acute bleeding from ulcer -Hgb dropped to 8.2 this AM -Will get FOBT -IV protonix and octerotide -GI made aware. -will transfuse if needed. Discharge Plan: Other Plan to discharge in: Greater than 2 days - Code Status/Comfort Care Code Status Assessed: Yes Physician Review: Patient Assessed, Agree with Above Assessment and Plan Critical Care: Yes
--- NOTE | 2018-04-25 13:04 | RAD REPORT ---
EXAM DESCRIPTION: RAD - Abdomen 1 View (KUB) - 04/25/2018 12:07 pm CLINICAL HISTORY: Abdomen pain. FINDINGS: The stomach is moderately distended. Remainder the bowel gas pattern appears unremarkable. Ligaments are suspected within the pelvis
--- NOTE | 2018-04-25 13:08 | CON ---
Reason For Consult: Atrial fibrillation. History Of Present Illness: Mrs. Pizarro is 57. She has a history of cirrhosis of the liver. It is m ost likely from the previous history of alcohol abuse, which she stopped a year ago. There is also h epatitis C, not sure if hepatitis C is involved in the cirrhosis or not. She has frequent spells of hepatic encephalopathy and came to the hospital with that. While on the monitor, she developed atria l fib. Her heart rates were quite high, but she did not seem to be in any distress. There are a lot of electrocardiographic changes other than the atrial fibrillation including ST changes that could h ave been interpreted as injury, however, she was not having chest pain and there was so much artifact , I think it was not actual cardiac injury. She is now in sinus rhythm, appears to be in no distress . She denies having chest pain or ever feeling the palpitations. Her lungs are clear. The heart is regular. Extremities, no edema. An echocardiogram yesterday looks very close to perfectly normal. She has apparent GI bleeding. Most likely she does have esophageal varices, but overnight her hemog lobin fell from 12.3 to 8.6. It was 15.5 on admission. Her platelet count is very low, it is 43,000 . She has renal failure. She is not a dialysis patient, but her creatinine is 3.6 and BUN is 87. H er total bilirubin is 12.9. She is very jaundiced in general. Impression: The patient's atrial fibrillation was transient. Every antiarrhythmic drug we have is c ontraindicated for one reason or another, so definitely I would recommend against using Rythmol, flec ainide, amiodarone, Betapace, dofetilide. She could perhaps tolerate a low dose of a beta-radha. She tends to become hypotensive, so that may have to be stopped as well. We may be completely unable to do anything to prevent atrial fibrillation. Giving her an anticoagulant is of course out of the question, so we will start a low dose of metoprolol and see if that is something we want to continue or not. Because of her underlying hepatic disease, mental status problems, gastrointestinal bleeding, she is simply not a candidate for any of the heart rhythm medications. OPAL Voice ID: [id number] Report ID: [id number]
[2018-04-25] MEDS ORDERED: EPOETIN ALFA 10,000 UNIT/ML VIAL SQ SCH (16:00)
[2018-04-25] MEDS: NA CHLORIDE 0.9% 1,000 ML IV SCH (17:08)
[2018-04-25] MEDS: METOPROLOL TAR 25 MG TAB PO SCH (18:00)
--- NOTE | 2018-04-25 19:54 | PN ---
Date of Progress Note: 04/25/2018 Subjective: The patient is seen and examined at bedside. She states that she feels okay. Denies an y chest pain or shortness of breath. Overnight, patient was not started on any pressors. She remain s on albumin, which is being scheduled and also midodrine. Blood pressures in the 90s to 100 range. Urine output has been pretty much minimal at this time. Objective: Vital signs: Showing temperature of 97.2, pulse rate of 64, respiratory rate of 18, and blood pressure 102/43. General: She appears slightly lethargic and weak. HEENT: Atraumatic head. She is on nasal cannula oxygen. Lungs: Auscultation of the lungs with bilateral equal air entry. Heart: Auscultation of the heart revealed regular rate and rhythm. Abdomen: Slightly distended, maybe some ascites, but nontender. Extremities: Slight trace edema was noted. Laboratory Data: Showing sodium of 135, potassium of 4, chloride of 103, BUN of 87 and creatinine of 3.6 which is worsening. Total bilirubin was improving to 12.9 from previously 14 and was 16 prior t o that. Alkaline phosphatase is 31 and AST was 38. Albumin is at 3.3. CBC showing a hemoglobin of 9.6 and hematocrit of 27.6. WBC count is improving at this time. Current Medications: Include albumin every 4 hours, Rocephin 1 g daily, doxycycline 100 mg b.i.d., f olic acid, lactulose 10 mg t.i.d., Levaquin 250 mg every 24 hours, levothyroxine, liothyronine, metop rolol 12.5 mg b.i.d., midodrine 10 mg every 8 hours, octreotide. In's and out's have been reviewed. Urine output recorded was around 125 cc in the last 8 hours. Impression: 1.Acute renal insufficiency secondary to possibly from underlying cirrhosis leading to hepatorenal s yndrome versus acute tubular necrosis with ongoing bacteremia and sepsis leading to acute decompensat ion. 2.Acute decompensated cirrhosis, currently with increased bilirubin, which seems to be improving at this time. 3.Bacteremia secondary to Klebsiella pneumonia. Source unclear at this time. The patient is being treated and follow up blood cultures have been negative so far. 4.Hypotension related to possibly from underlying sepsis, superimposed on underlying cirrhosis. The patient's blood pressure has been running low. She has not been started on any pressors. I will go ahead and start her on some gentle IV hydration to improve her volume status and monitor her respira tory status closely. 5.Chronic anemia with some drop in hemoglobin and hematocrit. Monitor for any signs of bleeding. T he patient is a Tenriism and is unable to get blood transfusion. We will go ahead and order a dose of Epogen to maintain her hemoglobin levels as the patient and family's refusing blood transf usion at this time. Plan: Overall the patient is doing okay at this time. However, we would like to improve the blood p ressure, slightly improved with further more to improve renal perfusion and improve her renal functio n overall. I have discussed about possibility of starting dialysis with the family at bedside and th ey are agreeable to starting dialysis if need to. She however may need to be transferred [facility] for evaluation of liver transplant. She has been following up with Dr. Pham at [facility] and if she does require dialysis initiation, it might be better to transfer her out in ieu of her increasing MELD score and to get her further [facility] However, we will go ahead and start her on IV fluids. There is no acute need for dialysis at this time. We will monitor her urine output closely and respiratory status with IV fluids. Give her a dose of Aranesp to improve her anemia. Continue antibiotics which have been adjusted for renal function and follow up on surveillance cultures. Thank you very much for this consultation. Please do not hesitate to call us with any questions or c oncerns. WILLA/MODL Voice ID: [id number] Report ID: [id number]
[2018-04-26] MEDS: MIDODRINE HCL 5 MG TABLET PO SCH ×3 (01:00→16:52)
[2018-04-26] MEDS: ALBUMIN HUMAN 25% 100 ML IV SCH ×6 (01:46→21:22)
[2018-04-26 05:34] LABS: Absolute Lymphocytes (CBC) 0.2 K/uL (0.7-4.9); Absolute Monocytes 0.7 K/uL (0.1-1.3); Absolute Neutrophil 3.2 K/uL (1.8-8.0); Basophils % 0.3 % (0-1.3); Eosinophils % 1.9 % (0-4.4); Hematocrit 25.6 % (36.0-45.0); Lymphocytes % 4.9 % (15.3-44.8); MCV 105.3 fL (80-100); MPV 8.9 fL (7.6-11.3); Monocytes % 16.1 % (3.3-12.3); RBC Red Blood Cell Count 2.43 M/uL (3.86-4.86)
[2018-04-26 05:50] LABS: Albumin 3.6 g/dL (3.4-5.0); Magnesium 2.3 mg/dL (1.8-2.4); Potassium 4.2 mmol/L (3.5-5.1)
[2018-04-26 05:52] LABS: Bilirubin Total 9.1 mg/dL (0.2-1.0)
[2018-04-26] MEDS: METOPROLOL TAR 25 MG TAB PO SCH ×2 (06:00→17:14)
[2018-04-26] MEDS: WATER IV SCH ×2 (06:16→17:14)
[2018-04-26] MEDS: OCTREOTIDE IV SCH ×2 (06:16→17:14)
[2018-04-26] MEDS: DEXTROSE 5% IV SCH ×2 (06:16→17:14)
[2018-04-26] MEDS: PANTOPRAZOLE INJ 80 MG in D5W 250 ML IV SCH ×2 (06:16→17:14)
[2018-04-26] MEDS: LEVOTHYROXINE SOD 0.025 MG TAB PO SCH (06:17)
[2018-04-26] MEDS: LACTULOSE 20 GM/30 ML UCUP PO SCH ×3 (08:32→21:23)
[2018-04-26] MEDS: CEFTRIAXONE/SWI 1gm 1 GM/10 ML SYR IVP SCH (08:32)
[2018-04-26] MEDS: FOLIC ACID 1 MG TABLET PO SCH (08:33)
[2018-04-26] MEDS: LIOTHYRONINE SOD 5 MCG TAB PO SCH (08:33)
[2018-04-26] MEDS: SODIUM BICARB 325 MG TAB PO SCH ×3 (08:33→21:23)
[2018-04-26] MEDS: DOXYCYCLINE 100 MG CAP PO SCH (08:33)
[2018-04-26] MEDS: RIFAXIMIN 550 MG PO SCH ×2 (08:34→21:23)
[2018-04-26 09:44] LABS: Anisocytosis 1+; Blood Morphology Comment NOTED (NOT SEEN); Platelet Estimate DECR
[2018-04-26] MEDS: HYDROCORTISONE SUC 100 MG INJ IV SCH ×3 (10:22→17:14)
[2018-04-26] MEDS: NA CHLORIDE 0.9% 1,000 ML IV SCH (12:00)
[2018-04-26] MEDS ORDERED: TBO-FILGRASTIM 480 MCG/0.8 ML SYR SQ ONE (12:30)
[2018-04-26 12:52] LABS: Urine Protein/Creatinine Ratio 0.11 ratio (<0.15)
[2018-04-26 12:55] LABS: Protime INR 4.16
--- NOTE | 2018-04-26 12:57 | RAD REPORT ---
EXAM DESCRIPTION: US - Renal Ultrasound-Complete - 04/26/2018 12:40 pm CLINICAL HISTORY: Acute kidney injury COMPARISON: CT abdomen October 2017 with FINDINGS: The right kidney measures 11.8 x 7.0 x 5.9 cm. The left kidney measures 11.9 x 5.3 x 5.4 cm. Renal cortical thickness and echogenicity are normal. No hydronephrosis or suspicious renal mass. Slightly larger right kidney seen on the October 2017 exam. Urinary bladder was only partially filled. No gross abnormality seen. IMPRESSION: No hydronephrosis or suspicious renal mass. Minimal size asymmetry is similar to October 2017. No other significant findings.
--- NOTE | 2018-04-26 13:30 | P.PN ---
Subjective Date of Service: 04/26/18 Primary Care Provider: Dr. Sears; GI-Dr. Almaguer Chief Complaint: Altered mental status, nausea/vomiting, hypotension, sepsis Patient seen and examined at bedside with RN. Chart reviewed. Case discussed with cardiology, GI, nephrology at this time. pt this morning has been having lethargy.Ammonia level was 43 and sodium was 129. Blood pressure has stabilized somewhat however still appears to be hypotensive. Urine output has been poor over the past 24 hr. Review of Systems 10-point ROS is otherwise unremarkable Physical Examination - Vital Signs Temperature: 97.8 F Blood Pressure: 95/47 Pulse: 57 Respirations: 17 Pulse Ox (%): 96 - Physical Exam General: Mild distress, Other (Lethargic and weakness. ) HEENT: Atraumatic, PERRLA, EOMI, Scleral icterus Neck: Supple, JVD not distended Respiratory: Normal air movement, Crackles/rales Cardiovascular: Regular rate/rhythm, Normal S1 S2 Gastrointestinal: Normal bowel sounds, No tenderness Musculoskeletal: Swelling (2+ pitting edema BL UE and LE) Integumentary: No rashes, Other (Jaundice) Neurological: Abnormal speech, Abnormal strength, Abnormal affect Lymphatics: No axilla or inguinal lymphadenopathy - Studies Microbiology Data (last 24 hrs): 04/23/18 15:46 Catheterized Urine [place] Count - Final BETWEEN 10,000 & 100,000 CFU/ML 04/23/18 15:46 Catheterized Urine - Final Medications List Reviewed: Yes Assessment And Plan - Current Problems (Diagnosis) (1) Sepsis Onset Date: 04/25/18 Current Visit: Yes Status: Acute Plan: Sepsis with Septic Shock. Most Likely 2.2 to Bactermia vs Vibirio vs UTI -the currently on IV Zosyn and rocephin -WBC trending down for now. -Blood Culture + for Klebseilla -urine Culture pending -IV fluids and albumin at this time for hypotension -Started on stress dose steroids -will monitor closely. Qualifiers: Sepsis type: sepsis due to unspecified organism Qualified Code(s): A41.9 - Sepsis, unspecified organism (2) Hepatic encephalopathy Onset Date: 04/24/18 Current Visit: Yes Status: Acute Plan: Hepatic encephalopathy with elevated ammonia most likely secondary to liver cirrhosis -lactulose t.i.d. at this time -currently alert and oriented x2 and lethargic -rifaxamin restarted (3) Dehydration Onset Date: 04/24/18 Current Visit: Yes Status: Acute Plan: Most likely secondary to sepsis. Along with Hyponatremia -IV fluids at this time. NS @ 50ml/hr (4) Jaundice Current Visit: No Status: Acute Plan: T bilirubin of 14.4 -secondary to liver cirrhosis -continue to monitor closely (5) Alcoholic cirrhosis Current Visit: No Status: Chronic Plan: Continue to monitor closely -IV protonix and octerotide now -Rifaximin and Lactulose -Hold Spirinolactone, Lasix and BB for now due to Low BP -MELD score of 39 with 52.6% 3 month mortality Qualifiers: Ascites presence: without ascites Qualified Code(s): K70.30 - Alcoholic cirrhosis of liver without ascites (6) Orthostatic hypotension Current Visit: No Status: Chronic Plan: Patient takes midodrine t.i.d. at home. -Restart that here in the hospital at higher dose of 10mg TID (7) Chronic renal disease Current Visit: No Status: Acute Plan: Patient with acute on chronic kidney disease most likely secondary to hepatic renal syndrome. -will continue with IV fluids and monitor patient closely. -BUN.CR elevated today -Nephrology consulted. appreciate [facility] Qualifiers: Chronic kidney disease stage: stage 3 (moderate) Qualified Code(s): N18.3 - Chronic kidney disease, stage 3 (moderate) (8) Hypothyroidism Onset Date: 04/24/18 Current Visit: Yes Status: Chronic Qualifiers: Hypothyroidism type: acquired Qualified Code(s): E03.9 - Hypothyroidism, unspecified (9) GERD (gastroesophageal reflux disease) Onset Date: 04/24/18 Current Visit: Yes Status: Chronic Qualifiers: Esophagitis presence: esophagitis presence not specified Qualified Code(s) : K21.9 - Gastro-esophageal reflux disease without esophagitis (10) Acute blood loss anemia Current Visit: Yes Status: Acute Plan: Acute blood loss anemia most 2.2 to Esophageal Varies vs Acute bleeding from ulcer -Hgb dropped to 8.2 this AM -FOBT negative -IV protonix and octerotide -GI made aware. -No transfusion due to yarsani preference Discharge Plan: Other Plan to discharge in: Greater than 2 days - Code Status/Comfort Care Code Status Assessed: Yes Physician Review: Patient Assessed, Agree with Above Assessment and Plan Critical Care: Yes
--- NOTE | 2018-04-26 16:07 | PN ---
Date of Progress Note: 04/26/2018 History Of Present Illness: The patient was admitted with acute kidney injury, altered mental status , hepatic encephalopathy. The patient had marginal low blood pressure, started being oliguric. The patient is a Jehovah Witness. The patient was started on hepatorenal treatment. The patient has sti ll poor urine output. The patient being oliguric for the last 3 days even with the IV fluids. The p atient gained 16 pounds since the admission. Physical Examination: Vital Signs: When I saw the patient, blood pressure 95/47, pulse of 57. Afebrile. Chest: Crackles bilateral base. Heart: S1-S2, regular. Abdomen: Soft, nontender. Ascites. Extremities: +3 edema. Neurologic: Alert, oriented to person. Laboratory Data: WBC 4.2, H and H 8.7/25.6, platelet of 35. Sodium 129, potassium 4.2, bicarb 23, B UN 102, creatinine of 4, calcium 8.8, magnesium of 2.3, total bilirubin of 9.1, AST and ALT within no rmal limit, alkaline phosphatase of 37, albumin 3.6. Urinalysis, WBC of 20. Protein creatinine is n ot done. Microalbumin protein to creatinine ratio is 0.05. Medications: Current medications the patient on its include: 1.Ceftriaxone. 2.Doxycycline. 3.Levaquin 250. 4.Midodrine 10 t.i.d. 5.Albumin. 6.Metoprolol 12.5 b.i.d. 7.Sodium bicarb 650 t.i.d. 8.Lactulose. 9.Folic acid. 10.Pantoprazole. 11.Levothyroxine. 12.Hydrocortisone 50 q.6h. 13.Normal silent 50 per hour. 14.Octreotide drip. INR of 2. There is no cortisol or TSH level for the patient. Culture growing Klebsiella pneumonia r esistant to ciprofloxacin, sensitive to quinolones, resistant to ampicillin, sensitive to Zosyn and U nasyn, sensitive to cephalosporin. Assessment And Plan: Acute kidney injury, possible to hepatorenal, nonproteinuric, oliguric. I do n ot have any image of the kidney yet. I am going to go ahead and get renal ultrasound. Our differential diagnosis is: 1.Hepatorenal. 2.Poor perfusion acute tubular necrosis, toxic acute tubular necrosis secondary to sepsis and low bl ood pressure. 3.Given the altered mental status, thrombocytopenia, hemolytic-uremic syndrome need also to be ruled out. I am going to go ahead and send for schistocyte, haptoglobin, and LDH, and we will follow up. 4.I had long discussion with the patient, family, the by bedside regarding the prognosis, th e condition of the patient, and the need to initiate renal replacement therapy given that the patient oliguric, over volume. agreed on that plan. The patient is Jehovah Witness. We will consu lt Surgery. If Surgery not comfortable, the patient is going to be needing to be transferred to get a catheter to start the patient on dialysis and we will follow up. 5.Continue octreotide, continue albumin, discontinue IV fluid, and continue midodrine, and we will f ollow up the patient. 6.Hypertension currently hypotension continue midodrine. 7.Anasarca, secondary to renal failure, hepatic failure possible component of hypothyroidism. I am going to go ahead and send for a TSH, repeat a protein creatinine. Cardiac source has been ruled out as the echocardiogram did not show any congestive heart failure we will try to establish better volu me control with dialysis. 8.Cirrhosis. Follow up with GI. 9.Altered mental status secondary to hepatic encephalopathy as above continue lactulose given the di fferential of hemolytic-uremic syndrome. I sent the workup as above. We will do renal ultrasound an d we will try to establish better volume control with ultrafiltration on the dialysis, and we will follow up. The patient overall poor prognosis. We will follow up. RAYMUNDO Voice ID: [id number] Report ID: [id number]
[2018-04-26] MEDS: PIPER/TAZO/NS 2.25gm 2.25 GM/50 ML BAG IVPB SCH (17:13)
[2018-04-26 20:19] VITALS: O2SAT 95
[2018-04-27] MEDS: HYDROCORTISONE SUC 100 MG INJ IV SCH ×3 (00:47→13:02)
[2018-04-27] MEDS: PIPER/TAZO/NS 2.25gm 2.25 GM/50 ML BAG IVPB SCH ×2 (00:48→08:22)
[2018-04-27] MEDS: NA CHLORIDE 0.9% 1,000 ML IV SCH (00:49)
[2018-04-27] MEDS: ALBUMIN HUMAN 25% 100 ML IV SCH ×4 (01:56→14:19)
[2018-04-27] MEDS: MIDODRINE HCL 5 MG TABLET PO SCH ×2 (01:56→08:21)
[2018-04-27] MEDS: OCTREOTIDE IV SCH ×2 (02:07→14:35)
[2018-04-27] MEDS: WATER IV SCH ×2 (02:07→14:35)
[2018-04-27] MEDS: DEXTROSE 5% IV SCH ×2 (02:07→14:35)
[2018-04-27] MEDS: PANTOPRAZOLE INJ 80 MG in D5W 250 ML IV SCH (02:07)
[2018-04-27 06:15] VITALS: TEMP 97.9
[2018-04-27 06:15] LABS: Hematocrit 26.1 % (36.0-45.0); MCH 36.6 pg (27.0-35.0); MCV 105.3 fL (80-100); MPV 10.3 fL (7.6-11.3); RBC Red Blood Cell Count 2.48 M/uL (3.86-4.86)
[2018-04-27] MEDS: LEVOTHYROXINE SOD 0.025 MG TAB PO SCH (06:27)
[2018-04-27 07:09] LABS: Albumin 4.1 g/dL (3.4-5.0); BUN Blood Urea Nitrogen 108 mg/dL (7-18); Bicarbonate 20 mmol/L (21-32); Ferritin 1609.1 ng/mL (8-388); Folic Acid, (Folate) > 20.0 ng/mL (3.1-17.5); Glucose Level 183 mg/dL (74-106); Magnesium 2.4 mg/dL (1.8-2.4); Phosphorus 4.8 mg/dL (2.5-4.9); Potassium 4.3 mmol/L (3.5-5.1); Sodium Level 126 mmol/L (136-145); Thyroid Stimulating Hormone 0.549 uIU/mL (0.360-3.740); Transferrin 51 mg/dL (200-360)
[2018-04-27] MEDS: SODIUM BICARB 325 MG TAB PO SCH ×2 (08:21→14:17)
[2018-04-27] MEDS: LACTULOSE 20 GM/30 ML UCUP PO SCH ×2 (08:21→14:19)
[2018-04-27] MEDS: LIOTHYRONINE SOD 5 MCG TAB PO SCH (08:22)
[2018-04-27] MEDS: CEFTRIAXONE/SWI 1gm 1 GM/10 ML SYR IVP SCH (08:22)
[2018-04-27] MEDS: FOLIC ACID 1 MG TABLET PO SCH (08:22)
[2018-04-27] MEDS: RIFAXIMIN 550 MG PO SCH (08:23)
[2018-04-27 09:18] LABS: Anisocytosis 2+; Blood Morphology Comment NOTED (NOT SEEN); Macrocytosis 2+; Ovalocytes 1+; Platelet Estimate DECR; Poikilocytosis 1+
[2018-04-27] MEDS ORDERED: TBO-FILGRASTIM 480 MCG/0.8 ML SYR SQ ONE (11:11)
[2018-04-27] MEDS ORDERED: PANTOPRAZOLE INJ 80 MG in NA CHLORIDE 0.9% 250 ML IV SCH (12:00)
--- NOTE | 2018-04-27 12:38 | CON ---
Date of Consultation: 04/26/2018 History Of Present Illness: This is a case of a 57-year-old patient with a history of cirrhosis of t he liver and comes to the hospital several days ago with a history of atrial fibrillation and encepha lopathy. Found to have also kidney insufficiency with a possibility of a dialysis treatment needed. The patient also has history of esophageal varices, but cannot give any information. Review of Systems: Unable to be obtained. Past Medical History: As above including an alcoholic cirrhosis, hepatic encephalopathy, gastropares is, GERD, hypothyroidism, thrombocytopenia. Past Surgical History: Include a cholecystectomy, hysterectomy, right breast cyst removed. Family History: Hypertension. Physical Examination: General: The patient is awake and in no distress. HEENT: Pupils icteric. Neck: Supple. Abdomen: Soft and depressible. No guarding or rebound. Extremities: Good capillary refill. Laboratory Data: INR is 4.16, platelets of 35. Hemoglobin 8.7. Assessment: A 57-year-old patient with cirrhosis of the liver, coagulopathic and also low platelets. The patient with multiple organ failure including renal insufficiency. The patient is Jehovah Witn ess, unable to get blood products. From the surgical standpoint, I believe this patient should be se en by a vascular surgeon to put a catheter on her as she represents a high risk for bleeding in any p lace but at least there they can control and more prepared to deal with the consequences of putting a catheter in somebody with the severe coagulopathy and also thrombocytopenia and inability to get the blood transfusion. So, we recommend this patient to be transferred to a higher level of care where the vascular surgeon can go and put the catheters in this patient if dialysis is needed. KENDRA/RENATO Voice ID: [id number] Report ID: [id number]
[2018-04-27 12:59] LABS: Albumin 4.4 g/dL (3.4-5.0); Bilirubin Direct 3.5 mg/dL (0-0.2); Protein, Total 5.8 g/dL (6.4-8.2)
[2018-04-27 13:21] LABS: Bilirubin Total 7.8 mg/dL (0.2-1.0)
--- NOTE | 2018-04-27 13:23 | P.PN ---
Subjective Date of Service: 04/27/18 Primary Care Provider: Dr. Sears; GI-Dr. Almaguer Chief Complaint: Altered mental status, nausea/vomiting, hypotension, sepsis Patient seen and examined at bedside with RN. Chart reviewed. Case discussed with cardiology, GI, nephrology at this time. pt this morning has Lethargic. Sodium was 126. Blood pressure has stabilized. Urine output still remains low in the past 24 hr Review of Systems 10-point ROS is otherwise unremarkable Physical Examination - Vital Signs Temperature: 97.9 F Blood Pressure: 119/51 Pulse: 44 Respirations: 12 Pulse Ox (%): 98 - Physical Exam General: Mild distress, Confused, Other (Ill-appearing) HEENT: Atraumatic, PERRLA, EOMI, Scleral icterus Neck: Supple, JVD not distended Respiratory: Normal air movement, Crackles/rales, Expiratory wheezes, Inspiratory wheezes Cardiovascular: Regular rate/rhythm, Normal S1 S2 Gastrointestinal: Normal bowel sounds, Soft and benign, W/out succussion splash , No tenderness Musculoskeletal: No tenderness Integumentary: No rashes Neurological: Abnormal speech, Abnormal strength, Abnormal sensation Lymphatics: No axilla or inguinal lymphadenopathy - Studies Medications List Reviewed: Yes Assessment And Plan - Current Problems (Diagnosis) (1) Sepsis Onset Date: 04/25/18 Current Visit: Yes Status: Acute Plan: Sepsis with Septic Shock. Most Likely 2.2 to Bactermia vs Vibirio vs UTI -Currently on IV Zosyn and rocephin -Blood Culture + for Klebseilla -urine Culture pending -IV fluids and albumin at this time for hypotension -Started on stress dose steroids -will monitor closely. Qualifiers: Sepsis type: sepsis due to unspecified organism Qualified Code(s): A41.9 - Sepsis, unspecified organism (2) Hepatic encephalopathy Onset Date: 04/24/18 Current Visit: Yes Status: Acute Plan: Hepatic encephalopathy with elevated ammonia most likely secondary to liver cirrhosis -lactulose t.i.d. at this time -currently alert and oriented x2 and lethargic -rifaxamin restarted (3) Dehydration Onset Date: 04/24/18 Current Visit: Yes Status: Acute Plan: Most likely secondary to sepsis. Along with Hyponatremia -IV fluids at this time. NS @ 50ml/hr (4) Jaundice Current Visit: No Status: Acute Plan: T bilirubin of 9.1 -secondary to liver cirrhosis -continue to monitor closely (5) Alcoholic cirrhosis Current Visit: No Status: Chronic Plan: Continue to monitor closely -IV protonix and octerotide now -Rifaximin and Lactulose -Hold Spirinolactone, Lasix and BB for now due to Low BP -MELD score of 39 with 52.6% 3 month mortality Qualifiers: Ascites presence: without ascites Qualified Code(s): K70.30 - Alcoholic cirrhosis of liver without ascites (6) Orthostatic hypotension Current Visit: No Status: Chronic Plan: Patient takes midodrine t.i.d. at home. -Restart that here in the hospital at higher dose of 10mg TID (7) Chronic renal disease Current Visit: No Status: Acute Plan: Patient with acute on chronic kidney disease most likely secondary to hepatic renal syndrome. -will continue with IV fluids and monitor patient closely. -BUN.CR elevated today -Nephrology consulted. appreciate Reccs -the patient to be transferred to higher level of care for vascular surgeon to put in a HD catheter given the low platelets Qualifiers: Chronic kidney disease stage: stage 3 (moderate) Qualified Code(s): N18.3 - Chronic kidney disease, stage 3 (moderate) (8) Hypothyroidism Onset Date: 04/24/18 Current Visit: Yes Status: Chronic Qualifiers: Hypothyroidism type: acquired Qualified Code(s): E03.9 - Hypothyroidism, unspecified (9) GERD (gastroesophageal reflux disease) Onset Date: 04/24/18 Current Visit: Yes Status: Chronic Qualifiers: Esophagitis presence: esophagitis presence not specified Qualified Code(s) : K21.9 - Gastro-esophageal reflux disease without esophagitis (10) Acute blood loss anemia Current Visit: Yes Status: Acute Plan: Acute blood loss anemia most 2.2 to Esophageal Varies vs Acute bleeding from ulcer -hgb Stable today -FOBT negative -IV protonix and octerotide -No transfusion due to samaritan preference Discharge Plan: Other Plan to discharge in: 48 Hours - Code Status/Comfort Care Code Status Assessed: Yes Physician Review: Patient Assessed, Agree with Above Assessment and Plan Critical Care: No
--- NOTE | 2018-04-27 13:46 | EKG ---
Test Date: 2018-04-27 Test Time: 09:56:07 Motor Electrician: PRUDENCE MEASUREMENT RESULTS: Intervals: Rate: 52 GA: 178 QRSD: 96 QT: 440 QTc: 409 [place]: P: 41 GA: 178 QRS: 9 T: 179 INTERPRETIVE STATEMENTS: Sinus bradycardia with frequent premature ventricular complexes in a pattern of bigeminy Cannot rule out Inferior infarct, age undetermined Cannot rule out Anterior infarct, age undetermined T wave abnormality, consider lateral ischemia Abnormal ECG Compared to ECG 04/24/2018 13:20:21 Ventricular premature complex(es) now present T-wave abnormality now present Atrial fibrillation no longer present ST (T wave) deviation no longer present Myocardial infarct finding still present Possible ischemia still present Electronically Signed On 04-27-18 13:45:17 CDT by Rodolfo Barton
--- NOTE | 2018-04-27 16:40 | P.DS ---
Admission Date: 04/24/18 Discharge Date: 04/27/18 Primary Care Provider: Dr. Sears; GI-Dr. Almaguer Reason for Admission: Altered mental status, nausea/vomiting, hypotension, sepsis - Problems (1) Sepsis Onset Date: 04/25/18 Current Visit: Yes Status: Acute Qualifiers: Sepsis type: sepsis due to unspecified organism Qualified Code(s): A41.9 - Sepsis, unspecified organism (2) Hepatic encephalopathy Onset Date: 04/24/18 Current Visit: Yes Status: Acute (3) Dehydration Onset Date: 04/24/18 Current Visit: Yes Status: Acute (4) Jaundice Current Visit: No Status: Acute (5) Alcoholic cirrhosis Current Visit: No Status: Chronic Qualifiers: Ascites presence: without ascites Qualified Code(s): K70.30 - Alcoholic cirrhosis of liver without ascites (6) Orthostatic hypotension Current Visit: No Status: Chronic (7) Chronic renal disease Current Visit: No Status: Acute Qualifiers: Chronic kidney disease stage: stage 3 (moderate) Qualified Code(s): N18.3 - Chronic kidney disease, stage 3 (moderate) (8) Hypothyroidism Onset Date: 04/24/18 Current Visit: Yes Status: Chronic Qualifiers: Hypothyroidism type: acquired Qualified Code(s): E03.9 - Hypothyroidism, unspecified (9) GERD (gastroesophageal reflux disease) Onset Date: 04/24/18 Current Visit: Yes Status: Chronic Qualifiers: Esophagitis presence: esophagitis presence not specified Qualified Code(s) : K21.9 - Gastro-esophageal reflux disease without esophagitis (10) Acute blood loss anemia Current Visit: Yes Status: Acute Brief History of Present Illness: See #1 Hospital Course: Overall during the hospital stay patient remained stable. Patient was initially admitted to the hospital for hepatic encephalopathy. Was found to have elevated ammonia. Patient was started on lactulose while here in the hospital. Patient also was found to have sepsis while here in the hospital most likely secondary to bacteremia. Patient was growing Klebsiella in her blood cultures. Urine culture had been contaminated initially and the 2nd urine culture was negative. However this could be secondary to patient receiving antibiotics as well. The most likely source of sepsis is from her urine. Patient was initially started on Rocephin Levaquin and doxycycline and was switched over to Rocephin and Zosyn at this time. Patient also was found to have acute drop in her hemoglobin most likely secondary to hemolytic uremic syndrome versus active bleeding from her esophageal varices. Patient thus was started on Protonix and octreotide drip. Her hemoglobin did go up to 9.1. Patient refused to get any blood transfusion due to denominational preferences. Patient also was having thrombocytopenia while here in the hospital and his platelet went down to 35 and 38. Patient was started on that the steroids while here in the hospital along with Midrin for her hypotension and albumin q.4 hr. Patient did have a map of 65 while here in the hospital and urine output improved overall: The hospital. Nephrology was consulted GI was consulted. Cardiology was consulted and pulmonology was consulted. 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 The as patient will be requiring a hemodialysis catheter general surgery was consulted. However given in the thrombocytopenia and the complications that could arise after putting a hemodialysis catheter it was decided the patient would benefit from transfer to a higher level of care where there is vascular surgeon on-call for hemodialysis catheter placement. Patient then was referred over to [facility] by the ICU team. Vital Signs/Physical Exam: Temp Pulse Resp BP Pulse Ox 97.9 F 48 L 16 122/62 98 04/27/18 13:23 04/27/18 14:00 04/27/18 14:00 04/27/18 14:00 04/27/18 14:00 General: Alert, Mild distress HEENT: Atraumatic, PERRLA, EOMI, Scleral icterus Neck: Supple, JVD not distended Respiratory: Clear to auscultation bilaterally, Normal air movement Cardiovascular: Regular rate/rhythm, Normal S1 S2 Gastrointestinal: Normal bowel sounds, No tenderness Musculoskeletal: No tenderness Integumentary: No rashes Neurological: Normal speech, Normal tone, Normal affect Lymphatics: No axilla or inguinal lymphadenopathy Laboratory Data at Discharge: WBC 24.2 K/uL (4.3-10.9) H* D 04/27/18 05:00 Hgb 9.1 g/dL (12.0-15.0) L 04/27/18 05:00 Hct 26.1 % (36.0-45.0) L 04/27/18 05:00 Plt Count 38 K/uL (152-406) L* 04/27/18 05:00 PT 49.8 SECONDS (9.5-12.5) H 04/26/18 12:07 INR 4.16 H* 04/26/18 12:07 Sodium 126 mmol/L (136-145) L 04/27/18 05:00 Potassium 4.3 mmol/L (3.5-5.1) 04/27/18 05:00 BUN 108 mg/dL (7-18) H 04/27/18 05:00 Creatinine 4.20 mg/dL (0.55-1.3) H 04/27/18 05:00 Glucose 183 mg/dL (74-106) H 04/27/18 05:00 Uric Acid 11.0 mg/dL (2.6-6.0) H 04/24/18 05:26 Phosphorus 4.8 mg/dL (2.5-4.9) 04/27/18 05:00 Magnesium 2.4 mg/dL (1.8-2.4) 04/27/18 05:00 Total Bilirubin 7.8 mg/dL (0.2-1.0) H* 04/27/18 11:38 AST 23 U/L (15-37) 04/27/18 11:38 ALT 22 U/L (12-78) 04/27/18 11:38 Alkaline Phosphatase 44 U/L (45-117) L 04/27/18 11:38 Lipase 63 U/L (73-393) L 04/23/18 07:40 Home Medications: Furosemide [Lasix*] 40 mg PO BID 08/25/17 Montelukast Sodium [Singulair] 10 mg PO BEDTIME 08/25/17 Pantoprazole [Protonix Tab*] 40 mg PO DAILY 08/25/17 Ferrous Sulfate 325 mg PO BEDTIME 09/28/17 Folic Acid 1 mg PO DAILY 09/28/17 Magnesium Oxide [Mag 0X*] 400 mg PO DAILY 09/28/17 Midodrine HCl [Proamatine*] 5 mg PO TID PRN 09/28/17 Lactulose 30 gm PO TID 12/05/17 Liothyronine Sodium [Cytomel] 5 mcg PO BID 12/05/17 Levothyroxine Sodium 25 mcg PO DAILY 04/23/18 Rifaximin [Xifaxan] 550 mg PO BID 04/23/18 Spironolactone [Aldactone*] 50 mg PO DAILY 04/23/18 Cholecalciferol (Vitamin D3) [Vitamin D3] 5,000 unit PO Q15D 04/24/18 Furosemide [Lasix] 40 mg PO BID 04/24/18
[2018-04-27 16:44] VITALS: BP 123/56
--- NOTE | 2018-04-28 02:56 | PN ---
Date of Progress Note: 04/27/2018 Chief Complaint: Acute kidney injury, severe, oliguric. The patient is to start dialysis. The chantal ent is a [employer] Witness, and due to higher risk of bleeding with thrombocytopenia, the patient needs to be transferred to higher level of care for catheter placement. The patient is started on multipl e drips and will be changed to normal saline. The patient developed hyponatremia. Sodium level is 126. Yesterday sodium was 129. Azotemia remains elevated. BUN is 100 range and creatinin e is 4.0. Renal function has not improved. Review of Systems: The patient remains encephalopathic, cannot provide review of systems. Physical Examination: Lungs: Few crackles at bases. Heart: S1, S2. Abdomen: Soft. Ascites present. Extremities: Edema present in both legs and upper extremity. Laboratory Data: Sodium 126, potassium 4.2, bicarbonate 23, BUN 102, creatinine 4.0. Impression And Plan: 1.Acute kidney injury secondary to multiple causes. The patient has likely an acute tubular necrosi s with underlying hepatorenal syndrome secondary to hypoperfusion. The patient need to start dialysi s. The patient has high risk of catheter placement procedure and transferred to [facility] of care. 2.Hypotension. Continue midodrine. 3.Anasarca secondary to renal failure, hepatic failure, possible hypothyroidism. Pending TSH to rul e out hypothyroidism. 4.Liver cirrhosis. The patient will be evaluated by GI. 5.Encephalopathy. The patient is on lactulose . Monitor ammonia level. ALAN/MODL Voice ID: [id number] Report ID: [id number]
--- NOTE | 2018-04-28 20:30 | P.PN ---
Subjective Date of Service: 04/27/18 Primary Care Provider: Dr. Sears; GI-Dr. Almaguer Chief Complaint: Altered mental status, nausea/vomiting, hypotension, sepsis Subjective: No new changes (Being transferred to [facility] for AV fistula for soon to start hemodialysis. Sepsis resolved with WBC back down from 19 to 4 with antibiotic therapy. WBC up today with stress dose steroids started, which have helped with hypotension. Still in renal failure.) Review of Systems 10-point ROS is otherwise unremarkable General: Weakness, Malaise Neurological: Weakness, Confusion (hepatic enceph grade 3-4 (somewhate somnolent but easily arousable)) Physical Examination - Vital Signs Temperature: 97.9 F Blood Pressure: 123/56 Pulse: 46 Respirations: 11 Pulse Ox (%): 96 - Physical Exam General: Alert, Oriented x1, Cooperative HEENT: Atraumatic, Normocephalic, PERRLA, Scleral icterus Neck: Supple Respiratory: Normal air movement Cardiovascular: Normal pulses Gastrointestinal: No tenderness, No rebound, No guarding - Studies Medications List Reviewed: Yes Assessment And Plan - Current Problems (Diagnosis) (1) Altered mental status Onset Date: 04/24/18 Status: Acute Qualifiers: Altered mental status type: unspecified Qualified Code(s): R41.82 - Altered mental status, unspecified (2) Elevated liver function tests Onset Date: 04/24/18 Status: Acute (3) Hepatic encephalopathy Onset Date: 04/24/18 Status: Acute (4) Hyperbilirubinemia Onset Date: 04/24/18 Status: Acute (5) Sepsis Onset Date: 04/25/18 Status: Acute Qualifiers: Sepsis type: sepsis due to unspecified organism Qualified Code(s): A41.9 - Sepsis, unspecified organism (6) Chronic renal disease Status: Acute Qualifiers: Chronic kidney disease stage: stage 3 (moderate) Qualified Code(s): N18.3 - Chronic kidney disease, stage 3 (moderate) (7) Hypoalbuminemia Onset Date: 12/06/17 Status: Acute (8) Jaundice Status: Acute (9) Anemia Status: Chronic Qualifiers: Anemia type: other cause Other causes of anemia: chronic disease, other Qualified Code(s): D63.8 - Anemia in other chronic diseases classified elsewhere (10) Orthostatic hypotension Status: Chronic - Plan REC: 1) agree with pruning of antibiotics 2) IV albumin serially 3) continue / encourage po diet 4) limit IVFs as able, especially NS with h/o cirrhosis 5) await transfer to [facility] for AV graft placement Physician Review: Patient Assessed, Agree with Above Assessment and Plan
--- NOTE | 2018-04-29 11:34 | PN ---
Date of Progress Note: 04/26/2018 Mrs. Pizarro is a 57, was seen by Dr. Aguilar on 04/25/2018, for atrial fibrillation. The patient had b een admitted to the ICU for sepsis to Dr. Robles's service. She was felt to be not a candidate for an y antiarrhythmics or anticoagulation. Low-dose beta radha was recommended. However, overnight aft er 1 dose of beta-radha, she became hypotensive. She remained in atrial fibrillation with a rate c ontrolled. An echocardiogram, which was done on 04/25/2018, was normal with a normal ejection fracti on without any wall motion abnormalities. We will continue her present regimen as is. Hopefully, wh en all her other problems are settled, we can deal with atrial fibrillation from a rate control stand point without having to worry about her getting hypotensive. No change in therapy is recommended at this point. We will be available for questions if the need arise. IVA/RENATO Voice ID: [id number] Report ID: [id number]
[2018-04-30 02:52] LABS: HBsAG Nonreactive (Nonreactive)
[2018-05-01 13:58] LABS: Hepatitis C Virus RNA (PCR)log <1.18 log IU/mL
== END 2018-04-27 16:35 | disposition short-term general hospital (02) | DRG 871 ==
LOC: ER 07:03 → ERHOLD 10:39 → 2ND 12:08 → 3RD-ICU 04-24 12:15 → OBSVTOIN 04-24 14:49
PROVIDERS: ADMIT Family Medicine; ATTEND Family Medicine
PROC: 02HV33Z Insertion of Infusion Device into Superior Vena Cava, Percutaneous Approach (ICD-10-PCS; principal; 2018-04-24)
DX: A41.59 Other Gram-negative sepsis (principal); K76.7 Hepatorenal syndrome; N17.0 Acute kidney failure with tubular necrosis; D59.3 Hemolytic-uremic syndrome; R65.21 Severe sepsis with septic shock; D62 Acute posthemorrhagic anemia; E87.1 Hypo-osmolality and hyponatremia; E87.2 Acidosis; D68.9 Coagulation defect, unspecified; I85.10 Secondary esophageal varices without bleeding; E86.0 Dehydration; K70.30 Alcoholic cirrhosis of liver without ascites; I95.1 Orthostatic hypotension; E03.9 Hypothyroidism, unspecified; K21.9 Gastro-esophageal reflux disease without esophagitis; D69.6 Thrombocytopenia, unspecified; B19.20 Unspecified viral hepatitis C without hepatic coma; K72.90 Hepatic failure, unspecified without coma; Z87.891 Personal history of nicotine dependence; E88.09 Other disorders of plasma-protein metabolism, not elsewhere classified; D63.8 Anemia in other chronic diseases classified elsewhere; I12.9 Hypertensive chronic kidney disease with stage 1 through stage 4 chronic kidney disease, or unspecified chronic kidney disease; N18.3 Chronic kidney disease, stage 3 (moderate); K31.84 Gastroparesis; I48.91 Unspecified atrial fibrillation
CPT/HCPCS: 36415; 71045; 74018; 74019; 76770; 80048; 80053; 80069; 80076; 81001; 81003; 81015; 82043; 82140; 82274; 82533; 82570; 82607; 82728; 82746; 82962; 83010; 83540; 83615; 83690; 83735; 83970; 84100; 84145; 84156; 84300; 84443; 84466; 84550; 85014; 85018; 85025; 85044; 85610; 86317; 86704; 86706; 87040; 87077; 87086; 87088; 87186; 87205; 87340; 87522; 93005; 93306; 96361; 96365; 96375; 99285; C9113; G0378; J0696; J1446; J1720; J2354; J2405; J7030; J7060; P9047; Q4081